=== PATIENT | female | born 1945 | race Caucasian/White ===

== ENCOUNTER 2016-12-10 14:23 | Inpatient (IN) | payer MEDICARE ==
[2016-12-10] MEDS ORDERED: NORMAL SALINE 1000 ML 1,000 ML IV PRN (14:49)
--- NOTE | 2016-12-10 14:49 | ER Document Report ---
ED General - General Chief Complaint: Headache Stated Complaint: WEAK,CONGESTION,HEAD PAIN Time seen by provider: 14:47 Mode of Arrival: Ambulatory Information source: Patient Notes: This is a 71-year-old female with a history of hypertension, COPD who presents to the emergency room with a four-day history of cough, congestion, headache, nausea after eating and generalized weakness. Patient denies any chest pain, fever, photophobia or neck stiffness. TRAVEL OUTSIDE OF THE [place] IN LAST 30 DAYS: No - HPI Onset: Last week Onset/Duration: Gradual Quality of pain: No pain Severity: None Pain Level: Denies Associated symptoms: denies: Chills, Fever Exacerbated by: Denies Relieved by: Denies Similar symptoms previously: No Recently seen / treated by doctor: No - Related Data Allergies/Adverse Reactions: No Known Allergies Allergy (Verified 12/10/16 14:31) Home Medications: Current Home Medications Buspirone HCl [Buspar 30 mg Tablet] 1 tab PO BID 12/10/16 [History] Metoprolol Tartrate [Metoprolol Tartrate] 1 tab PO BID 12/10/16 [History] Omeprazole 40 mg PO TID 12/10/16 [History] Past Medical History - General Information source: Patient - Social History Smoking Status: Former Smoker Cigarette use (# per day): No Chew tobacco use (# tins/day): No Smoking Education Provided: No Frequency of alcohol use: None Drug Abuse: None Lives with: Alone, Family Family History: Reviewed & Not Pertinent Patient has suicidal ideation: No Patient has homicidal ideation: No - Past Medical History Cardiac Medical History: Reports: Hx Hypertension - METOPROLOL, LISINOPRIL Denies: Hx Heart Attack Pulmonary Medical History: Reports: Hx COPD Denies: Hx Asthma Neurological Medical History: Denies: Hx Cerebrovascular Accident, Hx Seizures Renal/ Medical History: Denies: Hx Peritoneal Dialysis GI Medical History: Denies: Hx Hepatitis, Hx Hiatal Hernia, Hx Ulcer Infectious Medical History: Denies: Hx Hepatitis Past Surgical History: Reports: Hx Appendectomy, Hx Orthopedic Surgery - right shoulder. Denies: Hx Mastectomy, Hx Open Heart Surgery, Hx Pacemaker Review of Systems - Review of Systems Notes: Review of systems: Constitutional: See H&P. EENT: Denies ear pain, sinus tenderness, throat pain, throat swelling. Cardiovascular: Denies chest pain, palpitations, dyspnea or edema. Respiratory: Denies wheezing, cough, hemoptysis. Abdomen: Positive for nausea. Denies abdominal pain, vomiting, diarrhea. Denies BRBPR or melena. Genitourinary: Denies dysuria, pyuria, hematuria, flank pain. Musculoskeletal: denies joint pain or swelling, denies back pain. Neurologic: Positive for headache and generalized weakness. Denies photophobia , neck stiffness, focal arm or leg weakness. Denies loss of bowel or bladder function. Denies saddle anesthesia. Skin: Denies rash, lesions. Physical Exam - Vital signs Vitals: Temp Pulse Resp BP Pulse Ox 97.7 F 99 20 146/91 H 96 12/10/16 14:30 12/10/16 14:30 12/10/16 14:30 12/10/16 14:30 12/10/16 14:30 Notes: Physical exam: GENERAL: 71-year-old female, alert and oriented 3, no acute distress. HEAD: Atraumatic, normocephalic. EYES: Pupils equal round and reactive to light, extraocular movements intact, sclera anicteric, conjunctiva are normal. ENT: TMs normal, nares patent, oropharynx clear without exudates. Moist mucous membranes. NECK: Normal range of motion, supple without lymphadenopathy or JVD. LUNGS: Breath sounds clear to auscultation bilaterally and equal. No wheezes rales or rhonchi. HEART: Regular rate and rhythm without murmurs, rubs or gallops. ABDOMEN: Soft, normoactive bowel sounds. No tenderness to palpation. No guarding, no rebound. No masses appreciated. EXTREMITIES: Normal range of motion, no pitting or edema. No clubbing or cyanosis. NEUROLOGICAL: Cranial nerves II through XII grossly intact. Normal speech, normal gait. PSYCH: Normal mood, normal affect. SKIN: Warm, Dry, normal turgor, no rashes or lesions noted. Course - Re-evaluation Re-evalutation: 12/10/16 15:54 Note: Patient was initially written for IV normal saline before the sodium result returned. She is significantly hyponatremic. Clinically, she appears euvolemic. Serum osmole's, urine sodium and thyroid studies of been sent. They are pending at this time. Currently, we will treat with fluid restriction. We're awaiting [place] for pharmacy list. 12/10/16 16:40 Note: Patient has been difficulty time making urine. She is probably on the dry side. I will give her a 500 mL bolus of Ringer's lactate over a few hours. - Vital Signs Vital signs: Temp Pulse Resp BP Pulse Ox 98.0 F 99 18 190/105 H 97 12/10/16 17:03 12/10/16 14:30 12/10/16 17:03 12/10/16 17:03 12/10/16 17:03 - Laboratory Result Diagrams: 12/10/16 15:05 12/10/16 15:05 Laboratory results interpreted by me: 12/10/16 12/10/16 12/10/16 15:05 15:05 15:05 Seg Neutrophils % 78.7 H Lymphocytes % 11.7 L Sodium 121.0 L Chloride 85 L Glucose 128 H Serum Osmolality 249 L Urine Protein Urine Blood Urine Urobilinogen Ur Leukocyte Esterase 12/10/16 16:13 Seg Neutrophils % Lymphocytes % Sodium Chloride Glucose Serum Osmolality Urine Protein 30 H Urine Blood SMALL H Urine Urobilinogen 2.0 H Ur Leukocyte Esterase LARGE H - Diagnostic Test Radiology reviewed: Image reviewed, Reports reviewed - c/w COPD - EKG Interpretation by Me Rate: Normal Rhythm: NSR - EKG shows normal sinus rhythm with a ventricular rate of 76, no acute ST-T wave changes. Critical Care Note - Critical Care Note Total time excluding time spent on procedures (mins): 60 Discharge - Discharge Clinical Impression: severe hyponatremia Condition: Serious Disposition: ADMITTED INPATIENT Admitting Provider: Hospitalist - Dr. Andrade Unit Admitted: Telemetry
[2016-12-10 15:23] LABS: ABSOLUTE EOSINOPHILS # (AUTO) 0.1 10^3/uL (0.0-0.6); ABSOLUTE LYMPHOCYTES (AUTO) 0.6 10^3/uL (0.5-4.7); ABSOLUTE MONOCYTES (AUTO) 0.4 10^3/uL (0.1-1.4); ABSOLUTE NEUT (AUTO) 4.1 10^3/uL (1.7-8.2); BASOPHILS % (AUTO) 0.2 % (0-2); EOSINOPHILS % (AUTO) 1.2 % (0-6); HEMATOCRIT 41.9 % (36.0-47.0); HEMOGLOBIN 14.8 g/dL (12.0-15.5); HGB HCT DIFFERENCE 2.5; LYMPHOCYTES % (AUTO) 11.7 % (13-45); MEAN CORPUSCULAR HEMOGLOBIN 30.6 pg (27.0-33.4); MEAN CORPUSCULAR HGB CONC 35.2 g/dL (32.0-36.0); MEAN CORPUSCULAR VOLUME 87 fl (80-97); MONOCYTES % (AUTO) 8.2 % (3-13); RED BLOOD COUNT 4.82 10^6/uL (3.72-5.28); RED CELL DISTRIBUTION WIDTH 13.3 % (11.5-14.0); SEGMENTED NEUTROPHILS % (AUTO) 78.7 % (42-78); WHITE BLOOD COUNT 5.2 10^3/uL (4.0-10.5)
[2016-12-10 15:38] LABS: ALANINE AMINOTRANSFERASE 26 U/L (9-52); ALBUMIN 4.3 g/dL (3.5-5.0); ALKALINE PHOSPHATASE 82 U/L (38-126); ANION GAP 9 (5-19); ASPARTATE AMINO TRANSFERASE 21 U/L (14-36); BILIRUBIN,DIRECT 0.2 mg/dL (0.0-0.4); BILIRUBIN,TOTAL 0.7 mg/dL (0.2-1.3); BLOOD UREA NITROGEN 9 mg/dL (7-20); CALCIUM 9.4 mg/dL (8.4-10.2); CARBON DIOXIDE 27 mmol/L (22-30); CHLORIDE 85 mmol/L (98-107); CREATININE RESULT 0.68 mg/dL (0.52-1.25); GLUCOSE 128 mg/dL (75-110); POTASSIUM 3.7 mmol/L (3.6-5.0); TOTAL PROTEIN 7.1 g/dL (6.3-8.2)
[2016-12-10 16:32] LABS: FREE T3 4.77 pg/mL (2.77-5.27)
[2016-12-10 16:33] LABS: APPEARANCE,URINE CLOUDY; BILIRUBIN,URINE NEGATIVE (NEGATIVE); GLUCOSE, URINE NEGATIVE (NEGATIVE); KETONES,URINE NEGATIVE (NEGATIVE); LEUKOCYTE ESTERASE,URINE LARGE (NEGATIVE); NITRITE,URINE NEGATIVE (NEGATIVE); PROTEIN,URINE 30 mg/dL (NEGATIVE); URINE SPECIFIC GRAVITY 1.015
[2016-12-10] MEDS ORDERED: RINGERS SOLUTION,LACTATED 500 ML IV ONE (16:39)
[2016-12-10 16:45] LABS: THYROID STIMULATING HORMONE 2.11 uIU/mL (0.47-4.68)
[2016-12-10] MEDS ORDERED: ONDANSETRON HCL INJ/PF 4 MG/2 ML SDV IV PRN (17:46)
--- NOTE | 2016-12-10 18:01 | PDOC H&P ---
History of Present Illness Admission Date/PCP: 12/10/16 16:51 CARI RUIBO MD Patient complains of: Nausea and generalized weakness History of Present Illness: HAILEE VARELA is a 71 year old female, with history of COPD as well as hypertension presents to the hospital with four-day history of nausea with associated lightheadedness and dizziness intermittently and mild headache. Patient reports that at times on standing up she will feel dizzy. There is associated urinary urgency and frequency and lower abdominal cramping. Subsequently dismissed was followed by generalized weakness. No chills or fever. No vomiting. No reported confusion or alteration in mental status. No syncopal episode. The patient was able to be convinced by family member to come to the hospital. In the emergency room serum sodium is 121 and the patient was therefore referred for admission. She had prior hyponatremia in the past to as low as 123, she was on NORMA inhibitor for hypertension at that time but unsure whether she is still taking the medication. Past Medical History Cardiac Medical History: Reports: Hypertension - METOPROLOL, LISINOPRIL Denies: Myocardial Infarction Pulmonary Medical History: Reports: Chronic Obstructive Pulmonary Disease (COPD) Denies: Asthma Neurological Medical History: Denies: Seizures GI Medical History: Denies: Hepatitis, Hiatal Hernia Hematology: Denies: Anemia, Sickle Cell Disease Past Surgical History Past Surgical History: Reports: Appendectomy, Orthopedic Surgery - right shoulder, Other - Cataract surgery Denies: Amputation, Mastectomy, Pacemaker Social History Information Source: Patient Lives with: Alone, Family Smoking Status: Former Smoker Frequency of Alcohol Use: None Hx Recreational Drug Use: No Drugs: None Family History Family History: COPD Parental Family History Reviewed: Yes Children Family History Reviewed: Yes Sibling(s) Family History Reviewed.: Yes Medication/Allergy Home Medications: Gabapentin [Neurontin 300 mg Capsule] 300 mg PO BID 09/15/13 Buspirone HCl [Buspar 30 mg Tablet] 1 tab PO BID 12/10/16 Metoprolol Tartrate [Metoprolol Tartrate] 1 tab PO BID 12/10/16 Omeprazole 40 mg PO TID 12/10/16 Allergies/Adverse Reactions: No Known Allergies Allergy (Verified 12/10/16 14:31) Review of Systems Constitutional: PRESENT: headache(s). ABSENT: anorexia, chills, fatigue, fever( s), night sweats, weight gain, weight loss Eyes: ABSENT: visual disturbances Ears: ABSENT: hearing changes Nose, Mouth, and Throat: ABSENT: sore throat Cardiovascular: ABSENT: chest pain, dyspnea on exertion, edema, orthropnea, palpitations Respiratory: PRESENT: cough - Occasional. ABSENT: hemoptysis, sputum Gastrointestinal: PRESENT: nausea. ABSENT: abdominal pain, coffee ground emesis , constipation, diarrhea, heartburn, hematemesis, hematochezia, melena, vomiting Genitourinary: ABSENT: difficulty urinating, dysuria, hematuria Musculoskeletal: ABSENT: joint swelling Integumentary: ABSENT: pruritus, rash, wounds Neurological: PRESENT: dizziness. ABSENT: abnormal gait, abnormal speech, confusion, focal weakness, syncope Psychiatric: ABSENT: anxiety, depression, homidical ideation, suicidal ideation Endocrine: ABSENT: cold intolerance, heat intolerance, polydipsia, polyuria Hematologic/Lymphatic: ABSENT: easy bleeding, easy bruising Physical Exam Vital Signs: Temp Pulse Resp BP Pulse Ox 97.5 F 80 18 188/88 H 99 12/10/16 17:46 12/10/16 17:49 12/10/16 17:46 12/10/16 17:49 12/10/16 17:46 Intake & Output 12/09/16 12/10/16 12/11/16 06:59 06:59 06:59 Weight 58.8 kg General appearance: PRESENT: no acute distress, cooperative, thin Head exam: PRESENT: atraumatic, normocephalic Eye exam: PRESENT: conjunctiva pink, EOMI, PERRLA. ABSENT: scleral icterus Ear exam: PRESENT: normal external ear exam Mouth exam: PRESENT: dry mucosa, neck supple, tongue midline Neck exam: ABSENT: carotid bruit, JVD, lymphadenopathy, thyromegaly Respiratory exam: PRESENT: clear to auscultation tim. ABSENT: rales, rhonchi, wheezes Cardiovascular exam: PRESENT: RRR. ABSENT: diastolic murmur, gallop, rubs, systolic murmur Pulses: PRESENT: normal dorsalis pedis pul Vascular exam: PRESENT: normal capillary refill GI/Abdominal exam: PRESENT: normal bowel sounds, soft, tenderness - Minimal on the hypogastric area. ABSENT: distended, guarding, mass, organolmegaly, rebound Rectal exam: PRESENT: deferred Extremities exam: PRESENT: full ROM. ABSENT: calf tenderness, clubbing, pedal edema Neurological exam: PRESENT: alert, awake, oriented to person, oriented to place , oriented to time, oriented to situation Psychiatric exam: PRESENT: appropriate affect, normal mood. ABSENT: homicidal ideation, suicidal ideation Skin exam: PRESENT: dry, intact, warm. ABSENT: cyanosis, rash Results Impressions: Chest X-Ray 12/10/16 14:49 IMPRESSION: COPD. NO ACUTE RADIOGRAPHIC FINDING IN THE CHEST. Assessment & Plan - Diagnosis (1) Hyponatremia Is this a current diagnosis for this admission?: Yes (2) Urinary tract infection Qualifiers: Urinary tract infection type: acute cystitis Hematuria presence: without hematuria Qualified Code(s): N30.00 - Acute cystitis without hematuria Is this a current diagnosis for this admission?: Yes (3) Hyperglycemia Is this a current diagnosis for this admission?: Yes (4) Essential hypertension Is this a current diagnosis for this admission?: Yes (5) COPD (chronic obstructive pulmonary disease) Qualifiers: COPD type: unspecified COPD Qualified Code(s): J44.9 - Chronic obstructive pulmonary disease, unspecified Is this a current diagnosis for this admission?: Yes - Time Time Spent: 30 to 50 Minutes - Inpatient Certification Based on my medical assessment, after consideration of the patient's comorbidities, presenting symptoms, or acuity I expect that the services needed warrant INPATIENT care.: Yes I certify that my determination is in accordance with my understanding of Medicare's requirements for reasonable and necessary INPATIENT services [42 CFR 412.3e].: Yes Medical Necessity: Need Close Monitoring Due to Risk of Patient Decompensation, Need For IV Fluids, Need For Continuous Telemetry Monitoring Post Hospital Care: D/C Sales Representative [employer] Documentation - Plan Summary Plan Summary: The patient will be admitted to telemetry. We will hydrate the patient with normal saline. I will continue the patient's metoprolol, culture her urine, begin intravenous antibiotic with ceftriaxone. We will obtain a thyroid function test, hemoglobin A1c, and monitor serum sodium. We will obtain medications from her pharmacist. DVT prophylaxis with Lovenox will be placed. Further testing depends on initial evaluation as outlined above.
[2016-12-10] MEDS: DOCUSATE SODIUM 100 MG CAPSULE PO SCH (19:43)
[2016-12-10] MEDS: GABAPENTIN 300 MG CAPSULE PO SCH (19:43)
[2016-12-10] MEDS: NORMAL SALINE 1000 ML 1,000 ML IV PRN (19:44)
[2016-12-10] MEDS: ACETAMINOPHEN 325 MG TABLET PO PRN (19:44)
[2016-12-10] MEDS ORDERED: CEFTRIAXONE 1 GM/D5W RTU 1 GM/50 ML RTUPB IV SCH ×2 (20:00→22:00)
--- NOTE | 2016-12-10 20:45 | EKG REPORT ---
SEVERITY:- NORMAL ECG - SINUS RHYTHM : Confirmed by: Carmelo Fernandez 10-Dec-2016 20:44:52
[2016-12-11] MEDS: NORMAL SALINE 1000 ML 1,000 ML IV PRN (04:23)
[2016-12-11] MEDS: ACETAMINOPHEN 325 MG TABLET PO PRN (04:29)
[2016-12-11] MEDS ORDERED: LANSOPRAZOLE 30 MG TAB.RAP.DR PO SCH (06:00)
[2016-12-11 07:51] LABS: ANION GAP 7 (5-19); BLOOD UREA NITROGEN 5 mg/dL (7-20); CALCIUM 8.9 mg/dL (8.4-10.2); CARBON DIOXIDE 27 mmol/L (22-30); CHLORIDE 97 mmol/L (98-107); CREATININE RESULT 0.62 mg/dL (0.52-1.25); GLUCOSE 91 mg/dL (75-110); POTASSIUM 3.6 mmol/L (3.6-5.0); SODIUM 130.9 mmol/L (137-145)
[2016-12-11] MEDS ORDERED: ENOXAPARIN SODIUM INJ 40 MG/0.4 ML DISP.SYRIN SUBCUT SCH (08:00)
[2016-12-11] MEDS: GABAPENTIN 300 MG CAPSULE PO SCH (09:22)
[2016-12-11] MEDS: DOCUSATE SODIUM 100 MG CAPSULE PO SCH (09:22)
[2016-12-11] MEDS ORDERED: METOPROLOL TARTRATE 100 MG TABLET PO SCH (10:00)
[2016-12-11] MEDS ORDERED: ALPRAZOLAM 0.25 MG TABLET PO PRN (11:12)
--- NOTE | 2016-12-11 11:43 | PDOC DISCHARGE SUMMARY ---
General - Admit/Disc Date/PCP Admission Date/Primary Care Provider: 12/10/16 16:51 CARI RUBIO MD Discharge Date: 12/11/16 - Discharge Diagnosis (1) Hyponatremia Is this a current diagnosis for this admission?: Yes (2) Urinary tract infection Is this a current diagnosis for this admission?: Yes (3) Hyperglycemia Is this a current diagnosis for this admission?: Yes (4) Essential hypertension Is this a current diagnosis for this admission?: Yes (5) COPD (chronic obstructive pulmonary disease) Is this a current diagnosis for this admission?: Yes - Additional Information Discharge Diet: Cardiac Discharge Activity: Activity As Tolerated, Balance Activity w/Rest Home Medications: Gabapentin [Neurontin 300 mg Capsule] 300 mg PO BID 09/15/13 Buspirone HCl [Buspar 30 mg Tablet] 1 tab PO BID 12/10/16 Metoprolol Tartrate 100 mg PO BID 12/10/16 Omeprazole 40 mg PO DAILY 12/10/16 Alprazolam [Xanax 0.25 mg Tablet] 0.25 mg PO TIDP PRN 12/11/16 Amlodipine Besylate [Norvasc 5 mg Tablet] 5 mg PO NOON #30 tablet 12/11/16 Budesonide/Formoterol Fumarate [Symbicort HFA 160-4.5 mcg Inhaler 6 gm] 2 puff IH BID 12/11/16 Fluticasone Propionate [Flonase Nasal [place] 50 Mcg/[place] 16 gm] 2 spray NASL DAILY 12/11/16 Sulfamethoxazole/Trimethoprim [Bactrim Ds Tablet] 1 each PO BID #6 tablet Additional Information: 1. Repeat basic metabolic panel as outpatient with primary care physician in 5 days. 2. Workup of hyponatremia as outpatient with Dr. Bernard/nephrology service History of Present Illness Patient complains of: Generalized weakness History of Present Illness: HAILEE VARELA is a 71 year old female, with history of COPD as well as hypertension presents to the hospital with four-day history of nausea with associated lightheadedness and dizziness intermittently and mild headache. Patient reports that at times on standing up she will feel dizzy. There is associated urinary urgency and frequency and lower abdominal cramping. Subsequently dismissed was followed by generalized weakness. No chills or fever. No vomiting. No reported confusion or alteration in mental status. No syncopal episode. The patient was able to be convinced by family member to come to the hospital. In the emergency room serum sodium is 121 and the patient was therefore referred for admission. She had prior hyponatremia in the past to as low as 123, she was on NORMA inhibitor for hypertension at that time but unsure whether she is still taking the medication. Hospital Course Hospital Course: The patient was admitted to telemetry floor. The patient was hydrated with normal saline. Medications were all reviewed. In the past the patient was on NORMA inhibitor but she stated that she is not taking it anymore. She is on beta dottie for hypertension. She was noted abnormal urinalysis with symptoms likely urinary tract infection. She was begun on ceftriaxone. The following morning she significantly improved and wants to go home and continue workup on an outpatient basis. Serum sodium increased to 130. Generalized weakness was all. Lightheadedness likewise resolved. She was scheduled with Dr. Bernard for outpatient workup of hyponatremia. The rest of the hospital stay was unremarkable. Physical Exam Vital Signs: Temp Pulse Resp BP Pulse Ox 97.5 F 80 18 190/85 H 94 12/11/16 09:00 12/11/16 09:00 12/11/16 09:00 12/11/16 09:00 12/11/16 09:00 Intake & Output 12/10/16 12/11/16 12/12/16 06:59 06:59 06:59 Intake Total 2198 Output Total 2 Balance 2196 Weight 60.1 kg General appearance: PRESENT: no acute distress, cooperative Head exam: PRESENT: normocephalic Eye exam: PRESENT: EOMI Mouth exam: PRESENT: moist, neck supple Neck exam: ABSENT: JVD Respiratory exam: PRESENT: clear to auscultation tim. ABSENT: rhonchi, wheezes Cardiovascular exam: PRESENT: RRR. ABSENT: gallop GI/Abdominal exam: PRESENT: normal bowel sounds, soft. ABSENT: distended, tenderness Extremities exam: ABSENT: pedal edema Neurological exam: PRESENT: alert, awake, oriented to person, oriented to place , oriented to time, oriented to situation Skin exam: PRESENT: dry, warm. ABSENT: cyanosis Results Laboratory Results: 12/11/16 07:15 12/11/16 07:15 Sodium 130.9 L Potassium 3.6 Chloride 97 L Carbon Dioxide 27 Anion Gap 7 BUN 5 L Creatinine 0.62 Est GFR ( Amer) > 60 Est GFR (Non-Af Amer) > 60 Glucose 91 Calcium 8.9 Impressions: Chest X-Ray 12/10/16 14:49 IMPRESSION: COPD. NO ACUTE RADIOGRAPHIC FINDING IN THE CHEST. Qualifiers PATEINT BEING DISCHARGED WITH ANY OF THE FOLLOWING DIAGNOSIS?: No Plan Discharge Plan: Follow-up with primary care physician in 5 days. Follow-up with nephrology, Dr. Bernard in 1 week. Time Spent: Less than 30 Minutes
[2016-12-11] MEDS ORDERED: AMLODIPINE BESYLATE 5 MG TABLET PO SCH (12:00)
[2016-12-11 13:27] VITALS: BP 169/78
[2016-12-11] MEDS ORDERED: BUDESONIDE/FORMOTEROL 160-4.5 MCG 60 PUFF/6 GM MDI IH SCH (18:00)
== END 2016-12-11 13:42 | disposition home or self-care (01) | DRG 641 ==
LOC: ER 14:23 → EH 16:51 → 4N 17:36
DX: E87.1 Hypo-osmolality and hyponatremia (principal); N30.00 Acute cystitis without hematuria; I10 Essential (primary) hypertension; R73.9 Hyperglycemia, unspecified; J44.9 Chronic obstructive pulmonary disease, unspecified; R51 Headache; R11.0 Nausea; B95.7 Other staphylococcus as the cause of diseases classified elsewhere; Z87.891 Personal history of nicotine dependence
CPT/HCPCS: 36415; 71020; 80048; 80053; 81001; 83036; 83930; 84439; 84443; 84481; 85025; 87086; 93005; 93010; 99291; J0696; J1650; J3490; J7030

== ENCOUNTER → 2017-01-13 | Outpatient (CLI) | payer MEDICARE ==
[2017-01-13 10:10] LABS: ABSOLUTE EOSINOPHILS # (AUTO) 0.2 10^3/uL (0.0-0.6); ABSOLUTE MONOCYTES (AUTO) 0.5 10^3/uL (0.1-1.4); ABSOLUTE NEUT (AUTO) 4.3 10^3/uL (1.7-8.2); BASOPHILS % (AUTO) 0.6 % (0-2); HEMATOCRIT 41.2 % (36.0-47.0); HEMOGLOBIN 14.1 g/dL (12.0-15.5); HGB HCT DIFFERENCE 1.1; LYMPHOCYTES % (AUTO) 15.8 % (13-45); MEAN CORPUSCULAR HEMOGLOBIN 31.3 pg (27.0-33.4); MEAN CORPUSCULAR HGB CONC 34.2 g/dL (32.0-36.0); MEAN CORPUSCULAR VOLUME 92 fl (80-97); MONOCYTES % (AUTO) 8.6 % (3-13); RED CELL DISTRIBUTION WIDTH 13.6 % (11.5-14.0)
[2017-01-13 10:23] LABS: ALANINE AMINOTRANSFERASE 31 U/L (9-52); ALBUMIN 4.2 g/dL (3.5-5.0); ALKALINE PHOSPHATASE 95 U/L (38-126); ANION GAP 10 (5-19); ASPARTATE AMINO TRANSFERASE 22 U/L (14-36); BILIRUBIN,DIRECT 0.3 mg/dL (0.0-0.4); BILIRUBIN,TOTAL 0.6 mg/dL (0.2-1.3); BLOOD UREA NITROGEN 8 mg/dL (7-20); CALCIUM 9.5 mg/dL (8.4-10.2); CARBON DIOXIDE 28 mmol/L (22-30); CHLORIDE 95 mmol/L (98-107); CREATININE RESULT 0.69 mg/dL (0.52-1.25); GLUCOSE 104 mg/dL (75-110); POTASSIUM 3.6 mmol/L (3.6-5.0); SODIUM 133.4 mmol/L (137-145); TOTAL PROTEIN 7.1 g/dL (6.3-8.2)
== END ==
LOC: LAB 09:53
PROVIDERS: ATTEND Internal Medicine Nephrology
DX: I10 Essential (primary) hypertension (principal); E87.0 Hyperosmolality and hypernatremia
CPT/HCPCS: 36415; 80053; 83930; 84443; 85025

== ENCOUNTER → 2017-01-19 | Outpatient (CLI) | payer MEDICARE ==
[2017-01-19 09:58] LABS: APPEARANCE,URINE SLIGHTLY-CLOUDY; BILIRUBIN,URINE NEGATIVE (NEGATIVE); GLUCOSE, URINE NEGATIVE (NEGATIVE); KETONES,URINE NEGATIVE (NEGATIVE); LEUKOCYTE ESTERASE,URINE LARGE (NEGATIVE); NITRITE,URINE NEGATIVE (NEGATIVE); PROTEIN,URINE NEGATIVE (NEGATIVE)
[2017-01-19 10:38] LABS: ANION GAP 9 (5-19); BLOOD UREA NITROGEN 12 mg/dL (7-20); CALCIUM 9.5 mg/dL (8.4-10.2); CARBON DIOXIDE 29 mmol/L (22-30); CHLORIDE 100 mmol/L (98-107); GLUCOSE 88 mg/dL (75-110); POTASSIUM 4.1 mmol/L (3.6-5.0); SODIUM 138.1 mmol/L (137-145)
== END ==
LOC: LAB 09:34
PROVIDERS: ATTEND Internal Medicine Nephrology
DX: E87.0 Hyperosmolality and hypernatremia (principal); I10 Essential (primary) hypertension
CPT/HCPCS: 36415; 80048; 81001; 83935; 84300

== ENCOUNTER 2017-03-11 14:24 | Emergency (ER) | payer MEDICARE ==
[2017-03-11] MEDS ORDERED: NORMAL SALINE 500 ML IV PRN (14:47)
[2017-03-11 15:16] LABS: ABSOLUTE EOSINOPHILS # (AUTO) 0.3 10^3/uL (0.0-0.6); ABSOLUTE LYMPHOCYTES (AUTO) 0.7 10^3/uL (0.5-4.7); ABSOLUTE MONOCYTES (AUTO) 0.6 10^3/uL (0.1-1.4); ABSOLUTE NEUT (AUTO) 7.6 10^3/uL (1.7-8.2); BASOPHILS % (AUTO) 0.5 % (0-2); EOSINOPHILS % (AUTO) 2.8 % (0-6); HEMATOCRIT 46.5 % (36.0-47.0); HEMOGLOBIN 15.4 g/dL (12.0-15.5); HGB HCT DIFFERENCE -0.3; LYMPHOCYTES % (AUTO) 7.4 % (13-45); MEAN CORPUSCULAR HEMOGLOBIN 30.3 pg (27.0-33.4); MEAN CORPUSCULAR HGB CONC 33.2 g/dL (32.0-36.0); MEAN CORPUSCULAR VOLUME 91 fl (80-97); MONOCYTES % (AUTO) 6.1 % (3-13); RED BLOOD COUNT 5.09 10^6/uL (3.72-5.28); RED CELL DISTRIBUTION WIDTH 13.3 % (11.5-14.0); SEGMENTED NEUTROPHILS % (AUTO) 83.2 % (42-78); WHITE BLOOD COUNT 9.2 10^3/uL (4.0-10.5)
--- NOTE | 2017-03-11 15:26 | ER Document Report ---
ED General - General Mode of Arrival: Ambulatory Information source: Patient TRAVEL OUTSIDE OF THE [place] IN LAST 30 DAYS: No - HPI Onset: Other - Refer to HPI notes Associated symptoms: Nausea <MILAGROS SENA - Last Filed: 03/11/17 18:27> <BRAD BANEGAS - Last Filed: 03/11/17 22:31> - General Chief Complaint: Decreased Appetite Stated Complaint: WEAKNESS,DIZZINESS Time Seen by Provider: 03/11/17 14:47 Notes: Patient is a 71-year old female presenting to the emergency department for some nausea, lightheaded, and weakness. Patient states her symptoms were onset for a few days. Patient also complains of some lack of appetite and states she has only been drinking Dr. Hansen. Patient also complains of some correa in her left leg specifically underneath her knee. 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 Prescott is following this case; patient states Dr. Prescott recommends surgery eventually for this. Patient also has some chronic shortness of breath and cough due to her smoking history. Patient uses a nebulizer x2 per day. Patient denies any fevers, dysuria, or chest pain. Patient is not on any bloodthinners but takes a daily Aspirin. (MILAGROS SENA) - Related Data Allergies/Adverse Reactions: No Known Allergies Allergy (Verified 03/11/17 14:26) Past Medical History - General Information source: Patient - Social History Smoking Status: Former Smoker Cigarette use (# per day): No Chew tobacco use (# tins/day): No Frequency of alcohol use: None Drug Abuse: None Family History: COPD Patient has suicidal ideation: No Patient has homicidal ideation: No - Past Medical History Cardiac Medical History: Reports: Hx Hypertension - METOPROLOL, LISINOPRIL Pulmonary Medical History: Reports: Hx COPD Past Surgical History: Reports: Hx Appendectomy, Hx Orthopedic Surgery - right shoulder, Other - Cataract surgery - Immunizations Hx Pneumococcal Vaccination: 11/02/16 <MILAGROS SENA - Last Filed: 03/11/17 18:27> Review of Systems - Review of Systems Constitutional: See HPI, Weakness EENT: No symptoms reported Cardiovascular: See HPI, Lightheaded Respiratory: No symptoms reported Gastrointestinal: See HPI, Nausea Genitourinary: No symptoms reported Female Genitourinary: No symptoms reported Musculoskeletal: See HPI Skin: No symptoms reported Hematologic/Lymphatic: No symptoms reported Neurological/Psychological: See HPI, Weakness, Tingling -: Yes All other systems reviewed and negative <MILAGROS SENA - Last Filed: 03/11/17 18:27> Physical Exam - Vital signs Interpretation: Normal <MILAGROS SENA - Last Filed: 03/11/17 18:27> <BRAD BANEGAS - Last Filed: 03/11/17 22:31> - Vital signs Vitals: Temp Pulse Resp BP Pulse Ox 98.3 F 144 H 26 H 141/91 H 95 03/11/17 14:26 03/11/17 14:26 03/11/17 14:26 03/11/17 14:26 03/11/17 14:26 - Notes Notes: GENERAL: Alert, interacts well. No acute distress. HEAD: Normocephalic, atraumatic. EYES: Appear normal. Pupils equal, round, and reactive to light. ENT: Moist mucus membranes, tongue midline. NECK: Full range of motion. Supple. Trachea midline. LUNGS: Clear to auscultation bilaterally, no wheezes, rales, or rhonchi. No respiratory distress. HEART: Regular rate and rhythm. No murmurs, gallops, or rubs. ABDOMEN: Soft, non-tender. Non-distended. Normal bowel sounds. EXTREMITIES: Moves all 4 extremities spontaneously. Tenderness to palpation over the left lower extremity. Normal strength. No edema. NEUROLOGICAL: Alert and oriented x3. Normal speech. No focal neurological deficits. GSC 15. PSYCH: Normal affect, normal mood. SKIN: Warm, dry, normal turgor. No rashes or lesions noted. (MILAGROS SENA) Course - Laboratory Result Diagrams: 03/11/17 14:56 03/11/17 14:56 <MILAGROS SENA - Last Filed: 03/11/17 18:27> - Laboratory Result Diagrams: 03/11/17 14:56 03/11/17 14:56 - Diagnostic Test Radiology reviewed: Reports reviewed - EKG Interpretation by Ar EKG shows normal: Sinus rhythm Rate: Normal Rhythm: NSR - similar to old <BRAD BANEGAS - Last Filed: 03/11/17 22:31> - Re-evaluation Re-evalutation: 03/11/17 19:53 Presents with tachycardia and weakness. Patient has had decreased p.o. intake because she is not felt like eating or drinking. Patient has been fluid resuscitated and is able to take p.o. here. Patient has leg pain which is chronic for her. She is supposed to see a vascular surgeon. Patient has good pulses distally bilaterally. No evidence for acute arterial injury today. No acute changes on EKG. Blood work within normal limits otherwise. Patient states that she feels better and is requesting to go home. States that she would like some aspirin for a slight headache she has developed. Stable for discharge. She is to follow-up with her doctor this week. Understands and agrees with plan. (BRAD BANEGAS) - Vital Signs Vital signs: Temp Pulse Resp BP Pulse Ox 98 F 144 H 23 H 179/95 H 97 03/11/17 19:45 03/11/17 14:26 03/11/17 19:45 03/11/17 19:45 03/11/17 19:45 - Laboratory Laboratory results interpreted by me: 03/11/17 03/11/17 03/11/17 14:56 14:56 15:40 Seg Neutrophils % 83.2 H Lymphocytes % 7.4 L Glucose 135 H Urine Blood SMALL H Discharge <MILAGROS SENA - Last Filed: 03/11/17 18:27> <BRAD BANEGAS - Last Filed: 03/11/17 22:31> - Discharge Clinical Impression: Dizziness, Dehydration Leg pain Qualifiers: Laterality: left Qualified Code(s): M79.605 - Pain in left leg Condition: Stable Disposition: HOME, SELF-CARE Instructions: Dizziness ([facility]), Dehydration ([facility]) Additional Instructions: Please follow-up with the vascular doctor as you are instructed by her primary care doctor. Please return if you have any worsening or concerning symptoms. Please make sure you are drinking enough fluids at home. Referrals: CARI PRESCOTT MD [Primary Care Provider] - Follow up tomorrow Scribe Attestation: 03/11/17 22:31 I personally performed the services described in the documentation, reviewed and edited the documentation which was dictated to the scribe in my presence, and it accurately records my words and actions. (BRAD BANEGAS) Scribe Documentation - Scribe Written by Scribe:: Leticia Stewart,03/11/2017 17:55 acting as scribe for :: Henrry <MILAGROS SENA - Last Filed: 03/11/17 18:27>
[2017-03-11 15:37] LABS: ALANINE AMINOTRANSFERASE 24 U/L (9-52); ALBUMIN 4.4 g/dL (3.5-5.0); ALKALINE PHOSPHATASE 117 U/L (38-126); ANION GAP 12 (5-19); ASPARTATE AMINO TRANSFERASE 20 U/L (14-36); BILIRUBIN,DIRECT 0.4 mg/dL (0.0-0.4); BILIRUBIN,TOTAL 0.8 mg/dL (0.2-1.3); BLOOD UREA NITROGEN 10 mg/dL (7-20); CALCIUM 9.6 mg/dL (8.4-10.2); CARBON DIOXIDE 25 mmol/L (22-30); CHLORIDE 106 mmol/L (98-107); CREATINE KINASE 35 U/L (30-135); CREATININE RESULT 0.76 mg/dL (0.52-1.25); GLUCOSE 135 mg/dL (75-110); POTASSIUM 3.7 mmol/L (3.6-5.0); TOTAL PROTEIN 8.1 g/dL (6.3-8.2)
[2017-03-11 15:48] LABS: CREATINE KINASE MB < 0.22 ng/mL (<4.55); TROPONIN I < 0.012 ng/mL
--- NOTE | 2017-03-11 15:53 | RADIOLOGY REPORT (SQ) ---
EXAM DESCRIPTION: CHEST SINGLE VIEW COMPLETED DATE/TIME: 03/11/2017 3:35 pm REASON FOR STUDY: weakness COMPARISON: December 2016 EXAM PARAMETERS: NUMBER OF VIEWS: One view. TECHNIQUE: Single frontal radiographic view of the chest acquired. RADIATION DOSE: NA LIMITATIONS: None. FINDINGS: LUNGS AND PLEURA: No opacities, masses or pneumothorax. No pleural effusion. Chronic appe aring changes appears stable. I cannot exclude a component of obstructive lung disease. MEDIASTINUM AND HILAR STRUCTURES: No masses. Contour normal. HEART AND VASCULAR STRUCTURES: Heart normal in size. Normal vasculature. BONES: No acute findings. HARDWARE: None in the chest. OTHER: No other significant finding. IMPRESSION: No significant interval change. No acute findings. Other findings as noted above. TECHNICAL DOCUMENTATION: JOB ID: [id number]
--- NOTE | 2017-03-11 16:35 | EKG REPORT ---
SEVERITY:- ABNORMAL ECG - SINUS TACHYCARDIA NONDIAGNOSTIC ST DEPRESSION CLINICAL CORRELATION NEEDED. : Confirmed by: Adam Jung MD 11-Mar-2017 16:35:18
[2017-03-11 17:13] LABS: APPEARANCE,URINE CLEAR; BILIRUBIN,URINE NEGATIVE (NEGATIVE); GLUCOSE, URINE NEGATIVE (NEGATIVE); KETONES,URINE NEGATIVE (NEGATIVE); LEUKOCYTE ESTERASE,URINE NEGATIVE (NEGATIVE); NITRITE,URINE NEGATIVE (NEGATIVE); PROTEIN,URINE NEGATIVE (NEGATIVE); URINE SPECIFIC GRAVITY 1.004; UROBILINOGEN,URINE NEGATIVE mg/dL (<2.0)
--- NOTE | 2017-03-11 17:15 | RADIOLOGY REPORT (SQ) ---
EXAM DESCRIPTION: CT HEAD WITHOUT COMPLETED DATE/TIME: 03/11/2017 4:58 pm REASON FOR STUDY: dizziness COMPARISON: 09/15/2013 TECHNIQUE: Axial images acquired through the brain without intravenous contrast. Images reviewed wi th bone, brain and subdural windows. Images stored on PACS. All CT scanners at this facility use dose modulation, iterative reconstruction, and/or weight based d osing when appropriate to reduce radiation dose to as low as reasonably achievable (ALARA). [facility]: Dose Right [facility]: CareDose [facility]: Dose Right [facility]: Teradose 4D [facility]: [employer] RADIATION DOSE: Up-to-date CT equipment and radiation dose reduction techniques were employed. CTDIv ol: 64.6 mGy. DLP: 1034 mGy-cm. mGy. LIMITATIONS: None. FINDINGS: VENTRICLES: Prominent. CEREBRUM: No masses. No hemorrhage. No midline shift. Areas of low density in the white matter mos t likely due to chronic micro-vascular ischemic change. No evidence for acute infarction. CEREBELLUM: No masses. No hemorrhage. No alteration of density. No evidence for acute infarction. EXTRAAXIAL SPACES: Mild age-related involutional change. No fluid collections. No masses. ORBITS AND GLOBE: No intra- or extraconal masses. Normal contour of globe without masses. CALVARIUM: No fracture. PARANASAL SINUSES: No fluid or mucosal thickening. SOFT TISSUES: No mass or hematoma. OTHER: ATHEROSCLEROTIC VASCULAR CALCIFICATIONS ARE SEEN WITHIN THE CAVERNOUS SEGMENTS OF THE INTERNAL CAROTID ARTERIES IMPRESSION: MILD PROGRESSION CHRONIC CHANGES OF ATROPHY AND MICROVASCULAR ISCHEMIA. NO ACUTE PROCES S. TECHNICAL DOCUMENTATION: JOB ID: [id number] Quality ID # [id number]: Final reports with documentation of one or more dose reduction techniques (e.g., Au tomated exposure control, adjustment of the mA and/or kV according to patient size, use of iterative reconstruction technique) 2010 [employer]- All Rights Reserved
[2017-03-11] MEDS ORDERED: ASPIRIN 81 MG TABLET, CHEWABLE PO ONE (19:00)
[2017-03-11 20:01] VITALS: BP 179/95
== END 2017-03-11 19:45 | disposition home or self-care (01) ==
LOC: ER 14:24
DX: E86.0 Dehydration (principal); R42 Dizziness and giddiness; M79.662 Pain in left lower leg; G89.29 Other chronic pain; R11.0 Nausea; R53.1 Weakness; R63.0 Anorexia; R20.2 Paresthesia of skin; R06.02 Shortness of breath; R00.0 Tachycardia, unspecified; R05 Cough; I10 Essential (primary) hypertension; R51 Headache; J44.9 Chronic obstructive pulmonary disease, unspecified; Z79.82 Long term (current) use of aspirin; Z79.899 Other long term (current) drug therapy; Z87.891 Personal history of nicotine dependence
CPT/HCPCS: 93005; 99284; 96360; 36415; 82553; 82550; 84443; 85025; 80053; 81001; 84484; 71010; 70450; 93010; A9270; J7040

== ENCOUNTER 2017-06-15 10:27 | Inpatient (IN) | payer MEDICARE ==
--- NOTE | 2017-06-15 11:07 | ER Document Report ---
ED General - General Chief Complaint: Back Pain Stated Complaint: BACK PAIN Time Seen by Provider: 06/15/17 10:56 Mode of Arrival: Medic Information source: Patient Notes: This is a 71-year-old female with a history of COPD, hypertension, hyponatremia who presents to the emergency room with significant back pain after a fall at home yesterday. The patient states she tripped and fell onto her back. She states she was unable to get up because of low back pain and she crawled to the couch. She states she has been unable to ambulate and has urinated on herself because she cannot get to the bathroom. She was able to call EMS and was brought into the emergency room. TRAVEL OUTSIDE OF THE [place] IN LAST 30 DAYS: No - HPI Onset: Just prior to arrival Onset/Duration: Sudden Quality of pain: Dull Severity: Moderate Pain Level: 4 Associated symptoms: Shortness of breath. denies: Chest pain, Fever Exacerbated by: Denies Relieved by: Denies Similar symptoms previously: No Recently seen / treated by doctor: No - Related Data Allergies/Adverse Reactions: No Known Allergies Allergy (Verified 03/11/17 14:26) Home Medications: Current Home Medications Alprazolam [Xanax 0.25 mg Tablet] 0.25 mg PO Q8 06/15/17 [History] Budesonide/Formoterol Fumarate [Symbicort 160-4.5 Mcg Inhaler] 2 puff IH Q12 08/20 [History] Carbamazepine [Carbamazepine ER] 300 mg PO Q12 06/15/17 [History] Meclizine HCl [Antivert 25 mg Tablet] 25 mg PO TIDP PRN 06/15/17 [History] Past Medical History - General Information source: Patient - Social History Smoking Status: Never Smoker Cigarette use (# per day): No Chew tobacco use (# tins/day): No Frequency of alcohol use: None Drug Abuse: None Lives with: Family Family History: COPD Patient has suicidal ideation: No Patient has homicidal ideation: No - Past Medical History Cardiac Medical History: Reports: Hx Hypertension - METOPROLOL, LISINOPRIL Denies: Hx Heart Attack Pulmonary Medical History: Reports: Hx COPD Denies: Hx Asthma Neurological Medical History: Denies: Hx Cerebrovascular Accident, Hx Seizures Renal/ Medical History: Denies: Hx Peritoneal Dialysis GI Medical History: Denies: Hx Hepatitis, Hx Hiatal Hernia, Hx Ulcer Infectious Medical History: Denies: Hx Hepatitis Past Surgical History: Reports: Hx Appendectomy, Hx Orthopedic Surgery - right shoulder, Other - Cataract surgery. Denies: Hx Mastectomy, Hx Open Heart Surgery, Hx Pacemaker - Immunizations Hx Pneumococcal Vaccination: 11/02/16 Review of Systems - Review of Systems Constitutional: denies: Chills, Fever EENT: No symptoms reported Cardiovascular: See HPI Respiratory: See HPI Gastrointestinal: No symptoms reported Genitourinary: No symptoms reported Female Genitourinary: No symptoms reported Musculoskeletal: See HPI Skin: No symptoms reported Hematologic/Lymphatic: No symptoms reported Neurological/Psychological: No symptoms reported Physical Exam - Vital signs Vitals: Temp Pulse Resp BP Pulse Ox 98.2 F 105 H 16 150/90 H 97 06/15/17 10:35 06/15/17 10:35 06/15/17 10:35 06/15/17 10:35 06/15/17 10:35 Notes: Physical exam: GENERAL: 71-year-old female, alert and oriented 3, wheezing on exam HEAD: Atraumatic, normocephalic. EYES: Pupils equal round and reactive to light, extraocular movements intact, sclera anicteric, conjunctiva are normal. ENT: TMs normal, nares patent, oropharynx clear without exudates. Moist mucous membranes. NECK: Normal range of motion, supple without obvious mass or JVD. LUNGS: Breath sounds clear to auscultation bilaterally and equal. No wheezes rales or rhonchi. HEART: Regular rate and rhythm without murmurs, rubs or gallops. ABDOMEN: Soft, normoactive bowel sounds. No tenderness to palpation. No guarding, no rebound. No masses appreciated. EXTREMITIES: Normal range of motion, no pitting or edema. No clubbing or cyanosis. Patient does have range of motion of both hips without pain. Back: Patient does have spinal tenderness to the thoracic and lumbar region without obvious step-offs. NEUROLOGICAL: Cranial nerves II through XII grossly intact. Normal speech, moving all extremities. PSYCH: Normal mood, normal affect. SKIN: Warm, Dry, normal turgor, no rashes or lesions noted. Course - Re-evaluation Re-evalutation: 06/15/17 14:15 This is a 71-year-old female who lives alone that fell yesterday and was unable to ambulate. She crawled to the couch and was unable to get off the couch and was able to reach EMS and called the phone today. She was obviously incontinent of urine because she could not ambulate to the bathroom. She does have a lot of lumbar tenderness. CT of that region does not show obvious fractures. She does have some osteoporosis. Her hips appear to be intact. She does have motor function and sensory to the lower leg so I do not expect any spinal compromise. However, she has significant ambulatory dysfunction at this time and cannot walk. - Vital Signs Vital signs: Temp Pulse Resp BP Pulse Ox 98.1 F 102 H 18 135/59 H 96 06/15/17 16:57 06/15/17 16:57 06/15/17 16:57 06/15/17 16:57 06/15/17 16:57 - Laboratory Result Diagrams: 06/15/17 12:52 06/15/17 12:52 Laboratory results interpreted by me: 06/15/17 06/15/17 12:35 12:52 Plt Count 108 L Seg Neutrophils % 86.3 H Lymphocytes % 7.5 L Urine Ketones TRACE H - Diagnostic Test Radiology reviewed: Image reviewed, Reports reviewed - CT of the thoracic and lumbar spine shows no obvious fracture. - EKG Interpretation by Me Rate: Normal Rhythm: NSR - EKG shows sinus rhythm with a ventricular rate of 95, no acute ST- T wave change Discharge - Discharge Clinical Impression: Acute ambulatory dysfunction, Status post fall, Acute low back pain, COPD exacerbation Condition: Stable Disposition: ADMITTED INPATIENT Admitting Provider: Hospitalist - Dr. evans Unit Admitted: Medical Floor
[2017-06-15] MEDS ORDERED: IPRATROPIUM/ALBUTEROL 0.5-2.5 MG/3 ML AMPUL NEB ONE (11:09)
--- NOTE | 2017-06-15 11:39 | RADIOLOGY REPORT (SQ) ---
EXAM DESCRIPTION: CHEST SINGLE VIEW COMPLETED DATE/TIME: 06/15/2017 11:19 am REASON FOR STUDY: wheezing COMPARISON: 03/11/2017 EXAM PARAMETERS: NUMBER OF VIEWS: One view. TECHNIQUE: Single frontal radiographic view of the chest acquired. RADIATION DOSE: NA LIMITATIONS: None. FINDINGS: LUNGS AND PLEURA: Chronic interstitial changes are present. There is no acute infiltrate. There may be a minimal left pleural effusion. MEDIASTINUM AND HILAR STRUCTURES: No masses. Contour normal. HEART AND VASCULAR STRUCTURES: Heart normal in size. Normal vasculature. BONES: No acute findings. HARDWARE: None in the chest. OTHER: No other significant finding. IMPRESSION: 1. Chronic lung changes with no acute pulmonary disease. 2. There appears to be a minimal left pleural effusion. TECHNICAL DOCUMENTATION: JOB ID: [id number]
[2017-06-15] MEDS: NORMAL SALINE 1000 ML 1,000 ML IV PRN ×2 (11:57→12:57)
[2017-06-15 13:00] LABS: APPEARANCE,URINE CLEAR; BILIRUBIN,URINE NEGATIVE (NEGATIVE); GLUCOSE, URINE NEGATIVE (NEGATIVE); KETONES,URINE TRACE mg/dL (NEGATIVE); LEUKOCYTE ESTERASE,URINE NEGATIVE (NEGATIVE); NITRITE,URINE NEGATIVE (NEGATIVE); PROTEIN,URINE NEGATIVE (NEGATIVE); URINE SPECIFIC GRAVITY 1.004; UROBILINOGEN,URINE NEGATIVE mg/dL (<2.0)
--- NOTE | 2017-06-15 13:11 | RADIOLOGY REPORT (SQ) ---
EXAM DESCRIPTION: CT THORACIC SPINE WITHOUT COMPLETED DATE/TIME: 06/15/2017 12:27 pm REASON FOR STUDY: fall-mid and lower back tenderness COMPARISON: None. TECHNIQUE: Axial images acquired through the thoracic spine without intravenous contrast. Images re viewed with lung, soft tissue and bone windows. Reconstructed coronal and sagittal MPR images review ed. Images stored on PACS. All CT scanners at this facility use dose modulation, iterative reconstruction, and/or weight based d osing when appropriate to reduce radiation dose to as low as reasonably achievable (ALARA). [facility]: Dose Right [facility]: CareDose [facility]: Dose Right [facility]: Teradose 4D [facility]: [employer] RADIATION DOSE: Up-to-date CT equipment and radiation dose reduction techniques were employed. CTDIv ol: 17.1 mGy. DLP: 629 mGy-cm. mGy. LIMITATIONS: None. FINDINGS: VISUALIZED LUNGS: There is respiratory motion artifact that limits evaluation. Chronic ch anges are suggested in the lung bases, possible bronchiectasis. SOFT TISSUES: No soft tissue swelling. No masses. VERTEBRAL BODIES: Mild superior endplate compression changes seen at T12 and L1 that do not appear to be acute. No acute fractures seen. Osteopenia is present. DISCS: No significant disc space narrowing. ALIGNMENT: Normal. TRANSVERSE PROCESSES, POSTERIOR ELEMENTS: There is a densely sclerotic area in the lamina of the T12 vertebra, likely bone island. HARDWARE: None in the spine. VISUALIZED RIBS: No fractures. OTHER: No other significant finding. IMPRESSION: 1. Possible chronic lung changes with bronchiectasis. 2. No acute compression changes seen thoracic spine. Findings as described. TECHNICAL DOCUMENTATION: JOB ID: [id number] Quality ID # [id number]: Final reports with documentation of one or more dose reduction techniques (e.g., Au tomated exposure control, adjustment of the mA and/or kV according to patient size, use of iterative reconstruction technique) 2010 [employer]- All Rights Reserved
[2017-06-15 13:13] LABS: ABSOLUTE EOSINOPHILS # (AUTO) 0.1 10^3/uL (0.0-0.6); ABSOLUTE LYMPHOCYTES (AUTO) 0.7 10^3/uL (0.5-4.7); ABSOLUTE MONOCYTES (AUTO) 0.4 10^3/uL (0.1-1.4); ABSOLUTE NEUT (AUTO) 7.5 10^3/uL (1.7-8.2); BASOPHILS % (AUTO) 0.3 % (0-2); EOSINOPHILS % (AUTO) 1.6 % (0-6); HEMATOCRIT 41.9 % (36.0-47.0); HEMOGLOBIN 14.2 g/dL (12.0-15.5); HGB HCT DIFFERENCE 0.7; LYMPHOCYTES % (AUTO) 7.5 % (13-45); MEAN CORPUSCULAR HEMOGLOBIN 30.3 pg (27.0-33.4); MEAN CORPUSCULAR HGB CONC 33.8 g/dL (32.0-36.0); MEAN CORPUSCULAR VOLUME 90 fl (80-97); MONOCYTES % (AUTO) 4.3 % (3-13); PROTHROMBIN TIME 13.1 SEC (11.4-15.4); RED BLOOD COUNT 4.68 10^6/uL (3.72-5.28); SEGMENTED NEUTROPHILS % (AUTO) 86.3 % (42-78); WHITE BLOOD COUNT 8.7 10^3/uL (4.0-10.5)
--- NOTE | 2017-06-15 13:16 | RADIOLOGY REPORT (SQ) ---
EXAM DESCRIPTION: CT LUMBAR SPINE WITHOUT COMPLETED DATE/TIME: 06/15/2017 12:27 pm REASON FOR STUDY: fall-mid and lower back tenderness COMPARISON: None. TECHNIQUE: Axial images acquired through the lumbar spine without intravenous contrast. Images revi ewed with lung, soft tissue and bone windows. Reconstructed coronal and sagittal MPR images reviewed . All images stored on PACS. All CT scanners at this facility use dose modulation, iterative reconstruction, and/or weight based d osing when appropriate to reduce radiation dose to as low as reasonably achievable (ALARA). [facility]: Dose Right [facility]: CareDose [facility]: Dose Right [facility]: Teradose 4D [facility]: [employer] RADIATION DOSE: 15.6mGy. LIMITATIONS: None. FINDINGS: SEGMENTATION: Normal. No transitional anatomy. ALIGNMENT: Normal. VERTEBRAL BODIES: No fractures. No dislocation. No acute findings. There are mild compression hanley ges at L1 and L3 that do not appear to be acute. DISCS: There is mild central canal stenosis at L4-5 secondary to shallow concentric disc bulge with f acet and ligament hypertrophy. There is no foraminal stenosis. PEDICLES, TRANSVERSE PROCESSES: No fractures. No dislocation. No acute findings. FACETS, POSTERIOR ELEMENTS: Facet hypertrophy at L4-5. HARDWARE: None in the spine. VISUALIZED RIBS: No fractures. SOFT TISSUES: No significant or acute finding in adjacent soft tissues. OTHER: No other significant finding. IMPRESSION: No acute abnormality is present in the lumbar spine. Findings as described above. TECHNICAL DOCUMENTATION: JOB ID: [id number] Quality ID # [id number]: Final reports with documentation of one or more dose reduction techniques (e.g., Au tomated exposure control, adjustment of the mA and/or kV according to patient size, use of iterative reconstruction technique) 2010 [employer]- All Rights Reserved
[2017-06-15 13:24] LABS: ALANINE AMINOTRANSFERASE 25 U/L (9-52); ALKALINE PHOSPHATASE 109 U/L (38-126); ANION GAP 14 (5-19); ASPARTATE AMINO TRANSFERASE 21 U/L (14-36); BILIRUBIN,DIRECT 0.4 mg/dL (0.0-0.4); BILIRUBIN,TOTAL 0.6 mg/dL (0.2-1.3); BLOOD UREA NITROGEN 7 mg/dL (7-20); CALCIUM 9.2 mg/dL (8.4-10.2); CARBON DIOXIDE 24 mmol/L (22-30); CHLORIDE 102 mmol/L (98-107); CREATININE RESULT 0.74 mg/dL (0.52-1.25); GLUCOSE 83 mg/dL (75-110); SODIUM 139.7 mmol/L (137-145)
[2017-06-15] MEDS ORDERED: ONDANSETRON HCL INJ/PF 4 MG/2 ML SDV IV PRN (14:54)
[2017-06-15] MEDS ORDERED: BACLOFEN 10 MG TABLET PO PRN (15:16)
--- NOTE | 2017-06-15 15:44 | PDOC H&P ---
History of Present Illness Admission Date/PCP: 06/15/17 14:22 CARI RUBIO MD Patient complains of: Back pain History of Present Illness: HAILEE VARELA is a 71 year old female presenting one day history of back pain following a fall. Patient states she was in the kitchen yesterday morning stooped down in the cupboard when she fell backwards and hit her back. Patient states she crawled over to the chair and pulled herself up. Patient states that next day she was unable to get up. She continues to how lower back pain. It radiates across the back. Its constant but worse with movement. The pain is a 10/10. She denies ever injuring her back in the past. She denies the use of a cane or walker at home. In the ED imaging was done which did not demonstrate any acute fracture. Hospitalist was called to admit the patient for pain management and for possible rehab placement. Past Medical History Cardiac Medical History: Reports: Hypertension - METOPROLOL, LISINOPRIL Denies: Myocardial Infarction Pulmonary Medical History: Reports: Chronic Obstructive Pulmonary Disease (COPD) Denies: Asthma Neurological Medical History: Denies: Seizures GI Medical History: Denies: Hepatitis, Hiatal Hernia Psychiatric Medical History: Denies: Alcohol Dependency, Tobacco Dependency Hematology: Denies: Anemia, Sickle Cell Disease Past Surgical History Past Surgical History: Reports: Appendectomy, Hysterectomy, Orthopedic Surgery - right shoulder, Other - Cataract surgery Denies: Amputation, Mastectomy, Pacemaker Social History Information Source: Patient Lives with: Alone Smoking Status: Former Smoker Frequency of Alcohol Use: Rare Hx Recreational Drug Use: No Drugs: None Hx Prescription Drug Abuse: No - Advance Directive Resuscitation Status: Full Code Family History Family History: COPD - emphysema, Malignancy - cervical cancer in mother Parental Family History Reviewed: Yes Children Family History Reviewed: Yes Sibling(s) Family History Reviewed.: Yes Medication/Allergy Home Medications: Alprazolam [Xanax 0.25 mg Tablet] 0.25 mg PO Q8 06/15/17 Budesonide/Formoterol Fumarate [Symbicort 160-4.5 Mcg Inhaler] 2 puff IH Q12 08/20 Carbamazepine [Carbamazepine ER] 300 mg PO Q12 06/15/17 Meclizine HCl [Antivert 25 mg Tablet] 25 mg PO TIDP PRN 06/15/17 Allergies/Adverse Reactions: No Known Allergies Allergy (Verified 03/11/17 14:26) Review of Systems Constitutional: ABSENT: chills, fever(s), headache(s), weight gain, weight loss Eyes: ABSENT: visual disturbances Ears: ABSENT: hearing changes Cardiovascular: ABSENT: chest pain, dyspnea on exertion, edema, orthropnea, palpitations Respiratory: PRESENT: cough, dyspnea Gastrointestinal: ABSENT: abdominal pain, constipation, diarrhea, hematemesis, hematochezia, nausea, vomiting Genitourinary: ABSENT: dysuria, hematuria Musculoskeletal: PRESENT: back pain Integumentary: ABSENT: rash, wounds Neurological: ABSENT: abnormal gait, abnormal speech, confusion, dizziness, focal weakness, syncope Psychiatric: PRESENT: anxiety Endocrine: ABSENT: cold intolerance, heat intolerance, polydipsia, polyuria Hematologic/Lymphatic: ABSENT: easy bleeding, easy bruising Physical Exam Vital Signs: Temp Pulse Resp BP Pulse Ox 98.2 F 105 H 16 150/90 H 97 06/15/17 10:35 06/15/17 10:35 06/15/17 10:35 06/15/17 10:35 06/15/17 10:35 General appearance: PRESENT: no acute distress, well-developed, well-nourished, other - elderly Head exam: PRESENT: atraumatic, normocephalic Eye exam: PRESENT: EOMI. ABSENT: scleral icterus Ear exam: PRESENT: normal external ear exam Mouth exam: PRESENT: moist, tongue midline Neck exam: ABSENT: carotid bruit, JVD, lymphadenopathy, thyromegaly Respiratory exam: PRESENT: decreased breath sounds. ABSENT: rales, rhonchi, wheezes Cardiovascular exam: PRESENT: RRR. ABSENT: diastolic murmur, rubs, systolic murmur Pulses: PRESENT: normal dorsalis pedis pul Vascular exam: PRESENT: normal capillary refill GI/Abdominal exam: PRESENT: normal bowel sounds, soft. ABSENT: distended, guarding, mass, organolmegaly, rebound, tenderness Rectal exam: PRESENT: deferred Extremities exam: PRESENT: full ROM. ABSENT: calf tenderness, clubbing, pedal edema Musculoskeletal exam: PRESENT: other - lower back tenderness Neurological exam: PRESENT: alert, awake, oriented to person, oriented to place , oriented to time, oriented to situation, CN II-XII grossly intact. ABSENT: motor sensory deficit Psychiatric exam: PRESENT: appropriate affect, normal mood. ABSENT: homicidal ideation, suicidal ideation Skin exam: PRESENT: dry, intact, warm. ABSENT: cyanosis, rash Results Impressions: Chest X-Ray 06/15/17 11:07 IMPRESSION: 1. Chronic lung changes with no acute pulmonary disease. 2. There appears to be a minimal left pleural effusion. Lumbar Spine CT 06/15/17 11:08 IMPRESSION: No acute abnormality is present in the lumbar spine. Findings as described above. Thoracic Spine CT 06/15/17 11:08 IMPRESSION: 1. Possible chronic lung changes with bronchiectasis. 2. No acute compression changes seen thoracic spine. Findings as described. Assessment & Plan - Diagnosis (1) Fall Qualifiers: Encounter type: initial encounter Qualified Code(s): W19.XXXA - Unspecified fall, initial encounter Is this a current diagnosis for this admission?: Yes Plan: Patient had a fall on 06/14/2017 while in the kitchen. Patient states her lower back is sore. Imaging of the spine shows no acute fracture. Plan is to call and consult PT OT. Patient may also be referred to rehabilitation. (2) Intractable low back pain Is this a current diagnosis for this admission?: Yes Plan: This is secondary to the fall on 06/14/2017. Will manage patient with as needed muscle relaxant low-dose tramadol scheduled as needed oxycodone and gabapentin schedule. As mentioned above there is no acute fracture and imaging. (3) COPD (chronic obstructive pulmonary disease) Qualifiers: COPD type: unspecified COPD Qualified Code(s): J44.9 - Chronic obstructive pulmonary disease, unspecified Is this a current diagnosis for this admission?: Yes Plan: Appears stable at this time however there is chronic findings on her CT scan. Will start patient on nebulizers and continue her controlled inhalers from home. She may benefit from supplemental oxygen. (4) Essential hypertension Is this a current diagnosis for this admission?: Yes Plan: Patient is not on any medication. Will start her on a low-dose Norvasc. - Time Time Spent: 30 to 50 Minutes Medications reviewed and adjusted accordingly: Yes Anticipated discharge: Acute Rehab Within: within 72 hours
[2017-06-15] MEDS: IPRATROPIUM/ALBUTEROL 0.5-2.5 MG/3 ML AMPUL NEB SCH ×2 (16:01→23:49)
[2017-06-15] MEDS: OXYCODONE HCL IR 5 MG TABLET PO PRN ×2 (16:38→20:35)
[2017-06-15] MEDS: DOCUSATE SODIUM 100 MG CAPSULE PO SCH (16:39)
--- NOTE | 2017-06-15 19:51 | EKG REPORT ---
SEVERITY:- BORDERLINE ECG - SINUS RHYTHM BORDERLINE T WAVE ABNORMALITIES : Confirmed by: Adam Jung MD 15-Jun-2017 19:49:58
[2017-06-15] MEDS: FAMOTIDINE 20 MG TABLET PO SCH (21:51)
[2017-06-15] MEDS: TRAMADOL HCL 50 MG TABLET PO SCH (21:51)
[2017-06-15] MEDS: BUDESONIDE/FORMOTEROL 160-4.5 MCG 60 PUFF/6 GM MDI IH SCH (21:51)
[2017-06-15] MEDS: GABAPENTIN 100 MG CAPSULE PO SCH (21:51)
[2017-06-15] MEDS: ALPRAZOLAM 0.25 MG TABLET PO SCH (21:51)
[2017-06-15] MEDS ORDERED: CARBAMAZEPINE 300 MG PO SCH (22:00)
[2017-06-16] MEDS: OXYCODONE HCL IR 5 MG TABLET PO PRN ×2 (01:22→05:48)
[2017-06-16] MEDS: ALPRAZOLAM 0.25 MG TABLET PO SCH ×3 (05:48→21:26)
[2017-06-16] MEDS: TRAMADOL HCL 50 MG TABLET PO SCH ×3 (05:48→21:26)
[2017-06-16] MEDS: GABAPENTIN 100 MG CAPSULE PO SCH ×3 (05:48→21:25)
[2017-06-16] MEDS: IPRATROPIUM/ALBUTEROL 0.5-2.5 MG/3 ML AMPUL NEB SCH ×2 (08:04→16:12)
[2017-06-16] MEDS: DOCUSATE SODIUM 100 MG CAPSULE PO SCH ×2 (08:45→17:48)
[2017-06-16] MEDS: FAMOTIDINE 20 MG TABLET PO SCH ×2 (09:59→21:26)
[2017-06-16] MEDS: BUDESONIDE/FORMOTEROL 160-4.5 MCG 60 PUFF/6 GM MDI IH SCH ×2 (09:59→21:26)
[2017-06-16] MEDS ORDERED: NORMAL SALINE 1000 ML 1,000 ML IV PRN (15:27)
[2017-06-16] MEDS: ACETAMINOPHEN 325 MG TABLET PO PRN (17:52)
[2017-06-17] MEDS: IPRATROPIUM/ALBUTEROL 0.5-2.5 MG/3 ML AMPUL NEB SCH ×4 (00:21→23:55)
[2017-06-17] MEDS: TRAMADOL HCL 50 MG TABLET PO SCH ×3 (05:29→21:17)
[2017-06-17] MEDS: ALPRAZOLAM 0.25 MG TABLET PO SCH ×3 (05:30→21:17)
[2017-06-17] MEDS: GABAPENTIN 100 MG CAPSULE PO SCH ×3 (05:30→21:17)
[2017-06-17] MEDS: NORMAL SALINE 1000 ML 1,000 ML IV PRN ×2 (05:56→18:40)
[2017-06-17] MEDS: OXYCODONE HCL IR 5 MG TABLET PO PRN ×2 (08:29→20:40)
[2017-06-17] MEDS: FAMOTIDINE 20 MG TABLET PO SCH ×2 (10:25→21:17)
[2017-06-17] MEDS: DOCUSATE SODIUM 100 MG CAPSULE PO SCH ×2 (10:25→17:21)
[2017-06-17] MEDS: BUDESONIDE/FORMOTEROL 160-4.5 MCG 60 PUFF/6 GM MDI IH SCH ×2 (10:26→21:17)
--- NOTE | 2017-06-18 05:05 | PDOC PROGRESS REPORT ---
Subjective Progress Note for:: 06/16/17 Subjective:: Patient is a 71 year old female admitted for back pain after a fall. Patient states the pain is better controlled. Its not so sharp. Patient worked with PT but had to stop due to dizziness with standing. Physical Exam Vital Signs: Temp Pulse Resp BP Pulse Ox 98.8 F 101 H 14 108/54 L 92 06/16/17 21:10 06/16/17 21:10 06/16/17 21:10 06/16/17 21:10 06/16/17 21:10 Intake & Output 06/15/17 06/16/17 06/17/17 06:59 06:59 06:59 Intake Total 590 1090 Output Total 1600 225 Balance -1010 865 Weight 56.9 kg General appearance: PRESENT: no acute distress, thin Head exam: PRESENT: normocephalic Eye exam: PRESENT: EOMI. ABSENT: scleral icterus Ear exam: PRESENT: normal external ear exam Mouth exam: PRESENT: moist Neck exam: ABSENT: carotid bruit, JVD, lymphadenopathy, thyromegaly Respiratory exam: PRESENT: clear to auscultation tim, decreased breath sounds, unlabored, other - wet cough. ABSENT: rales, rhonchi, wheezes Cardiovascular exam: PRESENT: RRR. ABSENT: diastolic murmur, rubs, systolic murmur Pulses: PRESENT: normal dorsalis pedis pul Vascular exam: PRESENT: normal capillary refill GI/Abdominal exam: PRESENT: normal bowel sounds, soft. ABSENT: distended, guarding, mass, organolmegaly, rebound, tenderness Rectal exam: PRESENT: deferred Extremities exam: PRESENT: full ROM. ABSENT: calf tenderness, clubbing, pedal edema Neurological exam: PRESENT: alert, awake, oriented to person, oriented to place , oriented to time, oriented to situation, CN II-XII grossly intact. ABSENT: motor sensory deficit Psychiatric exam: PRESENT: appropriate affect, normal mood. ABSENT: homicidal ideation, suicidal ideation Skin exam: PRESENT: dry, intact, warm. ABSENT: cyanosis, rash Results Impressions: Chest X-Ray 06/15/17 11:07 IMPRESSION: 1. Chronic lung changes with no acute pulmonary disease. 2. There appears to be a minimal left pleural effusion. Lumbar Spine CT 06/15/17 11:08 IMPRESSION: No acute abnormality is present in the lumbar spine. Findings as described above. Thoracic Spine CT 06/15/17 11:08 IMPRESSION: 1. Possible chronic lung changes with bronchiectasis. 2. No acute compression changes seen thoracic spine. Findings as described. Assessment & Plan - Diagnosis (1) Fall Qualifiers: Encounter type: initial encounter Qualified Code(s): W19.XXXA - Unspecified fall, initial encounter Is this a current diagnosis for this admission?: Yes Plan: Patient had a fall on 06/14/2017 while in the kitchen. Patient states her lower back is sore. Imaging of the spine shows no acute fracture. Patient unable to work with PT due to dizziness. (2) Intractable low back pain Is this a current diagnosis for this admission?: Yes Plan: This is secondary to the fall on 06/14/2017. Improved with current regiem. (3) COPD (chronic obstructive pulmonary disease) Qualifiers: COPD type: unspecified COPD Qualified Code(s): J44.9 - Chronic obstructive pulmonary disease, unspecified Is this a current diagnosis for this admission?: Yes Plan: Appears stable at this time however there is chronic findings on her CT scan. Will start patient on nebulizers and continue her controlled inhalers from home. Will start mucinex. Patient has a wet cough but non productive. She may benefit from supplemental oxygen. (4) Essential hypertension Is this a current diagnosis for this admission?: Yes Plan: Patient is not on any medication. Will continue to monitor. Will hold off on treating especially with complaint of dizziness. (5) Dizziness Is this a current diagnosis for this admission?: Yes Plan: Could be due to dehydration and or medication. Will check orthostatics and start IV hydration. Will encourage po hydration. - Time Time Spent with patient: Less than 15 minutes Anticipated discharge: Home with Homehealth, SNF Within: within 72 hours
--- NOTE | 2017-06-18 05:11 | PDOC PROGRESS REPORT ---
Subjective Progress Note for:: 06/17/17 Subjective:: Patient is a 71 year old female admitted for back pain after a fall. Patient states the pain is better controlled. Patient does not know if she is dizzy as she has not been up. Physical Exam Vital Signs: Temp Pulse Resp BP Pulse Ox 99.9 F 106 H 17 168/79 H 94 06/17/17 21:07 06/17/17 21:07 06/17/17 21:07 06/17/17 21:07 06/17/17 21:07 Intake & Output 06/16/17 06/17/17 06/18/17 06:59 06:59 06:59 Intake Total 590 2236 1630 Output Total 1914 058 2204 Balance -1010 1586 605 Weight 56.9 kg 58.3 kg General appearance: PRESENT: no acute distress, thin Head exam: PRESENT: normocephalic Eye exam: PRESENT: EOMI. ABSENT: scleral icterus Neck exam: ABSENT: carotid bruit, JVD, lymphadenopathy, thyromegaly Respiratory exam: PRESENT: clear to auscultation tim, decreased breath sounds, unlabored. ABSENT: rales, rhonchi, wheezes Cardiovascular exam: PRESENT: RRR. ABSENT: diastolic murmur, rubs, systolic murmur Pulses: PRESENT: normal dorsalis pedis pul Vascular exam: PRESENT: normal capillary refill GI/Abdominal exam: PRESENT: normal bowel sounds, soft. ABSENT: distended, guarding, mass, organolmegaly, rebound, tenderness Rectal exam: PRESENT: deferred Gentrourinary exam: PRESENT: indwelling catheter Extremities exam: PRESENT: full ROM. ABSENT: calf tenderness, clubbing, pedal edema Neurological exam: PRESENT: alert, awake, oriented to person, oriented to place , oriented to time, oriented to situation, CN II-XII grossly intact. ABSENT: motor sensory deficit Psychiatric exam: PRESENT: appropriate affect, normal mood. ABSENT: homicidal ideation, suicidal ideation Skin exam: PRESENT: dry, intact, warm. ABSENT: cyanosis, rash Results Impressions: Chest X-Ray 06/15/17 11:07 IMPRESSION: 1. Chronic lung changes with no acute pulmonary disease. 2. There appears to be a minimal left pleural effusion. Lumbar Spine CT 06/15/17 11:08 IMPRESSION: No acute abnormality is present in the lumbar spine. Findings as described above. Thoracic Spine CT 06/15/17 11:08 IMPRESSION: 1. Possible chronic lung changes with bronchiectasis. 2. No acute compression changes seen thoracic spine. Findings as described. Assessment & Plan - Diagnosis (1) Fall Qualifiers: Encounter type: initial encounter Qualified Code(s): W19.XXXA - Unspecified fall, initial encounter Is this a current diagnosis for this admission?: Yes Plan: Patient had a fall on 06/14/2017 while in the kitchen. Patient states her lower back is sore. Imaging of the spine shows no acute fracture. Will have PT work with patient again after being hydrated in hopes that she will not be dizzy. (2) Intractable low back pain Is this a current diagnosis for this admission?: Yes Plan: This is secondary to the fall on 06/14/2017. Improved with current regiem. (3) COPD (chronic obstructive pulmonary disease) Qualifiers: COPD type: unspecified COPD Qualified Code(s): J44.9 - Chronic obstructive pulmonary disease, unspecified Is this a current diagnosis for this admission?: Yes Plan: Appears stable at this time however there is chronic findings on her CT scan. Continue nebulizers and continue her controlled inhalers from home. Contnue mucinex. Patient has a wet cough but non productive. Continue supplemental oxygen. (4) Essential hypertension Is this a current diagnosis for this admission?: Yes Plan: Patient is not on any medication. Will continue to monitor. Will hold off on treating especially with complaint of dizziness. (5) Dizziness Is this a current diagnosis for this admission?: Yes Plan: Could be due to dehydration and or medication. She is not orthostatic however taken after she was hydrated. Will check daily. Will discontinue gabapentin. - Time Time Spent with patient: Less than 15 minutes Anticipated discharge: Home with Homehealth, SNF
[2017-06-18] MEDS: ALPRAZOLAM 0.25 MG TABLET PO SCH ×3 (06:17→21:34)
[2017-06-18] MEDS: TRAMADOL HCL 50 MG TABLET PO SCH (06:17)
[2017-06-18] MEDS: IPRATROPIUM/ALBUTEROL 0.5-2.5 MG/3 ML AMPUL NEB SCH ×3 (08:30→19:56)
[2017-06-18 09:08] LABS: ABSOLUTE EOSINOPHILS # (AUTO) 0.1 10^3/uL (0.0-0.6); ABSOLUTE LYMPHOCYTES (AUTO) 0.7 10^3/uL (0.5-4.7); ABSOLUTE MONOCYTES (AUTO) 0.8 10^3/uL (0.1-1.4); ABSOLUTE NEUT (AUTO) 4.8 10^3/uL (1.7-8.2); BASOPHILS % (AUTO) 0.2 % (0-2); EOSINOPHILS % (AUTO) 1.5 % (0-6); HEMATOCRIT 34.5 % (36.0-47.0); HGB HCT DIFFERENCE 1.8; LYMPHOCYTES % (AUTO) 10.5 % (13-45); MEAN CORPUSCULAR HEMOGLOBIN 30.5 pg (27.0-33.4); MEAN CORPUSCULAR HGB CONC 35.2 g/dL (32.0-36.0); MEAN CORPUSCULAR VOLUME 87 fl (80-97); MONOCYTES % (AUTO) 12.9 % (3-13); RED BLOOD COUNT 3.97 10^6/uL (3.72-5.28); RED CELL DISTRIBUTION WIDTH 12.9 % (11.5-14.0); SEGMENTED NEUTROPHILS % (AUTO) 74.9 % (42-78); WHITE BLOOD COUNT 6.4 10^3/uL (4.0-10.5)
[2017-06-18 09:24] LABS: HEMOGLOBIN 12.1 g/dL (12.0-15.5)
[2017-06-18 09:27] LABS: ANION GAP 8 (5-19); BLOOD UREA NITROGEN 5 mg/dL (7-20); CALCIUM 8.7 mg/dL (8.4-10.2); CARBON DIOXIDE 26 mmol/L (22-30); CHLORIDE 99 mmol/L (98-107); CREATININE RESULT 0.51 mg/dL (0.52-1.25); GLUCOSE 97 mg/dL (75-110); MAGNESIUM 1.5 mg/dL (1.6-2.3); POTASSIUM 3.5 mmol/L (3.6-5.0); SODIUM 132.8 mmol/L (137-145)
--- NOTE | 2017-06-18 10:10 | RADIOLOGY REPORT (SQ) ---
EXAM DESCRIPTION: CHEST PA/LAT COMPLETED DATE/TIME: 06/18/2017 9:59 am REASON FOR STUDY: fever COMPARISON: Two-view chest 12/10/2016, 04/04/2009 AP chest 11/26/2010 EXAM PARAMETERS: NUMBER OF VIEWS: two views TECHNIQUE: Digital Frontal and Lateral radiographic views of the chest acquired. RADIATION DOSE: NA LIMITATIONS: none FINDINGS: LUNGS AND PLEURA: Bilateral airspace disease in the posterior costophrenic sulci with trac e pleural fluid, atelectasis versus pneumonia. Remainder of the lungs are hyperinflated and hyperlucent and clear. No pneumothorax. MEDIASTINUM AND HILAR STRUCTURES: No masses or contour abnormalities. HEART AND VASCULAR STRUCTURES: No cardiomegaly BONES: Osteoporotic, with old healed right proximal humerus fracture HARDWARE: None in the chest. OTHER: No other significant finding. IMPRESSION: Bibasilar airspace disease in the posterior costophrenic sulci with trace pleural effusi ons. This is new compared to previous studies Underlying obstructive lung disease TECHNICAL DOCUMENTATION: JOB ID: [id number] [employer]- All Rights Reserved
[2017-06-18] MEDS: BUDESONIDE/FORMOTEROL 160-4.5 MCG 60 PUFF/6 GM MDI IH SCH ×2 (10:15→21:34)
[2017-06-18] MEDS: DOCUSATE SODIUM 100 MG CAPSULE PO SCH ×2 (10:15→18:10)
[2017-06-18] MEDS: FAMOTIDINE 20 MG TABLET PO SCH ×2 (10:16→21:34)
[2017-06-18] MEDS: GUAIFENESIN 600 MG TABLET.SA PO SCH ×2 (10:16→21:34)
[2017-06-18] MEDS ORDERED: BISACODYL 10 MG SUPP.RECT PR PRN (14:05)
[2017-06-18] MEDS ORDERED: ALBUTEROL SULFATE HFA (90 MCG/PUFF) 200 PUFF/8.5 GM MDI IH PRN (14:07)
[2017-06-18] MEDS ORDERED: POTASSIUM CHLORIDE 10 MEQ TABLET.SA PO ONE (14:30)
[2017-06-18] MEDS ORDERED: METOPROLOL SUCCINATE 25 MG TAB.SR.24H PO ONE (14:30)
[2017-06-18] MEDS ORDERED: SENNOSIDES/DOCUSATE 8.6-50 MG 1 EACH TABLET PO ONE (14:30)
[2017-06-18] MEDS ORDERED: LEVOFLOXACIN 750 MG TABLET PO SCH (15:00)
[2017-06-18] MEDS: LEVOFLOXACIN 750 MG/D5W RTU 750 MG/150 ML RTUPB IV SCH (15:25)
[2017-06-18] MEDS: METHYLPREDNISOLONE INJ 40 MG/1 ML SDV IV SCH ×2 (15:25→21:34)
[2017-06-18] MEDS: NORMAL SALINE 1000 ML 1,000 ML IV PRN (15:27)
[2017-06-18] MEDS: MAGNESIUM SULFATE/D5W 1 GM/100 ML RTUPB IV SCH ×2 (15:41→18:10)
[2017-06-18 16:48] LABS: APPEARANCE,URINE CLEAR; BILIRUBIN,URINE NEGATIVE (NEGATIVE); GLUCOSE, URINE NEGATIVE (NEGATIVE); KETONES,URINE NEGATIVE (NEGATIVE); LEUKOCYTE ESTERASE,URINE TRACE (NEGATIVE); NITRITE,URINE NEGATIVE (NEGATIVE); PROTEIN,URINE NEGATIVE (NEGATIVE); URINE SPECIFIC GRAVITY 1.004; UROBILINOGEN,URINE NEGATIVE mg/dL (<2.0)
[2017-06-18] MEDS: CARBAMAZEPINE 200 MG TABLET PO SCH ×2 (18:10→23:58)
--- NOTE | 2017-06-18 18:26 | PDOC PROGRESS REPORT ---
Subjective Progress Note for:: 06/18/17 Subjective:: Patient developed a fever today with a T-max of 100.3. She does report that she is coughing slightly more than normal, but has been unable to produce a sputum specimen. Patient has also been mildly tachycardic up to the 120s. Physical Exam Vital Signs: Temp Pulse Resp BP Pulse Ox 97.5 F 120 H 18 103/52 L 94 06/18/17 11:40 06/18/17 11:45 06/18/17 11:40 06/18/17 11:45 06/18/17 11:40 Intake & Output 06/17/17 06/18/17 06/19/17 06:59 06:59 06:59 Intake Total 2236 2710 Output Total 650 1525 Balance 1586 1185 Weight 58.3 kg 58.3 kg Exam: General: Awake alert and oriented x3 no acute respiratory distress HEENT: AT/NC, PERRL, EOMI, oropharynx is moist, pink, no scleral icterus, no conjunctival injection Neck: No JVD, trachea midline Chest: Bilateral inspiratory and expiratory wheezing, poor air excursion CV: Regular rate and rhythm, normal S1 and S2, no rub or gallop Abdomen: Soft, nontender to palpation, nondistended, active bowel sounds; no rebound, rigidity, or guarding Extremities: No cyanosis, clubbing or edema Neuro: Cranial nerves II through XII are grossly intact without focal deficits; awake alert and oriented x3 Psych: Normal mood and affect Results Laboratory Results: 06/18/17 09:01 06/18/17 09:01 06/18/17 06/18/17 09:01 09:01 WBC 6.4 RBC 3.97 Hgb 12.1 D Hct 34.5 L MCV 87 MCH 30.5 MCHC 35.2 RDW 12.9 Plt Count 199 Seg Neutrophils % 74.9 Lymphocytes % 10.5 L Monocytes % 12.9 Eosinophils % 1.5 Basophils % 0.2 Absolute Neutrophils 4.8 Absolute Lymphocytes 0.7 Absolute Monocytes 0.8 Absolute Eosinophils 0.1 Absolute Basophils 0.0 Sodium 132.8 L Potassium 3.5 L Chloride 99 Carbon Dioxide 26 Anion Gap 8 BUN 5 L Creatinine 0.51 L Est GFR ( Amer) > 60 Est GFR (Non-Af Amer) > 60 Glucose 97 Calcium 8.7 Magnesium 1.5 L Impressions: Lumbar Spine CT 06/15/17 11:08 IMPRESSION: No acute abnormality is present in the lumbar spine. Findings as described above. Thoracic Spine CT 06/15/17 11:08 IMPRESSION: 1. Possible chronic lung changes with bronchiectasis. 2. No acute compression changes seen thoracic spine. Findings as described. Chest X-Ray 06/18/17 00:00 IMPRESSION: Bibasilar airspace disease in the posterior costophrenic sulci with trace pleural effusions. This is new compared to previous studies Underlying obstructive lung disease Assessment & Plan - Diagnosis (1) COPD exacerbation Is this a current diagnosis for this admission?: Yes Plan: Place patient on IV Solu-Medrol and IV Levaquin. Patient's CT did in the emergency department reveals bronchiectasis. Patient does meet for SIRS criteria. At this time, have concern for atypical or gram-negative organisms given her history of bronchiectasis. Scheduled nebulized treatments and monitor for follow-up. Patient continues to require inpatient hospitalization due to the need for IV antibiotics, nebulized treatments and repeat evaluation. (2) Intractable low back pain Is this a current diagnosis for this admission?: Yes Plan: Continue narcotics as minimally as possible due to her underlying lung disease. (3) Essential hypertension Is this a current diagnosis for this admission?: Yes Plan: Continue patient on Toprol - Time Time Spent with patient: 25-34 minutes Medications reviewed and adjusted accordingly: Yes Anticipated discharge: Acute Rehab Within: Other - Upon improvement in patient's symptomatology
[2017-06-18] MEDS: SENNOSIDES/DOCUSATE 8.6-50 MG 1 EACH TABLET PO SCH (21:34)
[2017-06-18] MEDS: METOPROLOL SUCCINATE 25 MG TAB.SR.24H PO SCH (21:34)
[2017-06-19] MEDS: IPRATROPIUM/ALBUTEROL 0.5-2.5 MG/3 ML AMPUL NEB SCH ×4 (02:21→20:09)
[2017-06-19] MEDS: ALPRAZOLAM 0.25 MG TABLET PO SCH ×3 (05:17→21:25)
[2017-06-19] MEDS: METHYLPREDNISOLONE INJ 40 MG/1 ML SDV IV SCH ×2 (05:17→14:10)
[2017-06-19] MEDS: CARBAMAZEPINE 200 MG TABLET PO SCH ×4 (05:17→23:36)
[2017-06-19] MEDS: NORMAL SALINE 1000 ML 1,000 ML IV PRN (07:40)
[2017-06-19] MEDS: BUDESONIDE/FORMOTEROL 160-4.5 MCG 60 PUFF/6 GM MDI IH SCH ×2 (09:22→21:25)
[2017-06-19] MEDS: FAMOTIDINE 20 MG TABLET PO SCH ×2 (09:23→21:24)
[2017-06-19] MEDS: GUAIFENESIN 600 MG TABLET.SA PO SCH ×2 (09:23→21:24)
[2017-06-19] MEDS: METOPROLOL SUCCINATE 25 MG TAB.SR.24H PO SCH ×2 (09:23→21:24)
[2017-06-19] MEDS: DOCUSATE SODIUM 100 MG CAPSULE PO SCH ×2 (09:23→17:41)
[2017-06-19] MEDS ORDERED: ONDANSETRON HCL INJ/PF 4 MG/2 ML SDV IV PRN (13:30)
--- NOTE | 2017-06-19 13:39 | Physician Advisory Note ---
Physician Advisor ProgressNote .: Pursuant to the plan for [facility], I have reviewed the medical record for this patient. Physician Advisor Statement: Please consider documenting, if you agree: 1. "suspected protein-calorie malnutrition [state mild, mod, or severe] with BMI 22, very low BUN & Cr, ____[?wt loss, ?appetite loss, ]" [if possible, give specifics on intake, wt loss, loss of SQ fat & muscle mass, diminished hand precision agriculture specialist strength, & clinical importance such as (A) nutritional assessment ordered, (B) modified diet or supplements ordered, (C) additional labs ordered, (D) prolonged wound healing time, (E) delayed infxn clearance] 2. "Acute [or chronic?] hyponatremia, suspect due to ____" 3. "Acute bronchitis" - or what is being tx'd w/abx here, since COPD exac doesn 't always need abx. 4. "Hypoxemia" - &, what doing about it? (This finding alone doesn't help DRG but supports need for continued hospitalization / medical necessity. - If pt shows evidence of increased work of breathing along with hypoxemia , then can call "Ac Hypoxemic Resp Failure". 4. Principal Dx: please continue to list as dx #1 the principal dx requiring hospital stay initially. 5. *When feeling compelled to state "(+)SIRS criteria" [could state "unstable VS" instead, & avoid HIM hassles ...], please state whether or not you think pt had sepsis clinically (with criteria used for the dx if making that dx), or there will be query later about this. Status: 71yo Medicare pt w/underlying COPD, bronchiectasis by CT, HTN, prior hyponatremia at times, presented with back pain/inability to walk after fall. Initial MAP was 120, w/HR 105, BP 150/90, sat 97% on RA. Pt documented to have wheezing for ED eval, & 10/10 pain, cough SOB, back pain, decreased breath sounds. Attending ordered appropriate options for pain control, PT. Appropirate to come in as Obs initially. After 1MN (06/16): Pt developed new sx of dizziness w/standing by the next day, sufficient to hamper her ability to work w/PT. Pt w/persistent tachycardia. Also "wet cough", with O2 sat down to 92% on RA, as low as 93% on 2L O2 (P/F ratio 243). [O2 given by nursing. - This reviewer doesn't see an attending order for O2 yet.] Attending was concerned about this dizziness, which was associated with tachycardia & hypotension of 108/54, and ordered orthostatics, IVF. Attending decided not to try to tx HTN due to the acute dizziness. After 2MNs (06/17): Pt w/orthostatics negative the day before, though that was done after IVF instead of before. O2 sats down to 92% on 2L, 93% on 3L [P/F ratio 213]. Pt w/persistent tachycardia. Attending still concerned about BPs/dizziness, wanted to continue to follow orthostatics daily & d/c gabapentin in case it was contributing to the dizziness. Wanted to have PT work w/pt again after hydration, hoping pt could participate further with less dizziness after changes above. After 3MNs (06/18): Pt had developed new fever, was coughing >usual, tachycardic into the 120s, w/ BP 103/52 (MAP as low as 69], sat as low as 89% on 2L O2 [P/F ratio 200, continuing to worsen], wheezing, poor air excursion, orthostatics positive w/ findings supine BP 170/83 w/HR 110, 103/52 standing w/HR 120. Pt w/persistent tachycardia. Had developed hyponatremia now. Attending concerned, started IV SOlumedrol & LEvaquin, giving IV Mag, guaifenesin, nebs, & starting metoprolol due to worsening tachycardia. Continuing Toprol to control HR, though it could contribute to more dizziness & hypotension. Given hemodynamic instability, pt could possibly be developing early sepsis. After 4MNs (06/19): Nursing documenting wheezing, difficulty clearing secretions. Tachycardia & hypotension improved/resolved w/current ongoing tx. Prog note pending. Appropriate for Inpt status as of 06/16. CK
[2017-06-19] MEDS: LEVOFLOXACIN 750 MG/D5W RTU 750 MG/150 ML RTUPB IV SCH (14:12)
--- NOTE | 2017-06-19 17:39 | PDOC PROGRESS REPORT ---
Subjective Progress Note for:: 06/19/17 Subjective:: Patient reports she has been feeling better today. Patient denies chest pain, shortness of breath, abdominal pain, nausea, vomiting , fevers, chills, diarrhea, constipation, headache, new onset weakness. Patient is unsure if she had a bowel movement today. She reports she is slightly confused. Physical Exam Vital Signs: Temp Pulse Resp BP Pulse Ox 97.7 F 71 18 159/97 H 95 06/19/17 16:00 06/19/17 16:00 06/19/17 16:00 06/19/17 16:00 06/19/17 16:00 Intake & Output 06/18/17 06/19/17 06/20/17 06:59 06:59 06:59 Intake Total 2710 2976 Output Total 1525 1125 Balance 1185 1851 Weight 58.3 kg 58.3 kg Exam: General: Awake alert and oriented x2 no acute respiratory distress HEENT: AT/NC, PERRL, EOMI, oropharynx is moist, pink, no scleral icterus, no conjunctival injection Neck: No JVD, trachea midline Chest: Prolonged expiratory phase, otherwise clear to auscultation CV: Regular rate and rhythm, normal S1 and S2, no rub or gallop Abdomen: Soft, nontender to palpation, nondistended, active bowel sounds; no rebound, rigidity, or guarding Extremities: No cyanosis, clubbing or edema Neuro: Cranial nerves II through XII are grossly intact without focal deficits; awake alert and oriented x2 Psych: Normal mood and affect Results Laboratory Results: 06/18/17 09:01 06/18/17 09:01 Impressions: Lumbar Spine CT 06/15/17 11:08 IMPRESSION: No acute abnormality is present in the lumbar spine. Findings as described above. Thoracic Spine CT 06/15/17 11:08 IMPRESSION: 1. Possible chronic lung changes with bronchiectasis. 2. No acute compression changes seen thoracic spine. Findings as described. Chest X-Ray 06/18/17 00:00 IMPRESSION: Bibasilar airspace disease in the posterior costophrenic sulci with trace pleural effusions. This is new compared to previous studies Underlying obstructive lung disease Assessment & Plan - Diagnosis (1) COPD exacerbation Is this a current diagnosis for this admission?: Yes Plan: Transition to oral prednisone and oral Levaquin. Patient's CT did in the emergency department reveals bronchiectasis. Patient does meet for SIRS criteria. At this time, have concern for atypical or gram-negative organisms given her history of bronchiectasis. Scheduled nebulized treatments and monitor for follow-up. Patient continues to require inpatient hospitalization due to the need for ongoing nebulized treatments and repeat evaluation. (2) Intractable low back pain Is this a current diagnosis for this admission?: Yes Plan: Improved with current regimen (3) Essential hypertension Is this a current diagnosis for this admission?: Yes Plan: Continue patient on Toprol Patient does not take medications at home for this, and will consider NORMA inhibitor (4) Acute encephalopathy Is this a current diagnosis for this admission?: Yes Plan: Likely secondary to underlying COPD exacerbation and narcotic usage. Continue to monitor. (5) Hyponatremia Is this a current diagnosis for this admission?: Yes Plan: Acute likely secondary to intravascular volume depletion (6) Acute hypoxemic respiratory failure Is this a current diagnosis for this admission?: Yes Plan: Continue oxygen as needed to maintain saturation greater than 93 (7) SIRS (systemic inflammatory response syndrome) Is this a current diagnosis for this admission?: Yes Plan: Criteria met likely secondary to COPD exacerbation - Time Time Spent with patient: 25-34 minutes Medications reviewed and adjusted accordingly: Yes Anticipated discharge: Acute Rehab Within: when bed available
[2017-06-19] MEDS: PREDNISONE 20 MG TABLET PO SCH (17:41)
[2017-06-19] MEDS: SENNOSIDES/DOCUSATE 8.6-50 MG 1 EACH TABLET PO SCH (21:25)
[2017-06-20] MEDS: IPRATROPIUM/ALBUTEROL 0.5-2.5 MG/3 ML AMPUL NEB SCH ×4 (02:00→20:06)
[2017-06-20] MEDS: ALPRAZOLAM 0.25 MG TABLET PO SCH ×3 (05:42→22:33)
[2017-06-20 07:54] LABS: ABSOLUTE LYMPHOCYTES (AUTO) 1.2 10^3/uL (0.5-4.7); ABSOLUTE MONOCYTES (AUTO) 1.4 10^3/uL (0.1-1.4); ABSOLUTE NEUT (AUTO) 11.8 10^3/uL (1.7-8.2); BASOPHILS % (AUTO) 0.2 % (0-2); HEMATOCRIT 34.4 % (36.0-47.0); HEMOGLOBIN 12.2 g/dL (12.0-15.5); HGB HCT DIFFERENCE 2.2; LYMPHOCYTES % (AUTO) 8.4 % (13-45); MEAN CORPUSCULAR HEMOGLOBIN 30.2 pg (27.0-33.4); MEAN CORPUSCULAR HGB CONC 35.4 g/dL (32.0-36.0); MEAN CORPUSCULAR VOLUME 85 fl (80-97); MONOCYTES % (AUTO) 9.9 % (3-13); RED BLOOD COUNT 4.03 10^6/uL (3.72-5.28); RED CELL DISTRIBUTION WIDTH 12.9 % (11.5-14.0); SEGMENTED NEUTROPHILS % (AUTO) 81.5 % (42-78)
[2017-06-20 07:56] LABS: WHITE BLOOD COUNT 14.5 10^3/uL (4.0-10.5)
[2017-06-20 08:11] LABS: ANION GAP 13 (5-19); BLOOD UREA NITROGEN 11 mg/dL (7-20); CALCIUM 9.5 mg/dL (8.4-10.2); CARBON DIOXIDE 26 mmol/L (22-30); CHLORIDE 97 mmol/L (98-107); CREATININE RESULT 0.54 mg/dL (0.52-1.25); GLUCOSE 95 mg/dL (75-110); MAGNESIUM 1.8 mg/dL (1.6-2.3); POTASSIUM 3.3 mmol/L (3.6-5.0); SODIUM 135.8 mmol/L (137-145)
[2017-06-20] MEDS: OXYCODONE HCL IR 5 MG TABLET PO PRN ×3 (08:34→20:17)
[2017-06-20] MEDS: CARBAMAZEPINE 200 MG TABLET PO SCH ×3 (08:34→17:13)
[2017-06-20] MEDS: PREDNISONE 20 MG TABLET PO SCH (09:30)
[2017-06-20] MEDS: GUAIFENESIN 600 MG TABLET.SA PO SCH ×2 (09:30→22:34)
[2017-06-20] MEDS: FAMOTIDINE 20 MG TABLET PO SCH ×2 (09:30→22:34)
[2017-06-20] MEDS: BUDESONIDE/FORMOTEROL 160-4.5 MCG 60 PUFF/6 GM MDI IH SCH ×2 (09:30→22:33)
[2017-06-20] MEDS: DOCUSATE SODIUM 100 MG CAPSULE PO SCH ×2 (09:31→17:13)
[2017-06-20] MEDS: METOPROLOL SUCCINATE 25 MG TAB.SR.24H PO SCH ×2 (09:31→22:34)
--- NOTE | 2017-06-20 12:52 | RADIOLOGY REPORT (SQ) ---
EXAM DESCRIPTION: CT HEAD WITHOUT COMPLETED DATE/TIME: 06/20/2017 12:37 pm REASON FOR STUDY: FALL COMPARISON: CT brain 03/11/2017, 09/15/2013 TECHNIQUE: Axial images acquired through the brain without intravenous contrast. Images reviewed wi th bone, brain and subdural windows. Images stored on PACS. All CT scanners at this facility use dose modulation, iterative reconstruction, and/or weight based d osing when appropriate to reduce radiation dose to as low as reasonably achievable (ALARA). [facility]: Dose Right [facility]: CareDose [facility]: Dose Right [facility]: Teradose 4D [facility]: Smart Biotix RADIATION DOSE: Up-to-date CT equipment and radiation dose reduction techniques were employed. CTDIv ol: 49.0 mGy. DLP: 783 mGy-cm. mGy. LIMITATIONS: Mild motion artifact FINDINGS: VENTRICLES: Normal size and contour. CEREBRUM: No masses. No hemorrhage. No midline shift. No evidence for acute infarction. Chronic ap pearing white matter low attenuation from small vessel disease in the right frontal subcortical white matter, and bifrontal deep periventricular white matter. This is similar compared to post prior CT exams. CEREBELLUM: No masses. No hemorrhage. No alteration of density. No evidence for acute infarction. EXTRAAXIAL SPACES: No fluid collections. No masses. ORBITS AND GLOBE: No intra- or extraconal masses. Normal contour of globe without masses. CALVARIUM: No fracture. PARANASAL SINUSES: Left maxillary sinus air-fluid level with a small amount of high-density material from hemorrhage. If there is clinical concern for left orbital floor fracture then CT facial bones s hould be performed. SOFT TISSUES: No mass or hematoma. OTHER: No other significant finding. IMPRESSION: No acute intracranial changes Small amount of hemorrhage in the left maxillary sinus seen as hyperdense material. If there is clin ical concern for a left-sided orbital floor fracture, please consider CT facial bones for followup EVIDENCE OF ACUTE STROKE: No COMMENT: Quality ID # [id number]: Final reports with documentation of one or more dose reduction techniques (e.g., Automated exposure control, adjustment of the mA and/or kV according to patient size, use of iterative reconstruction technique) TECHNICAL DOCUMENTATION: JOB ID: [id number] [employer]- All Rights Reserved
[2017-06-20] MEDS ORDERED: LEVOFLOXACIN 750 MG TABLET PO SCH (15:00)
--- NOTE | 2017-06-20 16:17 | PDOC PROGRESS REPORT ---
Subjective Progress Note for:: 06/20/17 Subjective:: Patient states that she is doing well this morning. Later on during the day nursing called stated that patient fell and landed on her knees. Nurse states that the fall was not a witnessed fall. Nurses given order to get CT of head. Physical Exam Vital Signs: Temp Pulse Resp BP Pulse Ox 98.2 F 89 18 171/85 H 95 06/20/17 14:54 06/20/17 14:56 06/20/17 14:56 06/20/17 14:56 06/20/17 14:56 Intake & Output 06/19/17 06/20/17 06/21/17 06:59 06:59 06:59 Intake Total 2976 3140 Output Total 1125 750 Balance 1851 2390 Weight 58.3 kg 58.2 kg General appearance: PRESENT: no acute distress, well-developed, well-nourished Head exam: PRESENT: atraumatic, normocephalic Eye exam: PRESENT: conjunctiva pink, EOMI. ABSENT: scleral icterus Ear exam: PRESENT: normal external ear exam Mouth exam: PRESENT: moist, tongue midline Neck exam: ABSENT: carotid bruit, JVD, lymphadenopathy, thyromegaly Respiratory exam: PRESENT: clear to auscultation tim. ABSENT: rales, rhonchi, wheezes Cardiovascular exam: PRESENT: RRR. ABSENT: diastolic murmur, rubs, systolic murmur Pulses: PRESENT: normal dorsalis pedis pul Vascular exam: PRESENT: normal capillary refill GI/Abdominal exam: PRESENT: normal bowel sounds, soft. ABSENT: distended, guarding, mass, organolmegaly, rebound, tenderness Rectal exam: PRESENT: deferred Extremities exam: PRESENT: full ROM. ABSENT: calf tenderness, clubbing, pedal edema Neurological exam: PRESENT: alert, awake, oriented to person, oriented to place , oriented to time, oriented to situation, CN II-XII grossly intact. ABSENT: motor sensory deficit Results Laboratory Results: 06/20/17 07:30 06/20/17 07:30 06/20/17 06/20/17 07:30 07:30 WBC 14.5 H D RBC 4.03 Hgb 12.2 Hct 34.4 L MCV 85 MCH 30.2 MCHC 35.4 RDW 12.9 Plt Count 342 Seg Neutrophils % 81.5 H Lymphocytes % 8.4 L Monocytes % 9.9 Eosinophils % 0.0 Basophils % 0.2 Absolute Neutrophils 11.8 H Absolute Lymphocytes 1.2 Absolute Monocytes 1.4 Absolute Eosinophils 0.0 Absolute Basophils 0.0 Sodium 135.8 L Potassium 3.3 L Chloride 97 L Carbon Dioxide 26 Anion Gap 13 BUN 11 Creatinine 0.54 Est GFR ( Amer) > 60 Est GFR (Non-Af Amer) > 60 Glucose 95 Calcium 9.5 Magnesium 1.8 06/18/17 16:20 Catheterized Urine Urine Culture - Final NO GROWTH 2 DAYS Impressions: Lumbar Spine CT 06/15/17 11:08 IMPRESSION: No acute abnormality is present in the lumbar spine. Findings as described above. Thoracic Spine CT 06/15/17 11:08 IMPRESSION: 1. Possible chronic lung changes with bronchiectasis. 2. No acute compression changes seen thoracic spine. Findings as described. Chest X-Ray 06/18/17 00:00 IMPRESSION: Bibasilar airspace disease in the posterior costophrenic sulci with trace pleural effusions. This is new compared to previous studies Underlying obstructive lung disease Head CT 06/20/17 00:00 IMPRESSION: No acute intracranial changes Small amount of hemorrhage in the left maxillary sinus seen as hyperdense material. If there is clinical concern for a left-sided orbital floor fracture , please consider CT facial bones for followup EVIDENCE OF ACUTE STROKE: No Assessment & Plan - Diagnosis (1) Acute hypoxemic respiratory failure Is this a current diagnosis for this admission?: Yes Plan: Secondary COPD exacerbation: Resolved (2) COPD exacerbation Is this a current diagnosis for this admission?: Yes Plan: We will continue patient on oral Levaquin, breathing treatments every 6 hours, Symbicort, and prednisone. (3) Facial fracture due to fall Qualifiers: Fracture type: closed Is this a current diagnosis for this admission?: Yes Plan: Will have ENT evaluate pt. (4) Acute encephalopathy Is this a current diagnosis for this admission?: Yes Plan: Pt improved. Will continue to monitor. Will check ABG. (5) Fall Qualifiers: Encounter type: initial encounter Qualified Code(s): W19.XXXA - Unspecified fall, initial encounter Is this a current diagnosis for this admission?: Yes Plan: Will have PT/OT continue to work with pt. (6) SIRS (systemic inflammatory response syndrome) Is this a current diagnosis for this admission?: Yes Plan: Secondary COPD. (7) Hyponatremia Is this a current diagnosis for this admission?: Yes Plan: Will continue to monitor. (8) Hypokalemia Is this a current diagnosis for this admission?: Yes Plan: Will give potassium replacement. - Time Time Spent with patient: 25-34 minutes
[2017-06-20] MEDS ORDERED: POTASSIUM CHLORIDE 10 MEQ TABLET.SA PO ONE (17:00)
[2017-06-20 17:17] LABS: ARTERIAL BLOOD BASE EXCESS 3.3 mmol/L; ARTERIAL BLOOD O2 SATURATION 91.1 % (94-98)
--- NOTE | 2017-06-20 18:28 | RADIOLOGY REPORT (SQ) ---
EXAM DESCRIPTION: CT FACIAL AREA WITHOUT COMPLETED DATE/TIME: 06/20/2017 6:00 pm REASON FOR STUDY: Left orbital fracture. COMPARISON: CT head 06/20/2017 TECHNIQUE: Noncontrasted images through the facial bones and orbits windowed for bone and soft tissu e. Additional coronal and sagittal reconstructed images reviewed. All images stored on PACS. All CT scanners at this facility use dose modulation, iterative reconstruction, and/or weight based d osing when appropriate to reduce radiation dose to as low as reasonably achievable (ALARA). [facility]: Dose Right [facility]: CareDose [facility]: Dose Right [facility]: Teradose 4D [facility]: [employer] RADIATION DOSE: Up-to-date CT equipment and radiation dose reduction techniques were employed. CTDIv ol: 30.4 mGy. DLP: 509 mGy-cm. mGy. LIMITATIONS: None. FINDINGS: FACIAL BONES: No fracture or bone lesion. ORBITS: Intact. No fracture. Symmetric intact globes and retroorbital soft tissues. PARANASAL SINUSES: Mucoperiosteal thickening is seen in both maxillary sinuses. Bilateral antral win dows are present. There is some frothy fluid in the left maxillary sinus No nasal polyps. Maxillary sinus outlets are patent. SOFT TISSUES: No mass or edema. INFERIOR BRAIN: See report for CT of the head. OTHER: No other significant finding. IMPRESSION: Bilateral maxillary sinus disease as described. No orbital fracture is seen. TECHNICAL DOCUMENTATION: JOB ID: [id number] Quality ID # [id number]: Final reports with documentation of one or more dose reduction techniques (e.g., Au tomated exposure control, adjustment of the mA and/or kV according to patient size, use of iterative reconstruction technique) 2010 [employer]- All Rights Reserved
[2017-06-20] MEDS: SENNOSIDES/DOCUSATE 8.6-50 MG 1 EACH TABLET PO SCH (22:34)
[2017-06-21] MEDS: CARBAMAZEPINE 200 MG TABLET PO SCH ×5 (00:34→23:23)
[2017-06-21] MEDS: IPRATROPIUM/ALBUTEROL 0.5-2.5 MG/3 ML AMPUL NEB SCH ×4 (02:00→19:41)
[2017-06-21] MEDS: ALPRAZOLAM 0.25 MG TABLET PO SCH ×3 (05:50→23:19)
[2017-06-21] MEDS: FAMOTIDINE 20 MG TABLET PO SCH ×2 (10:32→23:19)
[2017-06-21] MEDS: METOPROLOL SUCCINATE 25 MG TAB.SR.24H PO SCH ×2 (10:32→23:19)
[2017-06-21] MEDS: GUAIFENESIN 600 MG TABLET.SA PO SCH ×2 (10:33→23:19)
[2017-06-21] MEDS: BUDESONIDE/FORMOTEROL 160-4.5 MCG 60 PUFF/6 GM MDI IH SCH ×2 (10:34→23:20)
[2017-06-21] MEDS: DOCUSATE SODIUM 100 MG CAPSULE PO SCH ×2 (10:34→18:20)
[2017-06-21] MEDS: OXYCODONE HCL IR 5 MG TABLET PO PRN ×3 (10:39→23:19)
[2017-06-21] MEDS: ACETAMINOPHEN 325 MG TABLET PO PRN (11:58)
[2017-06-21] MEDS ORDERED: POTASSIUM CHLORIDE 10 MEQ TABLET.SA PO ONE (13:14)
--- NOTE | 2017-06-21 14:12 | PDOC PROGRESS REPORT ---
Subjective Progress Note for:: 06/21/17 Subjective:: Pt states that her knees are hurting. Nursing states that she gave pain medication to help with symptoms. Physical Exam Vital Signs: Temp Pulse Resp BP Pulse Ox 98.3 F 85 16 182/88 H 98 06/21/17 07:12 06/21/17 08:14 06/21/17 08:14 06/21/17 07:12 06/21/17 08:14 Intake & Output 06/20/17 06/21/17 06/22/17 06:59 06:59 06:59 Intake Total 3140 723 Output Total 750 1400 Balance 2390 -677 Weight 58.2 kg 60.1 kg General appearance: PRESENT: no acute distress, well-developed, well-nourished Head exam: PRESENT: atraumatic, normocephalic Eye exam: PRESENT: conjunctiva pink, EOMI. ABSENT: scleral icterus Ear exam: PRESENT: normal external ear exam Mouth exam: PRESENT: moist, tongue midline Neck exam: ABSENT: carotid bruit, JVD, lymphadenopathy, thyromegaly Respiratory exam: PRESENT: clear to auscultation tim. ABSENT: rales, rhonchi, wheezes Cardiovascular exam: PRESENT: RRR. ABSENT: diastolic murmur, rubs, systolic murmur Pulses: PRESENT: normal dorsalis pedis pul Vascular exam: PRESENT: normal capillary refill GI/Abdominal exam: PRESENT: normal bowel sounds, soft. ABSENT: distended, guarding, mass, organolmegaly, rebound, tenderness Rectal exam: PRESENT: deferred Extremities exam: PRESENT: other - + tenderness to palpation of bilateral knees. Neurological exam: PRESENT: alert, awake, oriented to person, oriented to place , oriented to time, oriented to situation, CN II-XII grossly intact. ABSENT: motor sensory deficit Psychiatric exam: PRESENT: appropriate affect, normal mood. ABSENT: homicidal ideation, suicidal ideation Skin exam: PRESENT: dry, intact, warm. ABSENT: cyanosis, rash Results Laboratory Results: 06/20/17 07:30 06/20/17 07:30 06/20/17 06/21/17 16:50 04:10 Carbonic Acid 1.04 L HCO3/H2CO3 Ratio 25:1 ABG pH 7.50 H ABG pCO2 34.6 L ABG pO2 54.4 L ABG HCO3 26.3 H ABG O2 Saturation 91.1 L ABG Base Excess 3.3 FiO2 21% Magnesium 1.8 06/18/17 16:20 Catheterized Urine Urine Culture - Final NO GROWTH 2 DAYS Impressions: Lumbar Spine CT 06/15/17 11:08 IMPRESSION: No acute abnormality is present in the lumbar spine. Findings as described above. Thoracic Spine CT 06/15/17 11:08 IMPRESSION: 1. Possible chronic lung changes with bronchiectasis. 2. No acute compression changes seen thoracic spine. Findings as described. Chest X-Ray 06/18/17 00:00 IMPRESSION: Bibasilar airspace disease in the posterior costophrenic sulci with trace pleural effusions. This is new compared to previous studies Underlying obstructive lung disease Head CT 06/20/17 00:00 IMPRESSION: No acute intracranial changes Small amount of hemorrhage in the left maxillary sinus seen as hyperdense material. If there is clinical concern for a left-sided orbital floor fracture , please consider CT facial bones for followup EVIDENCE OF ACUTE STROKE: No Facial Bones CT 06/20/17 17:12 IMPRESSION: Bilateral maxillary sinus disease as described. No orbital fracture is seen. Assessment & Plan - Diagnosis (1) Fall Qualifiers: Encounter type: initial encounter Qualified Code(s): W19.XXXA - Unspecified fall, initial encounter Is this a current diagnosis for this admission?: Yes Plan: Will have PT/OT continue to work with pt. (2) Acute hypoxemic respiratory failure Is this a current diagnosis for this admission?: Yes Plan: Secondary COPD exacerbation: Resolved (3) COPD exacerbation Is this a current diagnosis for this admission?: Yes Plan: Levaquin and prednisone have been discontinued. Will continue Symbicort and albuterol as ordered. (4) Facial fracture due to fall Qualifiers: Fracture type: closed Is this a current diagnosis for this admission?: Yes Plan: Ruled out: Patient facial CT demonstrated no evidence of fracture. (5) Acute encephalopathy Is this a current diagnosis for this admission?: Yes Plan: Pt improved. (6) SIRS (systemic inflammatory response syndrome) Is this a current diagnosis for this admission?: Yes Plan: Secondary COPD. (7) Hyponatremia Is this a current diagnosis for this admission?: Yes Plan: Will continue to monitor. (8) Hypokalemia Is this a current diagnosis for this admission?: Yes Plan: Will give potassium replacement. MP check in a.m. (9) Knee pain, bilateral Qualifiers: Chronicity: acute Qualified Code(s): M25.561 - Pain in right knee; M25.562 - Pain in left knee; M25.562 - Pain in left knee Is this a current diagnosis for this admission?: Yes Plan: Will obtain x-ray of knees. - Time Time Spent with patient: 15-24 minutes
--- NOTE | 2017-06-21 15:25 | RADIOLOGY REPORT (SQ) ---
EXAM DESCRIPTION: KNEE BILATERAL 1-2 VIEWS COMPLETED DATE/TIME: 06/21/2017 3:07 pm REASON FOR STUDY: Pain COMPARISON: None. NUMBER OF VIEWS: Four views TECHNIQUE: AP and lateral bilateral knees. LIMITATIONS: None. FINDINGS: MINERALIZATION: Bony structures are osteopenic RIGHT KNEE BONES: No acute fracture. No worrisome bone lesions. MEDIAL COMPARTMENT: No significant osteophytes. There is some mild decrease in the medial compartme nt. No chondrocalcinosis. LATERAL COMPARTMENT: No significant osteophytes. No joint space narrowing. No chondrocalcinosis. LEFT KNEE BONES: No acute fracture. No worrisome bone lesions. MEDIAL COMPARTMENT: No significant osteophytes. There is some mild decrease in medial compartment. No chondrocalcinosis. LATERAL COMPARTMENT: No significant osteophytes. There is some mild decrease in the lateral compart ment. No chondrocalcinosis. IMPRESSION: No acute fracture or dislocation. Other findings as noted above TECHNICAL DOCUMENTATION: JOB ID: [id number] [employer]- All Rights Reserved
[2017-06-21] MEDS: SENNOSIDES/DOCUSATE 8.6-50 MG 1 EACH TABLET PO SCH (23:18)
[2017-06-22] MEDS: IPRATROPIUM/ALBUTEROL 0.5-2.5 MG/3 ML AMPUL NEB SCH ×4 (02:05→19:57)
[2017-06-22 04:42] LABS: ANION GAP 13 (5-19); BLOOD UREA NITROGEN 14 mg/dL (7-20); CALCIUM 8.8 mg/dL (8.4-10.2); CARBON DIOXIDE 22 mmol/L (22-30); CHLORIDE 96 mmol/L (98-107); CREATININE RESULT 0.66 mg/dL (0.52-1.25); GLUCOSE 82 mg/dL (75-110); POTASSIUM 4.4 mmol/L (3.6-5.0); SODIUM 130.5 mmol/L (137-145)
[2017-06-22] MEDS: CARBAMAZEPINE 200 MG TABLET PO SCH ×4 (06:18→23:41)
[2017-06-22] MEDS: ALPRAZOLAM 0.25 MG TABLET PO SCH ×2 (06:18→16:09)
[2017-06-22] MEDS: BUDESONIDE/FORMOTEROL 160-4.5 MCG 60 PUFF/6 GM MDI IH SCH ×2 (09:52→23:39)
[2017-06-22] MEDS: GUAIFENESIN 600 MG TABLET.SA PO SCH ×2 (09:53→23:39)
[2017-06-22] MEDS: METOPROLOL SUCCINATE 25 MG TAB.SR.24H PO SCH ×2 (09:54→23:40)
[2017-06-22] MEDS: FAMOTIDINE 20 MG TABLET PO SCH ×2 (09:55→23:39)
[2017-06-22] MEDS: DOCUSATE SODIUM 100 MG CAPSULE PO SCH ×2 (09:55→17:07)
[2017-06-22] MEDS: ACETAMINOPHEN 325 MG TABLET PO PRN ×2 (16:14→23:40)
[2017-06-22] MEDS ORDERED: SODIUM CHLORIDE 1 GM TABLET PO ONE (17:23)
--- NOTE | 2017-06-22 17:27 | PDOC PROGRESS REPORT ---
Subjective Progress Note for:: 06/22/17 Subjective:: Pt states that she does not want to eat. Nursing states that pt is not eating very well. Physical Exam Vital Signs: Temp Pulse Resp BP Pulse Ox 97.3 F 87 16 179/82 H 98 06/22/17 11:44 06/22/17 14:00 06/22/17 14:00 06/22/17 11:44 06/22/17 14:00 Intake & Output 06/21/17 06/22/17 06/23/17 06:59 06:59 06:59 Intake Total 723 540 Output Total 1400 Balance -677 540 Weight 60.1 kg 65.6 kg General appearance: PRESENT: no acute distress, well-developed, well-nourished Head exam: PRESENT: atraumatic, normocephalic Eye exam: PRESENT: conjunctiva pink, EOMI. ABSENT: scleral icterus Ear exam: PRESENT: normal external ear exam Mouth exam: PRESENT: moist, tongue midline Neck exam: ABSENT: carotid bruit, JVD, lymphadenopathy, thyromegaly Respiratory exam: PRESENT: clear to auscultation tim. ABSENT: rales, rhonchi, wheezes Cardiovascular exam: PRESENT: RRR. ABSENT: diastolic murmur, rubs, systolic murmur Pulses: PRESENT: normal dorsalis pedis pul Vascular exam: PRESENT: normal capillary refill GI/Abdominal exam: PRESENT: normal bowel sounds, soft. ABSENT: distended, guarding, mass, organolmegaly, rebound, tenderness Rectal exam: PRESENT: deferred Extremities exam: PRESENT: full ROM. ABSENT: calf tenderness, clubbing, pedal edema Neurological exam: PRESENT: alert, awake, oriented to person Psychiatric exam: PRESENT: appropriate affect, normal mood. ABSENT: homicidal ideation, suicidal ideation Skin exam: PRESENT: dry, intact, warm. ABSENT: cyanosis, rash Results Laboratory Results: 06/20/17 07:30 06/22/17 03:51 06/22/17 03:51 Sodium 130.5 L Potassium 4.4 Chloride 96 L Carbon Dioxide 22 Anion Gap 13 BUN 14 Creatinine 0.66 Est GFR ( Amer) > 60 Est GFR (Non-Af Amer) > 60 Glucose 82 Calcium 8.8 Impressions: Lumbar Spine CT 06/15/17 11:08 IMPRESSION: No acute abnormality is present in the lumbar spine. Findings as described above. Thoracic Spine CT 06/15/17 11:08 IMPRESSION: 1. Possible chronic lung changes with bronchiectasis. 2. No acute compression changes seen thoracic spine. Findings as described. Chest X-Ray 06/18/17 00:00 IMPRESSION: Bibasilar airspace disease in the posterior costophrenic sulci with trace pleural effusions. This is new compared to previous studies Underlying obstructive lung disease Head CT 06/20/17 00:00 IMPRESSION: No acute intracranial changes Small amount of hemorrhage in the left maxillary sinus seen as hyperdense material. If there is clinical concern for a left-sided orbital floor fracture , please consider CT facial bones for followup EVIDENCE OF ACUTE STROKE: No Facial Bones CT 06/20/17 17:12 IMPRESSION: Bilateral maxillary sinus disease as described. No orbital fracture is seen. Knee X-Ray 06/21/17 00:00 IMPRESSION: No acute fracture or dislocation. Other findings as noted above Assessment & Plan - Diagnosis (1) Hyponatremia Is this a current diagnosis for this admission?: Yes Plan: Will place on sodium replacement. (2) Fall Qualifiers: Encounter type: initial encounter Qualified Code(s): W19.XXXA - Unspecified fall, initial encounter Is this a current diagnosis for this admission?: Yes Plan: Will have PT/OT continue to work with pt. (3) Protein-calorie malnutrition, mild Is this a current diagnosis for this admission?: Yes Plan: Will add Megace. (4) Acute hypoxemic respiratory failure Is this a current diagnosis for this admission?: Yes Plan: Secondary COPD exacerbation: Resolved (5) COPD exacerbation Is this a current diagnosis for this admission?: Yes Plan: Levaquin and prednisone have been discontinued. Will continue Symbicort and albuterol as ordered. (6) Facial fracture due to fall Qualifiers: Fracture type: closed Is this a current diagnosis for this admission?: Yes Plan: Ruled out: Patient facial CT demonstrated no evidence of fracture. (7) Acute encephalopathy Is this a current diagnosis for this admission?: Yes Plan: Pt improved. (8) SIRS (systemic inflammatory response syndrome) Is this a current diagnosis for this admission?: Yes Plan: Secondary COPD. (9) Hypokalemia Is this a current diagnosis for this admission?: Yes Plan: Resolved (10) Knee pain, bilateral Qualifiers: Chronicity: acute Qualified Code(s): M25.561 - Pain in right knee; M25.562 - Pain in left knee; M25.562 - Pain in left knee Is this a current diagnosis for this admission?: Yes Plan: X-ray of knees demonstrates no fractures. Supportive care. - Time Time Spent with patient: 15-24 minutes
[2017-06-22] MEDS: SODIUM CHLORIDE 1 GM TABLET PO SCH (17:59)
[2017-06-22] MEDS: MEGESTROL ACETATE 20 MG TABLET PO SCH (23:39)
[2017-06-22] MEDS: SENNOSIDES/DOCUSATE 8.6-50 MG 1 EACH TABLET PO SCH (23:40)
[2017-06-23] MEDS: IPRATROPIUM/ALBUTEROL 0.5-2.5 MG/3 ML AMPUL NEB SCH ×4 (01:19→20:07)
[2017-06-23] MEDS: CARBAMAZEPINE 200 MG TABLET PO SCH ×3 (05:10→18:03)
[2017-06-23] MEDS: MEGESTROL ACETATE 20 MG TABLET PO SCH ×2 (05:10→13:51)
[2017-06-23 06:48] LABS: ABSOLUTE EOSINOPHILS # (AUTO) 0.2 10^3/uL (0.0-0.6); ABSOLUTE LYMPHOCYTES (AUTO) 0.8 10^3/uL (0.5-4.7); ABSOLUTE MONOCYTES (AUTO) 0.7 10^3/uL (0.1-1.4); ABSOLUTE NEUT (AUTO) 6.3 10^3/uL (1.7-8.2); BASOPHILS % (AUTO) 0.2 % (0-2); EOSINOPHILS % (AUTO) 2.4 % (0-6); HEMOGLOBIN 13.1 g/dL (12.0-15.5); HGB HCT DIFFERENCE 2.3; LYMPHOCYTES % (AUTO) 10.5 % (13-45); MEAN CORPUSCULAR HEMOGLOBIN 30.1 pg (27.0-33.4); MEAN CORPUSCULAR HGB CONC 35.4 g/dL (32.0-36.0); MEAN CORPUSCULAR VOLUME 85 fl (80-97); MONOCYTES % (AUTO) 9.2 % (3-13); RED BLOOD COUNT 4.35 10^6/uL (3.72-5.28); RED CELL DISTRIBUTION WIDTH 12.8 % (11.5-14.0); SEGMENTED NEUTROPHILS % (AUTO) 77.7 % (42-78); WHITE BLOOD COUNT 8.1 10^3/uL (4.0-10.5)
[2017-06-23 07:18] LABS: ANION GAP 12 (5-19); BLOOD UREA NITROGEN 17 mg/dL (7-20); CALCIUM 8.9 mg/dL (8.4-10.2); CARBON DIOXIDE 24 mmol/L (22-30); CHLORIDE 97 mmol/L (98-107); GLUCOSE 109 mg/dL (75-110); SODIUM 133.1 mmol/L (137-145)
[2017-06-23] MEDS: DOCUSATE SODIUM 100 MG CAPSULE PO SCH ×2 (09:40→18:04)
[2017-06-23] MEDS: FAMOTIDINE 20 MG TABLET PO SCH (09:41)
[2017-06-23] MEDS: METOPROLOL SUCCINATE 25 MG TAB.SR.24H PO SCH (09:41)
[2017-06-23] MEDS: GUAIFENESIN 600 MG TABLET.SA PO SCH (09:42)
[2017-06-23] MEDS: SODIUM CHLORIDE 1 GM TABLET PO SCH ×2 (09:44→18:03)
--- NOTE | 2017-06-23 13:12 | PDOC DISCHARGE SUMMARY ---
General - Admit/Disc Date/PCP Admission Date/Primary Care Provider: 06/15/17 14:55 CARI RUBIO MD Discharge Date: 06/23/17 - Discharge Diagnosis (1) Hyponatremia Is this a current diagnosis for this admission?: Yes Summary: Will continue sodium replacement for 5 days. (2) Fall Is this a current diagnosis for this admission?: Yes Summary: PT/OT (3) Protein-calorie malnutrition, mild Is this a current diagnosis for this admission?: Yes Summary: Continue supplemental drinks (4) Acute hypoxemic respiratory failure Is this a current diagnosis for this admission?: Yes Summary: Secondary to COPD Exacerbation: Resolved. (5) COPD exacerbation Is this a current diagnosis for this admission?: Yes Summary: Pt was placed on steroids and breathing treatments. Pt was weaned from steroids. Will continue current breathing treatments. (6) Facial fracture due to fall Is this a current diagnosis for this admission?: Yes Summary: Ruled out. (7) Acute encephalopathy Is this a current diagnosis for this admission?: Yes Summary: Secondary to COPD excerbation: Resolving. (8) SIRS (systemic inflammatory response syndrome) Is this a current diagnosis for this admission?: Yes Summary: Secondary to COPD. (9) Hypokalemia Is this a current diagnosis for this admission?: Yes Summary: Resolved. (10) Knee pain, bilateral Is this a current diagnosis for this admission?: Yes Summary: No evidence of fracture. - Additional Information Resuscitation Status: Full Code Discharge Diet: Regular Discharge Activity: Activity As Tolerated Home Medications: Budesonide/Formoterol Fumarate [Symbicort 160-4.5 Mcg Inhaler] 2 puff IH Q12 08/20 Carbamazepine [Carbamazepine ER] 300 mg PO Q12 06/15/17 Meclizine HCl [Antivert 25 mg Tablet] 25 mg PO TIDP PRN 06/15/17 Albuterol Sulfate [Proair HFA Inhalation Aerosol 8.5 gm MDI] 2 puff IH Q6HP PRN hfa.aer.[id number] 06/23/17 Alprazolam [Xanax 0.25 mg Tablet] 0.25 mg PO Q8 #5 tablet 06/23/17 Bisacodyl [Dulcolax 10 mg Supp.rect] 10 mg MA DAILYP PRN supp.rect 06/23/17 Carbamazepine [Tegretol 200 mg Tablet] 200 mg PO Q6 tablet 06/23/17 Famotidine [Pepcid 20 mg Tablet] 20 mg PO Q12 tablet 06/23/17 Guaifenesin [Mucinex Sr 600 mg Tablet.sa] 600 mg PO Q12 tablet.sa 06/23/17 Ipratropium/Albuterol Sulfate [Duoneb 3 ml Ampul] 3 ml NEB RTQ6 vial.neb Megestrol Acetate [Megace 20 mg Tablet] 20 mg PO Q8 tablet 06/23/17 Metoprolol Succinate [Toprol Xl 25 mg Tab.sr] 12.5 mg PO Q12 tab.sr.24h Sennosides/Docusate 8.6-50 mg [Senna Plus Tablet] 2 each PO QHS tablet Sodium Chloride [Sodium Chloride 1 gm Tablet] 1 gm PO BID tablet 06/23/17 History of Present Illness Patient complains of: COPD exacerbation History of Present Illness: HAILEE VARELA is a 71 year old female presented for back pain and found to have COPD Exacerbation. Hospital Course Hospital Course: Patient is a 71-year-old female that was admitted to our facility after falling backwards and hitting her back. She came to the emergency room due to complaint of back pain. Patient had imaging that demonstrated no fracture. Patient was found to have COPD exacerbation and therefore was placed on treatments. Patient's Restoril function continued to improve. Patient was noted to have acute metabolic encephalopathy which now appears most likely to be patient's baseline. Family has reported that since patient has been in the hospital she has been a little bit more confused which would be consistent with somebody with cognitive impairment/early dementia. While patient was in the hospital patient did fall. Patient had CT of head which after further evaluation demonstrated no acute process. Patient also had imaging of knees that demonstrated no evidence of fracture. Patient is going to rehab for strengthening. Patient was noted to have hyperal natremia and therefore has been placed on sodium replacement for 5 days. Physical Exam Vital Signs: Temp Pulse Resp BP Pulse Ox 97.4 F 82 16 178/91 H 97 06/23/17 08:00 06/23/17 08:26 06/23/17 08:26 06/23/17 08:00 06/23/17 08:26 Intake & Output 06/22/17 06/23/17 06/24/17 06:59 06:59 06:59 Intake Total 540 240 Balance 540 240 Weight 65.6 kg 71 kg General appearance: PRESENT: no acute distress, well-developed, well-nourished Head exam: PRESENT: atraumatic, normocephalic Eye exam: PRESENT: conjunctiva pink, EOMI. ABSENT: scleral icterus Ear exam: PRESENT: normal external ear exam Mouth exam: PRESENT: moist, tongue midline Neck exam: ABSENT: carotid bruit, JVD, lymphadenopathy, thyromegaly Respiratory exam: PRESENT: clear to auscultation tim. ABSENT: rales, rhonchi, wheezes Cardiovascular exam: PRESENT: RRR. ABSENT: diastolic murmur, rubs, systolic murmur Pulses: PRESENT: normal dorsalis pedis pul Vascular exam: PRESENT: normal capillary refill GI/Abdominal exam: PRESENT: normal bowel sounds, soft. ABSENT: distended, guarding, mass, organolmegaly, rebound, tenderness Rectal exam: PRESENT: deferred Extremities exam: PRESENT: full ROM. ABSENT: calf tenderness, clubbing, pedal edema Neurological exam: PRESENT: alert, awake, oriented to person, oriented to place , oriented to time, oriented to situation, CN II-XII grossly intact. ABSENT: motor sensory deficit Psychiatric exam: PRESENT: appropriate affect, normal mood. ABSENT: homicidal ideation, suicidal ideation Skin exam: PRESENT: dry, intact, warm. ABSENT: cyanosis, rash Results Laboratory Results: 06/23/17 06:16 06/23/17 06:16 06/23/17 06/23/17 06:16 06:16 WBC 8.1 RBC 4.35 Hgb 13.1 Hct 37.0 MCV 85 MCH 30.1 MCHC 35.4 RDW 12.8 Plt Count 348 Seg Neutrophils % 77.7 Lymphocytes % 10.5 L Monocytes % 9.2 Eosinophils % 2.4 Basophils % 0.2 Absolute Neutrophils 6.3 Absolute Lymphocytes 0.8 Absolute Monocytes 0.7 Absolute Eosinophils 0.2 Absolute Basophils 0.0 Sodium 133.1 L Potassium 4.0 Chloride 97 L Carbon Dioxide 24 Anion Gap 12 BUN 17 Creatinine 0.60 Est GFR ( Amer) > 60 Est GFR (Non-Af Amer) > 60 Glucose 109 Calcium 8.9 Impressions: Lumbar Spine CT 06/15/17 11:08 IMPRESSION: No acute abnormality is present in the lumbar spine. Findings as described above. Thoracic Spine CT 06/15/17 11:08 IMPRESSION: 1. Possible chronic lung changes with bronchiectasis. 2. No acute compression changes seen thoracic spine. Findings as described. Chest X-Ray 06/18/17 00:00 IMPRESSION: Bibasilar airspace disease in the posterior costophrenic sulci with trace pleural effusions. This is new compared to previous studies Underlying obstructive lung disease Head CT 06/20/17 00:00 IMPRESSION: No acute intracranial changes Small amount of hemorrhage in the left maxillary sinus seen as hyperdense material. If there is clinical concern for a left-sided orbital floor fracture , please consider CT facial bones for followup EVIDENCE OF ACUTE STROKE: No Facial Bones CT 06/20/17 17:12 IMPRESSION: Bilateral maxillary sinus disease as described. No orbital fracture is seen. Knee X-Ray 06/21/17 00:00 IMPRESSION: No acute fracture or dislocation. Other findings as noted above Plan Time Spent: Greater than 30 Minutes
[2017-06-23] MEDS: BUDESONIDE/FORMOTEROL 160-4.5 MCG 60 PUFF/6 GM MDI IH SCH (13:50)
[2017-06-23 17:11] VITALS: BP 147/83
[2017-06-23] MEDS: ACETAMINOPHEN 325 MG TABLET PO PRN (18:07)
== END 2017-06-23 20:35 | DRG 190 ==
LOC: ER 10:27 → EH 14:22 → UNDOADMIN 14:22 → EH 14:55 → 5 15:53
PROVIDERS: ADMIT Internal Medicine; ATTEND Internal Medicine
PROC: 3E0F73Z Introduction of Anti-inflammatory into Respiratory Tract, Via Natural or Artificial Opening (ICD-10-PCS; principal; 2017-06-15)
DX: J44.1 Chronic obstructive pulmonary disease with (acute) exacerbation (principal); J96.01 Acute respiratory failure with hypoxia; E44.1 Mild protein-calorie malnutrition; E87.1 Hypo-osmolality and hyponatremia; M54.5 Low back pain; E87.6 Hypokalemia; W18.30XA Fall on same level, unspecified, initial encounter; Y92.000 Kitchen of unspecified non-institutional (private) residence as the place of occurrence of the external cause; F03.90 Unspecified dementia, unspecified severity, without behavioral disturbance, psychotic disturbance, mood disturbance, and anxiety; I10 Essential (primary) hypertension; R42 Dizziness and giddiness; M25.562 Pain in left knee; M25.561 Pain in right knee; Y92.239 Unspecified place in hospital as the place of occurrence of the external cause; Z68.22 Body mass index [BMI] 22.0-22.9, adult; Z79.899 Other long term (current) drug therapy; Z90.49 Acquired absence of other specified parts of digestive tract
CPT/HCPCS: 36415; 36600; 51702; 70450; 70486; 71010; 71020; 72128; 72131; 80048; 80053; 81001; 82803; 83735; 85025; 85610; 87086; 93005; 93010; 94640; 94799; 96360; 96361; 99285; G8978-GP; G8979-GP; G8987-GO; G8988-GO; J1956; J2920; J3475; J3490; J7030; J7512; J7620

== ENCOUNTER 2017-07-31 15:19 | Emergency (ER) | payer MEDICARE ==
--- NOTE | 2017-07-31 16:11 | ER Document Report ---
ED Extremity Problem, Lower - General Mode of Arrival: Ambulatory Information source: Patient TRAVEL OUTSIDE OF THE [place] IN LAST 30 DAYS: No <POLO VALENTINO - Last Filed: 07/31/17 18:46> <LYNNETTE ANGELA - Last Filed: 07/31/17 22:55> - General Chief Complaint: Swelling of Lower Extremity Stated Complaint: LEG PAIN Time Seen by Provider: 07/31/17 15:42 Notes: Patient is a 72 year old female that presents to the emergency department today with complaints of left leg swelling. Patient states she noticed this swelling about 6 days ago and it has progressed since onset. Patient states she does not usually have leg swelling. (POLO VALENTINO) This patient was admitted to the hospital here on 06/15/2017 through 2016. She had fallen in the kitchen and injured her back and was initially admitted for pain control. During that time she had exacerbation of her COPD with hypoxia. She ended up having CT scans of her lumbar and thoracic spine which did not show fractures. CT scan of the head showed fluid and a sinus suggesting blood so CT scan of facial bones was done without showing any fracture. (LYNNETTE ANGELA) - Related Data Allergies/Adverse Reactions: No Known Allergies Allergy (Verified 03/11/17 14:26) Past Medical History - General Information source: Patient, [facility], [facility] Records - Social History Smoking Status: Never Smoker Cigarette use (# per day): No Chew tobacco use (# tins/day): No Frequency of alcohol use: None Drug Abuse: None Lives with: Family Family History: COPD Patient has suicidal ideation: No Patient has homicidal ideation: No - Past Medical History Cardiac Medical History: Reports: Hx Hypertension - METOPROLOL, LISINOPRIL Pulmonary Medical History: Reports: Hx COPD Past Surgical History: Reports: Hx Appendectomy, Hx Hysterectomy, Hx Orthopedic Surgery - right shoulder, Other - Cataract surgery - Immunizations Hx Pneumococcal Vaccination: 11/02/16 <POLO VALENTINO - Last Filed: 07/31/17 18:46> Review of Systems - Review of Systems Constitutional: No symptoms reported EENT: No symptoms reported Cardiovascular: No symptoms reported Respiratory: No symptoms reported Gastrointestinal: No symptoms reported Genitourinary: No symptoms reported Female Genitourinary: No symptoms reported Musculoskeletal: See HPI, Leg swelling - w/ pain Skin: No symptoms reported Hematologic/Lymphatic: No symptoms reported Neurological/Psychological: No symptoms reported -: Yes All other systems reviewed and negative <POLO VALENTINO - Last Filed: 07/31/17 18:46> - Vital signs Vitals: Temp Pulse Resp BP Pulse Ox 97.7 F 72 22 H 136/74 H 97 07/31/17 15:24 07/31/17 15:24 07/31/17 15:24 07/31/17 15:24 07/31/17 15:24 - Notes Notes: Physical Exam: General: Alert, appears well. HEENT: Normocephalic. Atraumatic. PERRL. Extraocular movements intact. Oropharynx clear. Neck: Supple. Non-tender. Respiratory: No respiratory distress. Clear and equal breath sounds bilaterally. Cardiovascular: Regular rate and rhythm. Abdominal: Normal Inspection. Non-tender. No distension. Normal Bowel Sounds. Back: Non-tender. No deformity or step off. Extremities: Moves all four extremities. Upper extremities: Normal inspection. Normal ROM. Lower extremities: RLE is thin appearing and cool, left lower extremity has extensive swelling to the level of hip. Left calf is swollen, soft, and tender with palpation. Left thigh is tender with palpation laterally>medially. Neurological: Normal cognition. AAOx4. Normal speech. Psychological: Normal affect. Normal Mood. Skin: Warm. Dry. Normal color. (POLO VALENTINO) Course - Laboratory Result Diagrams: 07/31/17 16:10 07/31/17 16:10 <POLO VALENTINO - Last Filed: 07/31/17 18:46> - Laboratory Result Diagrams: 07/31/17 16:10 07/31/17 16:10 - Diagnostic Test Radiology reviewed: Reports reviewed - Extensive DVT and SVT involving left lower extremity. See the report for details. - EKG Interpretation by In EKG shows normal: Sinus rhythm, [place], Intervals, QRS Complexes, ST-T Waves Rate: Normal - 69 Rhythm: NSR <LYNNETTE ANGELA - Last Filed: 07/31/17 22:55> - Re-evaluation Re-evalutation: 07/31/17 19:45 The patient was started on heparin bolus and heparin drip. She was accepted at [facility] by the hospitalist service, to be evaluated by the interventional radiologist for thrombolytic treatment. 07/31/17 22:54 Transport is in the room with the patient putting her on the gurney at this time. She has been removed from the active patient last as if she had already been discharged from the department, but she has not left her room yet. Her vital signs are stable, she feels quite comfortable, she is stable for transfer. (LYNNETTE ANGELA) - Vital Signs Vital signs: Temp Pulse Resp BP Pulse Ox 97.6 F 75 28 H 153/84 H 95 07/31/17 22:43 07/31/17 21:28 07/31/17 22:43 07/31/17 22:43 07/31/17 22:43 - Laboratory Laboratory results interpreted by me: 07/31/17 07/31/17 07/31/17 16:10 16:10 16:10 Hct 35.6 L RDW 14.3 H Eosinophils % 8.2 H APTT 36.7 H D-Dimer 1.38 H Potassium 3.1 L Carbon Dioxide 34 H Alkaline Phosphatase 142 H Creatine Kinase < 20 L Albumin 3.0 L Urine Urobilinogen 07/31/17 19:30 Hct RDW Eosinophils % APTT D-Dimer Potassium Carbon Dioxide Alkaline Phosphatase Creatine Kinase Albumin Urine Urobilinogen 2.0 H Discharge <POLO VALENTINO - Last Filed: 07/31/17 18:46> <LYNNETTE ANGELA - Last Filed: 07/31/17 22:55> - Discharge Clinical Impression: Hypokalemia Deep venous thrombosis Qualifiers: DVT location: lower extremity Affected thrombotic vein of extremity: unspecified lower extremity proximal vein Chronicity: acute Laterality: left Qualified Code(s): I82.4Y2 - Acute embolism and thrombosis of unspecified deep veins of left proximal lower extremity Condition: Stable Disposition: [facility] Scribe Attestation: 07/31/17 16:18 I personally performed the services described in the documentation, reviewed and edited the documentation which was dictated to the scribe in my presence, and it accurately records my words and actions. (LYNNETTE ANGELA) Scribe Documentation - Scribe Written by Leticia:: Leticia Adams, 07/31/2017 1900 acting as scribe for :: Medina <POLO VALENTINO - Last Filed: 07/31/17 18:46>
[2017-07-31 16:21] LABS: ABSOLUTE BASOPHILS # (AUTO) 0.1 10^3/uL (0.0-0.2); ABSOLUTE EOSINOPHILS # (AUTO) 0.6 10^3/uL (0.0-0.6); ABSOLUTE LYMPHOCYTES (AUTO) 1.4 10^3/uL (0.5-4.7); ABSOLUTE MONOCYTES (AUTO) 0.8 10^3/uL (0.1-1.4); ABSOLUTE NEUT (AUTO) 4.7 10^3/uL (1.7-8.2); BASOPHILS % (AUTO) 0.8 % (0-2); EOSINOPHILS % (AUTO) 8.2 % (0-6); HEMATOCRIT 35.6 % (36.0-47.0); HGB HCT DIFFERENCE 0.4; LYMPHOCYTES % (AUTO) 18.5 % (13-45); MEAN CORPUSCULAR HEMOGLOBIN 29.9 pg (27.0-33.4); MEAN CORPUSCULAR HGB CONC 33.7 g/dL (32.0-36.0); MEAN CORPUSCULAR VOLUME 89 fl (80-97); MONOCYTES % (AUTO) 10.8 % (3-13); RED BLOOD COUNT 4.02 10^6/uL (3.72-5.28); RED CELL DISTRIBUTION WIDTH 14.3 % (11.5-14.0); SEGMENTED NEUTROPHILS % (AUTO) 61.7 % (42-78); WHITE BLOOD COUNT 7.6 10^3/uL (4.0-10.5)
[2017-07-31 16:26] LABS: PROTHROMBIN TIME 13.8 SEC (11.4-15.4)
[2017-07-31 16:27] LABS: PARTIAL THROMBOPLASTIN TIME 36.7 SEC (23.5-35.8)
[2017-07-31 16:30] LABS: D-DIMER 1.38 ug/mL (0.00-0.50)
[2017-07-31 16:39] LABS: ALANINE AMINOTRANSFERASE 25 U/L (9-52); ALKALINE PHOSPHATASE 142 U/L (38-126); ANION GAP 6 (5-19); ASPARTATE AMINO TRANSFERASE 20 U/L (14-36); BILIRUBIN,DIRECT 0.4 mg/dL (0.0-0.4); BILIRUBIN,TOTAL 0.6 mg/dL (0.2-1.3); BLOOD UREA NITROGEN 14 mg/dL (7-20); CALCIUM 8.7 mg/dL (8.4-10.2); CARBON DIOXIDE 34 mmol/L (22-30); CHLORIDE 100 mmol/L (98-107); CREATINE KINASE < 20 U/L (30-135); CREATININE RESULT 0.63 mg/dL (0.52-1.25); GLUCOSE 95 mg/dL (75-110); POTASSIUM 3.1 mmol/L (3.6-5.0); SODIUM 139.8 mmol/L (137-145); TOTAL PROTEIN 6.3 g/dL (6.3-8.2)
--- NOTE | 2017-07-31 18:26 | RADIOLOGY REPORT (SQ) ---
EXAM DESCRIPTION: VENOUS UNILATERAL LOWER COMPLETED DATE/TIME: 07/31/2017 5:38 pm REASON FOR STUDY: left leg swelling COMPARISON: None. TECHNIQUE: Dynamic and static edmond scale and color images acquired of the left leg venous system. Se lected spectral images acquired with additional compression and augmentation maneuvers. The contralat eral common femoral vein and saphenofemoral junction were also imaged. Images stored on PACS. LIMITATIONS: None. FINDINGS: COMMON FEMORAL: Occlusive intraluminal thrombus is identified. FEMORAL: Occlusive intraluminal thrombus is identified POPLITEAL: Occlusive intraluminal thrombus is identified. CALF VESSELS: Normal compression, augmentation. No visualized echogenic material on edmond scale. No de fects on color images. GSV and SSV: Occlusive intraluminal thrombus is identified involving the proximal greater saphenous v ein. ANY DEEP VENOUS INSUFFICIENCY: Not evaluated. ANY EVIDENCE OF POPLITEAL CYST: No. OTHER: No other significant finding. CONTRALATERAL COMMON FEMORAL VEIN AND SAPHENOFEMORAL JUNCTION: Normal phasicity, compression and augmentation. No visualized echogenic material on edmond scale. No de fects on color images. IMPRESSION: Findings consistent with extensive DVT and SVT involving the left lower extremity as not ed above TECHNICAL DOCUMENTATION: JOB ID: [id number] [employer]- All Rights Reserved
[2017-07-31] MEDS ORDERED: HEPARIN SOD (PORCINE) 1,000 UNIT/ML 10 ML VIAL IV ONE (19:38)
[2017-07-31] MEDS ORDERED: HEPARIN SODIUM,PORCINE/D5W 25,000 UNIT/250 ML RTUINJ IV PRN (19:38)
[2017-07-31 21:22] LABS: APPEARANCE,URINE CLEAR; BILIRUBIN,URINE NEGATIVE (NEGATIVE); GLUCOSE, URINE NEGATIVE (NEGATIVE); KETONES,URINE NEGATIVE (NEGATIVE); LEUKOCYTE ESTERASE,URINE NEGATIVE (NEGATIVE); NITRITE,URINE NEGATIVE (NEGATIVE); PROTEIN,URINE NEGATIVE (NEGATIVE)
[2017-07-31] MEDS ORDERED: POTASSIUM CHLORIDE 20 MEQ/15 ML UDCUP PO ONE (21:39)
[2017-07-31 22:33] VITALS: BP 153/84
[2017-07-31] MEDS ORDERED: HEPARIN SOD (PORCINE) 1,000 UNIT/ML 10 ML VIAL IV PRN (22:39)
--- NOTE | 2017-08-01 07:53 | EKG REPORT ---
SEVERITY:- ABNORMAL ECG - SINUS RHYTHM DIFFUSE NONSPECIFIC ST-T CHANGES, NEW : Confirmed by: Adam Jung MD 01-Aug-2017 07:52:41
== END 2017-07-31 21:45 | disposition short-term general hospital (02) ==
LOC: ER 15:19
DX: I82.4Y2 Acute embolism and thrombosis of unspecified deep veins of left proximal lower extremity (principal); M79.89 Other specified soft tissue disorders; E87.6 Hypokalemia; M79.605 Pain in left leg
CPT/HCPCS: 93005; 99285; 36415; 87040; 82550; 85025; 85610; 85730; 80053; 81001; 84484; 85379; 93971; 93010; J1644; A9270

== ENCOUNTER 2018-08-20 11:32 | Emergency (ER) | payer MEDICARE ==
--- NOTE | 2018-08-20 12:01 | ER Document Report ---
ED General - General Chief Complaint: Dizziness Stated Complaint: DIZZY Time Seen by Provider: 08/20/18 11:56 Mode of Arrival: Medic Information source: Patient Notes: 73-year-old female brought to the emergency department by EMS for lightheadedness. [place] feeling lightheaded, flushed, nauseated. Patient states that she sat on the ground but her symptoms did not improve. EMS was contacted. Patient has had similar episodes in the past. She denies any chest pain, shortness of breath, abdominal pain. Patient states that she is currently asymptomatic. She states that she has a history of COPD and hypertension. She has been taking her medication as directed. TRAVEL OUTSIDE OF THE [place] IN LAST 30 DAYS: No - HPI Onset: Just prior to arrival Quality of pain: No pain Severity: None Pain Level: Denies Associated symptoms: None Exacerbated by: Denies Relieved by: Denies Similar symptoms previously: Yes Recently seen / treated by doctor: No - Related Data Allergies/Adverse Reactions: No Known Allergies Allergy (Verified 03/11/17 14:26) Past Medical History - General Information source: Patient - Social History Smoking Status: Former Smoker Frequency of alcohol use: None Drug Abuse: None Family History: Reviewed & Not Pertinent, COPD Patient has suicidal ideation: No Patient has homicidal ideation: No - Past Medical History Cardiac Medical History: Reports: Hx Hypertension - METOPROLOL, LISINOPRIL Denies: Hx Heart Attack Pulmonary Medical History: Reports: Hx COPD Denies: Hx Asthma Neurological Medical History: Denies: Hx Cerebrovascular Accident, Hx Seizures Renal/ Medical History: Denies: Hx Peritoneal Dialysis GI Medical History: Denies: Hx Hepatitis, Hx Hiatal Hernia, Hx Ulcer Infectious Medical History: Denies: Hx Hepatitis Past Surgical History: Reports: Hx Appendectomy, Hx Hysterectomy, Hx Orthopedic Surgery - right shoulder, Other - Cataract surgery. Denies: Hx Mastectomy, Hx Open Heart Surgery, Hx Pacemaker - Immunizations Hx Pneumococcal Vaccination: 11/02/16 Review of Systems - Review of Systems Constitutional: No symptoms reported EENT: No symptoms reported Cardiovascular: Lightheaded Respiratory: No symptoms reported Gastrointestinal: Nausea Genitourinary: No symptoms reported Female Genitourinary: No symptoms reported Musculoskeletal: No symptoms reported Skin: No symptoms reported Hematologic/Lymphatic: No symptoms reported Neurological/Psychological: No symptoms reported -: Yes All other systems reviewed and negative Physical Exam - Vital signs Vitals: Temp 97.8 F 08/20/18 11:43 - Notes Notes: PHYSICAL EXAMINATION: GENERAL: Well-appearing, well-nourished and in no acute distress. HEAD: Atraumatic, normocephalic. EYES: Pupils equal round and reactive to light, extraocular movements intact, conjunctiva are normal. ENT: Nares patent, oropharynx clear without exudates. Moist mucous membranes. NECK: Normal range of motion, supple without lymphadenopathy LUNGS: Breath sounds clear to auscultation bilaterally and equal. No wheezes rales or rhonchi. HEART: Regular rate and rhythm without murmurs ABDOMEN: Soft, nontender, nondistended abdomen. No guarding, no rebound. No masses appreciated. Female : deferred Musculoskeletal: Normal range of motion, no pitting or edema. No cyanosis. NEUROLOGICAL: Cranial nerves grossly intact. Normal speech, normal gait. Normal sensory, motor exams PSYCH: Normal mood, normal affect. SKIN: Warm, Dry, normal turgor, no rashes or lesions noted. Course - Re-evaluation Re-evalutation: 08/20/18 13:15 EKG: Ventricular rate 67, CA interval 160, cures duration 74, QTc 393, sinus rhythm, no ST segment elevation. 08/20/18 15:39 Patient continues to be asymptomatic in the emergency department. Labs and imaging obtained. No acute process was identified. Troponin negative x2. Patient instructed to follow-up with her primary care physician this week, to continue taking medication prescribed as directed, and to return to the emergency department for any worsening symptoms. Patient is agreeable to plan of care. - Vital Signs Vital signs: Temp Pulse Resp BP Pulse Ox 97.8 F 67 24 H 188/88 H 96 08/20/18 11:43 08/20/18 13:06 08/20/18 14:01 08/20/18 14:00 08/20/18 14:01 - Laboratory Result Diagrams: 08/20/18 11:18 08/20/18 11:18 Laboratory results interpreted by me: 08/20/18 08/20/18 11:18 11:18 WBC 11.1 H RDW 14.2 H Seg Neutrophils % 82.5 H Lymphocytes % 9.8 L Absolute Neutrophils 9.2 H Glucose 121 H Alkaline Phosphatase 132 H Discharge - Discharge Clinical Impression: Lightheaded Condition: Good Disposition: HOME, SELF-CARE Instructions: Dizziness ([facility]) Referrals: CARI RUBIO MD [Primary Care Provider] - Follow up as needed
[2018-08-20 12:17] LABS: ABSOLUTE BASOPHILS # (AUTO) 0.1 10^3/uL (0.0-0.2); ABSOLUTE EOSINOPHILS # (AUTO) 0.2 10^3/uL (0.0-0.6); ABSOLUTE LYMPHOCYTES (AUTO) 1.1 10^3/uL (0.5-4.7); ABSOLUTE MONOCYTES (AUTO) 0.6 10^3/uL (0.1-1.4); ABSOLUTE NEUT (AUTO) 9.2 10^3/uL (1.7-8.2); BASOPHILS % (AUTO) 0.5 % (0-2); EOSINOPHILS % (AUTO) 1.6 % (0-6); HEMATOCRIT 41.3 % (36.0-47.0); HEMOGLOBIN 14.1 g/dL (12.0-15.5); LYMPHOCYTES % (AUTO) 9.8 % (13-45); MEAN CORPUSCULAR HEMOGLOBIN 29.9 pg (27.0-33.4); MEAN CORPUSCULAR HGB CONC 34.1 g/dL (32.0-36.0); MEAN CORPUSCULAR VOLUME 88 fl (80-97); MONOCYTES % (AUTO) 5.6 % (3-13); PLATELET COUNT 389 10^3/uL (150-450); RED CELL DISTRIBUTION WIDTH 14.2 % (11.5-14.0); SEGMENTED NEUTROPHILS % (AUTO) 82.5 % (42-78); TOTAL CELLS COUNTED % (AUTO) 100 %; WHITE BLOOD COUNT 11.1 10^3/uL (4.0-10.5)
[2018-08-20 12:30] LABS: ALANINE AMINOTRANSFERASE 12 U/L (9-52); ALKALINE PHOSPHATASE 132 U/L (38-126); ANION GAP 11 (5-19); ASPARTATE AMINO TRANSFERASE 19 U/L (14-36); BILIRUBIN,DIRECT 0.3 mg/dL (0.0-0.4); BILIRUBIN,TOTAL 0.5 mg/dL (0.2-1.3); BLOOD UREA NITROGEN 11 mg/dL (7-20); CALCIUM 9.9 mg/dL (8.4-10.2); CARBON DIOXIDE 25 mmol/L (22-30); CHLORIDE 101 mmol/L (98-107); GLUCOSE 121 mg/dL (75-110); POTASSIUM 4.2 mmol/L (3.6-5.0); SODIUM 137.2 mmol/L (137-145); TOTAL PROTEIN 7.5 g/dL (6.3-8.2)
--- NOTE | 2018-08-20 12:46 | RADIOLOGY REPORT (SQ) ---
EXAM DESCRIPTION: CHEST SINGLE VIEW COMPLETED DATE/TIME: 08/20/2018 12:35 pm REASON FOR STUDY: lightheaded COMPARISON: 06/18/2017 EXAM PARAMETERS: NUMBER OF VIEWS: One view. TECHNIQUE: Single frontal radiographic view of the chest acquired. RADIATION DOSE: NA LIMITATIONS: None. FINDINGS: LUNGS AND PLEURA: Chronic basilar changes right greater than left. No pneumothorax. MEDIASTINUM AND HILAR STRUCTURES: No masses. Contour normal. HEART AND VASCULAR STRUCTURES: Heart normal in size. Normal vasculature. BONES: No acute findings. HARDWARE: None in the chest. OTHER: No other significant finding. IMPRESSION: NO ACUTE RADIOGRAPHIC FINDING IN THE CHEST. TECHNICAL DOCUMENTATION: JOB ID: [id number] [employer]- All Rights Reserved Reading location - IP/workstation name: [email or web address]
--- NOTE | 2018-08-20 13:22 | EKG REPORT ---
SEVERITY:- NORMAL ECG - SINUS RHYTHM : Confirmed by: Adam Jung MD 20-Aug-2018 13:21:17
[2018-08-20 15:52] VITALS: BP 182/90
--- NOTE | 2018-08-20 18:52 | EKG REPORT ---
SEVERITY:- BORDERLINE ECG - SINUS RHYTHM NONSPECIFIC ST-T CHANGES- INFERIOR-LATERAL LEADS : Confirmed by: Adam Jung MD 20-Aug-2018 18:51:07
== END 2018-08-20 16:12 | disposition home or self-care (01) ==
LOC: ER 11:32
DX: R42 Dizziness and giddiness (principal); R11.0 Nausea; J44.9 Chronic obstructive pulmonary disease, unspecified; I10 Essential (primary) hypertension; Z79.899 Other long term (current) drug therapy; Z87.891 Personal history of nicotine dependence
CPT/HCPCS: 36415; 71045; 80053; 84484; 85025; 93005; 93010; 99285

== ENCOUNTER 2019-04-07 09:33 | Emergency (ER) | payer MEDICARE ==
--- NOTE | 2019-04-07 10:07 | ER Document Report ---
ED Medical Screen (RME) - General Chief Complaint: Leg Pain Stated Complaint: LEG PAIN Time Seen by Provider: 04/07/19 10:03 Primary Care Provider: CARI RUBIO MD [Primary Care Provider] - Follow up as needed Notes: Patient is a 73-year-old female who presents the emergency department with a chief complaint of bilateral leg pain. Her legs have been hurting her for the past 4 to 5 days. States that the pain is in the front portion of her legs and not in the back. She states that it hurts to walk. She has fallen 3 times in the last week according to her neighbor who is at bedside. Patient states that she sometimes feels a little short of breath and feels a little short of breath right now. Denies any fever. Exam: Tender anterior legs. I have greeted and performed a rapid initial assessment of this patient. A comprehensive ED assessment and evaluation of the patient, analysis of test results and completion of medical decision making process will be conducted by an additional ED providers. TRAVEL OUTSIDE OF THE [place] IN LAST 30 DAYS: No - Related Data Allergies/Adverse Reactions: No Known Allergies Allergy (Verified 04/07/19 09:33) Past Medical History - Past Medical History Cardiac Medical History: Reports: Hx Hypertension - METOPROLOL, LISINOPRIL Denies: Hx Heart Attack Pulmonary Medical History: Reports: Hx COPD Denies: Hx Asthma Neurological Medical History: Denies: Hx Cerebrovascular Accident, Hx Seizures Renal/ Medical History: Denies: Hx Peritoneal Dialysis GI Medical History: Denies: Hx Hepatitis, Hx Hiatal Hernia, Hx Ulcer Infectious Medical History: Denies: Hx Hepatitis Past Surgical History: Reports: Hx Appendectomy, Hx Hysterectomy, Hx Orthopedic Surgery - right shoulder, Other - Cataract surgery. Denies: Hx Mastectomy, Hx Open Heart Surgery, Hx Pacemaker - Immunizations History of Influenza Vaccine for 06/2017 - 11/2017 Season: Yes Influenza Administration Date for 06/2017 - 11/2017 Season: 06/08/17 Physical Exam - Vital signs Vitals: Temp Pulse Resp BP Pulse Ox 97.3 F 73 20 191/93 H 94 04/07/19 09:38 04/07/19 09:38 04/07/19 09:38 04/07/19 09:38 04/07/19 09:38 Course - Vital Signs Vital signs: Temp Pulse Resp BP Pulse Ox 97.3 F 73 20 191/93 H 94 04/07/19 09:38 04/07/19 09:38 04/07/19 09:38 04/07/19 09:38 04/07/19 09:38 Doctor's Discharge - Discharge Referrals: CARI RUBIO MD [Primary Care Provider] - Follow up as needed
--- NOTE | 2019-04-07 10:30 | RADIOLOGY REPORT (SQ) ---
EXAM DESCRIPTION: CHEST SINGLE VIEW COMPLETED DATE/TIME: 04/07/2019 10:19 am REASON FOR STUDY: shortness of breath COMPARISON: 08/20/2018. EXAM PARAMETERS: NUMBER OF VIEWS: One view. TECHNIQUE: Single frontal radiographic view of the chest acquired. RADIATION DOSE: NA LIMITATIONS: None. FINDINGS: LUNGS AND PLEURA: Mild scarring in the lung bases. No focal infiltrates, masses or pneumo thorax. No pleural effusion. MEDIASTINUM AND HILAR STRUCTURES: No masses. Contour normal. HEART AND VASCULAR STRUCTURES: Heart normal in size. Normal vasculature. BONES: No acute findings. Old posttraumatic changes in the right shoulder. HARDWARE: None in the chest. OTHER: No other significant finding. IMPRESSION: NO ACUTE RADIOGRAPHIC FINDING IN THE CHEST. TECHNICAL DOCUMENTATION: JOB ID: [id number] [employer]- All Rights Reserved Reading location - IP/workstation name: [email or web address]
[2019-04-07] MEDS ORDERED: CLONIDINE HCL 0.2 MG TABLET PO ONE (11:06)
--- NOTE | 2019-04-07 11:12 | ER Document Report ---
ED Extremity Problem, Lower - General Chief Complaint: Leg Pain Stated Complaint: LEG PAIN Time Seen by Provider: 04/07/19 10:03 Primary Care Provider: CARI RUBIO MD [Primary Care Provider] - Follow up as needed Mode of Arrival: Wheelchair Information source: Patient, Friend TRAVEL OUTSIDE OF THE [place] IN LAST 30 DAYS: No - HPI Patient complains to provider of: Pain - pt states she has had bilateral leg pain for the past several days. She states she has fallen a few times in the past several days but states she had some leg pain prior to falling. She has had some intermittent SOB but feels well now. - Related Data Allergies/Adverse Reactions: No Known Allergies Allergy (Verified 04/07/19 09:33) Past Medical History - General Information source: Patient, Friend - Social History Smoking Status: Unknown if Ever Smoked Family History: Reviewed & Not Pertinent, COPD - Past Medical History Cardiac Medical History: Reports: Hx Hypertension - METOPROLOL, LISINOPRIL Denies: Hx Heart Attack Pulmonary Medical History: Reports: Hx COPD Denies: Hx Asthma Neurological Medical History: Denies: Hx Cerebrovascular Accident, Hx Seizures Renal/ Medical History: Denies: Hx Peritoneal Dialysis GI Medical History: Denies: Hx Hepatitis, Hx Hiatal Hernia, Hx Ulcer Infectious Medical History: Denies: Hx Hepatitis Past Surgical History: Reports: Hx Appendectomy, Hx Hysterectomy, Hx Orthopedic Surgery - right shoulder, Other - Cataract surgery. Denies: Hx Mastectomy, Hx Open Heart Surgery, Hx Pacemaker - Immunizations Hx Pneumococcal Vaccination: 11/02/16 Review of Systems - Review of Systems Constitutional: No symptoms reported EENT: No symptoms reported Cardiovascular: No symptoms reported Respiratory: See HPI, Short of breath - occasionally Gastrointestinal: No symptoms reported Musculoskeletal: See HPI, Joint pain. denies: Leg swelling Neurological/Psychological: No symptoms reported -: Yes All other systems reviewed and negative Physical Exam - Vital signs Vitals: Temp Pulse Resp BP Pulse Ox 97.3 F 73 20 191/93 H 94 04/07/19 09:38 04/07/19 09:38 04/07/19 09:38 04/07/19 09:38 04/07/19 09:38 - General General appearance: Appears well In distress: None - Respiratory Respiratory status: No respiratory distress Chest status: Nontender Breath sounds: Normal - Cardiovascular Rhythm: Regular Heart sounds: Normal auscultation Murmur: No - Abdominal Inspection: Normal Tenderness: Nontender - Extremities General upper extremity: Normal inspection General lower extremity: Normal inspection Calf: Other - there is TTP of bilateral calves diffusely without erythema or s welling. N/V intact with FROM Course - Re-evaluation Re-evalutation: 04/07/19 15:02 Pt's exam unchanged from priors -- expressed desire to go home with friend - Vital Signs Vital signs: Temp Pulse Resp BP Pulse Ox 97.3 F 73 20 191/93 H 94 04/07/19 09:38 04/07/19 09:38 04/07/19 09:38 04/07/19 09:38 04/07/19 09:38 - Laboratory Result Diagrams: 04/07/19 11:11 04/07/19 11:11 Laboratory results interpreted by me: 04/07/19 04/07/19 11:11 11:11 Seg Neutrophils % 82.3 H Lymphocytes % 8.6 L Sodium 127.6 L Chloride 90 L Alkaline Phosphatase 137 H - Diagnostic Test Radiology reviewed: Reports reviewed - neg DVT (per tech) - EKG Interpretation by Me EKG shows normal: Sinus rhythm Rhythm: NSR - nsr without acute change Discharge - Discharge Clinical Impression: Bilateral leg pain Condition: Stable Disposition: HOME, SELF-CARE Additional Instructions: rest, take meds as prescribed, return if worse Prescriptions: Etodolac [Lodine] 400 mg PO BID #14 tablet Referrals: CARI RUBIO MD [Primary Care Provider] - Follow up as needed
[2019-04-07 11:26] LABS: ABSOLUTE EOSINOPHILS # (AUTO) 0.1 10^3/uL (0.0-0.6); ABSOLUTE LYMPHOCYTES (AUTO) 0.6 10^3/uL (0.5-4.7); ABSOLUTE MONOCYTES (AUTO) 0.5 10^3/uL (0.1-1.4); ABSOLUTE NEUT (AUTO) 6.1 10^3/uL (1.7-8.2); BASOPHILS % (AUTO) 0.5 % (0-2); EOSINOPHILS % (AUTO) 1.2 % (0-6); HEMATOCRIT 40.7 % (36.0-47.0); HEMOGLOBIN 13.7 g/dL (12.0-15.5); LYMPHOCYTES % (AUTO) 8.6 % (13-45); MEAN CORPUSCULAR HEMOGLOBIN 29.3 pg (27.0-33.4); MEAN CORPUSCULAR HGB CONC 33.7 g/dL (32.0-36.0); MEAN CORPUSCULAR VOLUME 87 fl (80-97); MONOCYTES % (AUTO) 7.4 % (3-13); PLATELET COUNT 334 10^3/uL (150-450); RED BLOOD COUNT 4.68 10^6/uL (3.72-5.28); RED CELL DISTRIBUTION WIDTH 13.5 % (11.5-14.0); SEGMENTED NEUTROPHILS % (AUTO) 82.3 % (42-78); TOTAL CELLS COUNTED % (AUTO) 100 %; WHITE BLOOD COUNT 7.4 10^3/uL (4.0-10.5)
[2019-04-07 11:48] LABS: ALBUMIN 4.3 g/dL (3.5-5.0); ALKALINE PHOSPHATASE 137 U/L (38-126); ANION GAP 12 (5-19); ASPARTATE AMINO TRANSFERASE 19 U/L (14-36); BILIRUBIN,DIRECT 0.4 mg/dL (0.0-0.4); BILIRUBIN,TOTAL 0.6 mg/dL (0.2-1.3); BLOOD UREA NITROGEN 14 mg/dL (7-20); CALCIUM 9.6 mg/dL (8.4-10.2); CARBON DIOXIDE 26 mmol/L (22-30); CHLORIDE 90 mmol/L (98-107); GLUCOSE 104 mg/dL (75-110); POTASSIUM 4.6 mmol/L (3.6-5.0); TOTAL PROTEIN 7.6 g/dL (6.3-8.2)
[2019-04-07 15:35] VITALS: BP 159/90
--- NOTE | 2019-04-07 15:48 | XCELERA REPORT ---
[address] [facility] [address] Lower Extremity Venous Evaluation Procedure: Color flow and duplex imaging bilaterally of the veins of the lower extremities as well as the Common Femoral veins. Right Sided Venous Evaluation Normal vessel filling wall to wall, compression and augmentation as well as Colour flow down to the infrageniculate veins. Left Sided Venous Evaluation Normal vessel filling wall to wall, compression and augmentation as well as Colour flow down to the infrageniculate veins. Interpretation Summary No duplex evidence of DVT or obstruction in the bilateral lower extremities. Name: HAILEE VARELA Age: 73 yrs Gender: Female : 1945 Patient Status: Emergency Patient Location: ER Study Date: 04/07/2019 02:22 PM Reason For Study: bilateral leg pain Ordering Physician: ROGELIO VENEGAS Performed By: Travis Bragg : ROGELIO VENEGAS > Peter Duffy
--- NOTE | 2019-04-07 23:09 | EKG REPORT ---
SEVERITY:- NORMAL ECG - SINUS RHYTHM : Confirmed by: Luba Irizarry MD 07-Apr-2019 23:08:56
== END 2019-04-07 15:25 | disposition home or self-care (01) ==
LOC: ER 09:33
DX: M79.604 Pain in right leg (principal); M79.605 Pain in left leg; M25.50 Pain in unspecified joint; J44.9 Chronic obstructive pulmonary disease, unspecified; I10 Essential (primary) hypertension; R06.02 Shortness of breath
CPT/HCPCS: 93005; 99284; 36415; 85025; 80053; 93970 ×2; 71045; 93010; A9270

== ENCOUNTER 2019-04-25 07:07 | Observation (INO) | payer MEDICARE ==
--- NOTE | 2019-04-25 07:52 | ER Document Report ---
Entered by POLO VALENTINO SCRIBE 04/25/19 0727 Acting as scribe for:USMAN BREAUX MD ED General - General Chief Complaint: Chest Pain Stated Complaint: CHEST PAIN Time Seen by Provider: 04/25/19 07:21 Primary Care Provider: CARI RUBIO MD [Primary Care Provider] - Follow up as needed Mode of Arrival: Ambulatory Information source: Patient Notes: Patient is a 73 year old female that presents to the emergency department today with complaints of chest pain for the last x2-3 days with an associated cough. Patient reports the cough and chest pain both beginning around the same time. Patient describes her chest pain as a pressure, stating it feels like some is "pushing on me". Of note, the patient states she ran out of her anxiety medication (alprazolam) about a week ago. Patient reports deep breathing reproduces her pain. Patient denies any nausea or new activities. TRAVEL OUTSIDE OF THE [place] IN LAST 30 DAYS: No - Related Data Allergies/Adverse Reactions: No Known Allergies Allergy (Verified 04/07/19 09:33) Past Medical History - General Information source: Patient - Social History Smoking Status: Former Smoker Cigarette use (# per day): No Frequency of alcohol use: None Drug Abuse: None Lives with: Family Family History: Reviewed & Not Pertinent, COPD - Past Medical History Cardiac Medical History: Reports: Hx Hypertension - METOPROLOL, LISINOPRIL Pulmonary Medical History: Reports: Hx COPD Past Surgical History: Reports: Hx Appendectomy, Hx Hysterectomy, Hx Orthopedic Surgery - right shoulder, Other - Cataract surgery - Immunizations Hx Pneumococcal Vaccination: 11/02/16 Review of Systems - Review of Systems Constitutional: No symptoms reported EENT: No symptoms reported Cardiovascular: See HPI, Chest pain Respiratory: See HPI, Cough, Hurts to breathe, Short of breath Gastrointestinal: denies: Nausea Genitourinary: No symptoms reported Female Genitourinary: No symptoms reported Musculoskeletal: No symptoms reported Skin: No symptoms reported Hematologic/Lymphatic: No symptoms reported Neurological/Psychological: See HPI, Anxiety -: Yes All other systems reviewed and negative Physical Exam - Vital signs Vitals: Temp Pulse Resp BP Pulse Ox 98.9 F 99 19 152/102 H 99 04/25/19 07:08 04/25/19 07:08 04/25/19 07:08 04/25/19 07:08 04/25/19 07:08 - Notes Notes: Physical Exam: General: Alert, appears somewhat anxious. HEENT: Normocephalic. Atraumatic. PERRL. Extraocular movements intact. Monster pharynx clear. Neck: Supple. Non-tender. Respiratory: No respiratory distress. Clear and equal breath sounds bilaterally. Complains of pain reproduction with deep breathing. Cardiovascular: Regular rate and rhythm. Abdominal: Normal Inspection. Non-tender. No distension. Normal Bowel Sounds. Back: Non-tender. No deformity or step off. Extremities: Moves all four extremities. Upper extremities: Normal inspection. Normal ROM. Lower extremities: Normal inspection. No edema. Normal ROM. Neurological: Normal cognition. AAOx4. Normal speech. Psychological: Anxious. Skin: Warm. Dry. Normal color. Course - Re-evaluation Re-evalutation: 04/25/19 08:54 Patient with heart score of 4 will be admitted for further chest pain rule out. - Vital Signs Vital signs: Temp Pulse Resp BP Pulse Ox 98.9 F 99 19 152/102 H 99 04/25/19 07:08 04/25/19 07:08 04/25/19 07:08 04/25/19 07:08 04/25/19 07:22 - Laboratory Result Diagrams: 04/25/19 07:40 04/25/19 07:40 Laboratory results interpreted by me: 04/25/19 04/25/19 07:40 07:40 RDW 14.3 H Lymph % (Auto) 12.7 L Sodium 132.3 L Alkaline Phosphatase 129 H - EKG Interpretation by [facility] EKG shows normal: Sinus rhythm Rate: Normal Rhythm: NSR When compared to previous EKG there are: No significant change Discharge - Discharge Clinical Impression: Chest pain Qualifiers: Chest pain type: unspecified Qualified Code(s): R07.9 - Chest pain, unspecified Condition: Good Disposition: ADMITTED OBSERVATION Admitting Provider: Guido (Hospitalist) Unit Admitted: Telemetry Referrals: CARI RUBIO MD [Primary Care Provider] - Follow up as needed I personally performed the services described in the documentation, reviewed and edited the documentation which was dictated to the scribe in my presence, and it accurately records my words and actions.
[2019-04-25 07:58] LABS: ABSOLUTE EOSINOPHILS # (AUTO) 0.1 10^3/uL (0.0-0.6); ABSOLUTE LYMPHOCYTES (AUTO) 0.7 10^3/uL (0.5-4.7); ABSOLUTE MONOCYTES (AUTO) 0.5 10^3/uL (0.1-1.4); ABSOLUTE NEUT (AUTO) 4.4 10^3/uL (1.7-8.2); BASOPHILS % (AUTO) 0.5 % (0-2); EOSINOPHILS % (AUTO) 1.5 % (0-6); HEMATOCRIT 40.4 % (36.0-47.0); HEMOGLOBIN 13.9 g/dL (12.0-15.5); LYMPHOCYTES % (AUTO) 12.7 % (13-45); MEAN CORPUSCULAR HEMOGLOBIN 29.9 pg (27.0-33.4); MEAN CORPUSCULAR HGB CONC 34.4 g/dL (32.0-36.0); MEAN CORPUSCULAR VOLUME 87 fl (80-97); PLATELET COUNT 311 10^3/uL (150-450); RED BLOOD COUNT 4.65 10^6/uL (3.72-5.28); RED CELL DISTRIBUTION WIDTH 14.3 % (11.5-14.0); SEGMENTED NEUTROPHILS % (AUTO) 77.3 % (42-78); TOTAL CELLS COUNTED % (AUTO) 100 %; WHITE BLOOD COUNT 5.7 10^3/uL (4.0-10.5)
[2019-04-25 08:09] LABS: INTERNATIONAL RATION (INR) 1.04; PROTHROMBIN TIME 13.7 SEC (11.4-15.4)
--- NOTE | 2019-04-25 08:16 | RADIOLOGY REPORT (SQ) ---
EXAM DESCRIPTION: CHEST SINGLE VIEW COMPLETED DATE/TIME: 04/25/2019 7:38 am REASON FOR STUDY: chest pain COMPARISON: 04/07/2019 EXAM PARAMETERS: NUMBER OF VIEWS: One view. TECHNIQUE: Single frontal radiographic view of the chest acquired. RADIATION DOSE: NA LIMITATIONS: None. FINDINGS: LUNGS AND PLEURA: No opacities, masses or pneumothorax. No pleural effusion. MEDIASTINUM AND HILAR STRUCTURES: No masses. Contour normal. HEART AND VASCULAR STRUCTURES: Heart normal in size. Normal vasculature. BONES: No acute findings. HARDWARE: None in the chest. OTHER: No other significant finding. IMPRESSION: NO ACUTE RADIOGRAPHIC FINDING IN THE CHEST. TECHNICAL DOCUMENTATION: JOB ID: [id number] [employer]- All Rights Reserved Reading location - IP/workstation name: [email or web address]
[2019-04-25 08:28] LABS: ALBUMIN 4.2 g/dL (3.5-5.0); ALKALINE PHOSPHATASE 129 U/L (38-126); ANION GAP 10 (5-19); ASPARTATE AMINO TRANSFERASE 20 U/L (14-36); BILIRUBIN,DIRECT 0.3 mg/dL (0.0-0.4); BILIRUBIN,TOTAL 0.4 mg/dL (0.2-1.3); BLOOD UREA NITROGEN 12 mg/dL (7-20); CALCIUM 9.5 mg/dL (8.4-10.2); CARBON DIOXIDE 24 mmol/L (22-30); CHLORIDE 98 mmol/L (98-107); GLUCOSE 108 mg/dL (75-110); POTASSIUM 3.6 mmol/L (3.6-5.0); TOTAL PROTEIN 7.1 g/dL (6.3-8.2)
[2019-04-25] MEDS ORDERED: ASPIRIN 325 MG TABLET PO ONE (08:54)
--- NOTE | 2019-04-25 09:01 | EKG REPORT ---
SEVERITY:- NORMAL ECG - SINUS RHYTHM : Confirmed by: Luba Irizarry MD 25-Apr-2019 09:00:41
[2019-04-25] MEDS ORDERED: MAGNESIUM HYDROXIDE SUSP 30 ML UDCUP PO PRN (09:53)
[2019-04-25] MEDS ORDERED: ACETAMINOPHEN 325 MG TABLET PO PRN (09:53)
[2019-04-25] MEDS ORDERED: IPRATROPIUM/ALBUTEROL 0.5-2.5 MG/3 ML AMPUL NEB PRN (09:53)
[2019-04-25] MEDS ORDERED: ONDANSETRON HCL INJ/PF 4 MG/2 ML SDV IV PRN (09:53)
[2019-04-25] MEDS ORDERED: ONDANSETRON 4 MG TAB.RAPDIS PO PRN (09:53)
[2019-04-25] MEDS ORDERED: OXYCODONE-ACETAMINOPHEN 5-325 MG TABLET PO PRN (09:53)
[2019-04-25] MEDS ORDERED: HYDRALAZINE HCL INJ/PF 20 MG/1 ML SDV IV PRN (10:06)
--- NOTE | 2019-04-25 10:13 | Progress Note Acknowledgement ---
Progress Note Acknowledgement Progess Note Acknowledgement: I, the undersigned member of the medical staff with appropriate privileges and with supervisory authority over [ PAC ], a dependent practice allied health professional, acknowledge that I have reviewed the progress notes entered on this patient, and in my professional judgment believe that the assessment made and/or any care evidenced was appropriate
--- NOTE | 2019-04-25 10:22 | PDOC H&P ---
History of Present Illness Admission Date/PCP: 04/25/19 09:27 CARI RUBIO MD Patient admitted 04/25/2019 for chest pain, shortness of breath History of Present Illness: HAILEE VARELA is a 73 year old female who comes in through the emergency room with a 2 to 3-day history of chest pain, and a worsening of her COPD for 6 months. Patient states that her primary care provider sent her to a renewable energy trader about 3 months ago and she actually has a follow-up appointment with him 1 month from now patient says that it was just for routine cardiac work-up she was not having pain or problems. Patient denies ever having a stress test or an echo. Patient states that for the last 2 to 3 days she has had a "aching or heaviness to her chest. She says it is constant although sometimes is worse than others. She denies it going into her arm or up into her neck or through her back. She denies nausea or vomiting. Previous history of RI or stroke.. Patient says she stopped smoking about a couple years ago. Patient lives alone at home She does have a history of uncontrolled hypertension. Patient comes in now for 2 to 3-day history of chest pain Past Medical History Cardiac Medical History: Reports: Hypertension - METOPROLOL, LISINOPRIL Denies: Myocardial Infarction Pulmonary Medical History: Reports: Chronic Obstructive Pulmonary Disease (COPD) Denies: Asthma Neurological Medical History: Reports: None Denies: Seizures Endocrine Medical History: Reports: None Renal/ Medical History: Reports: None GI Medical History: Denies: Hepatitis, Hiatal Hernia Psychiatric Medical History: Reports: None Hematology: Denies: Anemia, Sickle Cell Disease Past Surgical History Past Surgical History: Reports: Appendectomy, Hysterectomy, Orthopedic Surgery - right shoulder, Other - Cataract surgery Denies: Amputation, Mastectomy, Pacemaker Social History Lives with: Family Smoking Status: Former Smoker Frequency of Alcohol Use: None Hx Recreational Drug Use: No Drugs: None Hx Prescription Drug Abuse: No - Advance Directive Resuscitation Status: Do Not Resuscitate Family History Family History: Reviewed & Not Pertinent, COPD Parental Family History Reviewed: No Children Family History Reviewed: No Sibling(s) Family History Reviewed.: No Medication/Allergy Home Medications: Budesonide/Formoterol Fumarate [Symbicort 160-4.5 Mcg Inhaler] 2 puff IH Q12 06/15/17 Metoprolol Succinate [Toprol Xl 25 mg Tab.sr] 12.5 mg PO Q12 tab.sr.24h 06/23/17 Amlodipine Besylate/Benazepril [Amlodipine-Benazepril 5-20 mg] 1 cap PO DAILY 04/07/19 Carbamazepine [Tegretol 200 mg Tablet] 200 mg PO Q12 04/07/19 Etodolac [Lodine] 400 mg PO BID #14 tablet 04/07/19 Gabapentin [Neurontin 300 mg Capsule] 600 mg PO Q8 04/07/19 Sertraline HCl [Zoloft 50 mg Tablet] 50 mg PO DAILY 04/07/19 Tiotropium [place] [Spiriva Handihaler 5 Cap/Kit (18 Mcg/Cap)] 1 cap IH DAILY 04/07/19 Alprazolam [Xanax 0.25 mg Tablet] 0.25 mg PO Q12HP PRN 04/25/19 Cilostazol [Pletal 100 mg Tablet] 100 mg PO BIDP PRN 04/25/19 Allergies/Adverse Reactions: No Known Allergies Allergy (Verified 04/07/19 09:33) Review of Systems Constitutional: ABSENT: chills, fever(s), headache(s), weight gain, weight loss Eyes: ABSENT: visual disturbances Cardiovascular: PRESENT: chest pain, dyspnea on exertion Respiratory: PRESENT: dyspnea Gastrointestinal: ABSENT: abdominal pain, constipation, diarrhea, hematemesis, hematochezia, nausea, vomiting Musculoskeletal: ABSENT: joint swelling Neurological: ABSENT: abnormal gait, abnormal speech, confusion, dizziness, focal weakness, syncope Psychiatric: ABSENT: anxiety, depression, homidical ideation, suicidal ideation Physical Exam Vital Signs: Temp Pulse Resp BP Pulse Ox 98.9 F 99 24 H 206/99 H 98 04/25/19 07:08 04/25/19 07:08 04/25/19 09:23 04/25/19 09:23 04/25/19 09:23 Intake & Output 04/24/19 04/25/19 04/26/19 06:59 06:59 06:59 Weight 59.421 kg General appearance: PRESENT: no acute distress, thin - Patient appears very thin and frail blood pressure 215/107, other - Blood pressure is elevated 215/107 agraffe patient appears very thin and frail Respiratory exam: PRESENT: clear to auscultation tim. ABSENT: rales, rhonchi, wheezes Cardiovascular exam: PRESENT: RRR. ABSENT: diastolic murmur, rubs, systolic murmur Neurological exam: PRESENT: alert, awake, oriented to person, oriented to place, oriented to time, oriented to situation, CN II-XII grossly intact. ABSENT: motor sensory deficit Psychiatric exam: PRESENT: appropriate affect, normal mood. ABSENT: homicidal ideation, suicidal ideation Skin exam: PRESENT: dry, intact, warm. ABSENT: cyanosis, rash Results Laboratory Results: 04/25/19 07:40 04/25/19 07:40 04/25/19 04/25/19 07:40 07:40 WBC 5.7 RBC 4.65 Hgb 13.9 Hct 40.4 MCV 87 MCH 29.9 MCHC 34.4 RDW 14.3 H Plt Count 311 Seg Neutrophils % 77.3 Sodium 132.3 L Potassium 3.6 Chloride 98 Carbon Dioxide 24 Anion Gap 10 BUN 12 Creatinine 0.69 Est GFR ( Amer) > 60 Glucose 108 Calcium 9.5 Total Bilirubin 0.4 AST 20 Alkaline Phosphatase 129 H Total Protein 7.1 Albumin 4.2 04/25/19 07:40 Troponin I < 0.012 Impressions: Chest X-Ray 04/25/19 07:22 IMPRESSION: NO ACUTE RADIOGRAPHIC FINDING IN THE CHEST. Assessment and Plan - Diagnosis (1) Chest pain Qualifiers: Chest pain type: unspecified Qualified Code(s): R07.9 - Chest pain, unspecified Is this a current diagnosis for this admission?: Yes Plan: Patient is being admitted for 2 to 3-day history of chest pain will be ruled out. Patient is seen a renewable energy trader about 3 months ago I will try to call her primary care provider and find out who that renewable energy trader is. Patient's first troponin in the ED is normal. We will aggressively treat her hypertension as well as her chest pain (2) COPD (chronic obstructive pulmonary disease) Qualifiers: COPD type: unspecified COPD Qualified Code(s): J44.9 - Chronic obstructive pulmonary disease, unspecified Is this a current diagnosis for this admission?: Yes Plan: Patient COPD appears to be stable on this admission no wheezing no respiratory distress. We will continue home meds (3) Essential hypertension Is this a current diagnosis for this admission?: Yes Plan: Patient is blood pressure is elevated in the ER when I was in the room it was 215/107. Patient states her normal systolic is around 150 or 160 patient will be treated with her regular medicines plus Apresoline as needed. Will adjust her home meds to higher dosing - Time Time Spent with patient: 25-34 minutes
[2019-04-25] MEDS ORDERED: HYDRALAZINE HCL INJ/PF 20 MG/1 ML SDV IV ONE (10:30)
[2019-04-25] MEDS: FAMOTIDINE 20 MG TABLET PO SCH ×2 (10:56→21:21)
[2019-04-25] MEDS: DOCUSATE SODIUM 100 MG CAPSULE PO SCH (10:56)
[2019-04-25] MEDS: AMLODIPINE BESYLATE 10 MG TABLET PO SCH (10:56)
[2019-04-25] MEDS: ENOXAPARIN SODIUM INJ 40 MG/0.4 ML DISP.SYRIN SUBCUT SCH (10:59)
[2019-04-25 11:07] LABS: CREATINE KINASE MB < 0.22 ng/mL (<4.55); TROPONIN I < 0.012 ng/mL
[2019-04-25] MEDS: OXYCODONE-ACETAMINOPHEN 5-325 MG TABLET PO PRN ×2 (11:55→21:21)
[2019-04-25] MEDS: ALPRAZOLAM 0.25 MG TABLET PO PRN (13:36)
[2019-04-25 20:47] LABS: APPEARANCE,URINE CLEAR; BILIRUBIN,URINE NEGATIVE (NEGATIVE); COLOR,URINE YELLOW; GLUCOSE, URINE NEGATIVE (NEGATIVE); KETONES,URINE 20 mg/dL (NEGATIVE); LEUKOCYTE ESTERASE,URINE TRACE (NEGATIVE); NITRITE,URINE NEGATIVE (NEGATIVE); PROTEIN,URINE NEGATIVE (NEGATIVE)
[2019-04-25 20:55] LABS: CREATINE KINASE MB 0.75 ng/mL (<4.55); TROPONIN I 0.023 ng/mL
[2019-04-26 02:44] LABS: CREATINE KINASE MB 0.79 ng/mL (<4.55); TROPONIN I 0.026 ng/mL
[2019-04-26 07:27] LABS: ANION GAP 10 (5-19); BLOOD UREA NITROGEN 11 mg/dL (7-20); CARBON DIOXIDE 25 mmol/L (22-30); CHLORIDE 98 mmol/L (98-107); GLUCOSE 78 mg/dL (75-110); POTASSIUM 3.3 mmol/L (3.6-5.0)
[2019-04-26 07:41] LABS: CHOLESTEROL 250.73 mg/dL (0-200); TRIGLYCERIDES 103 mg/dL (<150)
[2019-04-26 07:52] LABS: DIRECT LDL 108 mg/dL (<100)
[2019-04-26] MEDS: OXYCODONE-ACETAMINOPHEN 5-325 MG TABLET PO PRN ×4 (08:13→21:17)
[2019-04-26] MEDS: BUDESONIDE NEB 0.25 MG/2 ML AMPUL NEB SCH ×2 (08:16→19:26)
[2019-04-26] MEDS: ENOXAPARIN SODIUM INJ 40 MG/0.4 ML DISP.SYRIN SUBCUT SCH (09:35)
[2019-04-26] MEDS: FAMOTIDINE 20 MG TABLET PO SCH ×2 (09:35→21:17)
[2019-04-26] MEDS: AMLODIPINE BESYLATE 10 MG TABLET PO SCH (09:35)
[2019-04-26] MEDS: ALPRAZOLAM 0.25 MG TABLET PO PRN ×2 (09:36→17:44)
[2019-04-26] MEDS: DOCUSATE SODIUM 100 MG CAPSULE PO SCH (09:36)
--- NOTE | 2019-04-26 10:12 | PDOC PROGRESS REPORT ---
Subjective Progress Note for:: 04/26/19 Subjective:: Patient was admitted yesterday for chest pain and COPD. Patient's troponins x4 have all been normal CK-MB index were normal as well. Patient is feeling better today and having less pain. After talking the patient she thinks that this just may be more of her COPD that is worsening or having an exacerbation. Her complaint today is more shortness of breath. Patient does not have home oxygen. I am going to get her up and ambulate her and then check her O2 sats to see if she qualifies. Here in the hospital she is using nasal cannula 2 L and her sats are 98%. I am going to give her 1 dose of Solu-Medrol 125 IV today as well, continue her nebulizer treatments. I do not think she needs a cardiac stress test, and if everything goes well plan to discharge her home tomorrow. Reason For Visit: CHEST PAIN,COPD,HYPERTENSION Physical Exam Vital Signs: Temp Pulse Resp BP Pulse Ox 98.0 F 106 H 16 149/78 H 98 04/26/19 08:00 04/26/19 08:00 04/26/19 08:00 04/26/19 08:00 04/26/19 08:00 Intake & Output 04/25/19 04/26/19 04/27/19 06:59 06:59 06:59 Intake Total 500 Output Total 675 Balance -175 Weight 59.9 kg General appearance: PRESENT: no acute distress, well-developed, well-nourished, other - Patient talking in full sentences today says she has less chest pain but still has the shortness of breath with ambulation Head exam: PRESENT: atraumatic, normocephalic Respiratory exam: PRESENT: decreased breath sounds Cardiovascular exam: PRESENT: RRR. ABSENT: diastolic murmur, rubs, systolic murmur Neurological exam: PRESENT: alert, awake, oriented to person, oriented to place, oriented to time, oriented to situation, CN II-XII grossly intact. ABSENT: motor sensory deficit Psychiatric exam: PRESENT: appropriate affect, normal mood. ABSENT: homicidal ideation, suicidal ideation Results Laboratory Results: 04/25/19 07:40 04/26/19 06:52 04/25/19 04/26/19 04/26/19 20:00 06:52 06:52 Sodium 133.0 L Potassium 3.3 L Chloride 98 Carbon Dioxide 25 Anion Gap 10 BUN 11 Creatinine 0.56 Est GFR ( Amer) > 60 Glucose 78 Calcium 9.0 Magnesium 1.9 Triglycerides 103 Cholesterol 250.73 H LDL Cholesterol Direct 108 H VLDL Cholesterol 21.0 HDL Cholesterol 110 Urine Color YELLOW Urine Appearance CLEAR Urine pH 5.0 Ur Specific [place] 1.020 Urine Protein NEGATIVE Urine Glucose (UA) NEGATIVE Urine Ketones 20 H Urine Blood NEGATIVE Urine Nitrite NEGATIVE Ur Leukocyte Esterase TRACE H Urine WBC (Auto) 2 Urine RBC (Auto) 1 04/25/19 04/25/19 04/25/19 07:40 10:17 20:19 CK-MB (CK-2) < 0.22 0.75 Troponin I < 0.012 < 0.012 0.023 04/26/19 02:05 CK-MB (CK-2) 0.79 Troponin I 0.026 Impressions: Chest X-Ray 04/25/19 07:22 IMPRESSION: NO ACUTE RADIOGRAPHIC FINDING IN THE CHEST. Assessment and Plan - Diagnosis (1) Chest pain Qualifiers: Chest pain type: unspecified Qualified Code(s): R07.9 - Chest pain, unspecified Is this a current diagnosis for this admission?: Yes Plan: Patient is being admitted for 2 to 3-day history of chest pain will be ruled out. Patient is seen a senior interactive producer about 3 months ago I will try to call her primary care provider and find out who that senior interactive producer is. Patient's first troponin in the ED is normal. We will aggressively treat her hypertension as well as her chest pain. 8 23 19 patient is complaining of less pain today but still short of breath with being up into the bathroom patient's blood pressure is very well controlled today last reading was 149/78 prior to that it was 134/68 patient is taking Norvasc 10 mg for her blood pressure although yesterday had to use a dose of Apr esoline 10 mg IV yesterday in the emergency room her blood pressure was 200/120. She has not had to use any Apresoline since then (2) COPD (chronic obstructive pulmonary disease) Qualifiers: COPD type: unspecified COPD Qualified Code(s): J44.9 - Chronic obstructive pulmonary disease, unspecified Is this a current diagnosis for this admission?: Yes Plan: Patient COPD appears to be stable on this admission no wheezing no respiratory distress. We will continue home meds 04/26/2019 patient will get a dose of IV Solu-Medrol today, continue her nebulizer treatments, and try to determine if she needs home O2 with ambulation. Patient states she is feeling better. (3) Essential hypertension Is this a current diagnosis for this admission?: Yes Plan: Patient is blood pressure is elevated in the ER when I was in the room it was 215/107. Patient states her normal systolic is around 150 or 160 patient will be treated with her regular medicines plus Apresoline as needed. Will adjust her home meds to higher dosing 04/26/2019 she is blood pressure is come under good control now on the Norvas, she did require 1 dose of Apresoline in the ER. She is feeling better today with less chest pain and less shortness of breath. all 4 troponins were negative. Complaint of headache no complaint of lighth eaded no complaint of visual changes I do not think patient needs a stress test at this time this is more than likely related to essential hypertension as well as COPD exacerbation. - Time Time Spent with patient: 25-34 minutes
[2019-04-26] MEDS ORDERED: METHYLPREDNISOLONE INJ 125 MG/2 ML SDV IV ONE (10:30)
[2019-04-27] MEDS: ALPRAZOLAM 0.25 MG TABLET PO PRN ×2 (06:30→14:58)
[2019-04-27 07:41] LABS: ANION GAP 10 (5-19); BLOOD UREA NITROGEN 14 mg/dL (7-20); CALCIUM 9.8 mg/dL (8.4-10.2); CARBON DIOXIDE 28 mmol/L (22-30); CHLORIDE 99 mmol/L (98-107); GLUCOSE 101 mg/dL (75-110); POTASSIUM 3.6 mmol/L (3.6-5.0)
[2019-04-27] MEDS: BUDESONIDE NEB 0.25 MG/2 ML AMPUL NEB SCH ×2 (07:54→20:39)
[2019-04-27] MEDS: DOCUSATE SODIUM 100 MG CAPSULE PO SCH (09:06)
[2019-04-27] MEDS: ENOXAPARIN SODIUM INJ 40 MG/0.4 ML DISP.SYRIN SUBCUT SCH (09:06)
[2019-04-27] MEDS: FAMOTIDINE 20 MG TABLET PO SCH ×2 (09:06→21:33)
[2019-04-27] MEDS: AMLODIPINE BESYLATE 10 MG TABLET PO SCH (09:06)
[2019-04-27] MEDS: OXYCODONE-ACETAMINOPHEN 5-325 MG TABLET PO PRN ×2 (09:07→17:55)
[2019-04-27] MEDS: CARBAMAZEPINE 200 MG TABLET PO SCH ×2 (13:36→21:33)
--- NOTE | 2019-04-27 13:39 | PDOC PROGRESS REPORT ---
Subjective Progress Note for:: 04/27/19 Subjective:: Patient was admitted yesterday for chest pain and COPD. Patient's troponins x4 have all been normal CK-MB index were normal as well. Patient is feeling better today and having less pain. After talking the patient she thinks that this just may be more of her COPD that is worsening or having an exacerbation. Her complaint today is more shortness of breath. Patient does not have home oxygen. I am going to get her up and ambulate her and then check her O2 sats to see if she qualifies. Here in the hospital she is using nasal cannula 2 L and her sats are 98%. I am going to give her 1 dose of Solu-Medrol 125 IV today as well, continue her nebulizer treatments. I do not think she needs a cardiac stress test, and if everything goes well plan to discharge her home tomorrow. 04/27/2019 pressure 152/94 temperature 97.6 pulse 106, O2 sat 98% on 2 L nasal cannula. According to the nurse the son called and stated that the patient has home oxygen. According to the patient she does not have any home oxygen and does not use home oxygen. I tend to believe the patient that she is not using any home oxygen at this time even though I think she would benefit from it. Think some of her problems comes from hypoxia, hypertension tachycardia. Blood pressure is much better controlled now since her admission CBC is normal we will recheck electrolytes today echo should be done today to determine her ejection fracture. I predict this will be low also contribute to her chest pain and shortness of breath Reason For Visit: CHEST PAIN,COPD,HYPERTENSION Physical Exam Vital Signs: Temp Pulse Resp BP Pulse Ox 97.6 F 106 H 16 152/94 H 98 04/27/19 07:37 04/27/19 07:54 04/27/19 07:54 04/27/19 07:37 04/27/19 07:54 Intake & Output 04/26/19 04/27/19 04/28/19 06:59 06:59 06:59 Intake Total 500 640 Output Total 675 800 Balance -175 -160 Weight 59.9 kg 60 kg General appearance: PRESENT: no acute distress Respiratory exam: PRESENT: clear to auscultation tim. ABSENT: rales, rhonchi, wheezes Cardiovascular exam: PRESENT: RRR, other - Patient goes from being tachycardic to a heart rate in the 70s or 80s. I think this is based on activity.. ABSENT: diastolic murmur, rubs, systolic murmur Results Laboratory Results: 04/25/19 07:40 04/27/19 06:16 04/27/19 06:16 Sodium 137.4 Potassium 3.6 Chloride 99 Carbon Dioxide 28 Anion Gap 10 BUN 14 Creatinine 0.64 Est GFR ( Amer) > 60 Glucose 101 Calcium 9.8 04/25/19 04/25/19 04/25/19 07:40 10:17 20:19 CK-MB (CK-2) < 0.22 0.75 Troponin I < 0.012 < 0.012 0.023 04/26/19 02:05 CK-MB (CK-2) 0.79 Troponin I 0.026 Impressions: Chest X-Ray 04/25/19 07:22 IMPRESSION: NO ACUTE RADIOGRAPHIC FINDING IN THE CHEST. Assessment and Plan - Diagnosis (1) Chest pain Qualifiers: Chest pain type: unspecified Qualified Code(s): R07.9 - Chest pain, unspecified Is this a current diagnosis for this admission?: Yes (2) COPD (chronic obstructive pulmonary disease) Qualifiers: COPD type: unspecified COPD Qualified Code(s): J44.9 - Chronic obstructive pulmonary disease, unspecified Is this a current diagnosis for this admission?: Yes (3) Essential hypertension Is this a current diagnosis for this admission?: Yes
--- NOTE | 2019-04-27 18:50 | XCELERA REPORT ---
[address] [address] Transthoracic Echocardiogram Report Name: HAILEE VARELA Age: 73 yrs Gender: Female : 1945 Patient Status: Inpatient Patient Location: [address] [place] [address] Study Date: 04/27/2019 03:39 PM Height: 64 in Weight: 132 lb BSA: 1.6 m2 Procedure: A two-dimensional transthoracic echocardiogram with color flow and Doppler was performed. The study was technically limited with all images being suboptimal in quality. Reason For Study: SOB / TACHYCARDIA History: SOB / TACHYCARDIA. Ordering Physician: RIN OLIVA Performed By: Abigail Michaud Interpretation Summary The left ventricle is normal in size. There is normal left ventricular wall thickness. The left ventricular ejection fraction is within normal limits. LV EF is 65% Doppler measurements suggest impaired left ventricular relaxation, which is associated with grade I/IV or mild diastolic dysfunction The left ventricular wall motion is normal. There is no thrombus. Cannot assess ASD ,VSD, or PFO. The right ventricle is normal in size and function. The right atrium is normal. The left atrial size is normal. There is no evidence of mitral valve prolapse. There is no vegetation seen on the mitral valve. There is no mitral valve stenosis. There is no aortic valvular vegetation. There is aortic sclerosis without aortic stenosis. There is no LVOT obstruction. There is a mild amount of aortic regurgitation There is no tricuspid stenosis. There is a trace to mild amount of tricuspid regurgitation There is mild pulmonary hypertension by echo RVSP is 36 mm of Hg , with RA mean of 10. There is no pulmonic valvular stenosis. The aortic root is normal size. The inferior vena cava was not well visualized There is no pericardial effusion. MMode/2D Measurements & Calculations RVDd: 3.0 cm LVIDd: 4.2 cm FS: 34.5 % Ao root diam: 2.9 cm IVSd: 1.2 cm LVIDs: 2.7 cm EDV(Teich): Ao root area: LVPWd: 1.1 cm 76.7 ml 6.5 cm2 ESV(Teich): LA dimension: 2.9 cm 27.5 ml EF(Teich): 64.1 % LVLd ap4: 6.1 cm SV(MOD-sp4): EDV(MOD-sp4): 34.0 ml 41.0 ml LVLs ap4: 4.2 cm ESV(MOD-sp4): 7.0 ml EF(MOD-sp4): 82.9 % Doppler Measurements & Calculations MV E max roberto: MV P1/2t max roberto: Ao V2 max: AI max roberto: 36.8 cm/sec 81.4 cm/sec 141.2 cm/sec 316.3 cm/sec MV A max roberto: MV P1/2t: 45.6 msec Ao max PG: AI max P.1 mmHg 110.1 cm/sec MVA(P1/2t): 4.8 cm2 8.0 mmHg AI dec slope: MV E/A: 0.33 MV dec slope: 126.3 cm/sec2 523.2 cm/sec2 AI P1/2t: 733.6 msec MV dec time: 0.22 sec LV V1 max PG: PA V2 max: TR max roberto: AV P1/2t-pr_phl: 4.1 mmHg 112.6 cm/sec 252.5 cm/sec 749.4 msec LV V1 max: PA max P.2 mmHg TR max P.7 cm/sec 25.5 mmHg MV P1/2t-pr_phl: 45.6 msec Left Ventricle The left ventricle is normal in size. There is normal left ventricular wall thickness. The left ventricular ejection fraction is within normal limits. LV EF is 65%. Doppler measurements suggest impaired left ventricular relaxation, which is associated with grade I/IV or mild diastolic dysfunction. The left ventricular wall motion is normal. There is no thrombus. Cannot assess ASD ,VSD, or PFO. Right Ventricle The right ventricle is normal in size and function. Atria The right atrium is normal. The left atrial size is normal. Mitral Valve There is no evidence of mitral valve prolapse. There is no vegetation seen on the mitral valve. There is no mitral valve stenosis. There is a trace amount of mitral regurgitation. Aortic Valve There is no aortic valvular vegetation. There is aortic sclerosis without aortic stenosis. There is no LVOT obstruction. There is a mild amount of aortic regurgitation. Tricuspid Valve There is no tricuspid stenosis. There is a trace to mild amount of tricuspid regurgitation. There is mild pulmonary hypertension by echo. RVSP is 36 mm of Hg , with RA mean of 10. Pulmonic Valve There is no pulmonic valvular stenosis. There is a trace amount of pulmonic regurgitation. Great Vessels The aortic root is normal size. The inferior vena cava was not well visualized. Effusions There is no pericardial effusion. : RIN OLIVA > Luba Irizarry
[2019-04-28] MEDS: ALPRAZOLAM 0.25 MG TABLET PO PRN (06:24)
[2019-04-28 06:37] LABS: ANION GAP 9 (5-19); BLOOD UREA NITROGEN 17 mg/dL (7-20); CALCIUM 9.3 mg/dL (8.4-10.2); CARBON DIOXIDE 30 mmol/L (22-30); CHLORIDE 99 mmol/L (98-107); GLUCOSE 88 mg/dL (75-110); POTASSIUM 3.5 mmol/L (3.6-5.0)
[2019-04-28] MEDS: BUDESONIDE NEB 0.25 MG/2 ML AMPUL NEB SCH (08:18)
[2019-04-28] MEDS: CARBAMAZEPINE 200 MG TABLET PO SCH (09:41)
[2019-04-28] MEDS: AMLODIPINE BESYLATE 10 MG TABLET PO SCH (09:41)
[2019-04-28] MEDS: DOCUSATE SODIUM 100 MG CAPSULE PO SCH (09:41)
[2019-04-28] MEDS: FAMOTIDINE 20 MG TABLET PO SCH (09:42)
[2019-04-28] MEDS: ENOXAPARIN SODIUM INJ 40 MG/0.4 ML DISP.SYRIN SUBCUT SCH (09:43)
[2019-04-28 12:11] VITALS: BP 161/78
--- NOTE | 2019-05-07 13:23 | PDOC DISCHARGE SUMMARY ---
General - Admit/Disc Date/PCP Admission Date/Primary Care Provider: 04/25/19 09:27 CARI RUBIO MD Patient admitted 04/25/2019 chest pain Discharge Date: 04/28/19 - Discharge Diagnosis (1) Chest pain Is this a current diagnosis for this admission?: Yes Summary: Patient was admitted for 2 to 3-day history of chest pain. According to the patient she was seen by cardiology about 3 months ago but she does not know who the concrete bucket hooker is patient will be admitted to rule out (2) COPD (chronic obstructive pulmonary disease) Is this a current diagnosis for this admission?: Yes Summary: Patient has a history of COPD just a slight exacerbation this admission. Patient was given IV steroids as DuoNeb treatments. Patient does have home O2. Here in the hospital on 2 L of nasal cannula her sats are 98%. Throughout her hospitalization her sats have never dropped below 95% on several occasions have been 100% (3) Essential hypertension Is this a current diagnosis for this admission?: Yes Summary: I feel like some of patient's chest pains have been brought on by her uncontrolled hypertension and on admission her blood pressures were 206/99, 212/112 at the time of discharge however her blood pressures were in the 130s systolic in the 70s diastolic. It could be something as simple as patient noncompliance since her blood pressures have come under such good control here in the hospital. Patient's shortness of breath has also improved as her blood pressures have been improved - Additional Information Resuscitation Status: Do Not Resuscitate Discharge Diet: As Tolerated Discharge Activity: Balance Activity w/Rest Home Medications: Budesonide/Formoterol Fumarate [Symbicort 160-4.5 Mcg Inhaler] 2 puff IH Q12 1 Metoprolol Succinate [Toprol Xl 25 mg Tab.sr] 12.5 mg PO Q12 tab.sr.24h 06/23/17 Amlodipine Besylate/Benazepril [Amlodipine-Benazepril 5-20 mg] 1 cap PO DAILY 04/07/19 Carbamazepine [Tegretol 200 mg Tablet] 200 mg PO Q12 04/07/19 Etodolac [Lodine] 400 mg PO BID #14 tablet 04/07/19 Gabapentin [Neurontin 300 mg Capsule] 600 mg PO Q8 04/07/19 Tiotropium [place] [Spiriva Handihaler 5 Cap/Kit (18 Mcg/Cap)] 1 cap IH DAILY 04/07/19 Alprazolam [Xanax 0.25 mg Tablet] 0.25 mg PO Q2PM 04/25/19 Cilostazol [Pletal 100 mg Tablet] 100 mg PO BIDP PRN 04/25/19 Alprazolam [Xanax 0.25 mg Tablet] 0.25 mg PO Q8HP PRN tablet 04/28/19 Amlodipine Besylate [Norvasc 10 mg Tablet] 10 mg PO DAILY tablet 04/28/19 Budesonide [Pulmicort Neb 0.25 mg/2 ml Ampul] 0.25 mg NEB RTQ12 ampul.neb 04/28/19 Carbamazepine [Tegretol 200 mg Tablet] 200 mg PO Q12 tablet 04/28/19 History of Present Illness History of Present Illness: HAILEE VARELA is a 73 year old female who comes in through the emergency room with a 2 to 3-day history of chest pain, and a worsening of her COPD for 6 months. Patient states that her primary care provider sent her to a cardio logist about 3 months ago and she actually has a follow-up appointment with him 1 month from now patient says that it was just for routine cardiac work-up she was not having pain or problems. Patient denies ever having a stress test or an echo. Patient states that for the last 2 to 3 days she has had a "aching or heaviness to her chest. She says it is constant although sometimes is worse than others. She denies it going into her arm or up into her neck or through her back. She denies nausea or vomiting. Previous history of DE or stroke.. Patient says she stopped smoking about a couple years ago. Patient lives alone at home She does have a history of uncontrolled hypertension. Patient comes in now for 2 to 3-day history of chest pain Hospital Course Hospital Course: Patient comes in for chest pain and worsening shortness of breath. Patient has a long history of both being chronic. Patient was admitted to the hospital to rule out cardiac disease, patient's chest pain had been going on a worsening for the last 2 to 3 days however it did not radiate into her arm or into her neck she had no nausea no vomiting patient does have a history of uncontrolled hypertension. No history of DE Patient's troponins in the hospital were normal as well as CK-MB indexes. Patient's echo the left ventricle to be normal in size EF was 65%, however Doppler did show a suggestion of impaired left ventricular relaxation which was associated with a mild diastolic dysfunction no thrombus, all other areas on the echo were grossly normal graph patient's breathing improved once her COPD exacerbation proved with IV Solu-Medrol and nebulizer treatments. It was felt that her chest pain was on the basis of her COPD and her uncontrolled hypertensi on. Did not qualify for home O2 although certainly in the future this may need to be re-addressed. Patient seems satisfied with her hospitalization Physical Exam Vital Signs: Temp Pulse Resp BP Pulse Ox 98.3 F 82 16 161/78 H 100 04/28/19 12:10 04/28/19 12:10 04/28/19 12:10 04/28/19 12:10 04/28/19 12:10 General appearance: PRESENT: cooperative, thin Head exam: PRESENT: atraumatic, normocephalic Respiratory exam: PRESENT: clear to auscultation tim. ABSENT: rales, rhonchi, wheezes Cardiovascular exam: PRESENT: RRR. ABSENT: diastolic murmur, rubs, systolic murmur Neurological exam: PRESENT: alert, awake, oriented to person, oriented to place, oriented to time, oriented to situation, CN II-XII grossly intact. ABSENT: motor sensory deficit Psychiatric exam: PRESENT: appropriate affect, normal mood, other - She is very pleasant. ABSENT: homicidal ideation, suicidal ideation Results Laboratory Results: 04/25/19 07:40 04/28/19 05:33 04/25/19 04/25/19 04/25/19 07:40 10:17 20:19 CK-MB (CK-2) < 0.22 0.75 Troponin I < 0.012 < 0.012 0.023 04/26/19 02:05 CK-MB (CK-2) 0.79 Troponin I 0.026 Impressions: Chest X-Ray 04/25/19 07:22 IMPRESSION: NO ACUTE RADIOGRAPHIC FINDING IN THE CHEST. Qualifiers - * PATIENT BEING DISCHARGED WITH ANY OF THE FOLLOWING DIAGNOSIS: No Acute Heart Failure - Is this a Heart Failure Patient?: No Plan Time Spent: Greater than 30 Minutes - She to follow-up with her primary care physician as well as her concrete bucket hooker. Patient will resume her pre-admission medications and is medically stable
== END 2019-04-28 12:47 | disposition home or self-care (01) ==
LOC: ER 07:07 → EH 09:27 → 4S 15:33
PROVIDERS: ADMIT Hospitalist; ATTEND Hospitalist
DX: R07.9 Chest pain, unspecified (principal); J44.1 Chronic obstructive pulmonary disease with (acute) exacerbation; I10 Essential (primary) hypertension; R06.02 Shortness of breath; Z66 Do not resuscitate; R00.0 Tachycardia, unspecified; R09.02 Hypoxemia; R05 Cough; F41.9 Anxiety disorder, unspecified; Z79.899 Other long term (current) drug therapy; Z87.891 Personal history of nicotine dependence; Z83.6 Family history of other diseases of the respiratory system; Z60.2 Problems related to living alone
CPT/HCPCS: 93005; 99285; 96374; 36415 ×4; 82553 ×2; 83735; 85025; 85610; 80048 ×3; 80053; 81001; 84484 ×2; 85379; 80061; 93306; 71045; 93010; 94640 ×4; G0378 ×5; A9270 ×25; J0360; J2930; J1650 ×3; J7620; J7626

== ENCOUNTER 2019-12-06 10:57 | Inpatient (IN) | payer MEDICARE ==
[2019-12-06 11:33] LABS: ABSOLUTE EOSINOPHILS # (AUTO) 0.4 10^3/uL (0.0-0.6); ABSOLUTE LYMPHOCYTES (AUTO) 1.3 10^3/uL (0.5-4.7); ABSOLUTE MONOCYTES (AUTO) 0.5 10^3/uL (0.1-1.4); ABSOLUTE NEUT (AUTO) 4.5 10^3/uL (1.7-8.2); BASOPHILS % (AUTO) 0.6 % (0-2); EOSINOPHILS % (AUTO) 5.5 % (0-6); HEMATOCRIT 41.6 % (36.0-47.0); HEMOGLOBIN 13.9 g/dL (12.0-15.5); MEAN CORPUSCULAR HEMOGLOBIN 30.6 pg (27.0-33.4); MEAN CORPUSCULAR HGB CONC 33.3 g/dL (32.0-36.0); MEAN CORPUSCULAR VOLUME 92 fl (80-97); MONOCYTES % (AUTO) 7.8 % (3-13); PLATELET COUNT 323 10^3/uL (150-450); RED BLOOD COUNT 4.53 10^6/uL (3.72-5.28); RED CELL DISTRIBUTION WIDTH 14.4 % (11.5-14.0); SEGMENTED NEUTROPHILS % (AUTO) 67.1 % (42-78); TOTAL CELLS COUNTED % (AUTO) 100 %; WHITE BLOOD COUNT 6.7 10^3/uL (4.0-10.5)
[2019-12-06 11:39] LABS: INTERNATIONAL RATION (INR) 0.97; PROTHROMBIN TIME 12.9 SEC (11.4-15.4)
[2019-12-06 11:40] LABS: PARTIAL THROMBOPLASTIN TIME 30.3 SEC (23.5-35.8)
[2019-12-06] MEDS ORDERED: MORPHINE SULFATE 10 MG/ML INJ IV ONE (11:45)
[2019-12-06] MEDS ORDERED: NITROGLYCERIN/D5W 50 MG/250 ML RTUINJ IV PRN ×2 (11:45→15:36)
[2019-12-06 11:47] LABS: ALBUMIN 4.4 g/dL (3.5-5.0); ALKALINE PHOSPHATASE 156 U/L (38-126); ANION GAP 9 (5-19); ASPARTATE AMINO TRANSFERASE 26 U/L (14-36); BILIRUBIN,DIRECT 0.1 mg/dL (0.0-0.4); BILIRUBIN,TOTAL 0.5 mg/dL (0.2-1.3); BLOOD UREA NITROGEN 15 mg/dL (7-20); CALCIUM 10.5 mg/dL (8.4-10.2); CARBON DIOXIDE 27 mmol/L (22-30); CHLORIDE 107 mmol/L (98-107); CREATINE KINASE 55 U/L (30-135); GLUCOSE 107 mg/dL (75-110); POTASSIUM 4.1 mmol/L (3.6-5.0)
--- NOTE | 2019-12-06 11:50 | ER Document Report ---
ED General - General Chief Complaint: Cough Stated Complaint: COUGH Primary Care Provider: CARI RUBIO MD [Primary Care Provider] - Follow up as needed Notes: Patient is a 74-year-old white female with past medical history of hypertension and COPD who presents to the emergency department with a chief complaint of chest pain that began 3 days ago. She reports the pain is located center chest. Has been a constant pain like a pressure on the chest. Denies any radiation of pain. States that she has been taking her blood pressure medications as prescribed, metoprolol. She reports she has been out of her inhaled COPD medications for several days. She admits to an associated shortness of breath. Does admit to a mild cough but states that feels baseline for COPD without any significant change. She denies any known fever. Denies any recent travel or known sick contacts. TRAVEL OUTSIDE OF THE [place] IN LAST 30 DAYS: No - Related Data Allergies/Adverse Reactions: No Known Allergies Allergy (Verified 04/07/19 09:33) Home Medications: Metoprolol, Geodon, Ativan Past Medical History - Social History Smoking Status: Unknown if Ever Smoked Family History: Reviewed & Not Pertinent, COPD Patient has suicidal ideation: No Patient has homicidal ideation: No - Past Medical History Cardiac Medical History: Denies: Hx Congestive Heart Failure, Hx Heart Attack, Hx Hypertension Pulmonary Medical History: Reports: Hx COPD Denies: Hx Asthma, Hx Bronchitis, Hx Pneumonia, Hx Tuberculosis Neurological Medical History: Denies: Hx Cerebrovascular Accident, Hx Seizures, Hx Parkinson's Disease Renal/ Medical History: Denies: Hx End Stage Renal Disease, Hx Kidney Stones, Hx Peritoneal Dialysis GI Medical History: Denies: Hx Cirrhosis, Hx Gastroesophageal Reflux Disease, Hx Hepatitis, Hx Hiatal Hernia, Hx Ulcer Musculoskeletal Medical History: Denies Hx Arthritis, Denies Hx Multiple Sclerosis Psychiatric Medical History: Denies: Hx Bipolar Disorder, Hx Depression, Hx Schizophrenia Infectious Medical History: Denies: Hx Hepatitis Past Surgical History: Reports: Hx Appendectomy, Hx Hysterectomy, Hx Orthopedic Surgery - right shoulder, Other - Cataract surgery. Denies: Hx Mastectomy, Hx Open Heart Surgery, Hx Pacemaker - Immunizations Hx Diphtheria, Pertussis, Tetanus Vaccination: Yes Hx Pneumococcal Vaccination: 11/02/16 Review of Systems - Review of Systems Cardiovascular: Chest pain Respiratory: Cough, Short of breath -: Yes All other systems reviewed and negative Physical Exam - Vital signs Vitals: Temp Resp Pulse Ox 97.5 F 24 H 96 12/06/19 10:58 12/06/19 10:58 12/06/19 10:58 - General General appearance: Appears well, Alert In distress: None - Respiratory Respiratory status: No respiratory distress Chest status: Nontender Breath sounds: Decreased air movement Chest palpation: Normal - Cardiovascular Rhythm: Other - Regularly irregular Heart sounds: Normal auscultation - Extremities General upper extremity: Normal inspection, Nontender, Normal color, Normal ROM, Normal temperature General lower extremity: Normal inspection, Nontender, Normal color, Normal ROM, Normal temperature, Normal weight bearing. No: Fabiola's sign - Neurological Neuro grossly intact: Yes Cognition: Normal Orientation: AAOx4 [place] Coma Scale Eye Opening: Spontaneous [place] Coma Scale Verbal: Oriented [place] Coma Scale Motor: Obeys Commands Mario Alberto Coma Scale Total: 15 Speech: Normal Cranial nerves: Normal Cerebellar coordination: Normal Motor strength normal: LUE, RUE, LLE, RLE Additional motor exam normals: Equal metal trimmer. No: Pronator drift Sensory: Normal - Psychological Associated symptoms: Normal affect, Normal mood - Skin Skin Temperature: Warm Skin Moisture: Dry Skin Color: Normal Course - Re-evaluation Re-evalutation: 12/06/19 11:50 Patient with a severely elevated blood pressure. She denies any headache at this time. Has no focal deficits. Complaint is only of chest pain with some mild underlying shortness of breath. Will be started on a nitro drip as we are out of Cardene due to national back order. Patient will have a cardiac work-up. 12/06/19 12:19 EK:57 AM, sinus rhythm at 93 bpm. Normal intervals. No PVCs noted in the anterior and lateral leads as compared with prior. No STEMI or significant ST depression. Unable to obtain reading from V6 lead at this time. Patient will be continuously monitored. 12/06/19 15:00 Patient's x-ray showing a basilar pneumonia. Should be given Rocephin. Her blood pressure did initially improved with a systolic of 170s on the 5 of nitro drip, the pressure began to creep back up so she was increased to 10. Pressure being monitored closely. Her initial troponin was negative. She does have the new PVCs compared with her prior EKG. I called and spoke with Dr. Winchester, network development coordinator who will evaluate the patient in the emergency department for admission purposes. - Vital Signs Vital signs: Temp Pulse Resp BP Pulse Ox 97.5 F 19 197/102 H 94 12/06/19 10:58 12/06/19 14:51 12/06/19 14:51 12/06/19 14:50 - Laboratory Result Diagrams: 12/06/19 11:00 12/06/19 11:00 Laboratory results interpreted by me: 12/06/19 12/06/19 11:00 11:00 RDW 14.4 H Calcium 10.5 H Alkaline Phosphatase 156 H Discharge - Discharge Clinical Impression: Hypertensive emergency Chest pain Qualifiers: Chest pain type: unspecified Qualified Code(s): R07.9 - Chest pain, unspecified Pneumonia Qualifiers: Pneumonia type: due to unspecified organism Laterality: unspecified laterality Lung location: unspecified part of lung Qualified Code(s): J18.9 - Pneumonia, unspecified organism Condition: Serious Disposition: ADMITTED INPATIENT Admitting Provider: Ranulfo (Control Operator Flow [employer]at) Unit Admitted: ICU Referrals: CARI RUBIO MD [Primary Care Provider] - Follow up as needed
--- NOTE | 2019-12-06 11:55 | RADIOLOGY REPORT (SQ) ---
EXAM DESCRIPTION: CHEST SINGLE VIEW IMAGES COMPLETED DATE/TIME: 12/06/2019 11:46 am REASON FOR STUDY: cough COMPARISON: 04/25/2019 EXAM PARAMETERS: NUMBER OF VIEWS: One view. TECHNIQUE: Single frontal radiographic view of the chest acquired. RADIATION DOSE: NA LIMITATIONS: None. FINDINGS: LUNGS AND PLEURA: Patchy left basilar airspace disease. No significant effusion. No pneu mothorax. Chronic interstitial and emphysematous change with stable scattered scarring. MEDIASTINUM AND HILAR STRUCTURES: No masses. Contour normal. HEART AND VASCULAR STRUCTURES: Normal heart size. Vascular calcifications. BONES: Degenerative/posttraumatic changes at the right shoulder. No acute findings. HARDWARE: None in the chest. OTHER: No other significant finding. IMPRESSION: Left basilar airspace disease compatible with pneumonia. TECHNICAL DOCUMENTATION: JOB ID: [id number] 2010 [employer]- All Rights Reserved Reading location - IP/workstation name: [email or web address]
[2019-12-06 14:47] LABS: A TYPE INFLUENZA AG NEGATIVE (NEGATIVE)
[2019-12-06 14:48] LABS: B INFLUENZA AG NEGATIVE (NEGATIVE)
[2019-12-06] MEDS ORDERED: CEFTRIAXONE 1 GM/D5W RTU 1 GM/50 ML RTUPB IV ONE (14:57)
[2019-12-06] MEDS ORDERED: ACETAMINOPHEN 325 MG TABLET PO PRN (15:30)
[2019-12-06] MEDS ORDERED: METOPROLOL TARTRATE PF/INJ 5 MG/5 ML SDV IV PRN (15:38)
[2019-12-06] MEDS ORDERED: ENOXAPARIN SODIUM INJ 40 MG/0.4 ML DISP.SYRIN SUBCUT SCH (15:45)
--- NOTE | 2019-12-06 16:08 | CRITICAL CARE ADMISSION REPORT ---
HPI Date:: 12/06/19 Time:: 15:00 Reason for ICU Reason:: HTN urgency HPI: This patient is a 74 yo woman who has known COPD. Ran out of inhalers. Feels wheezing and a non-productive cough. Has chest pain, precordial that is reproducible. She has BP > 200/110. The thought was her CP is related to cardiac disease but is more likely from COPD. Started on a NTG drip. History obtained from:: Patient and SETH Fierro. - Diagnosis/Plan (1) Hypertensive urgency Is this a current diagnosis for this admission?: Yes Plan: Wean off NTG drip. Chest pain for 3 days is reproducible and if cardiac after 3 days would expect a bump in enzymes. (2) Chest pain Qualifiers: Chest pain type: unspecified Qualified Code(s): R07.9 - Chest pain, unspecified Is this a current diagnosis for this admission?: Yes Plan: Reprodicible and probably related to COPD. (3) Pneumonia Qualifiers: Pneumonia type: due to unspecified organism Laterality: left Lung location: lower lobe of lung Qualified Code(s): J18.9 - Pneumonia, unspecified organism Is this a current diagnosis for this admission?: Yes Plan: Faint and mild. No WBC, no fever and no sputum. Treat with PO levoquin. (4) COPD exacerbation Is this a current diagnosis for this admission?: Yes Plan: Start IV solumedrol and convert to prednisone, albuterol and discharge on inhaler she can afford. (5) COVID-19 Is this a current diagnosis for this admission?: No Plan: She hx no recent travel, no fever, cough related to COPD and is very low risk for COVID causing these symptoms. - . Plan Summary: Wean NTG off control BP and treat COPD. Plan on discharge tomorrow. Past Medical History Cardiac Medical History: Denies: Congestive Heart Failure, Myocardial Infarction, Hypertension Pulmonary Medical History: Reports: Chronic Obstructive Pulmonary Disease (COPD) Denies: Asthma, Bronchitis, Pneumonia, Tuberculosis Neurological Medical History: Denies: Seizures Renal/ Medical History: Denies: End Stage Renal Disease GI Medical History: Denies: Cirrhosis, Gastroesophageal Reflux Disease, Hepatitis, Hiatal Hernia Musculoskeltal Medical History: Denies: Arthritis Psychiatric Medical History: Denies: Bipolar Disorder, Depression Hematology: Denies: Anemia, Sickle Cell Disease, Bleeding Tendencies Past Surgical History Past Surgical History: Reports: Appendectomy, Hysterectomy, Orthopedic Surgery - right shoulder, Other - Cataract surgery Denies: Amputation, Mastectomy, Pacemaker Social/Family History - Social History Smoking Status: Unknown if Ever Smoked Frequency of Alcohol Use: None Hx Recreational Drug Use: No Drugs: None Hx Prescription Drug Abuse: No - Medication/Allergies Home Medications: Budesonide/Formoterol Fumarate [Symbicort 160-4.5 Mcg Inhaler] 2 puff IH Q12 06/15/17 Metoprolol Succinate [Toprol Xl 25 mg Tab.sr] 12.5 mg PO Q12 tab.sr.24h 06/23/17 Amlodipine Besylate/Benazepril [Amlodipine-Benazepril 5-20 mg] 1 cap PO DAILY 04/07/19 Carbamazepine [Tegretol 200 mg Tablet] 200 mg PO Q12 04/07/19 Etodolac [Lodine] 400 mg PO BID #14 tablet 04/07/19 Gabapentin [Neurontin 300 mg Capsule] 600 mg PO Q8 04/07/19 Tiotropium [place] [Spiriva Handihaler 5 Cap/Kit (18 Mcg/Cap)] 1 cap IH DAILY 04/07/19 Alprazolam [Xanax 0.25 mg Tablet] 0.25 mg PO Q2PM 04/25/19 Cilostazol [Pletal 100 mg Tablet] 100 mg PO BIDP PRN 04/25/19 Alprazolam [Xanax 0.25 mg Tablet] 0.25 mg PO Q8HP PRN tablet 04/28/19 Amlodipine Besylate [Norvasc 10 mg Tablet] 10 mg PO DAILY tablet 04/28/19 Budesonide [Pulmicort Neb 0.25 mg/2 ml Ampul] 0.25 mg NEB RTQ12 ampul.neb 04/28/19 Carbamazepine [Tegretol 200 mg Tablet] 200 mg PO Q12 tablet 04/28/19 Allergies/Adverse Reactions: No Known Allergies Allergy (Verified 04/07/19 09:33) Review of Systems Constitutional: ABSENT: chills, fever(s), headache(s), weight gain, weight loss Eyes: ABSENT: visual disturbances Ears: ABSENT: hearing changes Cardiovascular: PRESENT: chest pain, other - Reproducible. Respiratory: PRESENT: cough Gastrointestinal: ABSENT: abdominal pain, constipation, diarrhea, hematemesis, hematochezia, nausea, vomiting Genitourinary: ABSENT: dysuria, hematuria Musculoskeletal: ABSENT: joint swelling Integumentary: ABSENT: rash, wounds Neurological: ABSENT: abnormal gait, abnormal speech, confusion, dizziness, focal weakness, syncope Psychiatric: ABSENT: anxiety, depression, homidical ideation, suicidal ideation Endocrine: ABSENT: cold intolerance, heat intolerance, polydipsia, polyuria Hematologic/Lymphatic: ABSENT: easy bleeding, easy bruising Physical Exam Vital Signs: Temp Pulse Resp BP Pulse Ox 97.5 F 19 197/102 H 94 12/06/19 10:58 12/06/19 14:51 12/06/19 14:51 12/06/19 14:50 Intake & Output 12/05/19 12/06/19 12/07/19 06:59 06:59 06:59 Intake Total 3 Balance 3 Weight 60 kg Weight/Height Weight 60 kg Height 5 ft 4 in General appearance: PRESENT: no acute distress, well-developed, well-nourished Head exam: PRESENT: atraumatic, normocephalic Eye exam: PRESENT: conjunctiva pink, EOMI, PERRLA. ABSENT: scleral icterus Ear exam: PRESENT: normal external ear exam Mouth exam: PRESENT: moist, tongue midline Cardiovascular exam: PRESENT: RRR. ABSENT: diastolic murmur, rubs, systolic murmur GI/Abdominal exam: PRESENT: normal bowel sounds, soft. ABSENT: distended, guarding, mass, organolmegaly, rebound, tenderness Rectal exam: PRESENT: deferred Extremities exam: PRESENT: full ROM. ABSENT: calf tenderness, clubbing, pedal edema Neurological exam: PRESENT: alert, awake, oriented to person, oriented to place, oriented to time, oriented to situation, CN II-XII grossly intact. ABSENT: motor sensory deficit Psychiatric exam: PRESENT: appropriate affect, normal mood. ABSENT: homicidal ideation, suicidal ideation Skin exam: PRESENT: dry, intact, warm. ABSENT: cyanosis, rash Laboratory/Radiographs Laboratory Results: 12/06/19 11:00 12/06/19 11:00 12/06/19 12/06/19 11:00 11:00 WBC 6.7 RBC 4.53 Hgb 13.9 Hct 41.6 MCV 92 MCH 30.6 MCHC 33.3 RDW 14.4 H Plt Count 323 Seg Neutrophils % 67.1 Sodium 142.8 Potassium 4.1 Chloride 107 Carbon Dioxide 27 Anion Gap 9 BUN 15 Creatinine 0.71 Est GFR ( Amer) > 60 Glucose 107 Calcium 10.5 H Total Bilirubin 0.5 AST 26 Alkaline Phosphatase 156 H Total Protein 8.0 Albumin 4.4 12/06/19 12/06/19 12/06/19 11:00 11:00 11:00 Creatine Kinase 55 Troponin I Cancelled NT-Pro-B Natriuret Pep 210 12/06/19 12:40 Creatine Kinase Troponin I < 0.012 NT-Pro-B Natriuret Pep Impressions: Chest X-Ray 12/06/19 11:09 IMPRESSION: Left basilar airspace disease compatible with pneumonia. All labs, radiographs, diagnostic studies and EKGs were personally reviewed: Yes In addition, reports of radiographic and diagnostic studies were read: Yes Critical Time Critical Time (minutes): 40 -: The care of a critically ill patient is dynamic. This note represents a static moment in the admission process. Orders and treatments may be given simultaneously and urgently, and time is not senior account representative of the treatment process. This patient requires Critical Care secondary to life threatening organ or limb dysfunction. Without Critical Care services, the patient is at risk for increased mortality and morbidity.
[2019-12-06] MEDS ORDERED: PROMETHAZINE HCL INJ 25 MG/1 ML VIAL IV PRN (16:24)
[2019-12-06] MEDS ORDERED: GLUCAGON,HUMAN RECOMB 1 MG INJ SUBCUT PRN (16:24)
[2019-12-06] MEDS ORDERED: DEXTROSE 50%-WATER 25 GM/50 ML DISP.SYRIN IV PRN ×2 (16:24)
[2019-12-06] MEDS ORDERED: DEXTROSE 40% GEL 15 GM TUBE PO PRN ×2 (16:24)
[2019-12-06] MEDS ORDERED: OXYCODONE-ACETAMINOPHEN 5-325 MG TABLET PO PRN (16:24)
[2019-12-06] MEDS ORDERED: LEVALBUTEROL HCL NEB 1.25 MG/3 ML AMPUL NEB PRN (16:24)
[2019-12-06] MEDS ORDERED: NORMAL SALINE 1000 ML 1,000 ML IV PRN (16:24)
[2019-12-06] MEDS ORDERED: ACETAMINOPHEN 650 MG SUPP.RECT PR PRN (16:24)
[2019-12-06] MEDS ORDERED: MAG HYDROX/AL HYDROX/SIMETH SUSP 30 ML UDCUP PO PRN (16:24)
--- NOTE | 2019-12-06 16:35 | EKG REPORT ---
SEVERITY:- ABNORMAL ECG - INCOMPLETE ANALYSIS DUE TO MISSING DATA IN PRECORDIAL LEAD(S) SINUS RHYTHM MULTIPLE VENTRICULAR PREMATURE COMPLEXES BORDERLINE T ABNORMALITIES, ANT-LAT LEADS : Confirmed by: Carmelo Fernandez 06-Dec-2019 16:34:52
[2019-12-06] MEDS ORDERED: LORAZEPAM 1 MG TABLET PO PRN (16:40)
[2019-12-06] MEDS ORDERED: MORPHINE SULFATE 10 MG/ML INJ IV PRN (16:51)
--- NOTE | 2019-12-06 17:23 | PDOC CONSULTATION ---
Consultation Consult Date: 12/06/19 Attending physician:: ALEXANDRA QUINONES Provider Consulted: RIN OLIVA JR Consult reason:: Chest pain History of Present Illness Admission Date/PCP: 12/06/19 15:13 CARI RUBIO MD History of Present Illness: HAILEE VARELA is a 74 year old female comes into the emergency room for 3-day history of worsening COPD with chronic cough, chest pain. Patient evidently ran out of her medicine for COPD about 3 days ago and since then has been having worsening cough which is nonproductive as well as chest pain. Patient presented to the emergency room her blood pressures were elevated. If you look back into the chart she had this very same almost identical presentation back in May 2019 at which time she had a negative cardiac work-up. Time her chest pain was felt to be due to her COPD exacerbation as well as uncontrolled hypertension. Patient's chest pain is also reproducible to manual pressure over the sternum. There was some thought that the patient may have a pneumonia however her chest x-ray is not very impressive and she is afebrile as well as no leukocytosis. Also her cough is predominantly nonproductive. Past Medical History Cardiac Medical History: Denies: Congestive Heart Failure, Myocardial Infarction, Hypertension Pulmonary Medical History: Reports: Chronic Obstructive Pulmonary Disease (COPD) - She was diagnosed 6 years ago with COPD Denies: Asthma, Bronchitis, Pneumonia, Tuberculosis Neurological Medical History: Denies: Seizures Renal/ Medical History: Denies: End Stage Renal Disease GI Medical History: Denies: Cirrhosis, Gastroesophageal Reflux Disease, Hepatitis, Hiatal Hernia Musculoskeltal Medical History: Denies: Arthritis Psychiatric Medical History: Reports: Tobacco Dependency, Other - Patient stopped smoking 4 years ago, but had been a smoker all of her life Denies: Bipolar Disorder, Depression Hematology: Denies: Anemia, Sickle Cell Disease, Bleeding Tendencies Past Surgical History Past Surgical History: Reports: Appendectomy, Hysterectomy, Orthopedic Surgery - right shoulder, Other - Cataract surgery Denies: Amputation, Mastectomy, Pacemaker Social History Smoking Status: Unknown if Ever Smoked Frequency of Alcohol Use: None Hx Recreational Drug Use: No Drugs: None Hx Prescription Drug Abuse: No - Advance Directive Resuscitation Status: Do Not Resuscitate - Patient tells me she wants to be a DNR and not put on a ventilator Family History Family History: Reviewed & Not Pertinent, COPD Parental Family History Reviewed: No Children Family History Reviewed: No Sibling(s) Family History Reviewed.: No Medication/Allergy Home Medications: Budesonide/Formoterol Fumarate [Symbicort 160-4.5 Mcg Inhaler] 2 puff IH Q12 06/15/17 Metoprolol Succinate [Toprol Xl 25 mg Tab.sr] 12.5 mg PO Q12 tab.sr.24h 06/23/17 Amlodipine Besylate/Benazepril [Amlodipine-Benazepril 5-20 mg] 1 cap PO DAILY 04/07/19 Carbamazepine [Tegretol 200 mg Tablet] 200 mg PO Q12 04/07/19 Etodolac [Lodine] 400 mg PO BID #14 tablet 04/07/19 Gabapentin [Neurontin 300 mg Capsule] 600 mg PO Q8 04/07/19 Tiotropium [place] [Spiriva Handihaler 5 Cap/Kit (18 Mcg/Cap)] 1 cap IH DAILY 04/07/19 Alprazolam [Xanax 0.25 mg Tablet] 0.25 mg PO Q2PM 04/25/19 Cilostazol [Pletal 100 mg Tablet] 100 mg PO BIDP PRN 04/25/19 Alprazolam [Xanax 0.25 mg Tablet] 0.25 mg PO Q8HP PRN tablet 04/28/19 Amlodipine Besylate [Norvasc 10 mg Tablet] 10 mg PO DAILY tablet 04/28/19 Budesonide [Pulmicort Neb 0.25 mg/2 ml Ampul] 0.25 mg NEB RTQ12 ampul.neb 04/28/19 Carbamazepine [Tegretol 200 mg Tablet] 200 mg PO Q12 tablet 04/28/19 Allergies/Adverse Reactions: No Known Allergies Allergy (Verified 04/07/19 09:33) Review of Systems Constitutional: ABSENT: chills, fever(s), headache(s), weight gain, weight loss Cardiovascular: PRESENT: chest pain - Due to shortness of breath Respiratory: PRESENT: cough - [place] Neurological: ABSENT: abnormal gait, abnormal speech, confusion, dizziness, focal weakness, syncope Psychiatric: ABSENT: anxiety, depression, homidical ideation, suicidal ideation Physical Exam Vital Signs: Temp Pulse Resp BP Pulse Ox 97.5 F 19 197/102 H 94 12/06/19 10:58 12/06/19 14:51 12/06/19 14:51 12/06/19 14:50 Intake & Output 12/05/19 12/06/19 12/07/19 06:59 06:59 06:59 Intake Total 3 Balance 3 Weight 60 kg General appearance: PRESENT: no acute distress, well-developed, well-nourished, other - Blood pressure is still elevated however it is responding to nitro drip Respiratory exam: PRESENT: decreased breath sounds Cardiovascular exam: PRESENT: RRR. ABSENT: diastolic murmur, rubs, systolic murmur Neurological exam: PRESENT: alert, awake, oriented to person, oriented to place, oriented to time, oriented to situation, CN II-XII grossly intact. ABSENT: motor sensory deficit Psychiatric exam: PRESENT: appropriate affect, normal mood. ABSENT: homicidal ideation, suicidal ideation Results Laboratory Results: 12/06/19 11:00 12/06/19 11:00 12/06/19 12/06/19 11:00 11:00 WBC 6.7 RBC 4.53 Hgb 13.9 Hct 41.6 MCV 92 MCH 30.6 MCHC 33.3 RDW 14.4 H Plt Count 323 Seg Neutrophils % 67.1 Sodium 142.8 Potassium 4.1 Chloride 107 Carbon Dioxide 27 Anion Gap 9 BUN 15 Creatinine 0.71 Est GFR ( Amer) > 60 Glucose 107 Calcium 10.5 H Total Bilirubin 0.5 AST 26 Alkaline Phosphatase 156 H Total Protein 8.0 Albumin 4.4 12/06/19 12/06/19 12/06/19 11:00 11:00 11:00 Creatine Kinase 55 Troponin I Cancelled NT-Pro-B Natriuret Pep 210 12/06/19 12:40 Creatine Kinase Troponin I < 0.012 NT-Pro-B Natriuret Pep Impressions: Chest X-Ray 12/06/19 11:09 IMPRESSION: Left basilar airspace disease compatible with pneumonia. Assessment and Plan - Diagnosis (1) Chest pain Qualifiers: Chest pain type: unspecified Qualified Code(s): R07.9 - Chest pain, unspecified Is this a current diagnosis for this admission?: Yes (2) Hypertensive urgency Is this a current diagnosis for this admission?: Yes (3) Pneumonia Qualifiers: Pneumonia type: due to unspecified organism Laterality: left Lung location: lower lobe of lung Qualified Code(s): J18.9 - Pneumonia, unspecified organism Is this a current diagnosis for this admission?: Yes (4) COPD (chronic obstructive pulmonary disease) Qualifiers: COPD type: unspecified COPD Qualified Code(s): J44.9 - Chronic obstructive pulmonary disease, unspecified Is this a current diagnosis for this admission?: Yes (5) Patient noncompliance Is this a current diagnosis for this admission?: Yes - Plan Summary Summary: Dr. Winchester, the cota, and I have discussed her case. I agree that her chest pain is probably on the basis of her COPD as well as her hypertension. It has been going on now for 3 days. I would think that her troponin would be elevated if this was ischemia based on coronary disease. Plus she had a very similar hospitalization back in 2019, which was ruled out to be cardiac. And patient's chest pain is reproducible. I think patient will respond well to treating her hypertension, good pulmonary toiletry with some p.o. antibiotics. We will be more than happy to assume the care of this patient at a later time if patient is unable to be discharged home. - Time Time Spent with patient: 35 or more minutes
[2019-12-06] MEDS ORDERED: METOPROLOL SUCCINATE 25 MG TAB.SR.24H PO ONE (17:30)
[2019-12-06] MEDS: AMLODIPINE BESYLATE 10 MG TABLET PO SCH (18:40)
[2019-12-06] MEDS: METHYLPREDNISOLONE INJ 40 MG/1 ML SDV IV SCH (18:41)
[2019-12-06] MEDS: LEVOFLOXACIN 500 MG TABLET PO SCH (18:41)
[2019-12-06] MEDS: IPRATROPIUM/ALBUTEROL 0.5-2.5 MG/3 ML AMPUL NEB SCH ×2 (18:48→20:26)
[2019-12-06] MEDS ORDERED: FAMOTIDINE 20 MG TABLET PO SCH (22:00)
[2019-12-06] MEDS: METOPROLOL SUCCINATE 25 MG TAB.SR.24H PO SCH (22:01)
[2019-12-06] MEDS: CARBAMAZEPINE 200 MG TABLET PO SCH (22:02)
[2019-12-07] MEDS: IPRATROPIUM/ALBUTEROL 0.5-2.5 MG/3 ML AMPUL NEB SCH ×4 (02:24→20:28)
[2019-12-07] MEDS: METHYLPREDNISOLONE INJ 40 MG/1 ML SDV IV SCH (06:02)
[2019-12-07] MEDS: CILOSTAZOL 100 MG TABLET PO SCH ×2 (07:37→18:26)
[2019-12-07] MEDS ORDERED: DOCUSATE SODIUM 100 MG CAPSULE PO SCH (10:00)
[2019-12-07] MEDS: METOPROLOL SUCCINATE 25 MG TAB.SR.24H PO SCH ×2 (10:01→21:35)
[2019-12-07] MEDS: CARBAMAZEPINE 200 MG TABLET PO SCH ×2 (10:01→21:35)
[2019-12-07] MEDS: AMLODIPINE BESYLATE 10 MG TABLET PO SCH (10:01)
[2019-12-07] MEDS: ENOXAPARIN SODIUM INJ 40 MG/0.4 ML DISP.SYRIN SUBCUT SCH (10:02)
[2019-12-07] MEDS ORDERED: PREDNISONE 20 MG TABLET PO SCH (10:30)
--- NOTE | 2019-12-07 11:37 | PDOC CRITICAL CARE PROG REPORT ---
General Date:: 12/07/19 Hospital Day:: 2 Resuscitation Status: Do Not Intubate Events in the past 12 to 24 Hours:: COPD treated, no more chest pain off O2 but quite weak. Review of systems relevant to events:: Respiratory Reason for ICU Addmission:: Downgraded. - Medications: Medications reviewed and adjusted accordingly: Yes Vasopressors:: None Sedation:: None Physical Exam Vital Signs: Temp Pulse Resp BP Pulse Ox 97.7 F 106 H 22 H 116/67 94 12/07/19 10:00 12/07/19 10:00 12/07/19 11:00 12/07/19 11:00 12/07/19 11:00 Intake & Output 12/06/19 12/07/19 12/08/19 06:59 06:59 06:59 Intake Total 65 240 Output Total 500 350 Balance -435 -110 Weight 58.2 kg Weight/Height Weight 58.2 kg Height 5 ft 4 in General appearance: PRESENT: no acute distress, thin, well-developed, well- nourished Head exam: PRESENT: atraumatic, normocephalic Eye exam: PRESENT: conjunctiva pink, EOMI, PERRLA. ABSENT: scleral icterus Ear exam: PRESENT: normal external ear exam Mouth exam: PRESENT: moist, tongue midline Respiratory exam: PRESENT: clear to auscultation tim, decreased breath sounds. ABSENT: rales, rhonchi, wheezes Cardiovascular exam: PRESENT: RRR. ABSENT: diastolic murmur, rubs, systolic murmur Vascular exam: PRESENT: normal capillary refill GI/Abdominal exam: PRESENT: normal bowel sounds, soft. ABSENT: distended, guarding, mass, organolmegaly, rebound, tenderness Rectal exam: PRESENT: deferred Extremities exam: PRESENT: full ROM. ABSENT: calf tenderness, clubbing, pedal edema Neurological exam: PRESENT: alert, awake, oriented to person, oriented to place, oriented to time, oriented to situation, CN II-XII grossly intact. ABSENT: motor sensory deficit Psychiatric exam: PRESENT: appropriate affect, normal mood. ABSENT: homicidal ideation, suicidal ideation Skin exam: PRESENT: dry, intact, warm. ABSENT: cyanosis, rash Laboratory/Radiographs Laboratory Results: 12/06/19 11:00 12/06/19 11:00 12/06/19 12/06/19 11:00 11:00 WBC 6.7 RBC 4.53 Hgb 13.9 Hct 41.6 MCV 92 MCH 30.6 MCHC 33.3 RDW 14.4 H Plt Count 323 Seg Neutrophils % 67.1 Sodium 142.8 Potassium 4.1 Chloride 107 Carbon Dioxide 27 Anion Gap 9 BUN 15 Creatinine 0.71 Est GFR ( Amer) > 60 Glucose 107 Calcium 10.5 H Total Bilirubin 0.5 AST 26 Alkaline Phosphatase 156 H Total Protein 8.0 Albumin 4.4 12/06/19 12/06/19 12/06/19 11:00 11:00 11:00 Creatine Kinase 55 Troponin I Cancelled NT-Pro-B Natriuret Pep 210 12/06/19 12:40 Creatine Kinase Troponin I < 0.012 NT-Pro-B Natriuret Pep Impressions: Chest X-Ray 12/06/19 11:09 IMPRESSION: Left basilar airspace disease compatible with pneumonia. All labs, radiographs, diagnostic studies and EKGs were personally reviewed: Yes In addition, reports of radiographic and diagnostic studies were read: Yes Assessment and Plan - Diagnosis (1) Hypertensive urgency Is this a current diagnosis for this admission?: Yes Plan: Resolved (2) Chest pain Qualifiers: Chest pain type: chest pain on breathing Qualified Code(s): R07.1 - Chest pain on breathing; R07.81 - Pleurodynia Is this a current diagnosis for this admission?: Yes Plan: Due to COPD and not cardiac. Improved (3) Pneumonia Qualifiers: Pneumonia type: due to unspecified organism Laterality: left Lung location: lower lobe of lung Qualified Code(s): J18.9 - Pneumonia, unspecified organism Is this a current diagnosis for this admission?: Yes Plan: Treat with PO levoquin. (4) COPD exacerbation Is this a current diagnosis for this admission?: Yes Plan: Her main problem. Still gets hypoxic with activity. (5) COVID-19 Is this a current diagnosis for this admission?: No Plan: No risk. Off precautions. Plan Summary: She is stable medicaly for discharge home but is unsteady on feet needs PT and HH. Critical Time Critical Time (minutes): 25 Level of Care: MEDICAL Anticipated discharge: Home with Homehealth Within: within 48 hours -: 1. The care of a critical patient is a dynamic process. This note is a admissions representative synopsis but static in nature. The timeframe for treatments given in order is not necessarily the actual time these treatments may have been done. 2. This patient requires critical care secondary to ongoing requirements for therapy not offered or safe outside the critical care environment. Transfer to a lower level of care will result in altered life or limb morbidity and mortality. 3. Multidisciplinary rounds completed. 4. ABCDE bundle addressed.
[2019-12-07] MEDS: OXYCODONE HCL IR 5 MG TABLET PO PRN ×2 (12:58→18:25)
[2019-12-07] MEDS: LEVOFLOXACIN 500 MG TABLET PO SCH (18:25)
[2019-12-07] MEDS ORDERED: CARBAMAZEPINE 200 MG TABLET ONE (21:30)
[2019-12-08] MEDS: IPRATROPIUM/ALBUTEROL 0.5-2.5 MG/3 ML AMPUL NEB SCH ×3 (02:17→14:17)
[2019-12-08] MEDS ORDERED: ALPRAZOLAM 0.25 MG TABLET PO PRN (09:33)
--- NOTE | 2019-12-08 09:42 | PDOC CRITICAL CARE PROG REPORT ---
General Date:: 12/08/19 Hospital Day:: 2 Resuscitation Status: Do Not Intubate Events in the past 12 to 24 Hours:: Still weak, fall risk, seen by PT. Review of systems relevant to events:: Respiratory Reason for ICU Addmission:: Downgraded. - Medications: Medications reviewed and adjusted accordingly: Yes Vasopressors:: None Sedation:: None Physical Exam Vital Signs: Temp Pulse Resp BP Pulse Ox 98 F 90 16 110/72 93 12/08/19 00:16 12/08/19 00:16 12/08/19 00:16 12/08/19 00:16 12/08/19 00:16 Intake & Output 12/07/19 12/08/19 12/09/19 06:59 06:59 06:59 Intake Total 65 240 Output Total 500 650 Balance -435 -410 Weight 58.2 kg 57.9 kg Weight/Height Weight 57.9 kg Height 5 ft 4 in General appearance: PRESENT: no acute distress, thin, well-developed, well- nourished Head exam: PRESENT: atraumatic, normocephalic Eye exam: PRESENT: conjunctiva pink, EOMI, PERRLA. ABSENT: scleral icterus Ear exam: PRESENT: normal external ear exam Mouth exam: PRESENT: moist, tongue midline Respiratory exam: PRESENT: clear to auscultation tim, decreased breath sounds Cardiovascular exam: PRESENT: RRR. ABSENT: diastolic murmur, rubs, systolic murmur Vascular exam: PRESENT: normal capillary refill GI/Abdominal exam: PRESENT: normal bowel sounds, soft. ABSENT: distended, guarding, mass, organolmegaly, rebound, tenderness Rectal exam: PRESENT: deferred Extremities exam: PRESENT: full ROM. ABSENT: calf tenderness, clubbing, pedal edema Neurological exam: PRESENT: alert, awake, oriented to person, oriented to place, oriented to time, oriented to situation, CN II-XII grossly intact. ABSENT: motor sensory deficit Psychiatric exam: PRESENT: appropriate affect, normal mood. ABSENT: homicidal ideation, suicidal ideation Skin exam: PRESENT: dry, intact, warm. ABSENT: cyanosis, rash Laboratory/Radiographs Laboratory Results: 12/06/19 11:00 12/06/19 11:00 12/06/19 12/06/19 12/06/19 11:00 11:00 11:00 Creatine Kinase 55 Troponin I Cancelled NT-Pro-B Natriuret Pep 210 12/06/19 12:40 Creatine Kinase Troponin I < 0.012 NT-Pro-B Natriuret Pep Impressions: Chest X-Ray 12/06/19 11:09 IMPRESSION: Left basilar airspace disease compatible with pneumonia. All labs, radiographs, diagnostic studies and EKGs were personally reviewed: Yes In addition, reports of radiographic and diagnostic studies were read: Yes Assessment and Plan - Diagnosis (1) Hypertensive urgency Is this a current diagnosis for this admission?: Yes Plan: Resolved (2) Chest pain Qualifiers: Chest pain type: chest pain on breathing Qualified Code(s): R07.1 - Chest pain on breathing; R07.81 - Pleurodynia Is this a current diagnosis for this admission?: Yes Plan: Resolved, due to chest wall pain. (3) Pneumonia Qualifiers: Pneumonia type: due to unspecified organism Laterality: left Lung locatio n: lower lobe of lung Qualified Code(s): J18.9 - Pneumonia, unspecified organism Is this a current diagnosis for this admission?: Yes Plan: Mild (4) COPD exacerbation Is this a current diagnosis for this admission?: Yes Plan: She still needs O2 for activity (5) COVID-19 Is this a current diagnosis for this admission?: No Plan: Low risk. (6) Physical deconditioning Is this a current diagnosis for this admission?: Yes Plan: Apparently not a new finding. Has fallen at home. Needs O2 and rehab according to PT. I tend to agree. She needs a walker and assistance for ambulation. Lives alone. Plan Summary: Arrange for in patient rehab and oxygen. Critical Time Critical Time (minutes): 25 Level of Care: MEDICAL Anticipated discharge: SNF Within: within 24 hours -: 1. The care of a critical patient is a dynamic process. This note is a ict sales representative synopsis but static in nature. The timeframe for treatments given in order is not necessarily the actual time these treatments may have been done. 2. This patient requires critical care secondary to ongoing requirements for therapy not offered or safe outside the critical care environment. Transfer to a lower level of care will result in altered life or limb morbidity and mortality. 3. Multidisciplinary rounds completed. 4. ABCDE bundle addressed.
[2019-12-08] MEDS ORDERED: METOPROLOL TARTRATE 50 MG TABLET PO SCH (10:00)
[2019-12-08] MEDS ORDERED: BUSPIRONE HCL 10 MG TABLET PO SCH (10:00)
--- NOTE | 2019-12-08 10:49 | EKG REPORT ---
SEVERITY:- ABNORMAL ECG - SINUS RHYTHM VENTRICULAR PREMATURE COMPLEX NONSPECIFIC T ABNORMALITIES, LATERAL LEADS : Confirmed by: Carmelo Fernandez 08-Dec-2019 10:48:48
[2019-12-08] MEDS: CARBAMAZEPINE 200 MG TABLET PO SCH (12:19)
[2019-12-08] MEDS: AMLODIPINE BESYLATE 10 MG TABLET PO SCH (12:19)
[2019-12-08] MEDS: ENOXAPARIN SODIUM INJ 40 MG/0.4 ML DISP.SYRIN SUBCUT SCH (12:20)
[2019-12-08] MEDS: CILOSTAZOL 100 MG TABLET PO SCH (12:23)
[2019-12-08 13:07] VITALS: BP 110/72
[2019-12-08] MEDS ORDERED: GABAPENTIN 300 MG CAPSULE PO SCH (14:00)
--- NOTE | 2019-12-08 15:24 | PDOC DISCHARGE SUMMARY ---
Impression - Admit/DC Date/PCP Admission Date/Primary Care Provider: 12/06/19 15:13 CARI RUBIO MD Discharge Date: 12/08/19 - Discharge Diagnosis (1) Hypertensive urgency Is this a current diagnosis for this admission?: Yes (2) Chest pain Is this a current diagnosis for this admission?: Yes (3) Pneumonia Is this a current diagnosis for this admission?: Yes (4) COPD exacerbation Is this a current diagnosis for this admission?: Yes (5) COVID-19 Is this a current diagnosis for this admission?: No (6) Physical deconditioning Is this a current diagnosis for this admission?: Yes - Assessment Summary: Dr. Winchester, the featheredge machine operator, and I have discussed her case. I agree that her chest pain is probably on the basis of her COPD as well as her hypertension. It has been going on now for 3 days. I would think that her troponin would be elevated if this was ischemia based on coronary disease. Plus she had a very similar hospitalization back in 2019, which was ruled out to be cardiac. And patient's chest pain is reproducible. I think patient will respond well to treating her hypertension, good pulmonary toiletry with some p.o. antibiotics. We will be more than happy to assume the care of this patient at a later time if patient is unable to be discharged home. - Additional Information Resuscitation Status: Do Not Intubate Discharge Diet: As Tolerated, Regular Discharge Activity: Activity As Tolerated, Balance Activity w/Rest Referrals: CARI RUBIO MD [Primary Care Provider] - Follow up as needed Home Medications: Gabapentin [Neurontin 300 mg Capsule] 600 mg PO Q8 04/07/19 Alprazolam [Xanax 0.25 mg Tablet] 0.25 mg PO Q12HP PRN 12/06/19 Buspirone HCl [Buspar 10 mg Tablet] 30 mg PO BID 12/06/19 Metoprolol Tartrate [Lopressor 50 mg Tablet] 50 mg PO Q12 12/06/19 History of Present Illiness History of Present Illness: This patient is a 74 yo woman who has known COPD. Ran out of inhalers. Feels wheezing and a non-productive cough. Has chest pain, precordial that is reproducible. She has BP > 200/110. The thought was her CP is related to cardiac disease but is more likely from COPD. Started on a NTG drip. Hospital Course Hospital Course: The patient's chest pain resolved with treating COPD. She recovered quickly but is deconditioned and weak-not new. She will receive home PT She refused rehab placement. 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 Physical Exam Vital Signs: Temp Pulse Resp BP Pulse Ox 98.0 F 78 20 110/72 94 12/08/19 13:05 12/08/19 13:05 12/08/19 13:05 12/08/19 13:05 12/08/19 13:05 Intake & Output 12/07/19 12/08/19 12/09/19 06:59 06:59 06:59 Intake Total 65 240 Output Total 500 650 200 Balance -435 -410 -200 Weight 58.2 kg 57.9 kg General appearance: PRESENT: no acute distress, well-developed, well-nourished Head exam: PRESENT: atraumatic, normocephalic Eye exam: PRESENT: conjunctiva pink, EOMI, PERRLA. ABSENT: scleral icterus Ear exam: PRESENT: normal external ear exam Mouth exam: PRESENT: moist, tongue midline Respiratory exam: PRESENT: clear to auscultation tim, decreased breath sounds, unlabored Cardiovascular exam: PRESENT: RRR. ABSENT: diastolic murmur, rubs, systolic murmur GI/Abdominal exam: PRESENT: normal bowel sounds, soft. ABSENT: distended, guarding, mass, organolmegaly, rebound, tenderness Rectal exam: PRESENT: deferred Extremities exam: PRESENT: full ROM. ABSENT: calf tenderness, clubbing, pedal edema Neurological exam: PRESENT: alert, awake, oriented to person, oriented to place, oriented to time, oriented to situation, CN II-XII grossly intact. ABSENT: motor sensory deficit Psychiatric exam: PRESENT: appropriate affect, normal mood. ABSENT: homicidal ideation, suicidal ideation Skin exam: PRESENT: dry, intact, warm. ABSENT: cyanosis, rash Results Laboratory Results: WBC 6.7 10^3/uL (4.0-10.5) 12/06/19 11:00 RBC 4.53 10^6/uL (3.72-5.28) 12/06/19 11:00 Hgb 13.9 g/dL (12.0-15.5) 12/06/19 11:00 Hct 41.6 % (36.0-47.0) 12/06/19 11:00 MCV 92 fl (80-97) 12/06/19 11:00 MCH 30.6 pg (27.0-33.4) 12/06/19 11:00 MCHC 33.3 g/dL (32.0-36.0) 12/06/19 11:00 RDW 14.4 % (11.5-14.0) H 12/06/19 11:00 Plt Count 323 10^3/uL (150-450) 12/06/19 11:00 Lymph % (Auto) 19.0 % (13-45) 12/06/19 11:00 [place] % (Auto) 7.8 % (3-13) 12/06/19 11:00 Eos % (Auto) 5.5 % (0-6) 12/06/19 11:00 Baso % (Auto) 0.6 % (0-2) 12/06/19 11:00 Absolute Neuts (auto) 4.5 10^3/uL (1.7-8.2) 12/06/19 11:00 Absolute Lymphs (auto) 1.3 10^3/uL (0.5-4.7) 12/06/19 11:00 Absolute Monos (auto) 0.5 10^3/uL (0.1-1.4) 12/06/19 11:00 Absolute Eos (auto) 0.4 10^3/uL (0.0-0.6) 12/06/19 11:00 Absolute Basos (auto) 0.0 10^3/uL (0.0-0.2) 12/06/19 11:00 Seg Neutrophils % 67.1 % (42-78) 12/06/19 11:00 PT 12.9 SEC (11.4-15.4) 12/06/19 11:00 INR 0.97 12/06/19 11:00 APTT 30.3 SEC (23.5-35.8) 12/06/19 11:00 Sodium 142.8 mmol/L (137-145) 12/06/19 11:00 Potassium 4.1 mmol/L (3.6-5.0) 12/06/19 11:00 Chloride 107 mmol/L (98-107) 12/06/19 11:00 Carbon Dioxide 27 mmol/L (22-30) 12/06/19 11:00 Anion Gap 9 (5-19) 12/06/19 11:00 BUN 15 mg/dL (7-20) 12/06/19 11:00 Creatinine 0.71 mg/dL (0.52-1.25) 12/06/19 11:00 Est GFR ( Amer) > 60 (>60) 12/06/19 11:00 Est GFR (MDRD) Non-Af > 60 (>60) 12/06/19 11:00 Glucose 107 mg/dL (75-110) 12/06/19 11:00 Calcium 10.5 mg/dL (8.4-10.2) H 12/06/19 11:00 Total Bilirubin 0.5 mg/dL (0.2-1.3) 12/06/19 11:00 Direct Bilirubin 0.1 mg/dL (0.0-0.4) 12/06/19 11:00 Neonat Total Bilirubin Not Reportable 12/06/19 11:00 Neonat Direct Bilirubin Not Reportable 12/06/19 11:00 Neonat Indirect Bili Not Reportable 12/06/19 11:00 AST 26 U/L (14-36) 12/06/19 11:00 ALT 10 U/L (<35) 12/06/19 11:00 Alkaline Phosphatase 156 U/L (38-126) H 12/06/19 11:00 Creatine Kinase 55 U/L (30-135) 12/06/19 11:00 Troponin I < 0.012 ng/mL 12/06/19 12:40 NT-Pro-B Natriuret Pep 210 pg/mL (<450) 12/06/19 11:00 Total Protein 8.0 g/dL (6.3-8.2) 12/06/19 11:00 Albumin 4.4 g/dL (3.5-5.0) 12/06/19 11:00 Influenza A (Rapid) NEGATIVE (NEGATIVE) 12/06/19 14:00 Influenza B (Rapid) NEGATIVE (NEGATIVE) 12/06/19 14:00 Group A Strep Rapid NEGATIVE (NEGATIVE) 12/06/19 12:40 12/06/19 12/06/1912/05/20 11:00 11:00 12:40 Troponin I Cancelled < 0.012 NT-Pro-B Natriuret Pep 210 Impressions: Chest X-Ray 12/06/19 11:09 IMPRESSION: Left basilar airspace disease compatible with pneumonia. Plan Health Concerns: Being unable to care for herself at home. Plan of Treatment: Prednisone change inhaler to albuterol. Leoqui for 5 days. Goals: Safety at home with strength training. Critical Time: 20 Level of Care: MEDICAL Stroke Is this a Stroke Patient?: No Acute Heart Failure - Is this a Heart Failure Patient?: No
== END 2019-12-08 17:15 | disposition home or self-care (01) | DRG 190 ==
LOC: ER 10:57 → EH 15:13 → ICU 18:38
PROVIDERS: ADMIT Anesthesiology; ATTEND Anesthesiology
DX: J44.1 Chronic obstructive pulmonary disease with (acute) exacerbation (principal); J18.9 Pneumonia, unspecified organism; J44.0 Chronic obstructive pulmonary disease with (acute) lower respiratory infection; I16.0 Hypertensive urgency; I10 Essential (primary) hypertension; Z90.49 Acquired absence of other specified parts of digestive tract; Z66 Do not resuscitate; Z79.899 Other long term (current) drug therapy; T48.6X6A Underdosing of antiasthmatics, initial encounter; Z91.14 Patient's other noncompliance with medication regimen
CPT/HCPCS: 36415; 71045; 80053; 82550; 83880; 84484; 85025; 85610; 85730; 87070; 87804; 87880; 93005; 93010; 94640; 96365; 96366; 96375; 99232; 99238; 99285; 99291; J0696; J2270; J2920; J3490; J7620

== ENCOUNTER 2019-12-14 09:02 | Inpatient (IN) | payer MEDICARE ==
--- NOTE | 2019-12-14 09:47 | RADIOLOGY REPORT (SQ) ---
EXAM DESCRIPTION: CHEST SINGLE VIEW IMAGES COMPLETED DATE/TIME: 12/14/2019 9:32 am REASON FOR STUDY: sob COMPARISON: 12/06/2019 EXAM PARAMETERS: NUMBER OF VIEWS: One view. TECHNIQUE: Single frontal radiographic view of the chest acquired. RADIATION DOSE: NA LIMITATIONS: None. FINDINGS: LUNGS AND PLEURA: Basilar atelectasis left greater than right. MEDIASTINUM AND HILAR STRUCTURES: No masses. Contour normal. HEART AND VASCULAR STRUCTURES: Heart enlarged without failure. BONES: No acute findings. HARDWARE: None in the chest. OTHER: Free intraperitoneal air. IMPRESSION: Free intraperitoneal air. Basilar atelectasis. COMMENT: Pertinent findings on the imaging study reported as a CRITICAL RESULT to ER PROVIDER at09 :38 on 12/14/2019. Category of Critical Result: Free intraperitoneal air TECHNICAL DOCUMENTATION: JOB ID: [id number] 2010 [employer] All Rights Reserved Reading location - IP/workstation name: [email or web address]
[2019-12-14 10:02] LABS: ALBUMIN 3.8 g/dL (3.5-5.0); ALKALINE PHOSPHATASE 110 U/L (38-126); ANION GAP 6 (5-19); ASPARTATE AMINO TRANSFERASE 16 U/L (14-36); BILIRUBIN,DIRECT 0.4 mg/dL (0.0-0.4); BILIRUBIN,TOTAL 0.6 mg/dL (0.2-1.3); BLOOD UREA NITROGEN 27 mg/dL (7-20); CALCIUM 9.2 mg/dL (8.4-10.2); CARBON DIOXIDE 27 mmol/L (22-30); CHLORIDE 105 mmol/L (98-107); GLUCOSE 110 mg/dL (75-110); POTASSIUM 3.9 mmol/L (3.6-5.0)
--- NOTE | 2019-12-14 10:07 | EKG REPORT ---
SEVERITY:- NORMAL ECG - SINUS RHYTHM : Confirmed by: Luba Irizarry MD 14-Dec-2019 10:06:58
[2019-12-14 10:10] LABS: VENOUS BLOOD BASE EXCESS -0.9 mmol/L; VENOUS BLOOD HCO3 26.7 mmol/L (20-32); VENOUS BLOOD PH 7.29 (7.30-7.42)
--- NOTE | 2019-12-14 10:17 | ER Document Report ---
ED General - General Chief Complaint: Shortness Of Breath Stated Complaint: COUGH Time Seen by Provider: 12/14/19 09:43 Information source: Patient Notes: Patient states that she developed upper abdominal pain that this morning that radiates through to her back and to the right shoulder area. Patient states that she was recently discharged from the hospital after being treated for high blood pressure and pneumonia. Patient states that she still has a cough but does have a history of COPD. Patient without any fever. Patient denies any nausea or vomiting. Pain is worse with any type of movement. Patient does report a history of colon cancer 15 years ago with previous appendectomy hysterectomy and bowel surgery to remove her colon cancer. Patient states she did have a colonoscopy 5 years ago that did not have any acute findings. Patient complains of pain with cough and deep inspiration. TRAVEL OUTSIDE OF THE [place] IN LAST 30 DAYS: No - HPI Onset: This morning Onset/Duration: Persistent Quality of pain: Sharp Pain Level: 5 Associated symptoms: Nonproductive cough, Shortness of breath. denies: Chest pain, Chills, Fever, Headache, Nausea, Vomiting, Sweating Exacerbated by: Movement, Coughing, Deep breathing Relieved by: Denies Similar symptoms previously: No Recently seen / treated by doctor: Yes - Related Data Allergies/Adverse Reactions: No Known Allergies Allergy (Verified 04/07/19 09:33) Past Medical History - General Information source: Patient - Social History Smoking Status: Never Smoker Frequency of alcohol use: None Drug Abuse: None Family History: Reviewed & Not Pertinent, COPD Patient has suicidal ideation: No Patient has homicidal ideation: No - Past Medical History Cardiac Medical History: Reports: Hx Hypertension Denies: Hx Congestive Heart Failure, Hx Heart Attack Pulmonary Medical History: Reports: Hx COPD Denies: Hx Asthma, Hx Bronchitis, Hx Pneumonia, Hx Tuberculosis Neurological Medical History: Denies: Hx Cerebrovascular Accident, Hx Seizures, Hx Parkinson's Disease Renal/ Medical History: Denies: Hx End Stage Renal Disease, Hx Kidney Stones, Hx Peritoneal Dialysis Malignancy Medical History: Reports: Hx Colorectal Cancer GI Medical History: Denies: Hx Cirrhosis, Hx Gastroesophageal Reflux Disease, Hx Hepatitis, Hx Hiatal Hernia, Hx Ulcer Musculoskeletal Medical History: Denies Hx Arthritis, Denies Hx Multiple Sclerosis Psychiatric Medical History: Denies: Hx Bipolar Disorder, Hx Depression, Hx Schizophrenia Infectious Medical History: Denies: Hx Hepatitis Past Surgical History: Reports: Hx Appendectomy, Hx Bowel Surgery, Hx Hysterectomy, Hx Orthopedic Surgery - right shoulder, Other - Cataract surgery. Denies: Hx Mastectomy, Hx Open Heart Surgery, Hx Pacemaker - Immunizations Hx Diphtheria, Pertussis, Tetanus Vaccination: Yes Hx Pneumococcal Vaccination: 11/02/16 Review of Systems - Review of Systems Constitutional: Recent illness - Left lower lobe pneumonia. denies: Fever EENT: No symptoms reported Cardiovascular: No symptoms reported. denies: Chest pain Respiratory: Cough, Hurts to breathe, Short of breath Gastrointestinal: Abdominal pain. denies: Diarrhea, Vomiting Genitourinary: No symptoms reported. denies: Dysuria Female Genitourinary: No symptoms reported Musculoskeletal: Back pain Skin: No symptoms reported Hematologic/Lymphatic: No symptoms reported Neurological/Psychological: No symptoms reported Physical Exam - Vital signs Vitals: Pulse Ox 95 12/14/19 09:04 - General General appearance: Alert, Anxious In distress: Moderate - HEENT Head: Normocephalic Eyes: Normal Conjunctiva: Normal Nasal: Normal Mouth/Lips: Normal Mucous membranes: Dry Neck: Normal, Supple - Respiratory Respiratory status: No respiratory distress Chest status: Nontender Breath sounds: Nonproductive cough, Rhonchi. No: Wheezing Chest palpation: Normal - Cardiovascular Rhythm: Regular. No: Tachycardia Heart sounds: S1 appreciated, S2 appreciated - Abdominal Inspection: Normal Distension: No distension Bowel sounds: Normal Tenderness: Tender - Upper abdominal tenderness, Guarding - Back Back: Tender - Tenderness to the mid thoracic area - Extremities General upper extremity: Normal inspection, Normal ROM General lower extremity: Normal inspection, Normal ROM - Neurological Neuro grossly intact: Yes Cognition: Normal [place] Coma Scale Eye Opening: Spontaneous [place] Coma Scale Verbal: Oriented Mario Alberto Coma Scale Motor: Obeys Commands [place] Coma Scale Total: 15 - Psychological Associated symptoms: Normal affect, Normal mood - Skin Skin Temperature: Warm Skin Moisture: Dry Skin Color: Normal Course - Re-evaluation Re-evalutation: 12/14/19 09:45 Call received from radiologist stating that patient had free air under the diaphragm. Patient initially presented hypotensive although blood pressure has responded to IV fluid bolus. Patient presently with stable vital signs. 12/14/19 10:[address] Valadez who agrees to come and evaluate patient. Patient's blood pressure has stabilized at this time although patient continues to compla in of upper abdominal pain that radiates through to her back in the right shoulder. 12/14/19 10:30 Dr. Valadez consulted with backend java developer Dr. Page regarding patient's continued care. 12/14/19 15:03 - Vital Signs Vital signs: Temp Pulse Resp BP Pulse Ox 96.3 F L 50 L 15 95/56 L 100 12/14/19 14:36 12/14/19 14:36 12/14/19 14:36 12/14/19 14:36 12/14/19 14:36 - Laboratory Result Diagrams: 12/14/19 09:25 12/14/19 09:25 Laboratory results interpreted by me: 12/14/19 12/14/19 12/14/19 09:25 09:25 09:25 WBC 17.5 H RDW 14.1 H Seg Neuts % (Manual) 80 H Lymphocytes % (Manual) 10 L Abs Neuts (Manual) 14.0 H Abs Monocytes (Manual) 1.6 H VBG pH 7.29 L BUN 27 H Lipase 12/14/19 09:25 WBC RDW Seg Neuts % (Manual) Lymphocytes % (Manual) Abs Neuts (Manual) Abs Monocytes (Manual) VBG pH BUN Lipase 374.7 H - Diagnostic Test Radiology reviewed: Image reviewed, Reports reviewed Discharge - Discharge Clinical Impression: Intra-abdominal free air of unknown etiology Abdominal pain Qualifiers: Abdominal location: epigastric Qualified Code(s): R10.13 - Epigastric pain Condition: Serious Disposition: ADMITTED INPATIENT Admitting Provider: Kaylee ([employer]) Unit Admitted: ICU
[2019-12-14 10:18] LABS: HEMOGLOBIN 13.1 g/dL (12.0-15.5); MEAN CORPUSCULAR HEMOGLOBIN 29.6 pg (27.0-33.4); MEAN CORPUSCULAR HGB CONC 32.7 g/dL (32.0-36.0); MEAN CORPUSCULAR VOLUME 91 fl (80-97); PLATELET COUNT 362 10^3/uL (150-450); RED BLOOD COUNT 4.42 10^6/uL (3.72-5.28); RED CELL DISTRIBUTION WIDTH 14.1 % (11.5-14.0); WHITE BLOOD COUNT 17.5 10^3/uL (4.0-10.5)
[2019-12-14 10:37] LABS: ABSOLUTE LYMPHOCYTES# (MANUAL) 1.8 10^3/uL (0.5-4.7); ABSOLUTE MONOCYTES # (MANUAL) 1.6 10^3/uL (0.1-1.4); BASOPHILS % (MANUAL) 0 % (0-2); EOSINOPHILS % (MANUAL) 1 % (0-6); LYMPHOCYTES % (MANUAL) 10 % (13-45); MONOCYTES % (MANUAL) 9 % (3-13); SEGMENTED NEUTROPHILS % (MAN) 80 % (42-78); TOTAL CELLS COUNTED 100
[2019-12-14 10:38] LABS: ANISOCYTOSIS SLIGHT; PLATELET COMMENT ADEQUATE
[2019-12-14] MEDS ORDERED: SUCCINYLCHOLINE CHLORIDE INJ 200 MG/10 ML VIAL ONE (10:41)
[2019-12-14] MEDS ORDERED: PHENYLEPHRINE HCL INJ/PF 10 MG/1 ML SDV ONE (10:41)
[2019-12-14] MEDS ORDERED: ONDANSETRON HCL INJ/PF 4 MG/2 ML SDV ONE (10:41)
[2019-12-14] MEDS ORDERED: DEXAMETHASONE SOD PHOSPHATE INJ 4 MG/1 ML VIAL ONE (10:41)
[2019-12-14] MEDS ORDERED: VECURONIUM BROMIDE INJ 10 MG VIAL IV ONE (10:41)
--- NOTE | 2019-12-14 10:55 | PDOC H&P ---
History of Present Illness Admission Date/PCP: CARI RUBIO MD Patient complains of: Severe abdominal pain History of Present Illness: HAILEE VARELA is a 74 year old female with a several hour history of sharp, stabbing, severe epigastric abdominal pain. It bores to her back. It is 10 out of 10. It occurred suddenly this morning, and awoke her from sleep. It is unrelenting. Nothing makes it better. Movement and palpation make it worse. She has severe COPD, and was recently admitted to the hospital for pneumonia. She reports that her respiratory symptoms are much improved. She was taking inhaled steroids at home. She denies fevers, chills, nausea, vomiting, shortness of breath, headache, dizziness, fatigue. She does report malaise, p ain radiating into her chest, and severe abdominal pain. Past Medical History Cardiac Medical History: Denies: Congestive Heart Failure, Myocardial Infarction, Hypertension Pulmonary Medical History: Reports: Chronic Obstructive Pulmonary Disease (COPD) - She was diagnosed 6 years ago with COPD, Pneumonia Denies: Asthma, Bronchitis, Tuberculosis Neurological Medical History: Denies: Seizures Renal/ Medical History: Denies: End Stage Renal Disease GI Medical History: Denies: Cirrhosis, Gastroesophageal Reflux Disease, Hepatitis, Hiatal Hernia Musculoskeltal Medical History: Denies: Arthritis Psychiatric Medical History: Denies: Bipolar Disorder, Depression Hematology: Denies: Anemia, Sickle Cell Disease, Bleeding Tendencies Past Surgical History Past Surgical History: Reports: Appendectomy, Hysterectomy, Orthopedic Surgery - right shoulder, Other - Cataract surgery Denies: Amputation, Mastectomy, Pacemaker Social History Smoking Status: Never Smoker Frequency of Alcohol Use: None Hx Recreational Drug Use: No Drugs: None Hx Prescription Drug Abuse: No Family History Family History: Reviewed & Not Pertinent, COPD Parental Family History Reviewed: Yes Children Family History Reviewed: Yes Sibling(s) Family History Reviewed.: Yes Medication/Allergy Home Medications: Gabapentin [Neurontin 300 mg Capsule] 600 mg PO Q8 04/07/19 Alprazolam [Xanax 0.25 mg Tablet] 0.25 mg PO Q12HP PRN 12/06/19 Buspirone HCl [Buspar 10 mg Tablet] 30 mg PO BID 12/06/19 Metoprolol Tartrate [Lopressor 50 mg Tablet] 50 mg PO Q12 12/06/19 Allergies/Adverse Reactions: No Known Allergies Allergy (Verified 04/07/19 09:33) Review of Systems Constitutional: PRESENT: anorexia. ABSENT: chills, fatigue, fever(s) Eyes: ABSENT: visual disturbances Ears: ABSENT: hearing changes Nose, Mouth, and Throat: ABSENT: sore throat Cardiovascular: PRESENT: chest pain - radiation of her abdominal pain into her chest Gastrointestinal: PRESENT: abdominal pain. ABSENT: hematemesis, hematochezia, melena, nausea, vomiting Genitourinary: ABSENT: dysuria Musculoskeletal: PRESENT: back pain Integumentary: ABSENT: pruritus, rash Neurological: ABSENT: confusion, convulsions, dizziness Psychiatric: ABSENT: anxiety, depression Endocrine: ABSENT: cold intolerance, heat intolerance Hematologic/Lymphatic: ABSENT: easy bleeding, easy bruising Physical Exam Vital Signs: Temp Pulse Resp BP Pulse Ox 97.6 F 24 H 143/72 H 100 12/14/19 09:12 12/14/19 10:31 12/14/19 10:31 12/14/19 10:31 Intake & Output 12/13/19 12/14/19 12/15/19 06:59 06:59 06:59 Weight 67.2 kg General appearance: PRESENT: mild distress - Severe abdominal pain Head exam: PRESENT: atraumatic, normocephalic Eye exam: PRESENT: EOMI, PERRLA. ABSENT: scleral icterus Mouth exam: PRESENT: neck supple Neck exam: ABSENT: meningismus, tenderness, thyromegaly, tracheal deviation Respiratory exam: PRESENT: unlabored. ABSENT: chest wall tenderness, tachypnea Cardiovascular exam: PRESENT: RRR Pulses: PRESENT: normal radial pulses Vascular exam: PRESENT: normal capillary refill GI/Abdominal exam: PRESENT: distended, guarding, rebound, tenderness - epigastric Rectal exam: PRESENT: deferred Extremities exam: ABSENT: clubbing Musculoskeletal exam: ABSENT: deformity Neurological exam: PRESENT: alert, awake, oriented to person, oriented to place, oriented to time, oriented to situation, CN II-XII grossly intact Psychiatric exam: ABSENT: agitated, anxious, depressed Focused psych exam: ABSENT: delusional Skin exam: ABSENT: cyanosis, erythema, jaundice Results Laboratory Results: 12/14/19 09:25 12/14/19 09:25 12/14/19 12/14/19 12/14/19 09:25 09:25 09:25 WBC 17.5 H RBC 4.42 Hgb 13.1 Hct 40.0 MCV 91 MCH 29.6 MCHC 32.7 RDW 14.1 H Plt Count 362 Seg Neutrophils % Not Reportable VBG pH VBG pCO2 VBG HCO3 VBG Base Excess Sodium 138.4 Potassium 3.9 Chloride 105 Carbon Dioxide 27 Anion Gap 6 BUN 27 H Creatinine 0.90 Est GFR ( Amer) > 60 Glucose 110 Lactic Acid 1.1 Calcium 9.2 Total Bilirubin 0.6 AST 16 Alkaline Phosphatase 110 Total Protein 7.0 Albumin 3.8 Lipase 12/14/19 12/14/19 09:25 09:25 WBC RBC Hgb Hct MCV MCH MCHC RDW Plt Count Seg Neutrophils % VBG pH 7.29 L VBG pCO2 57.0 VBG HCO3 26.7 VBG Base Excess -0.9 Sodium Potassium Chloride Carbon Dioxide Anion Gap BUN Creatinine Est GFR ( Amer) Glucose Lactic Acid Calcium Total Bilirubin AST Alkaline Phosphatase Total Protein Albumin Lipase 374.7 H Impressions: Chest X-Ray 12/14/19 09:04 IMPRESSION: Free intraperitoneal air. Basilar atelectasis. Assessment & Plan - Diagnosis (2) Abdominal pain Qualifiers: Abdominal location: epigastric Qualified Code(s): R10.13 - Epigastric pain Is this a current diagnosis for this admission?: Yes - Plan Summary Plan Summary: This is a 74-year-old female with a recent history of COPD exacerbat ion/pneumonia. Patient was recently discharged from the hospital. She has been taking inhaled steroids at home. This morning, she awoke with a sharp, stabbing, severe pain in her epigastric region. Her pain continued to intensify, and she presented to the hospital for evaluation. On examination, she does exhibit peritonitis. I believe she has an acute abdomen. I reviewed her x-rays. She has free air underneath the diaphragm. Her clinical scenario is highly suspicious for a perforated gastric ulcer. I have discussed treatments with her. I have recommended exploratory laparotomy. She has agreed to this. I have discussed CODE STATUS with her. She wishes to be a full code, and is okay with intubation (even for prolonged periods). Risk/benefits of surgery were discussed, informed consent was obtained, and all questions answered.
[2019-12-14] MEDS ORDERED: FENTANYL CITRATE INJ/PF 250 MCG/5 ML AMPULE ONE (11:28)
[2019-12-14] MEDS ORDERED: FENTANYL CITRATE INJ/PF 100 MCG/2 ML AMPUL ONE (11:28)
[2019-12-14] MEDS ORDERED: MORPHINE SULFATE 10 MG/ML INJ ONE (11:28)
[2019-12-14] MEDS ORDERED: MIDAZOLAM 2 MG/2 ML INJ ONE (11:28)
[2019-12-14] MEDS ORDERED: PROPOFOL INJ 200 MG/20 ML VIAL IV ONE (11:29)
[2019-12-14] MEDS ORDERED: CEFAZOLIN INJ 1 GM VIAL ONE (12:20)
[2019-12-14] MEDS ORDERED: METRONIDAZOLE 500 MG/NS RTU 500 MG/100 ML RTUPB IV ONE (12:20)
[2019-12-14] MEDS ORDERED: DEXTROSE 5%-LACTATED RINGERS 1,000 ML IV PRN ×2 (14:11→19:26)
--- NOTE | 2019-12-14 14:25 | Operative Report ---
Nonrecallable Operative Report DATE OF SURGERY: 12/14/19 PREOPERATIVE DIAGNOSIS: 1. Acute abdomen. 2. Pneumoperitoneum POSTOPERATIVE DIAGNOSIS: Perforated gastric ulcer in the prepyloric position, anterior stomach. OPERATION: 1. Exploratory laparotomy. 2. Biopsy of gastric ulcer. 3. Oversewing of gastric ulcer. 4. Omental flap/patch of antral ulcer (modified Chris patch) SURGEON: RICCO FERRIS ANESTHESIA: GA TISSUE REMOVED OR ALTERED: Biopsy of gastric ulcer COMPLICATIONS: None apparent ESTIMATED BLOOD LOSS: 50 cc PROCEDURE: Drains/implants: 15 [place] round Pedro Luis drain lying over the anterior antrum of the stomach, extending through the pars flaccida, and into the lesser sac. The Pedro Luis drain is tethered to the falciform ligament to prevent migration. Procedure in detail: After informed consent was obtained, the patient was brought to the operating room and laid in the supine position. The area of the abdomen was prepped and draped in a normal sterile fashion. An incision was created in the vertical midline, superior to the umbilicus with a 10 blade scalpel. The incision extended from the xiphoid process to the umbilicus. Dissection was carried through the subcutaneous tissues using sharp and blunt dissection. The abdomen was entered sharply. Upon entry into the abdomen, there was a solorio of air, as well as bilious fluid. Using retraction, the stomach was easily identified. There was a 1.5 cm perforated area of the antrum of the stomach, on the anterior wall. It was several centimeters proximal to the pylorus. The abdomen was irrigated and suctioned. The ulcer was then visualized. A rongeur was used to take a generous excisional biopsy of the antrum ulcer. Next, the ulcer was closed using 0 silk suture in simple interrupted fashion. Next, an omental pedicle flap was freed, and laid over the area of perforation. The omentum was sutured to the stomach in multiple places, using 3-0 Vicryl suture in interrupted fashion. Once this was completed, the abdomen was copiously irrigated and suctioned, until the effluent was clear. The abdomen was then surveyed. The portions of the colon which were easily palpated and visualized were normal. There were a large amount of adhesions in the pelvis, therefore the small bowel was not completely eviscerated and run. The liver and spleen appeared normal, without obvious masses or other significant surface lesions. The duodenum was examined visually and via palpation. A full Tru maneuver was not performed, however the duodenum appeared normal. Once the survey of the abdomen was complete, attention was turned to placement of the 15 [place] round Pedro Luis drain. The drain was placed through a separate stab incision in the left upper quadrant. The drain was brought over the antrum of the stomach, and tucked behind the stomach into the lesser sac. This was done through a small defect in the pars flaccida. The drain was then sutured to the falciform ligament using 4-0 chromic suture x1. This will help ensure there would not be significant migration of the drain. The drain was sutured to the skin using 2-0 nylon. Attention was then turned to closure. The midline fascia was closed using #1 double-stranded, loop PDS suture in simple running fashion. The overlying skin was closed using skin elmer. A dressing was placed, and the procedure was concluded. All sponge, instrument, and needle counts were correct x2. Condition: Critical to ICU.
[2019-12-14] MEDS ORDERED: PHARMACY COMMUNICATION ORDER MC NR ×2 (14:30→14:45)
[2019-12-14] MEDS: RINGERS SOLUTION,LACTATED 1,000 ML IV PRN (15:08)
--- NOTE | 2019-12-14 15:27 | RADIOLOGY REPORT (SQ) ---
EXAM DESCRIPTION: CHEST SINGLE VIEW IMAGES COMPLETED DATE/TIME: 12/14/2019 3:11 pm REASON FOR STUDY: tube placement COMPARISON: Oral 1820 hours EXAM PARAMETERS: NUMBER OF VIEWS: One view TECHNIQUE: Single frontal radiograph of the chest. RADIATION DOSE: N/A LIMITATIONS: None. FINDINGS: TEMPORARY SUPPORT DEVICES:ETT in expected location. NG tube courses below the siobhan-diaphr agm in to the stomach. LUNGS AND PLEURA: Opacity at the left base with left pleural effusion. No effusions. No masses. No p neumothorax. MEDIASTINUM AND HILAR STRUCTURES: No masses. Contour normal. HEART AND VASCULAR STRUCTURES: Heart normal in size. normal vascularity. Aorta normal for age. BONES: No acute findings. OTHER: On the current exam, no evidence for free air in the abdomen. IMPRESSION: Left basilar opacity with left pleural effusion. No finding on the current study to ind icate free air in the abdomen. SUPPORT DEVICE(S) IN EXPECTED LOCATIONS. TECHNICAL DOCUMENTATION: JOB ID: [id number] 2010 [employer]- All Rights Reserved Reading location - IP/workstation name: [email or web address]
[2019-12-14 15:28] LABS: PHOSPHORUS 3.7 mg/dL (2.5-4.5)
[2019-12-14 15:43] LABS: ARTERIAL BLOOD BASE EXCESS -3.2 mmol/L; ARTERIAL BLOOD FIO2 30%; ARTERIAL BLOOD H2CO3 1.68 mmol/L (1.05-1.35); ARTERIAL BLOOD HCO3 24.5 mmol/L (20-24); ARTERIAL BLOOD O2 SATURATION 87.5 % (94-98); ARTERIAL BLOOD PCO2 55.9 mmHg (35-45); ARTERIAL BLOOD PH 7.26 (7.35-7.45); ARTERIAL BLOOD PO2 61.3 mmHg (80-100); ARTERIAL BLOOD TOTAL CO2 26.2 mmol/L (21-25)
[2019-12-14 15:44] LABS: APPEARANCE,URINE CLEAR; BILIRUBIN,URINE NEGATIVE (NEGATIVE); COLOR,URINE YELLOW; GLUCOSE, URINE NEGATIVE (NEGATIVE); KETONES,URINE TRACE mg/dL (NEGATIVE); LEUKOCYTE ESTERASE,URINE NEGATIVE (NEGATIVE); NITRITE,URINE NEGATIVE (NEGATIVE); PROTEIN,URINE NEGATIVE (NEGATIVE); UROBILINOGEN,URINE NEGATIVE mg/dL (<2.0)
[2019-12-14] MEDS ORDERED: ALBUMIN HUMAN 500 ML IV ONE (15:45)
[2019-12-14] MEDS: PANTOPRAZOLE SODIUM 40 MG VIAL IV SCH ×2 (15:53→21:35)
--- NOTE | 2019-12-14 17:18 | CRITICAL CARE ADMISSION REPORT ---
HPI Date:: 12/14/19 Time:: 14:00 Reason for ICU Reason:: Perforated gastric ulcer, post-operative state HPI: HAILEE VARELA is a 74 year old female with a several hour history of sharp, stabbing, severe epigastric abdominal pain. It radiated to shoulder, posterior and to the back and across her abdomen. Pain was quite severe as noted by the ED and surgical team. Surgery stated that she labeled the pain as a 10 out of 10. It occurred suddenly this morning, and awoke her from sleep and was unrelenting. No known palliative factors. She was not given pain meds in the emergency room. The pain was provoked by movement and palpation made it worse. Patient has a history of severe COPD oxygen dependent and was recently in our hospital for pneumonia. She had an ICU stay that was uneventful except for the number of days. She has severe COPD, and was recently admitted to the hospital for pneumonia. She reports that her respiratory symptoms are much improved. She was taking inhaled steroids at home. She denies fevers, chills, nausea, vomiting, shortness of breath, headache, dizziness, fatigue. She does report malaise, pain radiating into her chest, and severe abdominal pain. History is obtained from the emergency room staff and from surgery. Patient was taken to the operating room where they found a small perforation in the gastric body that did not involve the pylorus or small bowel segments. Small enough to have a small oversew and she tolerated the procedure well without any hypotension or ventilatory issues. She was kept intubated our request so that we could screen her for any respiratory processes. Brought to the ICU where we ascertain that she was not in fact having any signs or symptoms indicative of SARS, 2-CoViD19 and an ultrasound of her lungs was unremarkable. Patient is currently convalescing in the ICU post surgery. No anesthetic issues and no difficulty with intubation History obtained from:: ED staff, surgical and anesthesia staff - Diagnosis/Plan (1) Pneumoperitoneum Is this a current diagnosis for this admission?: Yes (2) Perforated abdominal viscus Is this a current diagnosis for this admission?: Yes (3) Lactic acidosis Is this a current diagnosis for this admission?: Yes (4) Encounter for weaning from ventilator Is this a current diagnosis for this admission?: Yes (5) History of recent steroid use Is this a current diagnosis for this admission?: Yes (6) Physical deconditioning Is this a current diagnosis for this admission?: Yes - . Plan Summary: Patient is admitted to the ICU. Critical care ultrasound done. Ejection fraction appears intact. She was not spontaneously breathing for some time secondary to anesthesia. Over time she began to spontaneously breathe. Her ABG is reflective of her sedated state and ventilator changes are ongoing as she awakens. She has had low urine output since surgery and will provide IV fluids. She is not hypotensive but I am concerned that she may develop instability. Will attempt to wean ventilator as her condition warrants. Has been labeled with COPD and has been recently on steroids. Will need to watch for adrenal insufficiency and/or recrudescence of lung disease. Patient is frail and very deconditioned. Will need to institute nutrition as soon as possible. Will discuss with surgery for the timeframe. We will give IV fluids and repeat lactic acid. Have made ventilator changes to improved pH She appears to have an emphysematous component She refused rehab on her last admission She is on significant mood altering medications including Zoloft, gabapentin and buspirone. Will need to be aware of this and watch for withdrawal. Past Medical History Cardiac Medical History: Reports: Hypertension Denies: Congestive Heart Failure, Myocardial Infarction Pulmonary Medical History: Reports: Chronic Obstructive Pulmonary Disease (COPD) Denies: Asthma, Bronchitis, Pneumonia, Tuberculosis Neurological Medical History: Denies: Seizures Renal/ Medical History: Denies: End Stage Renal Disease Malignancy Medical History: Reports: Colorectal Cancer GI Medical History: Denies: Cirrhosis, Gastroesophageal Reflux Disease, Hepatitis, Hiatal Hernia Musculoskeltal Medical History: Denies: Arthritis Psychiatric Medical History: Denies: Bipolar Disorder, Depression Hematology: Denies: Anemia, Sickle Cell Disease, Bleeding Tendencies Past Surgical History Past Surgical History: Reports: Appendectomy, Hysterectomy, Orthopedic Surgery - right shoulder, Other - Cataract surgery Denies: Amputation, Mastectomy, Pacemaker Social/Family History - Social History Smoking Status: Never Smoker Frequency of Alcohol Use: None Hx Recreational Drug Use: No Drugs: None Hx Prescription Drug Abuse: No - Medication/Allergies Home Medications: Gabapentin [Neurontin 300 mg Capsule] 600 mg PO Q8 04/07/19 Alprazolam [Xanax 0.25 mg Tablet] 0.25 mg PO Q12HP PRN 12/06/19 Buspirone HCl [Buspar 10 mg Tablet] 30 mg PO BID 12/06/19 Metoprolol Tartrate [Lopressor 50 mg Tablet] 50 mg PO Q12 12/06/19 Albuterol Sulfate [Proair HFA Inhalation Aerosol 8.5 gm MDI] 2 puff IH QID 12/14/19 Prednisone 0 tab PO ASDIR PRN 12/14/19 Sertraline HCl [Zoloft 50 mg Tablet] 100 mg PO DAILY 12/14/19 Allergies/Adverse Reactions: No Known Allergies Allergy (Verified 04/07/19 09:33) Review of Systems ROS unobtainable: Due to endotracheal tube Physical Exam Vital Signs: Temp Pulse Resp BP Pulse Ox 96.3 F L 55 L 8 L 93/55 L 99 12/14/19 16:00 12/14/19 16:00 12/14/19 16:00 12/14/19 16:00 12/14/19 16:00 Intake & Output 12/13/19 12/14/19 12/15/19 06:59 06:59 06:59 Intake Total 100 Output Total 20 Balance 80 Weight 61.6 kg Weight/Height Weight 61.6 kg Height 5 ft 4 in General appearance: PRESENT: no acute distress, thin Exam: Elderly nontoxic but ill-appearing 74-year-old female no active distress she is thin with bitemporal muscle wasting she is currently sedated and paralyzed from recent anesthesia Head exam: PRESENT: atraumatic, normocephalic Eye exam: PRESENT: conjunctiva pink, PERRLA. ABSENT: nystagmus, scleral icterus Mouth exam: PRESENT: dry mucosa Teeth exam: PRESENT: edentulous Neck exam: ABSENT: carotid bruit, JVD, lymphadenopathy, thyromegaly, tracheal deviation Respiratory exam: PRESENT: clear to auscultation tim. ABSENT: accessory muscle use, rales, rhonchi, wheezes Cardiovascular exam: PRESENT: RRR, +S1, +S2, systolic murmur - Grade 4/6. ABSENT: diastolic murmur, rubs Pulses: PRESENT: +1 pedal pulses bilateral Vascular exam: PRESENT: normal capillary refill. ABSENT: pallor GI/Abdominal exam: PRESENT: soft, other - Surgical dressings clean dry and intact one drain is noted. Rectal exam: PRESENT: deferred Gentrourinary exam: PRESENT: indwelling catheter Extremities exam: ABSENT: pedal edema Musculoskeletal exam: PRESENT: normal inspection. ABSENT: deformity, dislocation Neurological exam: PRESENT: altered - She is comatose Mario Alberto Coma Scale of 3T Skin exam: PRESENT: dry, intact, normal color, warm. ABSENT: cyanosis, mottled, pallor, rash Tubes/Lines: PRESENT: Endotracheal Tube, Nasogastic Tube - Pritchett type urinary c atheter Laboratory/Radiographs Laboratory Results: 12/14/19 09:25 12/14/19 09:25 12/14/19 12/14/19 12/14/19 09:25 09:25 09:25 WBC 17.5 H RBC 4.42 Hgb 13.1 Hct 40.0 MCV 91 MCH 29.6 MCHC 32.7 RDW 14.1 H Plt Count 362 Seg Neutrophils % Not Reportable Carbonic Acid HCO3/H2CO3 Ratio ABG pH ABG pCO2 ABG pO2 ABG HCO3 ABG O2 Saturation ABG Base Excess VBG pH VBG pCO2 VBG HCO3 VBG Base Excess FiO2 Sodium 138.4 Potassium 3.9 Chloride 105 Carbon Dioxide 27 Anion Gap 6 BUN 27 H Creatinine 0.90 Est GFR ( Amer) > 60 Glucose 110 Lactic Acid 1.1 Calcium 9.2 Phosphorus Magnesium Total Bilirubin 0.6 AST 16 Alkaline Phosphatase 110 Ammonia Total Protein 7.0 Albumin 3.8 Lipase TSH Urine Color Urine Appearance Urine pH Ur Specific [place] Urine Protein Urine Glucose (UA) Urine Ketones Urine Blood Urine Nitrite Ur Leukocyte Esterase Urine WBC (Auto) Urine RBC (Auto) Blood Type Antibody Screen 12/14/19 12/14/19 12/14/19 09:25 09:25 09:25 WBC RBC Hgb Hct MCV MCH MCHC RDW Plt Count Seg Neutrophils % Carbonic Acid HCO3/H2CO3 Ratio ABG pH ABG pCO2 ABG pO2 ABG HCO3 ABG O2 Saturation ABG Base Excess VBG pH 7.29 L VBG pCO2 57.0 VBG HCO3 26.7 VBG Base Excess -0.9 FiO2 Sodium Potassium Chloride Carbon Dioxide Anion Gap BUN Creatinine Est GFR ( Amer) Glucose Lactic Acid Calcium Phosphorus Magnesium Total Bilirubin AST Alkaline Phosphatase Ammonia Total Protein Albumin Lipase 374.7 H TSH 4.48 Urine Color Urine Appearance Urine pH Ur Specific [place] Urine Protein Urine Glucose (UA) Urine Ketones Urine Blood Urine Nitrite Ur Leukocyte Esterase Urine WBC (Auto) Urine RBC (Auto) Blood Type Antibody Screen 12/14/19 12/14/19 12/14/19 09:25 10:15 15:28 WBC RBC Hgb Hct MCV MCH MCHC RDW Plt Count Seg Neutrophils % Carbonic Acid 1.68 H HCO3/H2CO3 Ratio 14:1 ABG pH 7.26 L ABG pCO2 55.9 H ABG pO2 61.3 L ABG HCO3 24.5 H ABG O2 Saturation 87.5 L ABG Base Excess -3.2 VBG pH VBG pCO2 VBG HCO3 VBG Base Excess FiO2 30% Sodium Potassium Chloride Carbon Dioxide Anion Gap BUN Creatinine Est GFR ( Amer) Glucose Lactic Acid Calcium Phosphorus 3.7 Magnesium 1.9 Total Bilirubin AST Alkaline Phosphatase Ammonia Total Protein Albumin Lipase TSH Urine Color Urine Appearance Urine pH Ur Specific [place] Urine Protein Urine Glucose (UA) Urine Ketones Urine Blood Urine Nitrite Ur Leukocyte Esterase Urine WBC (Auto) Urine RBC (Auto) Blood Type A POSITIVE Antibody Screen NEGATIVE 12/14/19 12/14/19 12/14/19 15:28 16:10 16:10 WBC RBC Hgb Hct MCV MCH MCHC RDW Plt Count Seg Neutrophils % Carbonic Acid HCO3/H2CO3 Ratio ABG pH ABG pCO2 ABG pO2 ABG HCO3 ABG O2 Saturation ABG Base Excess VBG pH VBG pCO2 VBG HCO3 VBG Base Excess FiO2 Sodium Potassium Chloride Carbon Dioxide Anion Gap BUN Creatinine Est GFR ( Amer) Glucose Lactic Acid 2.9 H Calcium Phosphorus Magnesium Total Bilirubin AST Alkaline Phosphatase Ammonia < 8.7 L Total Protein Albumin Lipase TSH Urine Color YELLOW Urine Appearance CLEAR Urine pH 5.0 Ur Specific [place] 1.030 Urine Protein NEGATIVE Urine Glucose (UA) NEGATIVE Urine Ketones TRACE H Urine Blood NEGATIVE Urine Nitrite NEGATIVE Ur Leukocyte Esterase NEGATIVE Urine WBC (Auto) 4 Urine RBC (Auto) 2 Blood Type Antibody Screen Impressions: Chest X-Ray 12/14/19 14:37 IMPRESSION: Left basilar opacity with left pleural effusion. No finding on the current study to indicate free air in the abdomen. SUPPORT DEVICE(S) IN EXPECTED LOCATIONS. EKG: Normal sinus rhythm no acute ST segment changes All labs, radiographs, diagnostic studies and EKGs were personally reviewed: Yes In addition, reports of radiographic and diagnostic studies were read: Yes Critical Time Critical Time (minutes): 60 -: The care of a critically ill patient is dynamic. This note represents a static moment in the admission process. Orders and treatments may be given simultaneously and urgently, and time is not players club representative of the treatment process. This patient requires Critical Care secondary to life threatening organ or limb dysfunction. Without Critical Care services, the patient is at risk for increased mortality and morbidity.
[2019-12-14] MEDS ORDERED: (PENDING PHARMACY ID) (Albuterol Sulfate 2 PUFF) IH SCH (18:00)
[2019-12-14] MEDS: FLUCONAZOLE 100 MG in CONTAINER,EMPTY 1 EACH IV SCH (18:23)
[2019-12-14] MEDS: HYDROMORPHONE HCL INJ/PF 2 MG/ML AMPULE IV PRN ×2 (18:23→23:19)
[2019-12-14] MEDS: ALBUTEROL SULFATE HFA (90 MCG/PUFF) 200 PUFF/8.5 GM MDI IH SCH ×2 (18:27→21:35)
[2019-12-14 19:59] LABS: ARTERIAL BLOOD BASE EXCESS -2.9 mmol/L; ARTERIAL BLOOD H2CO3 1.17 mmol/L (1.05-1.35); ARTERIAL BLOOD O2 SATURATION 79.5 % (94-98); ARTERIAL BLOOD PH 7.37 (7.35-7.45); ARTERIAL BLOOD PO2 44.6 mmHg (80-100); ARTERIAL BLOOD TOTAL CO2 23.2 mmol/L (21-25)
[2019-12-14 20:01] LABS: ARTERIAL BLOOD FIO2 30%
[2019-12-14] MEDS: METRONIDAZOLE 500 MG/NS RTU 500 MG/100 ML RTUPB IV SCH (21:34)
[2019-12-14] MEDS: CEFAZOLIN 1 GM/D5W RTU 1 GM/50 ML RTUPB IV SCH (21:34)
--- NOTE | 2019-12-14 22:38 | RADIOLOGY REPORT (SQ) ---
EXAM DESCRIPTION: [facility]Lex: XR ABDOMEN 1 VIEW (KUB) 12/14/2019 at 2144 CLINICAL HISTORY: 74 years Female; NG placement ; COMPARISON: Chest radiograph 12/14/2019 at 1507 IMPRESSION: 1. Nasogastric tube tip is in the body the stomach. 2. Drain overlies left abdomen, terminating in the mid upper abdomen as on prior exam. Midline skin elmer are noted. 3. No bowel distention.
[2019-12-15] MEDS: CEFAZOLIN 1 GM/D5W RTU 1 GM/50 ML RTUPB IV SCH ×3 (05:01→21:52)
[2019-12-15] MEDS: METRONIDAZOLE 500 MG/NS RTU 500 MG/100 ML RTUPB IV SCH ×3 (05:02→21:52)
[2019-12-15] MEDS: HYDROMORPHONE HCL INJ/PF 2 MG/ML AMPULE IV PRN ×3 (05:07→16:45)
[2019-12-15 05:10] LABS: INTERNATIONAL RATION (INR) 1.31; PROTHROMBIN TIME 16.4 SEC (11.4-15.4)
[2019-12-15 05:35] LABS: ANION GAP 7 (5-19); BLOOD UREA NITROGEN 20 mg/dL (7-20); CALCIUM 7.8 mg/dL (8.4-10.2); CARBON DIOXIDE 23 mmol/L (22-30); CHLORIDE 107 mmol/L (98-107); GLUCOSE 153 mg/dL (75-110); PHOSPHORUS 2.9 mg/dL (2.5-4.5); POTASSIUM 3.7 mmol/L (3.6-5.0)
[2019-12-15 06:27] LABS: MEAN CORPUSCULAR HEMOGLOBIN 31.1 pg (27.0-33.4); MEAN CORPUSCULAR HGB CONC 34.3 g/dL (32.0-36.0); MEAN CORPUSCULAR VOLUME 91 fl (80-97); PLATELET COUNT 197 10^3/uL (150-450); RED CELL DISTRIBUTION WIDTH 14.3 % (11.5-14.0); WHITE BLOOD COUNT 10.9 10^3/uL (4.0-10.5)
[2019-12-15 06:38] LABS: ALBUMIN 2.7 g/dL (3.5-5.0); ALKALINE PHOSPHATASE 52 U/L (38-126); ASPARTATE AMINO TRANSFERASE 34 U/L (14-36); BILIRUBIN,DIRECT 0.3 mg/dL (0.0-0.4); BILIRUBIN,TOTAL 0.3 mg/dL (0.2-1.3); TOTAL PROTEIN 4.8 g/dL (6.3-8.2)
[2019-12-15 06:51] LABS: ABSOLUTE LYMPHOCYTES# (MANUAL) 0.4 10^3/uL (0.5-4.7); BASOPHILS % (MANUAL) 0 % (0-2); EOSINOPHILS % (MANUAL) 0 % (0-6); LYMPHOCYTES % (MANUAL) 4 % (13-45); MONOCYTES % (MANUAL) 0 % (3-13); SEGMENTED NEUTROPHILS % (MAN) 96 % (42-78); TOTAL CELLS COUNTED 100
[2019-12-15 06:56] LABS: ANISOCYTOSIS SLIGHT; OVALOCYTES SLIGHT; PLATELET COMMENT ADEQUATE; POIKILOCYTOSIS SLIGHT
--- NOTE | 2019-12-15 08:23 | PDOC PROGRESS REPORT ---
Subjective Progress Note for:: 12/15/19 Subjective:: awake, altert,extubated Reason For Visit: PERFORATED GASTRIC ULCER Physical Exam Vital Signs: Temp Pulse Resp BP Pulse Ox 98.4 F 98 17 91/61 L 98 12/15/19 07:46 12/15/19 07:46 12/15/19 07:46 12/15/19 07:46 12/15/19 07:46 Intake & Output 12/14/19 12/15/19 12/16/19 06:59 06:59 06:59 Intake Total 250 Output Total 467 25 Balance -217 -25 Weight 64.1 kg General appearance: PRESENT: no acute distress Head exam: PRESENT: normocephalic Eye exam: PRESENT: EOMI Ear exam: PRESENT: normal external ear exam Mouth exam: PRESENT: moist Neck exam: PRESENT: full ROM Respiratory exam: PRESENT: clear to auscultation tim Cardiovascular exam: PRESENT: RRR Vascular exam: PRESENT: normal capillary refill Breast: PRESENT: Normal GI/Abdominal exam: PRESENT: soft, other - d ressing intact, víctor serous ng bilious Rectal exam: PRESENT: deferred Gentrourinary exam: PRESENT: indwelling catheter Extremities exam: PRESENT: full ROM Musculoskeletal exam: PRESENT: full ROM Neurological exam: PRESENT: alert, awake, oriented to person, oriented to place Psychiatric exam: PRESENT: appropriate affect Skin exam: PRESENT: dry - s/p perforated gastic ulcer s/p closure, abd washout,abrahan patch, pt now extubated plan ice chips today out of bed cont ng, nolasco. Results Laboratory Results: 12/15/19 04:52 12/15/19 04:52 12/14/19 12/14/19 12/14/19 09:25 09:25 09:25 WBC 17.5 H RBC 4.42 Hgb 13.1 Hct 40.0 MCV 91 MCH 29.6 MCHC 32.7 RDW 14.1 H Plt Count 362 Seg Neutrophils % Not Reportable Carbonic Acid HCO3/H2CO3 Ratio ABG pH ABG pCO2 ABG pO2 ABG HCO3 ABG O2 Saturation ABG Base Excess VBG pH VBG pCO2 VBG HCO3 VBG Base Excess FiO2 Sodium 138.4 Potassium 3.9 Chloride 105 Carbon Dioxide 27 Anion Gap 6 BUN 27 H Creatinine 0.90 Est GFR ( Amer) > 60 Est GFR (Non-Af Amer) Glucose 110 Lactic Acid 1.1 Calcium 9.2 Phosphorus Magnesium Total Bilirubin 0.6 AST 16 Alkaline Phosphatase 110 Ammonia Total Protein 7.0 Albumin 3.8 Lipase TSH Urine Color Urine Appearance Urine pH Ur Specific [place] Urine Protein Urine Glucose (UA) Urine Ketones Urine Blood Urine Nitrite Ur Leukocyte Esterase Urine WBC (Auto) Urine RBC (Auto) Blood Type Antibody Screen 12/14/19 12/14/19 12/14/19 09:25 09:25 09:25 WBC RBC Hgb Hct MCV MCH MCHC RDW Plt Count Seg Neutrophils % Carbonic Acid HCO3/H2CO3 Ratio ABG pH ABG pCO2 ABG pO2 ABG HCO3 ABG O2 Saturation ABG Base Excess VBG pH 7.29 L VBG pCO2 57.0 VBG HCO3 26.7 VBG Base Excess -0.9 FiO2 Sodium Potassium Chloride Carbon Dioxide Anion Gap BUN Creatinine Est GFR ( Amer) Est GFR (Non-Af Amer) Glucose Lactic Acid Calcium Phosphorus Magnesium Total Bilirubin AST Alkaline Phosphatase Ammonia Total Protein Albumin Lipase 374.7 H TSH 4.48 Urine Color Urine Appearance Urine pH Ur Specific [place] Urine Protein Urine Glucose (UA) Urine Ketones Urine Blood Urine Nitrite Ur Leukocyte Esterase Urine WBC (Auto) Urine RBC (Auto) Blood Type Antibody Screen 12/14/19 12/14/19 12/14/19 09:25 10:15 15:28 WBC RBC Hgb Hct MCV MCH MCHC RDW Plt Count Seg Neutrophils % Carbonic Acid 1.68 H HCO3/H2CO3 Ratio 14:1 ABG pH 7.26 L ABG pCO2 55.9 H ABG pO2 61.3 L ABG HCO3 24.5 H ABG O2 Saturation 87.5 L ABG Base Excess -3.2 VBG pH VBG pCO2 VBG HCO3 VBG Base Excess FiO2 30% Sodium Potassium Chloride Carbon Dioxide Anion Gap BUN Creatinine Est GFR ( Amer) Est GFR (Non-Af Amer) Glucose Lactic Acid Calcium Phosphorus 3.7 Magnesium 1.9 Total Bilirubin AST Alkaline Phosphatase Ammonia Total Protein Albumin Lipase TSH Urine Color Urine Appearance Urine pH Ur Specific [place] Urine Protein Urine Glucose (UA) Urine Ketones Urine Blood Urine Nitrite Ur Leukocyte Esterase Urine WBC (Auto) Urine RBC (Auto) Blood Type A POSITIVE Antibody Screen NEGATIVE 12/14/19 12/14/19 12/14/19 15:28 16:10 16:10 WBC RBC Hgb Hct MCV MCH MCHC RDW Plt Count Seg Neutrophils % Carbonic Acid HCO3/H2CO3 Ratio ABG pH ABG pCO2 ABG pO2 ABG HCO3 ABG O2 Saturation ABG Base Excess VBG pH VBG pCO2 VBG HCO3 VBG Base Excess FiO2 Sodium Potassium Chloride Carbon Dioxide Anion Gap BUN Creatinine Est GFR ( Amer) Est GFR (Non-Af Amer) Glucose Lactic Acid 2.9 H Calcium Phosphorus Magnesium Total Bilirubin AST Alkaline Phosphatase Ammonia < 8.7 L Total Protein Albumin Lipase TSH Urine Color YELLOW Urine Appearance CLEAR Urine pH 5.0 Ur Specific [place] 1.030 Urine Protein NEGATIVE Urine Glucose (UA) NEGATIVE Urine Ketones TRACE H Urine Blood NEGATIVE Urine Nitrite NEGATIVE Ur Leukocyte Esterase NEGATIVE Urine WBC (Auto) 4 Urine RBC (Auto) 2 Blood Type Antibody Screen 12/14/19 12/14/19 12/15/19 19:30 19:50 04:52 WBC RBC Hgb Hct MCV MCH MCHC RDW Plt Count Seg Neutrophils % Carbonic Acid 1.17 HCO3/H2CO3 Ratio 18:1 ABG pH 7.37 ABG pCO2 39.0 ABG pO2 44.6 L ABG HCO3 22.0 ABG O2 Saturation 79.5 L ABG Base Excess -2.9 VBG pH VBG pCO2 VBG HCO3 VBG Base Excess FiO2 30% Sodium 136.6 L Potassium 3.7 Chloride 107 Carbon Dioxide 23 Anion Gap 7 BUN 20 Creatinine 0.60 Est GFR ( Amer) > 60 Est GFR (Non-Af Amer) Glucose 153 H Lactic Acid 1.2 Calcium 7.8 L Phosphorus 2.9 Magnesium Total Bilirubin 0.3 AST 34 Alkaline Phosphatase 52 Ammonia Total Protein 4.8 L Albumin 2.7 L Lipase TSH Urine Color Urine Appearance Urine pH Ur Specific [place] Urine Protein Urine Glucose (UA) Urine Ketones Urine Blood Urine Nitrite Ur Leukocyte Esterase Urine WBC (Auto) Urine RBC (Auto) Blood Type Antibody Screen 12/15/19 12/15/19 04:52 04:52 WBC 10.9 H RBC 3.20 L Hgb 10.0 L D Hct 29.0 L MCV 91 MCH 31.1 MCHC 34.3 RDW 14.3 H Plt Count 197 Seg Neutrophils % Not Reportable Carbonic Acid HCO3/H2CO3 Ratio ABG pH ABG pCO2 ABG pO2 ABG HCO3 ABG O2 Saturation ABG Base Excess VBG pH VBG pCO2 VBG HCO3 VBG Base Excess FiO2 Sodium Cancelled Potassium Cancelled Chloride Cancelled Carbon Dioxide Cancelled Anion Gap Cancelled BUN Cancelled Creatinine Cancelled Est GFR ( Amer) Cancelled Est GFR (Non-Af Amer) Cancelled Glucose Cancelled Lactic Acid Calcium Cancelled Phosphorus Magnesium Total Bilirubin Cancelled AST Cancelled Alkaline Phosphatase Cancelled Ammonia Total Protein Cancelled Albumin Cancelled Lipase TSH Urine Color Urine Appearance Urine pH Ur Specific [place] Urine Protein Urine Glucose (UA) Urine Ketones Urine Blood Urine Nitrite Ur Leukocyte Esterase Urine WBC (Auto) Urine RBC (Auto) Blood Type Antibody Screen 12/15/19 04:52 Troponin I < 0.012 Impressions: Chest X-Ray 12/14/19 14:37 IMPRESSION: Left basilar opacity with left pleural effusion. No finding on the current study to indicate free air in the abdomen. SUPPORT DEVICE(S) IN EXPECTED LOCATIONS. KUB X-Ray 12/14/19 21:00 IMPRESSION: 1. Nasogastric tube tip is in the body the stomach. 2. Drain overlies left abdomen, terminating in the mid upper abdomen as on prior exam. Midline skin elmer are noted. 3. No bowel distention.
--- NOTE | 2019-12-15 09:03 | EKG REPORT ---
SEVERITY:- NORMAL ECG - SINUS RHYTHM : Confirmed by: Luba Irizarry MD 15-Dec-2019 09:02:46
--- NOTE | 2019-12-15 10:10 | Progress Note ---
Provider Note Provider Note: 12/15/2019 74-year-old female with history of COPD and a recent admission for pneumonia, hypertension admitted yesterday for a severe stabbing epigastric abdominal pain found to have a perforated gastric ulcer status post surgery was done. Patient still on NG tube and ice chips. Patient is successfully extubated after the surgery. Patient is comfortable in the bed communicating well. Not in distress. Physical exam Awake communicating well. nG-tube in place. Bilateral entry was decreased no wheezing no crepitations. Abdomen extremely tender to touch dressing is present with a drying. bowel sounds are almost absent. Peripheral pulses are present no pedal edema. Neurological examination alert awake oriented communicating well not in distress. Diagnosis 1.Perforated gastric ulcer postop day 1. 2.COPD-pulse ox is 98% on 2 L. 3. History of hypertension chronic essential hypertension now hypotensive l atest blood pressure is 91/61. Asymptomatic. Receiving Ringer lactate at 75 cc/h. Plan is to downgrade her to medical floor. To follow surgical recommendations. To continue IV Protonix and NG tube. To continue to provide oxygen supplementations. Continue IV antibiotic therapy at this time. Blood cultures are negative so far.
[2019-12-15] MEDS ORDERED: LORAZEPAM INJ 2 MG/1 ML VIAL IV PRN (10:11)
[2019-12-15] MEDS: ENOXAPARIN SODIUM INJ 40 MG/0.4 ML DISP.SYRIN SUBCUT SCH (11:27)
[2019-12-15] MEDS: ALBUTEROL SULFATE HFA (90 MCG/PUFF) 200 PUFF/8.5 GM MDI IH SCH ×4 (11:27→22:01)
[2019-12-15] MEDS: PANTOPRAZOLE SODIUM 40 MG VIAL IV SCH ×2 (11:27→21:52)
[2019-12-15] MEDS: RINGERS SOLUTION,LACTATED 1,000 ML IV PRN (13:59)
[2019-12-15] MEDS: FLUCONAZOLE 100 MG in CONTAINER,EMPTY 1 EACH IV SCH (18:31)
[2019-12-15] MEDS: ACETAMINOPHEN 325 MG TABLET PO PRN (20:01)
[2019-12-16] MEDS: HYDROMORPHONE HCL INJ/PF 2 MG/ML AMPULE IV PRN ×5 (00:22→19:50)
[2019-12-16] MEDS: CEFAZOLIN 1 GM/D5W RTU 1 GM/50 ML RTUPB IV SCH ×3 (05:09→21:05)
[2019-12-16] MEDS: METRONIDAZOLE 500 MG/NS RTU 500 MG/100 ML RTUPB IV SCH ×3 (05:09→22:03)
[2019-12-16] MEDS: RINGERS SOLUTION,LACTATED 1,000 ML IV PRN ×2 (06:20→17:41)
[2019-12-16 06:38] LABS: ABSOLUTE EOSINOPHILS # (AUTO) 0.1 10^3/uL (0.0-0.6); ABSOLUTE LYMPHOCYTES (AUTO) 0.7 10^3/uL (0.5-4.7); ABSOLUTE MONOCYTES (AUTO) 0.4 10^3/uL (0.1-1.4); ABSOLUTE NEUT (AUTO) 7.2 10^3/uL (1.7-8.2); BASOPHILS % (AUTO) 0.2 % (0-2); EOSINOPHILS % (AUTO) 1.1 % (0-6); HEMATOCRIT 28.5 % (36.0-47.0); HEMOGLOBIN 9.8 g/dL (12.0-15.5); LYMPHOCYTES % (AUTO) 8.2 % (13-45); MEAN CORPUSCULAR HEMOGLOBIN 31.1 pg (27.0-33.4); MEAN CORPUSCULAR HGB CONC 34.3 g/dL (32.0-36.0); MEAN CORPUSCULAR VOLUME 91 fl (80-97); MONOCYTES % (AUTO) 5.3 % (3-13); PLATELET COUNT 196 10^3/uL (150-450); RED BLOOD COUNT 3.14 10^6/uL (3.72-5.28); SEGMENTED NEUTROPHILS % (AUTO) 85.2 % (42-78); TOTAL CELLS COUNTED % (AUTO) 100 %; WHITE BLOOD COUNT 8.4 10^3/uL (4.0-10.5)
[2019-12-16 06:55] LABS: ALBUMIN 2.4 g/dL (3.5-5.0); ALKALINE PHOSPHATASE 61 U/L (38-126); ASPARTATE AMINO TRANSFERASE 30 U/L (14-36); BILIRUBIN,TOTAL 0.3 mg/dL (0.2-1.3); BLOOD UREA NITROGEN 15 mg/dL (7-20); CALCIUM 7.9 mg/dL (8.4-10.2); GLUCOSE 79 mg/dL (75-110); PHOSPHORUS 2.1 mg/dL (2.5-4.5); POTASSIUM 3.2 mmol/L (3.6-5.0); TOTAL PROTEIN 4.7 g/dL (6.3-8.2)
[2019-12-16 07:00] LABS: CARBON DIOXIDE 28 mmol/L (22-30); CHLORIDE 105 mmol/L (98-107)
[2019-12-16 07:09] LABS: ANION GAP 4 (5-19)
[2019-12-16] MEDS: PANTOPRAZOLE SODIUM 40 MG VIAL IV SCH ×2 (09:26→21:04)
[2019-12-16] MEDS: ENOXAPARIN SODIUM INJ 40 MG/0.4 ML DISP.SYRIN SUBCUT SCH (09:26)
[2019-12-16] MEDS: POTASSI CL 20 MEQ/50 ML RIDER 20 MEQ/50 ML RTUPB IV SCH ×2 (09:27→12:24)
--- NOTE | 2019-12-16 09:33 | PDOC PROGRESS REPORT ---
Subjective Progress Note for:: 12/16/19 Subjective:: 74-year-old female with history of COPD and a recent admission for pneumonia, hypertension admitted yesterday for a severe stabbing epigastric abdominal pain found to have a perforated gastric ulcer status post surgery was done. Patient still on NG tube and ice chips. Patient is successfully extubated after the surgery. Patient is comfortable in the bed communicating well. Not in distress. 12/16/2019-patient is comfortable in the bed communicating well. NG tube still in place. Still n.p.o. Not passing gas at this time. Serum potassium is 3.2 which is going to be supplemented. Reason For Visit: PERFORATED GASTRIC ULCER Physical Exam Vital Signs: Temp Pulse Resp BP Pulse Ox 97.7 F 79 16 123/50 L 99 12/16/19 08:00 12/16/19 08:00 12/16/19 08:00 12/16/19 08:00 12/16/19 08:00 Intake & Output 12/15/19 12/16/19 12/17/19 06:59 06:59 06:59 Intake Total 1300 2450 Output Total 467 680 Balance 833 1770 Weight 64.1 kg 62.9 kg General appearance: PRESENT: no acute distress, cooperative, thin Eye exam: PRESENT: conjunctiva pale, PERRLA Mouth exam: PRESENT: moist, tongue midline Teeth exam: PRESENT: poor dentation Neck exam: PRESENT: other - NG tube in place. Respiratory exam: PRESENT: decreased breath sounds Pulses: PRESENT: normal dorsalis pedis pul GI/Abdominal exam: PRESENT: tenderness, other - Joann is to present along with the dressing of thesurgical site.. ABSENT: normal bowel sounds Extremities exam: PRESENT: full ROM. ABSENT: calf tenderness, clubbing, pedal edema Neurological exam: PRESENT: alert, awake, oriented to person, oriented to place, oriented to time, oriented to situation, CN II-XII grossly intact. ABSENT: motor sensory deficit Results Laboratory Results: 12/16/19 06:17 12/16/19 06:17 12/16/19 12/16/19 06:17 06:17 WBC 8.4 RBC 3.14 L Hgb 9.8 L Hct 28.5 L MCV 91 MCH 31.1 MCHC 34.3 RDW 14.0 Plt Count 196 Seg Neutrophils % 85.2 H Sodium 137.0 Potassium 3.2 L Chloride 105 Carbon Dioxide 28 Anion Gap 4 L BUN 15 Creatinine 0.56 Est GFR ( Amer) > 60 Glucose 79 Calcium 7.9 L Phosphorus 2.1 L Magnesium 1.6 Total Bilirubin 0.3 AST 30 Alkaline Phosphatase 61 Total Protein 4.7 L Albumin 2.4 L 12/14/19 11:00 Blood Blood Culture (PCR) - Final Staphylococcus Species 12/15/19 04:52 Troponin I < 0.012 Impressions: Chest X-Ray 12/14/19 14:37 IMPRESSION: Left basilar opacity with left pleural effusion. No finding on the current study to indicate free air in the abdomen. SUPPORT DEVICE(S) IN EXPECTED LOCATIONS. KUB X-Ray 12/14/19 21:00 IMPRESSION: 1. Nasogastric tube tip is in the body the stomach. 2. Drain overlies left abdomen, terminating in the mid upper abdomen as on prior exam. Midline skin elmer are noted. 3. No bowel distention. Assessment and Plan - Diagnosis (1) Abdominal pain Qualifiers: Abdominal location: epigastric Qualified Code(s): R10.13 - Epigastric pain Is this a current diagnosis for this admission?: Yes Plan: 12/16/2019-patient admitted with abdominal pain found to have perforated gastric ulcer status post surgery. Patient still have NG tube and drainage tube present in the abdomen. Dressing present over the surgical site. No bowel movements. Of tenderness of the abdomen, generalized abdominal on gentle palpation. (2) Perforated gastric ulcer Is this a current diagnosis for this admission?: Yes Plan: 12/16/2019-patient admitted with perforated gastric ulcer status post surgery on 12/14/2019. Still have the NG tube patient is presently n.p.o. and bowel sounds are absent on examination. Dressing is present over the surgical wound and drainage ANTONIO still present. (3) Hypokalemia Is this a current diagnosis for this admission?: Yes Plan: 12/16/2019-serum potassium is 3.2 to give 40 mg of IV potassium. Hypokalemia most likely secondary to poor oral intake.
[2019-12-16] MEDS: ALBUTEROL SULFATE HFA (90 MCG/PUFF) 200 PUFF/8.5 GM MDI IH SCH ×4 (09:45→21:06)
--- NOTE | 2019-12-16 15:41 | PDOC PROGRESS REPORT ---
Subjective Progress Note for:: 12/16/19 Subjective:: Mild incisional pains. Denies any flatus yet. Reason For Visit: PERFORATED GASTRIC ULCER Physical Exam Vital Signs: Temp Pulse Resp BP Pulse Ox 97.7 F 95 16 146/70 H 95 12/16/19 12:00 12/16/19 12:00 12/16/19 12:00 12/16/19 12:00 12/16/19 12:00 Intake & Output 12/15/19 12/16/19 12/17/19 06:59 06:59 06:59 Intake Total 1300 2450 50 Output Total 467 680 Balance 833 1770 50 Weight 64.1 kg 62.9 kg 62.9 kg Exam: Abdomen is soft with minimal tenderness. Wound dressing is dry. Results Laboratory Results: 12/16/19 06:17 12/16/19 06:17 12/16/19 12/16/19 06:17 06:17 WBC 8.4 RBC 3.14 L Hgb 9.8 L Hct 28.5 L MCV 91 MCH 31.1 MCHC 34.3 RDW 14.0 Plt Count 196 Seg Neutrophils % 85.2 H Sodium 137.0 Potassium 3.2 L Chloride 105 Carbon Dioxide 28 Anion Gap 4 L BUN 15 Creatinine 0.56 Est GFR ( Amer) > 60 Glucose 79 Calcium 7.9 L Phosphorus 2.1 L Magnesium 1.6 Total Bilirubin 0.3 AST 30 Alkaline Phosphatase 61 Total Protein 4.7 L Albumin 2.4 L 12/14/19 11:00 Blood Blood Culture (PCR) - Final Staphylococcus Species 12/15/19 04:52 Troponin I < 0.012 Impressions: Chest X-Ray 12/14/19 14:37 IMPRESSION: Left basilar opacity with left pleural effusion. No finding on the current study to indicate free air in the abdomen. SUPPORT DEVICE(S) IN EXPECTED LOCATIONS. KUB X-Ray 12/14/19 21:00 IMPRESSION: 1. Nasogastric tube tip is in the body the stomach. 2. Drain overlies left abdomen, terminating in the mid upper abdomen as on prior exam. Midline skin elmer are noted. 3. No bowel distention. Assessment & Plan - Time Critical Time spent with patient: 15-24 minutes - Inpatient Certification Medical Necessity: Need For IV Fluids - Plan Summary Plan Summary: Postop day #2 post repair of perforated gastric ulcer. Plans: Continue NG tube and n.p.o.
[2019-12-16] MEDS: FLUCONAZOLE 100 MG in CONTAINER,EMPTY 1 EACH IV SCH (17:37)
--- NOTE | 2019-12-16 18:25 | CDI QUERY ---
CDI Query CDI Review: Dear Provider: To better reflect your patients severity of illness, morbidity, and resource utilization Please specify and document in the Progress Notes and Discharge Summary if you are monitoring / treating / evaluating any of the following conditions: Query Clinical indicators Acute blood loss anemia Post-op blood loss anemia Dilutional anemia Unable to determine Other POSTOPERATIVE DIAGNOSIS: Perforated gastric ulcer in the prepyloric position, anterior stomach. OPERATION: 1. Exploratory laparotomy. 2. Biopsy of gastric ulcer. 3. Oversewing of gastric ulcer. 4. Omental flap/patch of antral ulcer (modified Chris patch) Labs: H/H 13.1 / 40.0 --> 10.0 / 29 --> 9.8 / 28.5 The terms probable, suspected, likely, possible or still to be ruled out may be used if you are unable to determine the exact nature of a condition. Thank you for your consideration, Clinical Documentation Physician Advisors PREMA Urrutia RN, BSN RN [email or web address] Office [phone] Office [phone]
[2019-12-17] MEDS: HYDROMORPHONE HCL INJ/PF 2 MG/ML AMPULE IV PRN ×4 (03:11→22:31)
[2019-12-17] MEDS: CEFAZOLIN 1 GM/D5W RTU 1 GM/50 ML RTUPB IV SCH ×2 (05:02→14:00)
[2019-12-17] MEDS: METRONIDAZOLE 500 MG/NS RTU 500 MG/100 ML RTUPB IV SCH ×2 (05:51→14:00)
[2019-12-17 06:16] LABS: ANION GAP 9 (5-19); BLOOD UREA NITROGEN 8 mg/dL (7-20); CALCIUM 7.9 mg/dL (8.4-10.2); CARBON DIOXIDE 23 mmol/L (22-30); CHLORIDE 103 mmol/L (98-107); PHOSPHORUS 2.1 mg/dL (2.5-4.5); POTASSIUM 3.2 mmol/L (3.6-5.0)
[2019-12-17 06:18] LABS: GLUCOSE 54 mg/dL (75-110)
[2019-12-17] MEDS: ENOXAPARIN SODIUM INJ 40 MG/0.4 ML DISP.SYRIN SUBCUT SCH (10:00)
[2019-12-17] MEDS: PANTOPRAZOLE SODIUM 40 MG VIAL IV SCH ×2 (10:00→22:25)
[2019-12-17] MEDS: ALBUTEROL SULFATE HFA (90 MCG/PUFF) 200 PUFF/8.5 GM MDI IH SCH ×4 (10:00→22:25)
--- NOTE | 2019-12-17 10:23 | PDOC PROGRESS REPORT ---
Subjective Progress Note for:: 12/17/19 Subjective:: Mild pains along incision sites especially on coughing No flatus yet Reason For Visit: PERFORATED GASTRIC ULCER Physical Exam Vital Signs: Temp Pulse Resp BP Pulse Ox 97.9 F 95 16 156/80 H 98 12/17/19 08:00 12/17/19 08:00 12/17/19 08:00 12/17/19 08:00 12/17/19 08:00 Intake & Output 12/16/19 12/17/19 12/18/19 06:59 06:59 06:59 Intake Total 2450 1401 Output Total 680 1680 Balance 1770 -279 Weight 62.9 kg 63 kg Exam: NG tube with minimal greenish drainage. Abdomen is soft not distended with a dressing dry. Drainage from ANTONIO has only about 5 cc. Results Laboratory Results: 12/16/19 06:17 12/17/19 05:16 12/17/19 05:16 Sodium 134.6 L Potassium 3.2 L Chloride 103 Carbon Dioxide 23 Anion Gap 9 BUN 8 Creatinine 0.45 L Est GFR ( Amer) > 60 Glucose 54 L Calcium 7.9 L Phosphorus 2.1 L 12/14/19 11:00 Blood Blood Culture (PCR) - Final Staphylococcus Species 12/15/19 04:52 Troponin I < 0.012 Impressions: Chest X-Ray 12/14/19 14:37 IMPRESSION: Left basilar opacity with left pleural effusion. No finding on the current study to indicate free air in the abdomen. SUPPORT DEVICE(S) IN EXPECTED LOCATIONS. KUB X-Ray 12/14/19 21:00 IMPRESSION: 1. Nasogastric tube tip is in the body the stomach. 2. Drain overlies left abdomen, terminating in the mid upper abdomen as on prior exam. Midline skin elmer are noted. 3. No bowel distention. Assessment & Plan - Diagnosis (1) Perforated gastric ulcer Is this a current diagnosis for this admission?: Yes - Time Critical Time spent with patient: 15-24 minutes - Inpatient Certification Medical Necessity: Need For IV Fluids, Need for IV Antibiotics - Plan Summary Plan Summary: Patient is postop day 3 post repair of perforated gastric ulcer. She remained stable and afebrile. Her white count is normal as of yesterday. No flatus until today. Plans: Continue NG tube. Will DC as soon as passage of flatus. Continue IV antibiotics
[2019-12-17] MEDS: RINGERS SOLUTION,LACTATED 1,000 ML IV PRN (12:19)
--- NOTE | 2019-12-17 18:12 | PDOC PROGRESS REPORT ---
Subjective Progress Note for:: 12/17/19 Reason For Visit: PERFORATED GASTRIC ULCER 12/17/19 Patient admitted with abdominal pain Physical Exam Vital Signs: Temp Pulse Resp BP Pulse Ox 97.9 F 97 18 167/81 H 99 12/17/19 16:00 12/17/19 16:00 12/17/19 16:00 12/17/19 16:00 12/17/19 16:00 Intake & Output 12/16/19 12/17/19 12/18/19 06:59 06:59 06:59 Intake Total 2450 1401 1000 Output Total 680 1680 900 Balance 1770 -279 100 Weight 62.9 kg 63 kg General appearance: PRESENT: mild distress, other - Normal postop pain Respiratory exam: PRESENT: clear to auscultation tim. ABSENT: rales, rhonchi, wheezes Cardiovascular exam: PRESENT: RRR. ABSENT: diastolic murmur, rubs, systolic murmur GI/Abdominal exam: PRESENT: other - Deferred to general surgery Neurological exam: PRESENT: alert, awake, oriented to person, oriented to place, oriented to time, oriented to situation, CN II-XII grossly intact. ABSENT: motor sensory deficit Psychiatric exam: PRESENT: appropriate affect, normal mood. ABSENT: homicidal ideation, suicidal ideation Results Laboratory Results: 12/16/19 06:17 12/17/19 05:16 12/17/19 05:16 Sodium 134.6 L Potassium 3.2 L Chloride 103 Carbon Dioxide 23 Anion Gap 9 BUN 8 Creatinine 0.45 L Est GFR ( Amer) > 60 Glucose 54 L Calcium 7.9 L Phosphorus 2.1 L 12/14/19 11:00 Blood Blood Culture (PCR) - Final Staphylococcus Species 12/15/19 04:52 Troponin I < 0.012 Impressions: Chest X-Ray 12/14/19 14:37 IMPRESSION: Left basilar opacity with left pleural effusion. No finding on the current study to indicate free air in the abdomen. SUPPORT DEVICE(S) IN EXPECTED LOCATIONS. KUB X-Ray 12/14/19 21:00 IMPRESSION: 1. Nasogastric tube tip is in the body the stomach. 2. Drain overlies left abdomen, terminating in the mid upper abdomen as on prior exam. Midline skin elmer are noted. 3. No bowel distention. Assessment and Plan - Diagnosis (1) Abdominal pain Qualifiers: Abdominal location: epigastric Qualified Code(s): R10.13 - Epigastric pain Is this a current diagnosis for this admission?: Yes (2) Intra-abdominal free air of unknown etiology Is this a current diagnosis for this admission?: Yes (3) Perforated gastric ulcer Is this a current diagnosis for this admission?: Yes - Plan Summary Summary: 12/17/2019 On 12/14/2019 patient had exploratory laparotomy with biopsy of gastric ulcer, oversewing of gastric ulcer, omental flap and patch of antral ulcer Patient has done well from surgery, normal postoperative pain Patient still not passing any flatus with NG tube in place Vital signs temperature 97.9 pulse 95 blood pressure 156/80 Patient currently on IV Ancef and Flagyl IV Dilaudid for pain Lactated Ringer's running at 75/h Chemistry panel shows persistent low potassium 3.2 Will add 2K riders recheck labs in the morning - Time Time Spent with patient: 25-34 minutes
[2019-12-17] MEDS: FLUCONAZOLE 100 MG in CONTAINER,EMPTY 1 EACH IV SCH (18:39)
[2019-12-17] MEDS: POTASSI CL 20 MEQ/50 ML RIDER 20 MEQ/50 ML RTUPB IV SCH ×2 (20:20→22:23)
[2019-12-18] MEDS: CEFAZOLIN 1 GM/D5W RTU 1 GM/50 ML RTUPB IV SCH ×2 (00:30→06:51)
[2019-12-18] MEDS: RINGERS SOLUTION,LACTATED 1,000 ML IV PRN ×2 (00:34→21:17)
[2019-12-18] MEDS: METRONIDAZOLE 500 MG/NS RTU 500 MG/100 ML RTUPB IV SCH ×2 (01:40→05:01)
[2019-12-18] MEDS: HYDROMORPHONE HCL INJ/PF 2 MG/ML AMPULE IV PRN ×4 (05:10→21:17)
[2019-12-18 06:28] LABS: HEMATOCRIT 30.6 % (36.0-47.0); HEMOGLOBIN 10.6 g/dL (12.0-15.5); MEAN CORPUSCULAR HEMOGLOBIN 30.6 pg (27.0-33.4); MEAN CORPUSCULAR HGB CONC 34.7 g/dL (32.0-36.0); MEAN CORPUSCULAR VOLUME 88 fl (80-97); PLATELET COUNT 248 10^3/uL (150-450); RED BLOOD COUNT 3.47 10^6/uL (3.72-5.28); WHITE BLOOD COUNT 8.5 10^3/uL (4.0-10.5)
[2019-12-18 06:53] LABS: ANION GAP 10 (5-19); BLOOD UREA NITROGEN 6 mg/dL (7-20); CALCIUM 7.9 mg/dL (8.4-10.2); CARBON DIOXIDE 22 mmol/L (22-30); CHLORIDE 102 mmol/L (98-107); GLUCOSE 80 mg/dL (75-110); POTASSIUM 3.2 mmol/L (3.6-5.0)
[2019-12-18 07:02] LABS: ABSOLUTE LYMPHOCYTES# (MANUAL) 0.2 10^3/uL (0.5-4.7); ABSOLUTE MONOCYTES # (MANUAL) 0.3 10^3/uL (0.1-1.4); BASOPHILS % (MANUAL) 0 % (0-2); EOSINOPHILS % (MANUAL) 0 % (0-6); LYMPHOCYTES % (MANUAL) 2 % (13-45); MONOCYTES % (MANUAL) 4 % (3-13); SEGMENTED NEUTROPHILS % (MAN) 94 % (42-78); TOTAL CELLS COUNTED 100
[2019-12-18 07:04] LABS: TOXIC GRANULATION SLIGHT
[2019-12-18 07:05] LABS: ANISOCYTOSIS SLIGHT; OVALOCYTES SLIGHT; PLATELET COMMENT ADEQUATE; POIKILOCYTOSIS SLIGHT; SCHISTOCYTES SLIGHT; TEAR DROP CELLS SLIGHT
[2019-12-18] MEDS: ENOXAPARIN SODIUM INJ 40 MG/0.4 ML DISP.SYRIN SUBCUT SCH (09:57)
[2019-12-18] MEDS: PANTOPRAZOLE SODIUM 40 MG VIAL IV SCH ×2 (09:57→21:17)
[2019-12-18] MEDS ORDERED: POTASSIUM CHLORIDE 10 MEQ TABLET.ER PO SCH (10:00)
[2019-12-18] MEDS: ALBUTEROL SULFATE HFA (90 MCG/PUFF) 200 PUFF/8.5 GM MDI IH SCH ×4 (10:12→21:18)
--- NOTE | 2019-12-18 10:48 | PDOC PROGRESS REPORT ---
Subjective Progress Note for:: 12/18/19 Reason For Visit: PERFORATED GASTRIC ULCER Physical Exam Vital Signs: Temp Pulse Resp BP Pulse Ox 98.8 F 89 16 151/73 H 100 12/18/19 00:00 12/18/19 07:00 12/18/19 00:00 12/18/19 00:00 12/18/19 05:57 Intake & Output 12/17/19 12/18/19 12/19/19 06:59 06:59 06:59 Intake Total 1401 2319 50 Output Total 1680 2770 0 Balance -279 -451 50 Weight 63 kg 60.1 kg Results Laboratory Results: 12/18/19 06:15 12/18/19 06:15 12/18/19 12/18/19 06:15 06:15 WBC 8.5 RBC 3.47 L Hgb 10.6 L Hct 30.6 L MCV 88 MCH 30.6 MCHC 34.7 RDW 14.0 Plt Count 248 Seg Neutrophils % Not Reportable Sodium 133.6 L Potassium 3.2 L Chloride 102 Carbon Dioxide 22 Anion Gap 10 BUN 6 L Creatinine 0.41 L Est GFR ( Amer) > 60 Glucose 80 Calcium 7.9 L 12/14/19 11:00 Blood Blood Culture (PCR) - Final Staphylococcus Species 12/15/19 04:52 Troponin I < 0.012 Impressions: Chest X-Ray 12/14/19 14:37 IMPRESSION: Left basilar opacity with left pleural effusion. No finding on the current study to indicate free air in the abdomen. SUPPORT DEVICE(S) IN EXPECTED LOCATIONS. KUB X-Ray 12/14/19 21:00 IMPRESSION: 1. Nasogastric tube tip is in the body the stomach. 2. Drain overlies left abdomen, terminating in the mid upper abdomen as on prior exam. Midline skin elmer are noted. 3. No bowel distention. Assessment & Plan - Diagnosis (1) Pneumoperitoneum Is this a current diagnosis for this admission?: Yes (2) Abdominal pain Qualifiers: Abdominal location: epigastric Qualified Code(s): R10.13 - Epigastric pain Is this a current diagnosis for this admission?: Yes - Plan Summary Plan Summary: This is a 74-year-old female status post exploratory laparotomy for perforated gastric ulcer. The patient is doing reasonably well. She has rales and rhonchi bilaterally. I have encouraged her to get out of bed, ambulate in the hallways, and use her incentive spirometer. I will remove her Pritchett catheter today, and discontinue her antibiotics/antifungals. It is okay for the patient to shower. Leave drain in place x1 week. Upper GI series today to evaluate for leakage at the repair.
--- NOTE | 2019-12-18 10:56 | RADIOLOGY REPORT (SQ) ---
EXAM DESCRIPTION: UGI W/ SINGLE CONTRAST IMAGES COMPLETED DATE/TIME: 12/18/2019 9:17 am REASON FOR STUDY: perforated gastric ulcer. eval repair. COMPARISON: None. TECHNIQUE: Under fluoroscopic guidance, water soluble contrast was instilled through the patient's N G tube. Fluoroscopic spot images acquired and stored on PACS. LIMITATIONS: Position of the patient was difficult due to complaints of pain FLUOROSCOPY TIME: FLUORO TIME: 1.9 minutes of fluoroscopy was used. 11 images saved to PACS. FINDINGS: GASTRO-ESOPHAGEAL JUNCTION: Small sliding hiatal hernia with mild gastroesophageal reflux. STOMACH: NG tube in place with tip within the lumen of the stomach. Postoperative changes seeing lou ng the antrum of the stomach with mucosal thickening. No extravasation or leak of contrast is seen. No delay in gastric emptying. GASTRIC OUTLET: No delay in emptying. Normal pylorus. DUODENAL BULB: Normal distention. No spasm or ulceration. DUODENUM: Mucosa normal. No extrinsic masses or malrotation. PROXIMAL JEJUNUM: Normal mucosal pattern. No dilatation, segmentation, strictures or masses. NON-GI TRACT STRUCTURES: No significant finding. OTHER: Drainage catheter in place along the lesser curvature of the stomach. Surgical elmer seen a long the midline IMPRESSION: NO EVIDENCE OF EXTRAVASATION OR LEAK OF CONTRAST. POSTOPERATIVE EDEMA ALONG THE ANTERIO R ASPECT OF THE ANTRUM OF THE STOMACH. STUDY LIMITED DUE TO POOR MOBILITY ON THE PART OF THE PATIENT . COMMENT: Quality ID [id number]: Final reports for procedures using fluoroscopy that document radiation exp osure indices, or exposure time and number of fluorographic images (if radiation exposure indices are not available) TECHNICAL DOCUMENTATION: JOB ID: [id number] 2010 [employer]- All Rights Reserved Reading location - IP/workstation name: [email or web address] [id number]
[2019-12-18] MEDS: POTASSI CL 20 MEQ/50 ML RIDER 20 MEQ/50 ML RTUPB IV SCH ×2 (11:29→13:23)
--- NOTE | 2019-12-18 12:33 | PDOC PROGRESS REPORT ---
Subjective Progress Note for:: 12/18/19 Reason For Visit: PERFORATED GASTRIC ULCER December 18, 2019 Patient admitted for abdominal pain, perforated gastric ulcer, intra-abdominal free air Physical Exam Vital Signs: Temp Pulse Resp BP Pulse Ox 98.8 F 89 16 151/73 H 100 12/18/19 00:00 12/18/19 07:00 12/18/19 00:00 12/18/19 00:00 12/18/19 05:57 Intake & Output 12/17/19 12/18/19 12/19/19 06:59 06:59 06:59 Intake Total 1401 2319 50 Output Total 1680 2770 0 Balance -279 -451 50 Weight 63 kg 60.1 kg General appearance: PRESENT: no acute distress Respiratory exam: PRESENT: decreased breath sounds Cardiovascular exam: PRESENT: RRR. ABSENT: diastolic murmur, rubs, systolic murmur GI/Abdominal exam: PRESENT: other - Deferred to surgery Neurological exam: PRESENT: alert, awake, oriented to person, oriented to place, oriented to time, oriented to situation, CN II-XII grossly intact. ABSENT: motor sensory deficit Psychiatric exam: PRESENT: appropriate affect, normal mood. ABSENT: homicidal ideation, suicidal ideation Results Laboratory Results: 12/18/19 06:15 12/18/19 06:15 12/18/19 12/18/19 06:15 06:15 WBC 8.5 RBC 3.47 L Hgb 10.6 L Hct 30.6 L MCV 88 MCH 30.6 MCHC 34.7 RDW 14.0 Plt Count 248 Seg Neutrophils % Not Reportable Sodium 133.6 L Potassium 3.2 L Chloride 102 Carbon Dioxide 22 Anion Gap 10 BUN 6 L Creatinine 0.41 L Est GFR ( Amer) > 60 Glucose 80 Calcium 7.9 L 12/14/19 11:00 Blood Blood Culture (PCR) - Final Staphylococcus Species 12/14/19 11:00 Blood Blood Culture - Final Staphylococcus Capitis 12/15/19 04:52 Troponin I < 0.012 Impressions: Chest X-Ray 12/14/19 14:37 IMPRESSION: Left basilar opacity with left pleural effusion. No finding on the current study to indicate free air in the abdomen. SUPPORT DEVICE(S) IN EXPECTED LOCATIONS. KUB X-Ray 12/14/19 21:00 IMPRESSION: 1. Nasogastric tube tip is in the body the stomach. 2. Drain overlies left abdomen, terminating in the mid upper abdomen as on prior exam. Midline skin elmer are noted. 3. No bowel distention. Upper GI Series-Limited 12/18/19 00:00 IMPRESSION: NO EVIDENCE OF EXTRAVASATION OR LEAK OF CONTRAST. POSTOPERATIVE EDEMA ALONG THE ANTERIOR ASPECT OF THE ANTRUM OF THE STOMACH. STUDY LIMITED DUE TO POOR MOBILITY ON THE PART OF THE PATIENT. Assessment and Plan - Diagnosis (1) Abdominal pain Qualifiers: Abdominal location: epigastric Qualified Code(s): R10.13 - Epigastric pain Is this a current diagnosis for this admission?: Yes (2) Intra-abdominal free air of unknown etiology Is this a current diagnosis for this admission?: Yes (3) Perforated gastric ulcer Is this a current diagnosis for this admission?: Yes - Plan Summary Summary: 12/17/2019 On 12/14/2019 patient had exploratory laparotomy with biopsy of gastric ulcer, oversewing of gastric ulcer, omental flap and patch of antral ulcer Patient has done well from surgery, normal postoperative pain Patient still not passing any flatus with NG tube in place Vital signs temperature 97.9 pulse 95 blood pressure 156/80 Patient currently on IV Ancef and Flagyl IV Dilaudid for pain Lactated Ringer's running at 75/h Chemistry panel shows persistent low potassium 3.2 Will add 2K riders recheck labs in the morning 12/18/2019 Temperature 98.8 pulse 90 blood pressure 109/47 On admission her white count was 17,500 today it is 8500 Potassium is remaining low at 3.2. Called pharmacy today and she is going to get 20 mEq and a K rider x2. Patient is not taking p.o.'s, repeat labs in the morning Patient has 1 out of 4 blood culture bottles growing contaminant Upper GI study shows no leakage of contrast Surgery is advancing patient's activities - Time Time Spent with patient: 25-34 minutes
[2019-12-19] MEDS: HYDROMORPHONE HCL INJ/PF 2 MG/ML AMPULE IV PRN ×4 (03:49→21:19)
[2019-12-19 07:49] LABS: HEMATOCRIT 31.3 % (36.0-47.0); HEMOGLOBIN 10.8 g/dL (12.0-15.5); MEAN CORPUSCULAR HEMOGLOBIN 30.3 pg (27.0-33.4); MEAN CORPUSCULAR HGB CONC 34.4 g/dL (32.0-36.0); MEAN CORPUSCULAR VOLUME 88 fl (80-97); PLATELET COUNT 267 10^3/uL (150-450); RED BLOOD COUNT 3.56 10^6/uL (3.72-5.28); WHITE BLOOD COUNT 7.3 10^3/uL (4.0-10.5)
[2019-12-19 08:02] LABS: ANION GAP 8 (5-19); BLOOD UREA NITROGEN 9 mg/dL (7-20); CARBON DIOXIDE 23 mmol/L (22-30); CHLORIDE 102 mmol/L (98-107); GLUCOSE 91 mg/dL (75-110); POTASSIUM 3.4 mmol/L (3.6-5.0)
[2019-12-19 08:17] LABS: ABSOLUTE LYMPHOCYTES# (MANUAL) 0.7 10^3/uL (0.5-4.7); ABSOLUTE MONOCYTES # (MANUAL) 0.8 10^3/uL (0.1-1.4); ANISOCYTOSIS SLIGHT; BASOPHILS % (MANUAL) 0 % (0-2); EOSINOPHILS % (MANUAL) 1 % (0-6); LYMPHOCYTES % (MANUAL) 10 % (13-45); MONOCYTES % (MANUAL) 11 % (3-13); SEGMENTED NEUTROPHILS % (MAN) 78 % (42-78); TOTAL CELLS COUNTED 100
[2019-12-19 08:18] LABS: PLATELET COMMENT ADEQUATE
[2019-12-19] MEDS: ALBUTEROL SULFATE HFA (90 MCG/PUFF) 200 PUFF/8.5 GM MDI IH SCH ×4 (09:16→21:19)
[2019-12-19] MEDS: ENOXAPARIN SODIUM INJ 40 MG/0.4 ML DISP.SYRIN SUBCUT SCH (09:16)
[2019-12-19] MEDS: PANTOPRAZOLE SODIUM 40 MG VIAL IV SCH ×2 (09:16→21:19)
[2019-12-19] MEDS: METOPROLOL TARTRATE PF/INJ 5 MG/5 ML SDV IV SCH ×3 (12:58→23:29)
[2019-12-19] MEDS: RINGERS SOLUTION,LACTATED 1,000 ML IV PRN ×2 (12:58→23:29)
--- NOTE | 2019-12-19 13:09 | PDOC PROGRESS REPORT ---
Subjective Progress Note for:: 12/19/19 Reason For Visit: PERFORATED GASTRIC ULCER 12/19/2019 Patient admitted for abdominal pain, perforated gastric ulcer, intra-abdominal free air Physical Exam Vital Signs: Temp Pulse Resp BP Pulse Ox 98.2 F 106 H 18 122/80 98 12/19/19 11:00 12/19/19 11:00 12/19/19 11:00 12/19/19 07:00 12/19/19 11:00 Intake & Output 12/18/19 12/19/19 12/20/19 06:59 06:59 06:59 Intake Total 2319 1148 Output Total 2770 800 Balance -451 348 Weight 60.1 kg 61.2 kg General appearance: PRESENT: no acute distress Respiratory exam: PRESENT: clear to auscultation tim, decreased breath sounds. ABSENT: rales, rhonchi, wheezes Cardiovascular exam: PRESENT: RRR. ABSENT: diastolic murmur, rubs, systolic murmur GI/Abdominal exam: PRESENT: hypoactive bowel sounds Neurological exam: PRESENT: alert, awake, oriented to person, oriented to place, oriented to time, oriented to situation, CN II-XII grossly intact. ABSENT: motor sensory deficit Psychiatric exam: PRESENT: flat affect Results Laboratory Results: 12/19/19 07:24 12/19/19 07:24 12/19/19 12/19/19 07:24 07:24 WBC 7.3 RBC 3.56 L Hgb 10.8 L Hct 31.3 L MCV 88 MCH 30.3 MCHC 34.4 RDW 14.0 Plt Count 267 Seg Neutrophils % Not Reportable Sodium 133.2 L Potassium 3.4 L Chloride 102 Carbon Dioxide 23 Anion Gap 8 BUN 9 Creatinine 0.46 L Est GFR ( Amer) > 60 Glucose 91 Calcium 8.0 L 12/14/19 09:25 Blood Blood Culture - Final NO GROWTH IN 5 DAYS 12/14/19 11:00 Blood Blood Culture (PCR) - Final Staphylococcus Species 12/14/19 11:00 Blood Blood Culture - Final Staphylococcus Capitis 12/15/19 04:52 Troponin I < 0.012 Impressions: Chest X-Ray 12/14/19 14:37 IMPRESSION: Left basilar opacity with left pleural effusion. No finding on the current study to indicate free air in the abdomen. SUPPORT DEVICE(S) IN EXPECTED LOCATIONS. KUB X-Ray 12/14/19 21:00 IMPRESSION: 1. Nasogastric tube tip is in the body the stomach. 2. Drain overlies left abdomen, terminating in the mid upper abdomen as on prior exam. Midline skin elmer are noted. 3. No bowel distention. Upper GI Series-Limited 12/18/19 00:00 IMPRESSION: NO EVIDENCE OF EXTRAVASATION OR LEAK OF CONTRAST. POSTOPERATIVE EDEMA ALONG THE ANTERIOR ASPECT OF THE ANTRUM OF THE STOMACH. STUDY LIMITED DUE TO POOR MOBILITY ON THE PART OF THE PATIENT. Assessment and Plan - Diagnosis (1) Abdominal pain Qualifiers: Abdominal location: epigastric Qualified Code(s): R10.13 - Epigastric pain Is this a current diagnosis for this admission?: Yes (2) Intra-abdominal free air of unknown etiology Is this a current diagnosis for this admission?: Yes (3) Perforated gastric ulcer Is this a current diagnosis for this admission?: Yes - Plan Summary Summary: 12/17/2019 On 12/14/2019 patient had exploratory laparotomy with biopsy of gastric ulcer, oversewing of gastric ulcer, omental flap and patch of antral ulcer Patient has done well from surgery, normal postoperative pain Patient still not passing any flatus with NG tube in place Vital signs temperature 97.9 pulse 95 blood pressure 156/80 Patient currently on IV Ancef and Flagyl IV Dilaudid for pain Lactated Ringer's running at 75/h Chemistry panel shows persistent low potassium 3.2 Will add 2K riders recheck labs in the morning 12/18/2019 Temperature 98.8 pulse 90 blood pressure 109/47 On admission her white count was 17,500 today it is 8500 Potassium is remaining low at 3.2. Called pharmacy today and she is going to get 20 mEq and a K rider x2. Patient is not taking p.o.'s, repeat labs in the morning Patient has 1 out of 4 blood culture bottles growing contaminant Upper GI study shows no leakage of contrast Surgery is advancing patient's activities 12/19/19 Vital signs revealed temperature 98.6 x72 hours Pulse is in the 90 Blood pressure 157/82 for the last 72 hours Because of patient's consistent elevated blood pressure and heart rate I have added IV metoprolol every 6 hours Patient was on multiple medications prior to surgery and cannot take p.o.'s at this time. Specifically the Lopressor 50 mg every 12 hours as well as anti anxiety medicine. I am also going to add a very low-dose of IV Ativan, she was on the Zoloft and BuSpar and Xanax prior to surgery. Will watch for sedation Patient is getting lactated Ringer's at 75 mL's per hour White count is still normal at 7300 Chemistry panel is normal, potassium is come up to 3.4, I am going to add a standing order of 20 mEq IV every 12 hours Patient states she still has not passed any flatus - Time Time Spent with patient: 15-24 minutes
[2019-12-19] MEDS: LORAZEPAM INJ 2 MG/1 ML VIAL IV SCH ×2 (15:43→21:19)
[2019-12-19] MEDS: POTASSI CL 20 MEQ/50 ML RIDER 20 MEQ/50 ML RTUPB IV SCH (17:37)
--- NOTE | 2019-12-19 20:00 | PDOC PROGRESS REPORT ---
Subjective Progress Note for:: 12/19/19 Subjective:: No pains. No flatus yet. Reason For Visit: PERFORATED GASTRIC ULCER Physical Exam Vital Signs: Temp Pulse Resp BP Pulse Ox 98 F 96 18 137/68 H 100 12/19/19 15:55 12/19/19 15:55 12/19/19 15:55 12/19/19 15:55 12/19/19 15:55 Intake & Output 12/18/19 12/19/19 12/20/19 06:59 06:59 06:59 Intake Total 2319 1148 1000 Output Total 2770 800 75 Balance -451 348 925 Weight 60.1 kg 61.2 kg 61.2 kg Exam: Abdomen is soft nontender. NGT drainage minimal. ANTONIO drainage minimal Results Laboratory Results: 12/19/19 07:24 12/19/19 07:24 12/19/19 12/19/19 07:24 07:24 WBC 7.3 RBC 3.56 L Hgb 10.8 L Hct 31.3 L MCV 88 MCH 30.3 MCHC 34.4 RDW 14.0 Plt Count 267 Seg Neutrophils % Not Reportable Sodium 133.2 L Potassium 3.4 L Chloride 102 Carbon Dioxide 23 Anion Gap 8 BUN 9 Creatinine 0.46 L Est GFR ( Amer) > 60 Glucose 91 Calcium 8.0 L 12/14/19 09:25 Blood Blood Culture - Final NO GROWTH IN 5 DAYS 12/15/19 04:52 Troponin I < 0.012 Impressions: Chest X-Ray 12/14/19 14:37 IMPRESSION: Left basilar opacity with left pleural effusion. No finding on the current study to indicate free air in the abdomen. SUPPORT DEVICE(S) IN EXPECTED LOCATIONS. KUB X-Ray 12/14/19 21:00 IMPRESSION: 1. Nasogastric tube tip is in the body the stomach. 2. Drain overlies left abdomen, terminating in the mid upper abdomen as on prior exam. Midline skin elmer are noted. 3. No bowel distention. Upper GI Series-Limited 12/18/19 00:00 IMPRESSION: NO EVIDENCE OF EXTRAVASATION OR LEAK OF CONTRAST. POSTOPERATIVE EDEMA ALONG THE ANTERIOR ASPECT OF THE ANTRUM OF THE STOMACH. STUDY LIMITED DUE TO POOR MOBILITY ON THE PART OF THE PATIENT. Assessment & Plan - Diagnosis (1) Perforated gastric ulcer Is this a current diagnosis for this admission?: Yes - Time Critical Time spent with patient: 15-24 minutes - Inpatient Certification Medical Necessity: Need For IV Fluids, Need for IV Antibiotics - Plan Summary Plan Summary: Postop day #5 post gastric ulcer perforation repair. Patient is stable but no passage of flatus yet. Had Gastrografin GI series yesterday which showed no leak but did some edema along the antrum of the stomach postop changes. Plans: Continue with the NG tube and IV antibiotics. We will DC the NG tube and start clears soon as she passes flatus.
[2019-12-20] MEDS: LORAZEPAM INJ 2 MG/1 ML VIAL IV SCH ×3 (05:06→21:19)
[2019-12-20] MEDS: HYDROMORPHONE HCL INJ/PF 2 MG/ML AMPULE IV PRN ×3 (05:07→17:27)
[2019-12-20] MEDS: METOPROLOL TARTRATE PF/INJ 5 MG/5 ML SDV IV SCH ×4 (05:07→23:28)
[2019-12-20] MEDS: POTASSI CL 20 MEQ/50 ML RIDER 20 MEQ/50 ML RTUPB IV SCH (09:50)
[2019-12-20] MEDS: ENOXAPARIN SODIUM INJ 40 MG/0.4 ML DISP.SYRIN SUBCUT SCH (09:51)
[2019-12-20] MEDS: PANTOPRAZOLE SODIUM 40 MG VIAL IV SCH ×2 (09:51→21:18)
[2019-12-20] MEDS: ALBUTEROL SULFATE HFA (90 MCG/PUFF) 200 PUFF/8.5 GM MDI IH SCH ×4 (10:11→21:18)
--- NOTE | 2019-12-20 10:35 | PDOC PROGRESS REPORT ---
Subjective Progress Note for:: 12/20/19 Subjective:: Still no flatus. Mild discomfort in the lower abdomen. Reason For Visit: PERFORATED GASTRIC ULCER Physical Exam Vital Signs: Temp Pulse Resp BP Pulse Ox 98.4 F 115 H 18 146/67 H 97 12/19/19 23:00 12/20/19 07:00 12/19/19 23:00 12/19/19 23:00 12/20/19 05:45 Intake & Output 12/19/19 12/20/19 12/21/19 06:59 06:59 06:59 Intake Total 1148 1889 Output Total 800 300 Balance 348 1589 Weight 61.2 kg 62.1 kg Exam: NGT drainage is minimal. ANTONIO drainage is about 15 cc mostly serous fluid. Her abdomen is soft not distended mild tenderness in the lower abdomen site. Incision is clean and dry Results Laboratory Results: 12/19/19 07:24 12/19/19 07:24 12/14/19 09:25 Blood Blood Culture - Final NO GROWTH IN 5 DAYS 12/15/19 04:52 Troponin I < 0.012 Impressions: Chest X-Ray 12/14/19 14:37 IMPRESSION: Left basilar opacity with left pleural effusion. No finding on the current study to indicate free air in the abdomen. SUPPORT DEVICE(S) IN EXPECTED LOCATIONS. KUB X-Ray 12/14/19 21:00 IMPRESSION: 1. Nasogastric tube tip is in the body the stomach. 2. Drain overlies left abdomen, terminating in the mid upper abdomen as on prior exam. Midline skin elmer are noted. 3. No bowel distention. Upper GI Series-Limited 12/18/19 00:00 IMPRESSION: NO EVIDENCE OF EXTRAVASATION OR LEAK OF CONTRAST. POSTOPERATIVE EDEMA ALONG THE ANTERIOR ASPECT OF THE ANTRUM OF THE STOMACH. STUDY LIMITED DUE TO POOR MOBILITY ON THE PART OF THE PATIENT. Assessment & Plan - Diagnosis (1) Perforated gastric ulcer Is this a current diagnosis for this admission?: Yes - Time Critical Time spent with patient: 15-24 minutes - Plan Summary Plan Summary: Patient is postop day #6 post gastric ulcer perforation repair Still does not have any flatus yet. Her white count is normal and she has been off IV antibiotics. Plan is to continue the NG tube until she passes flatus. Hospitalist just ordered potassium replacement. Leave drain in place until discharge and follow-up in the surgical in a week for possible removal of this drain by Dr. Valadez.
--- NOTE | 2019-12-20 12:00 | PDOC PROGRESS REPORT ---
Subjective Progress Note for:: 12/20/19 Reason For Visit: PERFORATED GASTRIC ULCER 12/20/2019 Patient admitted for abdominal pain perforated gastric ulcer Physical Exam Vital Signs: Temp Pulse Resp BP Pulse Ox 98.4 F 115 H 18 146/67 H 97 12/19/19 23:00 12/20/19 07:00 12/19/19 23:00 12/19/19 23:00 12/20/19 05:45 Intake & Output 12/19/19 12/20/19 12/21/19 06:59 06:59 06:59 Intake Total 1148 1889 Output Total 800 300 Balance 348 1589 Weight 61.2 kg 62.1 kg General appearance: PRESENT: mild distress Respiratory exam: PRESENT: clear to auscultation tim. ABSENT: rales, rhonchi, wheezes Cardiovascular exam: PRESENT: RRR. ABSENT: diastolic murmur, rubs, systolic murmur GI/Abdominal exam: PRESENT: other - Deferred to general surgery Neurological exam: PRESENT: alert, awake, oriented to person, oriented to place, oriented to time, oriented to situation, CN II-XII grossly intact. ABSENT: motor sensory deficit Psychiatric exam: PRESENT: appropriate affect, normal mood. ABSENT: homicidal ideation, suicidal ideation Results Laboratory Results: 12/19/19 07:24 12/19/19 07:24 12/14/19 09:25 Blood Blood Culture - Final NO GROWTH IN 5 DAYS 12/15/19 04:52 Troponin I < 0.012 Impressions: Chest X-Ray 12/14/19 14:37 IMPRESSION: Left basilar opacity with left pleural effusion. No finding on the current study to indicate free air in the abdomen. SUPPORT DEVICE(S) IN EXPECTED LOCATIONS. KUB X-Ray 12/14/19 21:00 IMPRESSION: 1. Nasogastric tube tip is in the body the stomach. 2. Drain overlies left abdomen, terminating in the mid upper abdomen as on prior exam. Midline skin elmer are noted. 3. No bowel distention. Upper GI Series-Limited 12/18/19 00:00 IMPRESSION: NO EVIDENCE OF EXTRAVASATION OR LEAK OF CONTRAST. POSTOPERATIVE EDEMA ALONG THE ANTERIOR ASPECT OF THE ANTRUM OF THE STOMACH. STUDY LIMITED DUE TO POOR MOBILITY ON THE PART OF THE PATIENT. Assessment and Plan - Diagnosis (1) Abdominal pain Qualifiers: Abdominal location: epigastric Qualified Code(s): R10.13 - Epigastric pain Is this a current diagnosis for this admission?: Yes (2) Intra-abdominal free air of unknown etiology Is this a current diagnosis for this admission?: Yes (3) Perforated gastric ulcer Is this a current diagnosis for this admission?: Yes - Plan Summary Summary: 12/17/2019 On 12/14/2019 patient had exploratory laparotomy with biopsy of gastric ulcer, oversewing of gastric ulcer, omental flap and patch of antral ulcer Patient has done well from surgery, normal postoperative pain Patient still not passing any flatus with NG tube in place Vital signs temperature 97.9 pulse 95 blood pressure 156/80 Patient currently on IV Ancef and Flagyl IV Dilaudid for pain Lactated Ringer's running at 75/h Chemistry panel shows persistent low potassium 3.2 Will add 2K riders recheck labs in the morning 12/18/2019 Temperature 98.8 pulse 90 blood pressure 109/47 On admission her white count was 17,500 today it is 8500 Potassium is remaining low at 3.2. Called pharmacy today and she is going to get 20 mEq and a K rider x2. Patient is not taking p.o.'s, repeat labs in the morning Patient has 1 out of 4 blood culture bottles growing contaminant Upper GI study shows no leakage of contrast Surgery is advancing patient's activities 12/19/19 Vital signs revealed temperature 98.6 x72 hours Pulse is in the 90 Blood pressure 157/82 for the last 72 hours Because of patient's consistent elevated blood pressure and heart rate I have added IV metoprolol every 6 hours Patient was on multiple medications prior to surgery and cannot take p.o.'s at this time. Specifically the Lopressor 50 mg every 12 hours as well as an tianxiety medicine. I am also going to add a very low-dose of IV Ativan, she was on the Zoloft and BuSpar and Xanax prior to surgery. Will watch for sedation Patient is getting lactated Ringer's at 75 mL's per hour White count is still normal at 7300 Chemistry panel is normal, potassium is come up to 3.4, I am going to add a standing order of 20 mEq IV every 12 hours Patient states she still has not passed any flatus 12/20/2019 General surgery and I have spoken about patient. Appreciate general surgery's outline and plan. Wait for patient to start passing flatus on a regular basis then the NG tube will be DC'd Patient has been off of IV antibiotics now x48 hours still afebrile still normal white count Till patient is taking p.o.'s I am going to give her 20 mEq of KCl every 12 hours IV Patient is on a very low dose of Dilaudid IV as needed, going to space this out to every 8 hours as needed to see if she will be up and more active and possibly start passing gas as a result of less narcotics. - Time Time Spent with patient: 25-34 minutes
[2019-12-20] MEDS: RINGERS SOLUTION,LACTATED 1,000 ML IV PRN (12:40)
[2019-12-21] MEDS: RINGERS SOLUTION,LACTATED 1,000 ML IV PRN ×2 (01:51→18:00)
[2019-12-21] MEDS: HYDROMORPHONE HCL INJ/PF 2 MG/ML AMPULE IV PRN ×3 (01:55→20:06)
[2019-12-21] MEDS: METOPROLOL TARTRATE PF/INJ 5 MG/5 ML SDV IV SCH ×3 (05:13→17:57)
[2019-12-21] MEDS: LORAZEPAM INJ 2 MG/1 ML VIAL IV SCH ×3 (05:13→22:10)
[2019-12-21] MEDS ORDERED: BISACODYL 10 MG SUPP.RECT PR ONE (08:28)
--- NOTE | 2019-12-21 08:35 | PDOC PROGRESS REPORT ---
Subjective Progress Note for:: 12/21/19 Subjective:: c/o incisional pain no flatus or bm since surgery. Reason For Visit: PERFORATED GASTRIC ULCER Physical Exam Vital Signs: Temp Pulse Resp BP Pulse Ox 97.8 F 105 H 18 176/89 H 96 12/21/19 04:00 12/21/19 04:00 12/21/19 04:00 12/21/19 04:00 12/21/19 04:00 Intake & Output 12/20/19 12/21/19 12/22/19 06:59 06:59 06:59 Intake Total 1889 2027 Output Total 300 155 Balance 1589 1873 Weight 62.1 kg 61.6 kg General appearance: PRESENT: no acute distress Head exam: PRESENT: normocephalic Eye exam: PRESENT: EOMI Ear exam: PRESENT: TM's normal bilaterally Mouth exam: PRESENT: moist Teeth exam: PRESENT: poor dentation Neck exam: PRESENT: full ROM Respiratory exam: PRESENT: clear to auscultation tim Cardiovascular exam: PRESENT: RRR Pulses: PRESENT: normal radial pulses, normal femoral pulses Vascular exam: PRESENT: normal capillary refill Breast: PRESENT: Normal GI/Abdominal exam: PRESENT: other - incision clean, intact, elmer in place. Extremities exam: PRESENT: full ROM Musculoskeletal exam: PRESENT: ambulatory, other - total care was up to chair Neurological exam: PRESENT: alert, awake, oriented to person Psychiatric exam: PRESENT: appropriate affect Skin exam: PRESENT: dry Results Laboratory Results: 12/19/19 07:24 12/19/19 07:24 12/15/19 04:52 Troponin I < 0.012 Impressions: Chest X-Ray 12/14/19 14:37 IMPRESSION: Left basilar opacity with left pleural effusion. No finding on the current study to indicate free air in the abdomen. SUPPORT DEVICE(S) IN EXPECTED LOCATIONS. KUB X-Ray 12/14/19 21:00 IMPRESSION: 1. Nasogastric tube tip is in the body the stomach. 2. Drain overlies left abdomen, terminating in the mid upper abdomen as on prior exam. Midline skin elmer are noted. 3. No bowel distention. Upper GI Series-Limited 12/18/19 00:00 IMPRESSION: NO EVIDENCE OF EXTRAVASATION OR LEAK OF CONTRAST. POSTOPERATIVE EDEMA ALONG THE ANTERIOR ASPECT OF THE ANTRUM OF THE STOMACH. STUDY LIMITED DUE TO POOR MOBILITY ON THE PART OF THE PATIENT. Assessment & Plan - Plan Summary Plan Summary: pod 7, still at bedrest ]no bowel function yet ng with 75 last shift. wbc wnl yesterday had previous ugi, no leak plan increase activity, cont physical rx clamp ng dulcolax
[2019-12-21] MEDS: ENOXAPARIN SODIUM INJ 40 MG/0.4 ML DISP.SYRIN SUBCUT SCH (10:04)
[2019-12-21] MEDS: PANTOPRAZOLE SODIUM 40 MG VIAL IV SCH (10:04)
[2019-12-21] MEDS: ALBUTEROL SULFATE HFA (90 MCG/PUFF) 200 PUFF/8.5 GM MDI IH SCH ×4 (10:05→22:10)
--- NOTE | 2019-12-21 10:45 | PDOC PROGRESS REPORT ---
Subjective Progress Note for:: 12/21/19 Reason For Visit: PERFORATED GASTRIC ULCER 12/21/2019 [place] pain, perforated gastric ulcer, depression, chronic pain Physical Exam Vital Signs: Temp Pulse Resp BP Pulse Ox 98.5 F 99 16 188/80 H 99 12/21/19 08:00 12/21/19 08:00 12/21/19 08:00 12/21/19 08:00 12/21/19 08:00 Intake & Output 12/20/19 12/21/19 12/22/19 06:59 06:59 06:59 Intake Total 1889 2027 Output Total 300 155 Balance 1589 1873 Weight 62.1 kg 61.6 kg General appearance: PRESENT: no acute distress Respiratory exam: PRESENT: clear to auscultation tim. ABSENT: rales, rhonchi, wheezes Cardiovascular exam: PRESENT: RRR. ABSENT: diastolic murmur, rubs, systolic murmur GI/Abdominal exam: PRESENT: other - Deferred to general surgery Neurological exam: PRESENT: alert, awake, oriented to person, oriented to place, oriented to time, oriented to situation, CN II-XII grossly intact. ABSENT: motor sensory deficit Psychiatric exam: PRESENT: appropriate affect, normal mood. ABSENT: homicidal ideation, suicidal ideation Results Laboratory Results: 12/19/19 07:24 12/19/19 07:24 12/15/19 04:52 Troponin I < 0.012 Impressions: Chest X-Ray 12/14/19 14:37 IMPRESSION: Left basilar opacity with left pleural effusion. No finding on the current study to indicate free air in the abdomen. SUPPORT DEVICE(S) IN EXPECTED LOCATIONS. KUB X-Ray 12/14/19 21:00 IMPRESSION: 1. Nasogastric tube tip is in the body the stomach. 2. Drain overlies left abdomen, terminating in the mid upper abdomen as on prior exam. Midline skin elmer are noted. 3. No bowel distention. Upper GI Series-Limited 12/18/19 00:00 IMPRESSION: NO EVIDENCE OF EXTRAVASATION OR LEAK OF CONTRAST. POSTOPERATIVE EDEMA ALONG THE ANTERIOR ASPECT OF THE ANTRUM OF THE STOMACH. STUDY LIMITED DUE TO POOR MOBILITY ON THE PART OF THE PATIENT. Assessment and Plan - Diagnosis (1) Abdominal pain Qualifiers: Abdominal location: epigastric Qualified Code(s): R10.13 - Epigastric pain Is this a current diagnosis for this admission?: Yes (2) Intra-abdominal free air of unknown etiology Is this a current diagnosis for this admission?: Yes (3) Perforated gastric ulcer Is this a current diagnosis for this admission?: Yes - Plan Summary Summary: 12/17/2019 On 12/14/2019 patient had exploratory laparotomy with biopsy of gastric ulcer, oversewing of gastric ulcer, omental flap and patch of antral ulcer Patient has done well from surgery, normal postoperative pain Patient still not passing any flatus with NG tube in place Vital signs temperature 97.9 pulse 95 blood pressure 156/80 Patient currently on IV Ancef and Flagyl IV Dilaudid for pain Lactated Ringer's running at 75/h Chemistry panel shows persistent low potassium 3.2 Will add 2K riders recheck labs in the morning 12/18/2019 Temperature 98.8 pulse 90 blood pressure 109/47 On admission her white count was 17,500 today it is 8500 Potassium is remaining low at 3.2. Called pharmacy today and she is going to get 20 mEq and a K rider x2. Patient is not taking p.o.'s, repeat labs in the morning Patient has 1 out of 4 blood culture bottles growing contaminant Upper GI study shows no leakage of contrast Surgery is advancing patient's activities 12/19/19 Vital signs revealed temperature 98.6 x72 hours Pulse is in the 90 Blood pressure 157/82 for the last 72 hours Because of patient's consistent elevated blood pressure and heart rate I have added IV metoprolol every 6 hours Patient was on multiple medications prior to surgery and cannot take p.o.'s at this time. Specifically the Lopressor 50 mg every 12 hours as well as antianxiety medicine. I am also going to add a very low-dose of IV Ativan, she was on the Zoloft and BuSpar and Xanax prior to surgery. Will watch for sedation Patient is getting lactated Ringer's at 75 mL's per hour White count is still normal at 7300 Chemistry panel is normal, potassium is come up to 3.4, I am going to add a standing order of 20 mEq IV every 12 hours Patient states she still has not passed any flatus 12/20/2019 General surgery and I have spoken about patient. Appreciate general surgery's outline and plan. Wait for patient to start passing flatus on a regular basis then the NG tube will be DC'd Patient has been off of IV antibiotics now x48 hours still afebrile still normal white count Till patient is taking p.o.'s I am going to give her 20 mEq of KCl every 12 edinson rs IV Patient is on a very low dose of Dilaudid IV as needed, going to space this out to every 8 hours as needed to see if she will be up and more active and possibly start passing gas as a result of less narcotics. 12/21/2019 Temperature 97.8 pulse between 86 and 121 Blood pressure sometimes up earlier 176/89 then 146/67. On average patient is tending to run higher than normal blood pressures. I a.m. going to increase her Lopressor to 5 mg IV every 6 hours scheduled. This should help her heart rate as well as her blood pressures Surgery is managing her postop course, day #7 Patient was admitted for perforated gastric ulcer Will repeat her labs in the morning, doing this now about every third day - Time Time Spent with patient: 25-34 minutes
[2019-12-22] MEDS: METOPROLOL TARTRATE PF/INJ 5 MG/5 ML SDV IV SCH ×2 (00:03→05:48)
[2019-12-22] MEDS: ACETAMINOPHEN 325 MG TABLET PO PRN (04:24)
[2019-12-22] MEDS: LORAZEPAM INJ 2 MG/1 ML VIAL IV SCH (05:48)
[2019-12-22 08:12] LABS: HEMATOCRIT 31.3 % (36.0-47.0); MEAN CORPUSCULAR HEMOGLOBIN 30.4 pg (27.0-33.4); MEAN CORPUSCULAR HGB CONC 35.2 g/dL (32.0-36.0); MEAN CORPUSCULAR VOLUME 87 fl (80-97); PLATELET COUNT 337 10^3/uL (150-450); RED BLOOD COUNT 3.62 10^6/uL (3.72-5.28); RED CELL DISTRIBUTION WIDTH 13.7 % (11.5-14.0); WHITE BLOOD COUNT 8.6 10^3/uL (4.0-10.5)
[2019-12-22] MEDS: RINGERS SOLUTION,LACTATED 1,000 ML IV PRN (08:24)
[2019-12-22 08:32] LABS: ALBUMIN 2.8 g/dL (3.5-5.0); ALKALINE PHOSPHATASE 71 U/L (38-126); AMYLASE 110 U/L (30-110); ANION GAP 11 (5-19); ASPARTATE AMINO TRANSFERASE 19 U/L (14-36); BILIRUBIN,DIRECT 0.2 mg/dL (0.0-0.4); BILIRUBIN,TOTAL 0.5 mg/dL (0.2-1.3); BLOOD UREA NITROGEN 5 mg/dL (7-20); CALCIUM 8.1 mg/dL (8.4-10.2); CARBON DIOXIDE 28 mmol/L (22-30); CHLORIDE 94 mmol/L (98-107); GLUCOSE 95 mg/dL (75-110); TOTAL PROTEIN 5.4 g/dL (6.3-8.2)
[2019-12-22 08:34] LABS: ABSOLUTE LYMPHOCYTES# (MANUAL) 0.3 10^3/uL (0.5-4.7); ABSOLUTE MONOCYTES # (MANUAL) 0.5 10^3/uL (0.1-1.4); BASOPHILS % (MANUAL) 0 % (0-2); EOSINOPHILS % (MANUAL) 1 % (0-6); LYMPHOCYTES % (MANUAL) 3 % (13-45); MONOCYTES % (MANUAL) 6 % (3-13); PLATELET COMMENT ADEQUATE; RBC MORPHOLOGY COMMENT NORMO-CYTIC/CHROMIC; SEGMENTED NEUTROPHILS % (MAN) 90 % (42-78); TOTAL CELLS COUNTED 100
[2019-12-22 08:43] LABS: POTASSIUM 2.9 mmol/L (3.6-5.0)
[2019-12-22] MEDS: HYDROMORPHONE HCL INJ/PF 2 MG/ML AMPULE IV PRN (09:20)
[2019-12-22] MEDS: ENOXAPARIN SODIUM INJ 40 MG/0.4 ML DISP.SYRIN SUBCUT SCH (09:23)
[2019-12-22] MEDS: ALBUTEROL SULFATE HFA (90 MCG/PUFF) 200 PUFF/8.5 GM MDI IH SCH ×4 (09:27→21:05)
--- NOTE | 2019-12-22 10:32 | PDOC PROGRESS REPORT ---
Subjective Progress Note for:: 12/22/19 Reason For Visit: PERFORATED GASTRIC ULCER Physical Exam Vital Signs: Temp Pulse Resp BP Pulse Ox 98.3 F 102 H 16 140/82 H 100 12/22/19 07:55 12/22/19 07:55 12/22/19 07:55 12/22/19 07:55 12/22/19 07:55 Intake & Output 12/21/19 12/22/19 12/23/19 06:59 06:59 06:59 Intake Total 2027 1020 1000 Output Total 155 20 50 Balance 1873 1000 950 Weight 61.6 kg 60.9 kg Results Laboratory Results: 12/22/19 07:31 12/22/19 07:31 12/22/19 12/22/19 07:31 07:31 WBC 8.6 RBC 3.62 L Hgb 11.0 L Hct 31.3 L MCV 87 MCH 30.4 MCHC 35.2 RDW 13.7 Plt Count 337 Seg Neutrophils % Not Reportable Sodium 133.4 L Potassium 2.9 L* Chloride 94 L Carbon Dioxide 28 Anion Gap 11 BUN 5 L Creatinine 0.33 L Est GFR ( Amer) > 60 Glucose 95 Calcium 8.1 L Total Bilirubin 0.5 AST 19 Alkaline Phosphatase 71 Total Protein 5.4 L Albumin 2.8 L Amylase 110 Lipase 570.2 H 12/15/19 04:52 Troponin I < 0.012 Impressions: Chest X-Ray 12/14/19 14:37 IMPRESSION: Left basilar opacity with left pleural effusion. No finding on the current study to indicate free air in the abdomen. SUPPORT DEVICE(S) IN EXPECTED LOCATIONS. KUB X-Ray 12/14/19 21:00 IMPRESSION: 1. Nasogastric tube tip is in the body the stomach. 2. Drain overlies left abdomen, terminating in the mid upper abdomen as on prior exam. Midline skin elmer are noted. 3. No bowel distention. Upper GI Series-Limited 12/18/19 00:00 IMPRESSION: NO EVIDENCE OF EXTRAVASATION OR LEAK OF CONTRAST. POSTOPERATIVE EDEMA ALONG THE ANTERIOR ASPECT OF THE ANTRUM OF THE STOMACH. STUDY LIMITED DUE TO POOR MOBILITY ON THE PART OF THE PATIENT. Assessment & Plan - Diagnosis (1) Pneumoperitoneum Is this a current diagnosis for this admission?: Yes (2) Abdominal pain Qualifiers: Abdominal location: epigastric Qualified Code(s): R10.13 - Epigastric pain Is this a current diagnosis for this admission?: Yes - Plan Summary Plan Summary: 74 y/o F s/p laparotomy for perforated gastric ulcer. She c/o pain today. She denies nausea or vomiting. Change to oral pain meds. Add carafate. Change to oral protonix. Advance to full liquids. Leave ANTONIO drain in-place for now.
[2019-12-22] MEDS: POTASSI CL 20 MEQ/50 ML RIDER 20 MEQ/50 ML RTUPB IV SCH ×2 (10:50→12:09)
--- NOTE | 2019-12-22 11:10 | PDOC PROGRESS REPORT ---
Subjective Progress Note for:: 12/22/19 Reason For Visit: PERFORATED GASTRIC ULCER 12/22/2019 Abdominal pain, perforated gastric ulcer, hypertension, anxiety , chronic pain Physical Exam Vital Signs: Temp Pulse Resp BP Pulse Ox 98.3 F 102 H 16 140/82 H 100 12/22/19 07:55 12/22/19 07:55 12/22/19 07:55 12/22/19 07:55 12/22/19 07:55 Intake & Output 12/21/19 12/22/19 12/23/19 06:59 06:59 06:59 Intake Total 2027 1020 1000 Output Total 155 20 50 Balance 1873 1000 950 Weight 61.6 kg 60.9 kg General appearance: PRESENT: mild distress, other - Postop Respiratory exam: PRESENT: clear to auscultation tim. ABSENT: rales, rhonchi, wheezes Cardiovascular exam: PRESENT: RRR. ABSENT: diastolic murmur, rubs, systolic murmur GI/Abdominal exam: PRESENT: normal bowel sounds, tenderness, other - Wound is clean and dry elmer are intact. Patient is slightly tender generalized Neurological exam: PRESENT: alert, awake, oriented to person, oriented to place, oriented to time, oriented to situation, CN II-XII grossly intact. ABSENT: motor sensory deficit Psychiatric exam: PRESENT: appropriate affect, normal mood. ABSENT: homicidal ideation, suicidal ideation Results Laboratory Results: 12/22/19 07:31 12/22/19 07:31 12/22/19 12/22/19 07:31 07:31 WBC 8.6 RBC 3.62 L Hgb 11.0 L Hct 31.3 L MCV 87 MCH 30.4 MCHC 35.2 RDW 13.7 Plt Count 337 Seg Neutrophils % Not Reportable Sodium 133.4 L Potassium 2.9 L* Chloride 94 L Carbon Dioxide 28 Anion Gap 11 BUN 5 L Creatinine 0.33 L Est GFR ( Amer) > 60 Glucose 95 Calcium 8.1 L Total Bilirubin 0.5 AST 19 Alkaline Phosphatase 71 Total Protein 5.4 L Albumin 2.8 L Amylase 110 Lipase 570.2 H 12/15/19 04:52 Troponin I < 0.012 Impressions: Chest X-Ray 12/14/19 14:37 IMPRESSION: Left basilar opacity with left pleural effusion. No finding on the current study to indicate free air in the abdomen. SUPPORT DEVICE(S) IN EXPECTED LOCATIONS. KUB X-Ray 12/14/19 21:00 IMPRESSION: 1. Nasogastric tube tip is in the body the stomach. 2. Drain overlies left abdomen, terminating in the mid upper abdomen as on prior exam. Midline skin elmer are noted. 3. No bowel distention. Upper GI Series-Limited 12/18/19 00:00 IMPRESSION: NO EVIDENCE OF EXTRAVASATION OR LEAK OF CONTRAST. POSTOPERATIVE EDEMA ALONG THE ANTERIOR ASPECT OF THE ANTRUM OF THE STOMACH. STUDY LIMITED DUE TO POOR MOBILITY ON THE PART OF THE PATIENT. Assessment and Plan - Diagnosis (1) Abdominal pain Qualifiers: Abdominal location: epigastric Qualified Code(s): R10.13 - Epigastric pain Is this a current diagnosis for this admission?: Yes (2) Intra-abdominal free air of unknown etiology Is this a current diagnosis for this admission?: Yes (3) Perforated gastric ulcer Is this a current diagnosis for this admission?: Yes (4) Hypertension Is this a current diagnosis for this admission?: Yes (5) Anxiety Is this a current diagnosis for this admission?: Yes (6) Hypokalemia Is this a current diagnosis for this admission?: Yes - Plan Summary Summary: 12/17/2019 On 12/14/2019 patient had exploratory laparotomy with biopsy of gastric ulcer, oversewing of gastric ulcer, omental flap and patch of antral ulcer Patient has done well from surgery, normal postoperative pain Patient still not passing any flatus with NG tube in place Vital signs temperature 97.9 pulse 95 blood pressure 156/80 Patient currently on IV Ancef and Flagyl IV Dilaudid for pain Lactated Ringer's running at 75/h Chemistry panel shows persistent low potassium 3.2 Will add 2K riders recheck labs in the morning 12/18/2019 Temperature 98.8 pulse 90 blood pressure 109/47 On admission her white count was 17,500 today it is 8500 Potassium is remaining low at 3.2. Called pharmacy today and she is going to get 20 mEq and a K rider x2. Patient is not taking p.o.'s, repeat labs in the morning Patient has 1 out of 4 blood culture bottles growing contaminant Upper GI study shows no leakage of contrast Surgery is advancing patient's activities 12/19/19 Vital signs revealed temperature 98.6 x72 hours Pulse is in the 90 Blood pressure 157/82 for the last 72 hours Because of patient's consistent elevated blood pressure and heart rate I have added IV metoprolol every 6 hours Patient was on multiple medications prior to surgery and cannot take p.o.'s at this time. Specifically the Lopressor 50 mg every 12 hours as well as antianxiety medicine. I am also going to add a very low-dose of IV Ativan, she was on the Zoloft and BuSpar and Xanax prior to surgery. Will watch for sedation Patient is getting lactated Ringer's at 75 mL's per hour White count is still normal at 7300 Chemistry panel is normal, potassium is come up to 3.4, I am going to add a standing order of 20 mEq IV every 12 hours Patient states she still has not passed any flatus 12/20/2019 General surgery and I have spoken about patient. Appreciate general surgery's outline and plan. Wait for patient to start passing flatus on a regular basis then the NG tube will be DC'd Patient has been off of IV antibiotics now x48 hours still afebrile still normal white count Till patient is taking p.o.'s I am going to give her 20 mEq of KCl every 12 hours IV Patient is on a very low dose of Dilaudid IV as needed, going to space this out to every 8 hours as needed to see if she will be up and more active and possibly start passing gas as a result of less narcotics. 12/21/2019 Temperature 97.8 pulse between 86 and 121 Blood pressure sometimes up earlier 176/89 then 146/67. On average patient is tending to run higher than normal blood pressures. I a.m. going to increase her Lopressor to 5 mg IV every 6 hours scheduled. This should help her heart rate as well as her blood pressures Surgery is managing her postop course, day #7 Patient was admitted for perforated gastric ulcer Will repeat her labs in the morning, doing this now about every third day 12/22/2019 Following general surgery's lead I have DC'd her IV Ativan and switched her back over to her BuSpar that she was taking before she was admitted. According to the chart she was on 30 mg twice daily and have started her back at 15 twice daily I a.m. also going to order her Lopressor 50 mg p.o. every 12 hours She asked me why I changed her pain medication and yesterday I decreased her Dilaudid from every 4 hours to every 8 hours, however I did not lower the dose. General surgery has added p.o. analgesics as well as other p.o. meds Patient had a bowel movement yesterday Ready to start looking for fdc facility placement - Time Time Spent with patient: 25-34 minutes
[2019-12-22] MEDS: PANTOPRAZOLE SODIUM 40 MG TABLET.DR PO SCH (12:07)
[2019-12-22] MEDS: BUSPIRONE HCL 10 MG TABLET PO SCH ×2 (12:07→21:03)
[2019-12-22] MEDS: SUCRALFATE 1 GM TABLET PO SCH ×3 (12:09→21:04)
[2019-12-22] MEDS: HYDROCODONE/ACETAMINOPHEN 10-325 MG TABLET PO PRN ×2 (18:15→23:40)
[2019-12-22] MEDS: DOCUSATE SODIUM 100 MG CAPSULE PO SCH (18:15)
[2019-12-22 18:40] LABS: ANION GAP 8 (5-19); BLOOD UREA NITROGEN 4 mg/dL (7-20); CALCIUM 8.1 mg/dL (8.4-10.2); CARBON DIOXIDE 30 mmol/L (22-30); CHLORIDE 97 mmol/L (98-107); GLUCOSE 111 mg/dL (75-110)
[2019-12-22 18:46] LABS: POTASSIUM 2.8 mmol/L (3.6-5.0)
[2019-12-22] MEDS ORDERED: POTASSIUM CHLORIDE 20 MEQ/50 ML RTU IV ONE (20:00)
[2019-12-22] MEDS: METOPROLOL TARTRATE 50 MG TABLET PO SCH (21:04)
[2019-12-23] MEDS: PANTOPRAZOLE SODIUM 40 MG TABLET.DR PO SCH (05:32)
[2019-12-23] MEDS: HYDROCODONE/ACETAMINOPHEN 10-325 MG TABLET PO PRN ×3 (05:32→20:14)
[2019-12-23] MEDS ORDERED: POTASSIUM CHLORIDE 20 MEQ/50 ML RTU IV SCH (06:00)
[2019-12-23 08:54] LABS: BLOOD UREA NITROGEN 5 mg/dL (7-20); GLUCOSE 91 mg/dL (75-110)
[2019-12-23 09:00] LABS: CARBON DIOXIDE 30 mmol/L (22-30)
[2019-12-23 09:11] LABS: CHLORIDE 101 mmol/L (98-107)
[2019-12-23 09:14] LABS: ANION GAP 4 (5-19); POTASSIUM 4.1 mmol/L (3.6-5.0)
[2019-12-23] MEDS: DOCUSATE SODIUM 100 MG CAPSULE PO SCH ×2 (09:21→18:28)
[2019-12-23] MEDS: BUSPIRONE HCL 10 MG TABLET PO SCH ×2 (09:21→23:03)
[2019-12-23] MEDS: SUCRALFATE 1 GM TABLET PO SCH ×4 (09:21→23:04)
[2019-12-23] MEDS: ENOXAPARIN SODIUM INJ 40 MG/0.4 ML DISP.SYRIN SUBCUT SCH (09:21)
[2019-12-23] MEDS: METOPROLOL TARTRATE 50 MG TABLET PO SCH ×2 (09:21→23:03)
[2019-12-23] MEDS: ALBUTEROL SULFATE HFA (90 MCG/PUFF) 200 PUFF/8.5 GM MDI IH SCH ×4 (09:22→23:05)
--- NOTE | 2019-12-23 10:14 | PDOC PROGRESS REPORT ---
Subjective Progress Note for:: 12/23/19 Reason For Visit: PERFORATED GASTRIC ULCER Physical Exam Vital Signs: Temp Pulse Resp BP Pulse Ox 97.9 F 68 18 146/61 H 99 12/23/19 02:00 12/23/19 07:00 12/23/19 02:00 12/23/19 02:00 12/23/19 02:00 Intake & Output 12/22/19 12/23/19 12/24/19 06:59 06:59 06:59 Intake Total 1020 1825 50 Output Total 20 90 Balance 1000 1735 50 Weight 60.9 kg 61 kg Results Laboratory Results: 12/22/19 07:31 12/23/19 07:57 12/22/19 12/23/19 18:00 07:57 Sodium 134.8 L 134.9 L Potassium 2.8 L* 4.1 D Chloride 97 L 101 Carbon Dioxide 30 30 Anion Gap 8 4 L BUN 4 L 5 L Creatinine 0.37 L 0.32 L Est GFR ( Amer) > 60 > 60 Glucose 111 H 91 Calcium 8.1 L 8.0 L 12/15/19 04:52 Troponin I < 0.012 Impressions: Chest X-Ray 12/14/19 14:37 IMPRESSION: Left basilar opacity with left pleural effusion. No finding on the current study to indicate free air in the abdomen. SUPPORT DEVICE(S) IN EXPECTED LOCATIONS. KUB X-Ray 12/14/19 21:00 IMPRESSION: 1. Nasogastric tube tip is in the body the stomach. 2. Drain overlies left abdomen, terminating in the mid upper abdomen as on prior exam. Midline skin elmer are noted. 3. No bowel distention. Upper GI Series-Limited 12/18/19 00:00 IMPRESSION: NO EVIDENCE OF EXTRAVASATION OR LEAK OF CONTRAST. POSTOPERATIVE EDEMA ALONG THE ANTERIOR ASPECT OF THE ANTRUM OF THE STOMACH. STUDY LIMITED DUE TO POOR MOBILITY ON THE PART OF THE PATIENT. Assessment & Plan - Diagnosis (1) Pneumoperitoneum Is this a current diagnosis for this admission?: Yes (2) Abdominal pain Qualifiers: Abdominal location: epigastric Qualified Code(s): R10.13 - Epigastric pain Is this a current diagnosis for this admission?: Yes - Plan Summary Plan Summary: 74 y/o F s/p laparotomy for perforated gastric ulcer. She has no complaints today. She denies nausea or vomiting. Continue with oral pain meds, carafate, and oral protonix. Advance to regular diet. Leave ANTONIO drain in-place for now. Per the nursing staff, the patient is refusing to use her incentive spirometer or get out of bed and ambulate. I have expressed my extreme concern regarding this. The patient is at high risk for pneumonia if she does not ambulate, sit up in a chair, and use her incentive spirometer. The patient was ambulatory prior to her hospitalization, and there is no reason that she should be non- ambulatory now. I have discussed this with the patient at length. She verbally expressed understanding. Discharge planning. SNF versus home with home health.
--- NOTE | 2019-12-23 13:43 | PDOC PROGRESS REPORT ---
Subjective Progress Note for:: 12/23/19 Reason For Visit: PERFORATED GASTRIC ULCER 12/23/2019 Perforated gastric ulcer, abdominal pain, anxiety, chronic pain, hypertension Physical Exam Vital Signs: Temp Pulse Resp BP Pulse Ox 97.9 F 68 18 146/61 H 99 12/23/19 02:00 12/23/19 07:00 12/23/19 02:00 12/23/19 02:00 12/23/19 02:00 Intake & Output 12/22/19 12/23/19 12/24/19 06:59 06:59 06:59 Intake Total 1020 1825 50 Output Total 20 90 Balance 1000 1735 50 Weight 60.9 kg 61 kg General appearance: PRESENT: mild distress, other - Patient sitting up in a chair, first time I have seen her up out of bed since surgery Respiratory exam: PRESENT: clear to auscultation tim. ABSENT: rales, rhonchi, wheezes Cardiovascular exam: PRESENT: RRR. ABSENT: diastolic murmur, rubs, systolic murmur Neurological exam: PRESENT: alert, awake, oriented to person, oriented to place, oriented to time, oriented to situation, CN II-XII grossly intact. ABSENT: motor sensory deficit Psychiatric exam: PRESENT: appropriate affect, normal mood. ABSENT: homicidal ideation, suicidal ideation Results Laboratory Results: 12/22/19 07:31 12/23/19 07:57 12/22/19 12/23/19 18:00 07:57 Sodium 134.8 L 134.9 L Potassium 2.8 L* 4.1 D Chloride 97 L 101 Carbon Dioxide 30 30 Anion Gap 8 4 L BUN 4 L 5 L Creatinine 0.37 L 0.32 L Est GFR ( Amer) > 60 > 60 Glucose 111 H 91 Calcium 8.1 L 8.0 L 12/15/19 04:52 Troponin I < 0.012 Impressions: Chest X-Ray 12/14/19 14:37 IMPRESSION: Left basilar opacity with left pleural effusion. No finding on the current study to indicate free air in the abdomen. SUPPORT DEVICE(S) IN EXPECTED LOCATIONS. KUB X-Ray 12/14/19 21:00 IMPRESSION: 1. Nasogastric tube tip is in the body the stomach. 2. Drain overlies left abdomen, terminating in the mid upper abdomen as on prior exam. Midline skin elmer are noted. 3. No bowel distention. Upper GI Series-Limited 12/18/19 00:00 IMPRESSION: NO EVIDENCE OF EXTRAVASATION OR LEAK OF CONTRAST. POSTOPERATIVE EDEMA ALONG THE ANTERIOR ASPECT OF THE ANTRUM OF THE STOMACH. STUDY LIMITED DUE TO POOR MOBILITY ON THE PART OF THE PATIENT. Assessment and Plan - Diagnosis (1) Abdominal pain Qualifiers: Abdominal location: epigastric Qualified Code(s): R10.13 - Epigastric pain Is this a current diagnosis for this admission?: Yes (2) Intra-abdominal free air of unknown etiology Is this a current diagnosis for this admission?: Yes (3) Perforated gastric ulcer Is this a current diagnosis for this admission?: Yes (4) Hypertension Is this a current diagnosis for this admission?: Yes (5) Anxiety Is this a current diagnosis for this admission?: Yes (6) Hypokalemia Is this a current diagnosis for this admission?: Yes - Plan Summary Summary: 12/17/2019 On 12/14/2019 patient had exploratory laparotomy with biopsy of gastric ulcer, oversewing of gastric ulcer, omental flap and patch of antral ulcer Patient has done well from surgery, normal postoperative pain Patient still not passing any flatus with NG tube in place Vital signs temperature 97.9 pulse 95 blood pressure 156/80 Patient currently on IV Ancef and Flagyl IV Dilaudid for pain Lactated Ringer's running at 75/h Chemistry panel shows persistent low potassium 3.2 Will add 2K riders recheck labs in the morning 12/18/2019 Temperature 98.8 pulse 90 blood pressure 109/47 On admission her white count was 17,500 today it is 8500 Potassium is remaining low at 3.2. Called pharmacy today and she is going to get 20 mEq and a K rider x2. Patient is not taking p.o.'s, repeat labs in the morning Patient has 1 out of 4 blood culture bottles growing contaminant Upper GI study shows no leakage of contrast Surgery is advancing patient's activities 12/19/19 Vital signs revealed temperature 98.6 x72 hours Pulse is in the 90 Blood pressure 157/82 for the last 72 hours Because of patient's consistent elevated blood pressure and heart rate I have added IV metoprolol every 6 hours Patient was on multiple medications prior to surgery and cannot take p.o.'s at this time. Specifically the Lopressor 50 mg every 12 hours as well as antianxiety medicine. I am also going to add a very low-dose of IV Ativan, she was on the Zoloft and BuSpar and Xanax prior to surgery. Will watch for sedation Patient is getting lactated Ringer's at 75 mL's per hour White count is still normal at 7300 Chemistry panel is normal, potassium is come up to 3.4, I am going to add a st anding order of 20 mEq IV every 12 hours Patient states she still has not passed any flatus 12/20/2019 General surgery and I have spoken about patient. Appreciate general surgery's outline and plan. Wait for patient to start passing flatus on a regular basis then the NG tube will be DC'd Patient has been off of IV antibiotics now x48 hours still afebrile still normal white count Till patient is taking p.o.'s I am going to give her 20 mEq of KCl every 12 hours IV Patient is on a very low dose of Dilaudid IV as needed, going to space this out to every 8 hours as needed to see if she will be up and more active and possibly start passing gas as a result of less narcotics. 12/21/2019 Temperature 97.8 pulse between 86 and 121 Blood pressure sometimes up earlier 176/89 then 146/67. On average patient is tending to run higher than normal blood pressures. I a.m. going to increase her Lopressor to 5 mg IV every 6 hours scheduled. This should help her heart rate as well as her blood pressures Surgery is managing her postop course, day #7 Patient was admitted for perforated gastric ulcer Will repeat her labs in the morning, doing this now about every third day 12/22/2019 Following general surgery's lead I have DC'd her IV Ativan and switched her back over to her BuSpar that she was taking before she was admitted. According to the chart she was on 30 mg twice daily and have started her back at 15 twice daily I a.m. also going to order her Lopressor 50 mg p.o. every 12 hours She asked me why I changed her pain medication and yesterday I decreased her Dilaudid from every 4 hours to every 8 hours, however I did not lower the dose. General surgery has added p.o. analgesics as well as other p.o. meds Patient had a bowel movement yesterday Ready to start looking for care home facility placement 12/23/2019 Blood pressure appears to be stabilized and lower, 146/61 pulse is 70 and regular Oxygen saturation is 99% on 2 L nasal cannula White blood cell count has remained normal now for several days 8.6, Potassium is come up to 4.1, will DC IV potassium supplements and change to 20 mEq p.o. daily , renal functions are stable Patient is sitting up in a chair which is the first time of seeing her up out of bed since surgery. Patient is waiting for care home facility placement for continued physical therapy and rehab. May take longer than usual due to nursing homes not accepting patients due to COVID virus. Patient is medically stable for discharge - Time Time Spent with patient: 25-34 minutes
[2019-12-24] MEDS: PANTOPRAZOLE SODIUM 40 MG TABLET.DR PO SCH (05:06)
[2019-12-24] MEDS: HYDROCODONE/ACETAMINOPHEN 10-325 MG TABLET PO PRN ×4 (05:06→21:26)
[2019-12-24] MEDS: SUCRALFATE 1 GM TABLET PO SCH ×4 (08:24→21:26)
[2019-12-24] MEDS: DOCUSATE SODIUM 100 MG CAPSULE PO SCH ×2 (09:32→18:08)
[2019-12-24] MEDS: BUSPIRONE HCL 10 MG TABLET PO SCH ×2 (09:32→21:27)
[2019-12-24] MEDS: POTASSIUM CHLORIDE 10 MEQ TABLET.ER PO SCH (09:32)
[2019-12-24] MEDS: METOPROLOL TARTRATE 50 MG TABLET PO SCH ×2 (09:32→21:27)
[2019-12-24] MEDS: ENOXAPARIN SODIUM INJ 40 MG/0.4 ML DISP.SYRIN SUBCUT SCH (09:33)
--- NOTE | 2019-12-24 10:11 | PDOC PROGRESS REPORT ---
Subjective Progress Note for:: 12/24/19 Subjective:: Some pain in her abdomen but tolerating solids. Had a bowel movement Reason For Visit: PERFORATED GASTRIC ULCER Physical Exam Vital Signs: Temp Pulse Resp BP Pulse Ox 98.0 F 60 17 128/74 H 99 12/24/19 00:55 12/24/19 07:00 12/24/19 00:55 12/24/19 00:55 12/24/19 00:55 Intake & Output 12/23/19 12/24/19 12/25/19 06:59 06:59 06:59 Intake Total 1825 290 Output Total 90 20 Balance 1735 270 Weight 61 kg 60.3 kg 60.3 kg General appearance: PRESENT: no acute distress, cooperative Respiratory exam: PRESENT: wheezes Cardiovascular exam: PRESENT: RRR GI/Abdominal exam: PRESENT: other - Soft, nondistended, mild diffuse tenderness without peritoneal signs. Wound clean dry and intact without erythema. Drain output is serosanguineous. Musculoskeletal exam: PRESENT: other - No swelling and no tenderness Neurological exam: PRESENT: alert, awake Results Laboratory Results: 12/22/19 07:31 12/23/19 07:57 12/15/19 04:52 Troponin I < 0.012 Impressions: Chest X-Ray 12/14/19 14:37 IMPRESSION: Left basilar opacity with left pleural effusion. No finding on the current study to indicate free air in the abdomen. SUPPORT DEVICE(S) IN EXPECTED LOCATIONS. KUB X-Ray 12/14/19 21:00 IMPRESSION: 1. Nasogastric tube tip is in the body the stomach. 2. Drain overlies left abdomen, terminating in the mid upper abdomen as on prior exam. Midline skin elmer are noted. 3. No bowel distention. Upper GI Series-Limited 12/18/19 00:00 IMPRESSION: NO EVIDENCE OF EXTRAVASATION OR LEAK OF CONTRAST. POSTOPERATIVE EDEMA ALONG THE ANTERIOR ASPECT OF THE ANTRUM OF THE STOMACH. STUDY LIMITED DUE TO POOR MOBILITY ON THE PART OF THE PATIENT. Assessment & Plan - Diagnosis (1) Perforated gastric ulcer Qualifiers: Gastric ulcer chronicity: acute Qualified Code(s): K25.1 - Acute gastric ulcer with perforation Is this a current diagnosis for this admission?: Yes Plan: Status post Chris patch. Patient looks reasonably well. Encourage ambulation. Will start albuterol nebulizer treatment for her wheezing. Awaiting placement.
--- NOTE | 2019-12-24 10:13 | PDOC PROGRESS REPORT ---
Subjective Progress Note for:: 12/24/19 Subjective:: 74-year-old female with history of COPD and a recent admission for pneumonia, hypertension admitted yesterday for a severe stabbing epigastric abdominal pain found to have a perforated gastric ulcer status post surgery was done. Patient still on NG tube and ice chips. Patient is successfully extubated after the surgery. Patient is comfortable in the bed communicating well. Not in distress. 12/16/2019-patient is comfortable in the bed communicating well. NG tube still in place. Still n.p.o. Not passing gas at this time. Serum potassium is 3.2 which is going to be supplemented. 12/24/2019 patient is still complaining of abdominal pain. Surgery is doing the follow-up. On examination bilateral mild wheezing is present to start on nebulizer treatments on as-needed basis. And is expressing desire to go home once stable. Reason For Visit: PERFORATED GASTRIC ULCER Physical Exam Vital Signs: Temp Pulse Resp BP Pulse Ox 98.0 F 60 17 128/74 H 99 12/24/19 00:55 12/24/19 07:00 12/24/19 00:55 12/24/19 00:55 12/24/19 00:55 Intake & Output 12/23/19 12/24/19 12/25/19 06:59 06:59 06:59 Intake Total 1825 290 Output Total 90 20 Balance 1735 270 Weight 61 kg 60.3 kg 60.3 kg General appearance: PRESENT: mild distress, thin Head exam: PRESENT: atraumatic Eye exam: PRESENT: PERRLA Mouth exam: PRESENT: moist, tongue midline Teeth exam: PRESENT: poor dentation Neck exam: ABSENT: carotid bruit, JVD, lymphadenopathy, thyromegaly Respiratory exam: PRESENT: decreased breath sounds Cardiovascular exam: PRESENT: RRR. ABSENT: diastolic murmur, rubs, systolic murmur GI/Abdominal exam: PRESENT: other - c/o of generalized tenderness and guarding on gentle palpation. Surgical site is clean elmer still present. Rectal exam: PRESENT: deferred Neurological exam: PRESENT: alert, awake, oriented to person, oriented to place, oriented to time, oriented to situation, CN II-XII grossly intact. ABSENT: motor sensory deficit Psychiatric exam: PRESENT: appropriate affect, normal mood. ABSENT: homicidal ideation, suicidal ideation Results Laboratory Results: 12/22/19 07:31 12/23/19 07:57 12/15/19 04:52 Troponin I < 0.012 Impressions: Chest X-Ray 12/14/19 14:37 IMPRESSION: Left basilar opacity with left pleural effusion. No finding on the current study to indicate free air in the abdomen. SUPPORT DEVICE(S) IN EXPECTED LOCATIONS. KUB X-Ray 12/14/19 21:00 IMPRESSION: 1. Nasogastric tube tip is in the body the stomach. 2. Drain overlies left abdomen, terminating in the mid upper abdomen as on prior exam. Midline skin elmer are noted. 3. No bowel distention. Upper GI Series-Limited 12/18/19 00:00 IMPRESSION: NO EVIDENCE OF EXTRAVASATION OR LEAK OF CONTRAST. POSTOPERATIVE EDEMA ALONG THE ANTERIOR ASPECT OF THE ANTRUM OF THE STOMACH. STUDY LIMITED DUE TO POOR MOBILITY ON THE PART OF THE PATIENT. Assessment and Plan - Diagnosis (1) Abdominal pain Qualifiers: Qualified Code(s): R10.13 - Epigastric pain Is this a current diagnosis for this admission?: Yes Plan: 12/16/2019-patient admitted with abdominal pain found to have perforated gastric ulcer status post surgery. Patient still have NG tube and drainage tube present in the abdomen. Dressing present over the surgical site. No bowel movements. Of tenderness of the abdomen, generalized abdominal on gentle palpation. 08/24/2020-patient is still complaining of abdominal pain on examination surgical site is clean with elmer. Surgery is doing the follow-up. (2) Perforated gastric ulcer Is this a current diagnosis for this admission?: Yes Plan: 12/16/2019-patient admitted with perforated gastric ulcer status post surgery on 12/14/2019. Still have the NG tube patient is presently n.p.o. and bowel sounds are absent on examination. Dressing is present over the surgical wound and drainage ANTONIO still present. 2119-patient admitted with a perforated gastric ulcer status post surgery on 12/14/2019. She is having the bowel movements but still complaining of generalized abdominal pain. (3) Hypokalemia Is this a current diagnosis for this admission?: Yes - Plan Summary Summary: 12/17/2019 On 12/14/2019 patient had exploratory laparotomy with biopsy of gastric ulcer, oversewing of gastric ulcer, omental flap and patch of antral ulcer Patient has done well from surgery, normal postoperative pain Patient still not passing any flatus with NG tube in place Vital signs temperature 97.9 pulse 95 blood pressure 156/80 Patient currently on IV Ancef and Flagyl IV Dilaudid for pain Lactated Ringer's running at 75/h Chemistry panel shows persistent low potassium 3.2 Will add 2K riders recheck labs in the morning 12/18/2019 Temperature 98.8 pulse 90 blood pressure 109/47 On admission her white count was 17,500 today it is 8500 Potassium is remaining low at 3.2. Called pharmacy today and she is going to get 20 mEq and a K rider x2. Patient is not taking p.o.'s, repeat labs in the morning Patient has 1 out of 4 blood culture bottles growing contaminant Upper GI study shows no leakage of contrast Surgery is advancing patient's activities 12/19/19 Vital signs revealed temperature 98.6 x72 hours Pulse is in the 90 Blood pressure 157/82 for the last 72 hours Because of patient's consistent elevated blood pressure and heart rate I have added IV metoprolol every 6 hours Patient was on multiple medications prior to surgery and cannot take p.o.'s at this time. Specifically the Lopressor 50 mg every 12 hours as well as antianxiety medicine. I am also going to add a very low-dose of IV Ativan, she was on the Zoloft and BuSpar and Xanax prior to surgery. Will watch for sedation Patient is getting lactated Ringer's at 75 mL's per hour White count is still normal at 7300 Chemistry panel is normal, potassium is come up to 3.4, I am going to add a standing order of 20 mEq IV every 12 hours Patient states she still has not passed any flatus 12/20/2019 General surgery and I have spoken about patient. Appreciate general surgery's outline and plan. Wait for patient to start passing flatus on a regular basis then the NG tube will be DC'd Patient has been off of IV antibiotics now x48 hours still afebrile still normal white count Till patient is taking p.o.'s I am going to give her 20 mEq of KCl every 12 hours IV Patient is on a very low dose of Dilaudid IV as needed, going to space this out to every 8 hours as needed to see if she will be up and more active and possibly start passing gas as a result of less narcotics. 12/21/2019 Temperature 97.8 pulse between 86 and 121 Blood pressure sometimes up earlier 176/89 then 146/67. On average patient is tending to run higher than normal blood pressures. I a.m. going to increase her Lopressor to 5 mg IV every 6 hours scheduled. This should help her heart rate as well as her blood pressures Surgery is managing her postop course, day #7 Patient was admitted for perforated gastric ulcer Will repeat her labs in the morning, doing this now about every third day 12/22/2019 Following general surgery's lead I have DC'd her IV Ativan and switched her back over to her BuSpar that she was taking before she was admitted. According to the chart she was on 30 mg twice daily and have started her back at 15 twice daily I a.m. also going to order her Lopressor 50 mg p.o. every 12 hours She asked me why I changed her pain medication and yesterday I decreased her Dilaudid from every 4 hours to every 8 hours, however I did not lower the dose. General surgery has added p.o. analgesics as well as other p.o. meds Patient had a bowel movement yesterday Ready to start looking for [facility] facility placement 12/23/2019 Blood pressure appears to be stabilized and lower, 146/61 pulse is 70 and regular Oxygen saturation is 99% on 2 L nasal cannula White blood cell count has remained normal now for several days 8.6, Potassium is come up to 4.1, will DC IV potassium supplements and change to 20 mEq p.o. daily , renal functions are stable Patient is sitting up in a chair which is the first time of seeing her up out of bed since surgery. Patient is waiting for [facility] facility placement for continued physical therapy and rehab. May take longer than usual due to nursing homes not accepting patients due to COVID virus. Patient is medically stable for discharge
[2019-12-24] MEDS ORDERED: NORMAL SALINE FOR INHALATION 5 ML VIAL.NEB IH ONE (11:30)
[2019-12-24] MEDS ORDERED: ALBUTEROL SULFATE 0.042% NEB (1.25 MG/3 ML) AMPUL NEB ONE (11:30)
[2019-12-24] MEDS: ALBUTEROL SULFATE HFA (90 MCG/PUFF) 200 PUFF/8.5 GM MDI IH SCH ×4 (11:33→21:28)
[2019-12-25] MEDS: PANTOPRAZOLE SODIUM 40 MG TABLET.DR PO SCH ×2 (05:56→06:38)
[2019-12-25] MEDS: HYDROCODONE/ACETAMINOPHEN 10-325 MG TABLET PO PRN ×3 (06:37→18:26)
[2019-12-25] MEDS: SUCRALFATE 1 GM TABLET PO SCH ×4 (07:45→22:26)
--- NOTE | 2019-12-25 09:01 | PDOC PROGRESS REPORT ---
Subjective Progress Note for:: 12/24/19 Subjective:: 74-year-old female with history of COPD and a recent admission for pneumonia, hypertension admitted yesterday for a severe stabbing epigastric abdominal pain found to have a perforated gastric ulcer status post surgery was done. Patient still on NG tube and ice chips. Patient is successfully extubated after the surgery. Patient is comfortable in the bed communicating well. Not in distress. 12/16/2019-patient is comfortable in the bed communicating well. NG tube still in place. Still n.p.o. Not passing gas at this time. Serum potassium is 3.2 which is going to be supplemented. 12/24/2019 patient is still complaining of abdominal pain. Surgery is doing the follow-up. On examination bilateral mild wheezing is present to start on nebulizer treatments on as-needed basis. And is expressing desire to go home once stable. 12/25/2019-patient is comfortable in the bed but complaining of abdominal pain. Able to tolerate the diet. No acute events in the last 24 hours and afebrile. Reason For Visit: PERFORATED GASTRIC ULCER Physical Exam Vital Signs: Temp Pulse Resp BP Pulse Ox 98.1 F 70 16 126/55 H 97 12/25/19 08:00 12/25/19 08:00 12/25/19 08:00 12/25/19 08:00 12/25/19 08:00 Intake & Output 12/24/19 12/25/19 12/26/19 06:59 06:59 06:59 Intake Total 290 655 Output Total 20 15 Balance 270 640 Weight 60.3 kg 61 kg General appearance: PRESENT: no acute distress, thin Head exam: PRESENT: atraumatic Eye exam: PRESENT: PERRLA Mouth exam: PRESENT: moist, tongue midline Neck exam: ABSENT: carotid bruit, JVD, lymphadenopathy, thyromegaly Respiratory exam: PRESENT: decreased breath sounds Cardiovascular exam: PRESENT: RRR. ABSENT: diastolic murmur, rubs, systolic murmur GI/Abdominal exam: PRESENT: other - Surgical scar in the midline with elmer and drainage tube present. Complaining of tenderness on gentle palpation bowel sounds are present. Rectal exam: PRESENT: deferred Neurological exam: PRESENT: alert, awake, oriented to person, oriented to place, oriented to time, oriented to situation, CN II-XII grossly intact. ABSENT: motor sensory deficit Psychiatric exam: PRESENT: appropriate affect, normal mood. ABSENT: homicidal ideation, suicidal ideation Results Laboratory Results: 12/22/19 07:31 12/23/19 07:57 12/15/19 04:52 Troponin I < 0.012 Impressions: Chest X-Ray 12/14/19 14:37 IMPRESSION: Left basilar opacity with left pleural effusion. No finding on the current study to indicate free air in the abdomen. SUPPORT DEVICE(S) IN EXPECTED LOCATIONS. KUB X-Ray 12/14/19 21:00 IMPRESSION: 1. Nasogastric tube tip is in the body the stomach. 2. Drain overlies left abdomen, terminating in the mid upper abdomen as on prior exam. Midline skin elmer are noted. 3. No bowel distention. Upper GI Series-Limited 12/18/19 00:00 IMPRESSION: NO EVIDENCE OF EXTRAVASATION OR LEAK OF CONTRAST. POSTOPERATIVE EDEMA ALONG THE ANTERIOR ASPECT OF THE ANTRUM OF THE STOMACH. STUDY LIMITED DUE TO POOR MOBILITY ON THE PART OF THE PATIENT. Assessment and Plan - Diagnosis (1) Abdominal pain Qualifiers: Abdominal location: epigastric Qualified Code(s): R10.13 - Epigastric pain Is this a current diagnosis for this admission?: Yes Plan: 12/16/2019-patient admitted with abdominal pain found to have perforated gastric ulcer status post surgery. Patient still have NG tube and drainage tube present in the abdomen. Dressing present over the surgical site. No bowel movements. Of tenderness of the abdomen, generalized abdominal on gentle palpation. 12/24/2019-patient is still complaining of abdominal pain on examination surgical site is clean with elmer. Surgery is doing the follow-up. 12/25/19-patient is still complaining of abdominal pain on examination complaining of tenderness pain on gentle palpation surgical site is clean elmer are in place and drainage tube is still present. Patient may build to go home by tomorrow. (2) Perforated gastric ulcer Is this a current diagnosis for this admission?: Yes Plan: 12/16/2019-patient admitted with perforated gastric ulcer status post surgery on 12/14/2019. Still have the NG tube patient is presently n.p.o. and bowel sounds are absent on examination. Dressing is present over the surgical wound and drainage ANTONIO still present. 12/24/19-patient admitted with a perforated gastric ulcer status post surgery on 12/14/2019. She is having the bowel movements but still complaining of gene ralized abdominal pain. 12/25/19-patient admitted with a perforated gastric ulcer status post surgery on 12/14/2019 she still have the elmer in place and drain in place. Complaining of abdominal pains. Able to tolerate the diet well. Patient may able to go home in a day or 2. (3) Hypokalemia Is this a current diagnosis for this admission?: Yes Plan: 12/16/2019-serum potassium is 3.2 to give 40 mg of IV potassium. Hypokalemia most likely secondary to poor oral intake. 12/25/2019-serum potassium is 4.1 given potassium supplementations and hypokalemia is resolved. - Plan Summary Summary: 12/17/2019 On 12/14/2019 patient had exploratory laparotomy with biopsy of gastric ulcer, oversewing of gastric ulcer, omental flap and patch of antral ulcer Patient has done well from surgery, normal postoperative pain Patient still not passing any flatus with NG tube in place Vital signs temperature 97.9 pulse 95 blood pressure 156/80 Patient currently on IV Ancef and Flagyl IV Dilaudid for pain Lactated Ringer's running at 75/h Chemistry panel shows persistent low potassium 3.2 Will add 2K riders recheck labs in the morning 12/18/2019 Temperature 98.8 pulse 90 blood pressure 109/47 On admission her white count was 17,500 today it is 8500 Potassium is remaining low at 3.2. Called pharmacy today and she is going to get 20 mEq and a K rider x2. Patient is not taking p.o.'s, repeat labs in the morning Patient has 1 out of 4 blood culture bottles growing contaminant Upper GI study shows no leakage of contrast Surgery is advancing patient's activities 12/19/19 Vital signs revealed temperature 98.6 x72 hours Pulse is in the 90 Blood pressure 157/82 for the last 72 hours Because of patient's consistent elevated blood pressure and heart rate I have added IV metoprolol every 6 hours Patient was on multiple medications prior to surgery and cannot take p.o.'s at this time. Specifically the Lopressor 50 mg every 12 hours as well as antianxiety medicine. I am also going to add a very low-dose of IV Ativan, she was on the Zoloft and BuSpar and Xanax prior to surgery. Will watch for sedation Patient is getting lactated Ringer's at 75 mL's per hour White count is still normal at 7300 Chemistry panel is normal, potassium is come up to 3.4, I am going to add a standing order of 20 mEq IV every 12 hours Patient states she still has not passed any flatus 12/20/2019 General surgery and I have spoken about patient. Appreciate general surgery's outline and plan. Wait for patient to start passing flatus on a regular basis then the NG tube will be DC'd Patient has been off of IV antibiotics now x48 hours still afebrile still normal white count Till patient is taking p.o.'s I am going to give her 20 mEq of KCl every 12 hours IV Patient is on a very low dose of Dilaudid IV as needed, going to space this out to every 8 hours as needed to see if she will be up and more active and possibly start passing gas as a result of less narcotics. 12/21/2019 Temperature 97.8 pulse between 86 and 121 Blood pressure sometimes up earlier 176/89 then 146/67. On average patient is tending to run higher than normal blood pressures. I a.m. going to increase her Lopressor to 5 mg IV every 6 hours scheduled. This should help her heart rate as well as her blood pressures Surgery is managing her postop course, day #7 Patient was admitted for perforated gastric ulcer Will repeat her labs in the morning, doing this now about every third day 12/22/2019 Following general surgery's lead I have DC'd her IV Ativan and switched her back over to her BuSpar that she was taking before she was admitted. According to the chart she was on 30 mg twice daily and have started her back at 15 twice daily I a.m. also going to order her Lopressor 50 mg p.o. every 12 hours She asked me why I changed her pain medication and yesterday I decreased her Dilaudid from every 4 hours to every 8 hours, however I did not lower the dose. General surgery has added p.o. analgesics as well as other p.o. meds Patient had a bowel movement yesterday Ready to start looking for [facility] facility placement 12/23/2019 Blood pressure appears to be stabilized and lower, 146/61 pulse is 70 and regular Oxygen saturation is 99% on 2 L nasal cannula White blood cell count has remained normal now for several days 8.6, Potassium is come up to 4.1, will DC IV potassium supplements and change to 20 mEq p.o. daily , renal functions are stable Patient is sitting up in a chair which is the first time of seeing her up out of bed since surgery. Patient is waiting for [facility] facility placement f or continued physical therapy and rehab. May take longer than usual due to nursing homes not accepting patients due to COVID virus. Patient is medically stable for discharge
[2019-12-25] MEDS: POTASSIUM CHLORIDE 10 MEQ TABLET.ER PO SCH (09:15)
[2019-12-25] MEDS: BUSPIRONE HCL 10 MG TABLET PO SCH ×2 (09:15→22:25)
[2019-12-25] MEDS: DOCUSATE SODIUM 100 MG CAPSULE PO SCH ×2 (09:15→18:26)
[2019-12-25] MEDS: ENOXAPARIN SODIUM INJ 40 MG/0.4 ML DISP.SYRIN SUBCUT SCH (09:16)
[2019-12-25] MEDS: METOPROLOL TARTRATE 50 MG TABLET PO SCH ×2 (09:16→22:26)
--- NOTE | 2019-12-25 10:18 | PDOC PROGRESS REPORT ---
Subjective Progress Note for:: 12/25/19 Reason For Visit: PERFORATED GASTRIC ULCER Physical Exam Vital Signs: Temp Pulse Resp BP Pulse Ox 98.1 F 70 16 126/55 H 97 12/25/19 08:00 12/25/19 08:00 12/25/19 08:00 12/25/19 08:00 12/25/19 08:00 Intake & Output 12/24/19 12/25/19 12/26/19 06:59 06:59 06:59 Intake Total 290 655 Output Total 20 15 Balance 270 640 Weight 60.3 kg 61 kg Results Laboratory Results: 12/22/19 07:31 12/23/19 07:57 12/15/19 04:52 Troponin I < 0.012 Impressions: Chest X-Ray 12/14/19 14:37 IMPRESSION: Left basilar opacity with left pleural effusion. No finding on the current study to indicate free air in the abdomen. SUPPORT DEVICE(S) IN EXPECTED LOCATIONS. KUB X-Ray 12/14/19 21:00 IMPRESSION: 1. Nasogastric tube tip is in the body the stomach. 2. Drain overlies left abdomen, terminating in the mid upper abdomen as on prior exam. Midline skin elmer are noted. 3. No bowel distention. Upper GI Series-Limited 12/18/19 00:00 IMPRESSION: NO EVIDENCE OF EXTRAVASATION OR LEAK OF CONTRAST. POSTOPERATIVE EDEMA ALONG THE ANTERIOR ASPECT OF THE ANTRUM OF THE STOMACH. STUDY LIMITED DUE TO POOR MOBILITY ON THE PART OF THE PATIENT. Assessment & Plan - Diagnosis (1) Pneumoperitoneum Is this a current diagnosis for this admission?: Yes (2) Abdominal pain Qualifiers: Abdominal location: epigastric Qualified Code(s): R10.13 - Epigastric pain Is this a current diagnosis for this admission?: Yes - Plan Summary Plan Summary: This is a 74-year-old female status post laparotomy and repair of a perforated gastric ulcer. The patient has been refusing to ambulate or use her incentive spirometer, per the nursing staff. She is now refusing SNF placement. I have conveyed to her the importance of ambulation if she would like to return home (and avoid a stay at a snf facility). Ambulate in the hallways. Physical therapy. Aggressive pulmonary toilet. Home versus SNF once discharge planning is complete.
[2019-12-25] MEDS: ALBUTEROL SULFATE HFA (90 MCG/PUFF) 200 PUFF/8.5 GM MDI IH SCH ×4 (12:15→22:27)
[2019-12-25 19:18] LABS: ABSOLUTE EOSINOPHILS # (AUTO) 0.2 10^3/uL (0.0-0.6); ABSOLUTE LYMPHOCYTES (AUTO) 0.8 10^3/uL (0.5-4.7); ABSOLUTE MONOCYTES (AUTO) 0.5 10^3/uL (0.1-1.4); ABSOLUTE NEUT (AUTO) 8.3 10^3/uL (1.7-8.2); BASOPHILS % (AUTO) 0.4 % (0-2); EOSINOPHILS % (AUTO) 2.4 % (0-6); HEMATOCRIT 33.7 % (36.0-47.0); HEMOGLOBIN 11.3 g/dL (12.0-15.5); LYMPHOCYTES % (AUTO) 7.6 % (13-45); MEAN CORPUSCULAR HEMOGLOBIN 29.6 pg (27.0-33.4); MEAN CORPUSCULAR HGB CONC 33.6 g/dL (32.0-36.0); MEAN CORPUSCULAR VOLUME 88 fl (80-97); MONOCYTES % (AUTO) 5.2 % (3-13); PLATELET COUNT 449 10^3/uL (150-450); RED BLOOD COUNT 3.84 10^6/uL (3.72-5.28); SEGMENTED NEUTROPHILS % (AUTO) 84.4 % (42-78); TOTAL CELLS COUNTED % (AUTO) 100 %; WHITE BLOOD COUNT 9.8 10^3/uL (4.0-10.5)
[2019-12-25 19:41] LABS: ALBUMIN 2.9 g/dL (3.5-5.0); ALKALINE PHOSPHATASE 84 U/L (38-126); ANION GAP 7 (5-19); ASPARTATE AMINO TRANSFERASE 16 U/L (14-36); BILIRUBIN,TOTAL 0.4 mg/dL (0.2-1.3); BLOOD UREA NITROGEN 10 mg/dL (7-20); CALCIUM 8.4 mg/dL (8.4-10.2); CARBON DIOXIDE 29 mmol/L (22-30); CHLORIDE 99 mmol/L (98-107); GLUCOSE 112 mg/dL (75-110); POTASSIUM 3.4 mmol/L (3.6-5.0); TOTAL PROTEIN 5.8 g/dL (6.3-8.2)
[2019-12-26] MEDS: PANTOPRAZOLE SODIUM 40 MG TABLET.DR PO SCH (06:21)
[2019-12-26] MEDS: HYDROCODONE/ACETAMINOPHEN 10-325 MG TABLET PO PRN ×4 (06:21→19:35)
[2019-12-26] MEDS ORDERED: POTASSIUM CHLORIDE 10 MEQ TABLET.ER PO ONE (07:30)
[2019-12-26] MEDS ORDERED: MAGNESIUM OXIDE 400 MG TABLET PO ONE (07:30)
[2019-12-26] MEDS: SUCRALFATE 1 GM TABLET PO SCH ×4 (08:00→21:25)
--- NOTE | 2019-12-26 08:19 | PDOC PROGRESS REPORT ---
Subjective Progress Note for:: 12/26/19 Subjective:: 74-year-old female with history of COPD and a recent admission for pneumonia, hypertension admitted yesterday for a severe stabbing epigastric abdominal pain found to have a perforated gastric ulcer status post surgery was done. Patient still on NG tube and ice chips. Patient is successfully extubated after the surgery. Patient is comfortable in the bed communicating well. Not in distress. 12/16/2019-patient is comfortable in the bed communicating well. NG tube still in place. Still n.p.o. Not passing gas at this time. Serum potassium is 3.2 which is going to be supplemented. 12/24/2019 patient is still complaining of abdominal pain. Surgery is doing the follow-up. On examination bilateral mild wheezing is present to start on nebulizer treatments on as-needed basis. And is expressing desire to go home once stable. 12/25/2019-patient is comfortable in the bed but complaining of abdominal pain. Able to tolerate the diet. No acute events in the last 24 hours and afebrile. 12/26/19-patient is still complaining of abdominal pain. Surgical drain still in place. Surgical site is clean with elmer in place. Reason For Visit: PERFORATED GASTRIC ULCER Physical Exam Vital Signs: Temp Pulse Resp BP Pulse Ox 98.0 F 67 16 142/58 H 98 12/26/19 08:00 12/26/19 08:00 12/26/19 08:00 12/26/19 08:00 12/26/19 08:00 Intake & Output 12/25/19 12/26/19 12/27/19 06:59 06:59 06:59 Intake Total 655 365 Output Total 15 20 Balance 640 345 Weight 61 kg 58.8 kg General appearance: PRESENT: no acute distress, disheveled, thin Head exam: PRESENT: atraumatic Eye exam: PRESENT: PERRLA Mouth exam: PRESENT: moist, tongue midline Teeth exam: PRESENT: poor dentation Neck exam: ABSENT: carotid bruit, JVD, lymphadenopathy, thyromegaly Respiratory exam: PRESENT: decreased breath sounds Cardiovascular exam: PRESENT: RRR. ABSENT: diastolic murmur, rubs, systolic murmur GI/Abdominal exam: PRESENT: normal bowel sounds, soft. ABSENT: distended, guarding, mass, organolmegaly, rebound, tenderness Rectal exam: PRESENT: deferred Extremities exam: PRESENT: full ROM. ABSENT: calf tenderness, clubbing, pedal edema Neurological exam: PRESENT: alert, awake, oriented to person, oriented to place, oriented to time, oriented to situation, CN II-XII grossly intact. ABSENT: motor sensory deficit Psychiatric exam: PRESENT: appropriate affect, normal mood. ABSENT: homicidal ideation, suicidal ideation Results Laboratory Results: 12/25/19 19:07 12/25/19 19:07 12/25/19 12/25/19 19:07 19:07 WBC 9.8 RBC 3.84 Hgb 11.3 L Hct 33.7 L MCV 88 MCH 29.6 MCHC 33.6 RDW 14.0 Plt Count 449 Seg Neutrophils % 84.4 H Sodium 134.6 L Potassium 3.4 L Chloride 99 Carbon Dioxide 29 Anion Gap 7 BUN 10 Creatinine 0.39 L Est GFR ( Amer) > 60 Glucose 112 H Calcium 8.4 Magnesium 1.6 Total Bilirubin 0.4 AST 16 Alkaline Phosphatase 84 Total Protein 5.8 L Albumin 2.9 L 12/15/19 04:52 Troponin I < 0.012 Impressions: Chest X-Ray 12/14/19 14:37 IMPRESSION: Left basilar opacity with left pleural effusion. No finding on the current study to indicate free air in the abdomen. SUPPORT DEVICE(S) IN EXPECTED LOCATIONS. KUB X-Ray 12/14/19 21:00 IMPRESSION: 1. Nasogastric tube tip is in the body the stomach. 2. Drain overlies left abdomen, terminating in the mid upper abdomen as on prior exam. Midline skin elmer are noted. 3. No bowel distention. Upper GI Series-Limited 12/18/19 00:00 IMPRESSION: NO EVIDENCE OF EXTRAVASATION OR LEAK OF CONTRAST. POSTOPERATIVE EDEMA ALONG THE ANTERIOR ASPECT OF THE ANTRUM OF THE STOMACH. STUDY LIMITED DUE TO POOR MOBILITY ON THE PART OF THE PATIENT. Assessment and Plan - Diagnosis (1) Abdominal pain Qualifiers: Abdominal location: epigastric Qualified Code(s): R10.13 - Epigastric pain Is this a current diagnosis for this admission?: Yes Plan: 12/16/2019-patient admitted with abdominal pain found to have perforated gastric ulcer status post surgery. Patient still have NG tube and drainage tube present in the abdomen. Dressing present over the surgical site. No bowel movements. Of tenderness of the abdomen, generalized abdominal on gentle palpation. 12/24/2019-patient is still complaining of abdominal pain on examination surgical site is clean with elmer. Surgery is doing the follow-up. 12/25/19-patient is still complaining of abdominal pain on examination complaining of tenderness pain on gentle palpation surgical site is clean elmer are in place and drainage tube is still present. Patient may build to go home by tomorrow. 12/26/19-patient came in with complaints of abdominal pain secondary to perforated gastric ulcer status post surgery. Still complaining of abdominal pain pain scale of 3/10 this morning. (2) Perforated gastric ulcer Is this a current diagnosis for this admission?: Yes Plan: 12/16/2019-patient admitted with perforated gastric ulcer status post surgery on 12/14/2019. Still have the NG tube patient is presently n.p.o. and bowel sounds are absent on examination. Dressing is present over the surgical wound and drainage ANTONIO still present. 12/24/19-patient admitted with a perforated gastric ulcer status post surgery on 12/14/2019. She is having the bowel movements but still complaining of generalized abdominal pain. 12/25/19-patient admitted with a perforated gastric ulcer status post surgery on 12/14/2019 she still have the elmer in place and drain in place. Complaining of abdominal pains. Able to tolerate the diet well. Patient may able to go home in a day or 2. 12/26/19-drain is still in place surgical site is clean with elmer bowel sounds are present and still complaining of abdominal pain and palpation. (3) Hypokalemia Is this a current diagnosis for this admission?: Yes Plan: 12/16/2019-serum potassium is 3.2 to give 40 mg of IV potassium. Hypokalemia most likely secondary to poor oral intake. 12/25/2019-serum potassium is 4.1 given potassium supplementations and hypokalemia is resolved. 12/26/2019-serum potassium today is 3.4 to provide potassium supplementations. - Plan Summary Summary: 12/17/2019 On 12/14/2019 patient had exploratory laparotomy with biopsy of gastric ulcer, oversewing of gastric ulcer, omental flap and patch of antral ulcer Patient has done well from surgery, normal postoperative pain Patient still not passing any flatus with NG tube in place Vital signs temperature 97.9 pulse 95 blood pressure 156/80 Patient currently on IV Ancef and Flagyl IV Dilaudid for pain Lactated Ringer's running at 75/h Chemistry panel shows persistent low potassium 3.2 Will add 2K riders recheck labs in the morning 12/18/2019 Temperature 98.8 pulse 90 blood pressure 109/47 On admission her white count was 17,500 today it is 8500 Potassium is remaining low at 3.2. Called pharmacy today and she is going to get 20 mEq and a K rider x2. Patient is not taking p.o.'s, repeat labs in the morning Patient has 1 out of 4 blood culture bottles growing contaminant Upper GI study shows no leakage of contrast Surgery is advancing patient's activities 12/19/19 Vital signs revealed temperature 98.6 x72 hours Pulse is in the 90 Blood pressure 157/82 for the last 72 hours Because of patient's consistent elevated blood pressure and heart rate I have added IV metoprolol every 6 hours Patient was on multiple medications prior to surgery and cannot take p.o.'s at this time. Specifically the Lopressor 50 mg every 12 hours as well as antianxiety medicine. I am also going to add a very low-dose of IV Ativan, she was on the Zoloft and BuSpar and Xanax prior to surgery. Will watch for sedation Patient is getting lactated Ringer's at 75 mL's per hour White count is still normal at 7300 Chemistry panel is normal, potassium is come up to 3.4, I am going to add a standing order of 20 mEq IV every 12 hours Patient states she still has not passed any flatus 12/20/2019 General surgery and I have spoken about patient. Appreciate general surgery's outline and plan. Wait for patient to start passing flatus on a regular basis then the NG tube will be DC'd Patient has been off of IV antibiotics now x48 hours still afebrile still normal white count Till patient is taking p.o.'s I am going to give her 20 mEq of KCl every 12 hours IV Patient is on a very low dose of Dilaudid IV as needed, going to space this out to every 8 hours as needed to see if she will be up and more active and possibly start passing gas as a result of less narcotics. 12/21/2019 Temperature 97.8 pulse between 86 and 121 Blood pressure sometimes up earlier 176/89 then 146/67. On average patient is tending to run higher than normal blood pressures. I a.m. going to increase her Lopressor to 5 mg IV every 6 hours scheduled. This should help her heart rate as well as her blood pressures Surgery is managing her postop course, day #7 Patient was admitted for perforated gastric ulcer Will repeat her labs in the morning, doing this now about every third day 12/22/2019 Following general surgery's lead I have DC'd her IV Ativan and switched her back over to her BuSpar that she was taking before she was admitted. According to the chart she was on 30 mg twice daily and have started her back at 15 twice daily I a.m. also going to order her Lopressor 50 mg p.o. every 12 hours She asked me why I changed her pain medication and yesterday I decreased her Dilaudid from every 4 hours to every 8 hours, however I did not lower the dose. General surgery has added p.o. analgesics as well as other p.o. meds Patient had a bowel movement yesterday Ready to start looking for fdc facility placement 12/23/2019 Blood pressure appears to be stabilized and lower, 146/61 pulse is 70 and regular Oxygen saturation is 99% on 2 L nasal cannula White blood cell count has remained normal now for several days 8.6, Potassium is come up to 4.1, will DC IV potassium supplements and change to 20 mEq p.o. daily , renal functions are stable Patient is sitting up in a chair which is the first time of seeing her up out of bed since surgery. Patient is waiting for fdc facility placement for continued physical therapy and rehab. May take longer than usual due to [facility] due to [facility] virus. Patient is medically stable for discharge
--- NOTE | 2019-12-26 08:42 | PDOC PROGRESS REPORT ---
Subjective Progress Note for:: 12/26/19 Subjective:: Feels well. Tolerating a diet well. Reason For Visit: PERFORATED GASTRIC ULCER Physical Exam Vital Signs: Temp Pulse Resp BP Pulse Ox 98.0 F 67 16 142/58 H 98 12/26/19 08:00 12/26/19 08:00 12/26/19 08:00 12/26/19 08:00 12/26/19 08:00 Intake & Output 12/25/19 12/26/19 12/27/19 06:59 06:59 06:59 Intake Total 655 365 Output Total 15 20 Balance 640 345 Weight 61 kg 58.8 kg General appearance: PRESENT: no acute distress, cooperative Respiratory exam: PRESENT: clear to auscultation tim Cardiovascular exam: PRESENT: RRR GI/Abdominal exam: PRESENT: other - Soft, nondistended, mild diffuse abdominal tenderness without peritoneal signs. Drain output is serosanguineous. Wound is clean dry and intact with elmer. Extremities exam: PRESENT: other - No swelling and no tenderness Results Laboratory Results: 12/25/19 19:07 12/25/19 19:07 12/25/19 12/25/19 19:07 19:07 WBC 9.8 RBC 3.84 Hgb 11.3 L Hct 33.7 L MCV 88 MCH 29.6 MCHC 33.6 RDW 14.0 Plt Count 449 Seg Neutrophils % 84.4 H Sodium 134.6 L Potassium 3.4 L Chloride 99 Carbon Dioxide 29 Anion Gap 7 BUN 10 Creatinine 0.39 L Est GFR ( Amer) > 60 Glucose 112 H Calcium 8.4 Magnesium 1.6 Total Bilirubin 0.4 AST 16 Alkaline Phosphatase 84 Total Protein 5.8 L Albumin 2.9 L 12/15/19 04:52 Troponin I < 0.012 Impressions: Chest X-Ray 12/14/19 14:37 IMPRESSION: Left basilar opacity with left pleural effusion. No finding on the current study to indicate free air in the abdomen. SUPPORT DEVICE(S) IN EXPECTED LOCATIONS. KUB X-Ray 12/14/19 21:00 IMPRESSION: 1. Nasogastric tube tip is in the body the stomach. 2. Drain overlies left abdomen, terminating in the mid upper abdomen as on prior exam. Midline skin elmer are noted. 3. No bowel distention. Upper GI Series-Limited 12/18/19 00:00 IMPRESSION: NO EVIDENCE OF EXTRAVASATION OR LEAK OF CONTRAST. POSTOPERATIVE EDEMA ALONG THE ANTERIOR ASPECT OF THE ANTRUM OF THE STOMACH. STUDY LIMITED DUE TO POOR MOBILITY ON THE PART OF THE PATIENT. Assessment & Plan - Diagnosis (1) Perforated gastric ulcer Qualifiers: Gastric ulcer chronicity: acute Qualified Code(s): K25.1 - Acute gastric ulcer with perforation Is this a current diagnosis for this admission?: Yes Plan: Status post Chris patch. Patient looks good. Will await discharge planning's recommendation. DC drain and DC elmer and place Steri-Strips.
[2019-12-26] MEDS: METOPROLOL TARTRATE 50 MG TABLET PO SCH ×2 (09:11→21:25)
[2019-12-26] MEDS: BUSPIRONE HCL 10 MG TABLET PO SCH ×2 (09:11→21:25)
[2019-12-26] MEDS: POTASSIUM CHLORIDE 10 MEQ TABLET.ER PO SCH (09:11)
[2019-12-26] MEDS: ENOXAPARIN SODIUM INJ 40 MG/0.4 ML DISP.SYRIN SUBCUT SCH (09:11)
[2019-12-26] MEDS: DOCUSATE SODIUM 100 MG CAPSULE PO SCH ×2 (09:11→17:01)
[2019-12-26] MEDS: ALBUTEROL SULFATE HFA (90 MCG/PUFF) 200 PUFF/8.5 GM MDI IH SCH ×4 (09:12→21:26)
--- NOTE | 2019-12-26 13:53 | PDOC PROGRESS REPORT ---
Subjective Reason For Visit: PERFORATED GASTRIC ULCER Physical Exam Vital Signs: Temp Pulse Resp BP Pulse Ox 98.0 F 67 16 142/58 H 98 12/26/19 08:00 12/26/19 08:00 12/26/19 08:00 12/26/19 08:00 12/26/19 08:00 Intake & Output 12/25/19 12/26/19 12/27/19 06:59 06:59 06:59 Intake Total 655 365 Output Total 15 20 Balance 640 345 Weight 61 kg 58.8 kg Results Laboratory Results: 12/25/19 19:07 12/25/19 19:07 12/25/19 12/25/19 19:07 19:07 WBC 9.8 RBC 3.84 Hgb 11.3 L Hct 33.7 L MCV 88 MCH 29.6 MCHC 33.6 RDW 14.0 Plt Count 449 Seg Neutrophils % 84.4 H Sodium 134.6 L Potassium 3.4 L Chloride 99 Carbon Dioxide 29 Anion Gap 7 BUN 10 Creatinine 0.39 L Est GFR ( Amer) > 60 Glucose 112 H Calcium 8.4 Magnesium 1.6 Total Bilirubin 0.4 AST 16 Alkaline Phosphatase 84 Total Protein 5.8 L Albumin 2.9 L 12/15/19 04:52 Troponin I < 0.012 Impressions: Chest X-Ray 12/14/19 14:37 IMPRESSION: Left basilar opacity with left pleural effusion. No finding on the current study to indicate free air in the abdomen. SUPPORT DEVICE(S) IN EXPECTED LOCATIONS. KUB X-Ray 12/14/19 21:00 IMPRESSION: 1. Nasogastric tube tip is in the body the stomach. 2. Drain overlies left abdomen, terminating in the mid upper abdomen as on prior exam. Midline skin elmer are noted. 3. No bowel distention. Upper GI Series-Limited 12/18/19 00:00 IMPRESSION: NO EVIDENCE OF EXTRAVASATION OR LEAK OF CONTRAST. POSTOPERATIVE EDEMA ALONG THE ANTERIOR ASPECT OF THE ANTRUM OF THE STOMACH. STUDY LIMITED DUE TO POOR MOBILITY ON THE PART OF THE PATIENT. Assessment & Plan - Diagnosis (1) Perforated gastric ulcer Qualifiers: Gastric ulcer chronicity: acute Qualified Code(s): K25.1 - Acute gastric ulcer with perforation Is this a current diagnosis for this admission?: Yes Plan: Patient has been all set up to be transferred to retirement facility however patient refuses to go to a retirement facility. She wants to go home. She is alert and oriented but her son feels that she is not competent to make her own medical decisions. I will not transfer patient to a retirement home against her wishes if she is mentally competent. Discharge planning had serious concerns about her being able to take care of herself at home. Will obtain psychiatric evaluation to determine patient's mental c ompetence. In the meantime will continue to work with physical therapy.
--- NOTE | 2019-12-26 22:42 | PSYCHOLOGICAL NOTE ---
Psych Note - Psych Note Date seen by psych provider: 12/26/19 Time seen by psych provider: 18:40 Psych Note: Patient demonstrated some concern with orientation (needing questions to be rephrased before she understands) and significant concern with abstract and rational level thinking (she was unable to correctly answer any of these questions). Memory had some deficits but overall not severe. She did well with executive functioning, sequencing and switch, problem solving and safety questions. Patient states she would like to go to rehab now that she has talked to her son. She disclosed that she was nervous about going previously because of the "virus thing going around...I thought it would be better from me to heal at home...but I understand I need the help now." Overall the patient would benefit from the guidance of loved ones when making decisions (as supported by today the patient speaking with her son and now consenting to rehab). It is recommended for the patient to receive neuropsycholoigcal testing after rehab to get a clear picture of deficits and strengths to help the patient and family develop a future plan (ie MPOA vs legal guardian vs living will ect.).
[2019-12-27] MEDS: HYDROCODONE/ACETAMINOPHEN 10-325 MG TABLET PO PRN ×3 (04:48→13:17)
[2019-12-27] MEDS: PANTOPRAZOLE SODIUM 40 MG TABLET.DR PO SCH (05:20)
[2019-12-27] MEDS: SUCRALFATE 1 GM TABLET PO SCH ×2 (07:41→10:39)
--- NOTE | 2019-12-27 08:57 | PDOC DISCHARGE SUMMARY ---
General - Admit/Disc Date/PCP Admission Date/Primary Care Provider: 12/14/19 10:51 CARI RUBIO MD Discharge Date: 12/27/19 - Discharge Diagnosis Final Diagnosis: perforated gastric ulcer - Assessment Summary: 12/17/2019 On 12/14/2019 patient had exploratory laparotomy with biopsy of gastric ulcer, oversewing of gastric ulcer, omental flap and patch of antral ulcer Patient has done well from surgery, normal postoperative pain Patient still not passing any flatus with NG tube in place Vital signs temperature 97.9 pulse 95 blood pressure 156/80 Patient currently on IV Ancef and Flagyl IV Dilaudid for pain Lactated Ringer's running at 75/h Chemistry panel shows persistent low potassium 3.2 Will add 2K riders recheck labs in the morning 12/18/2019 Temperature 98.8 pulse 90 blood pressure 109/47 On admission her white count was 17,500 today it is 8500 Potassium is remaining low at 3.2. Called pharmacy today and she is going to get 20 mEq and a K rider x2. Patient is not taking p.o.'s, repeat labs in the morning Patient has 1 out of 4 blood culture bottles growing contaminant Upper GI study shows no leakage of contrast Surgery is advancing patient's activities 12/19/19 Vital signs revealed temperature 98.6 x72 hours Pulse is in the 90 Blood pressure 157/82 for the last 72 hours Because of patient's consistent elevated blood pressure and heart rate I have ad ded IV metoprolol every 6 hours Patient was on multiple medications prior to surgery and cannot take p.o.'s at this time. Specifically the Lopressor 50 mg every 12 hours as well as antianxiety medicine. I am also going to add a very low-dose of IV Ativan, she was on the Zoloft and BuSpar and Xanax prior to surgery. Will watch for sedation Patient is getting lactated Ringer's at 75 mL's per hour White count is still normal at 7300 Chemistry panel is normal, potassium is come up to 3.4, I am going to add a standing order of 20 mEq IV every 12 hours Patient states she still has not passed any flatus 12/20/2019 General surgery and I have spoken about patient. Appreciate general surgery's outline and plan. Wait for patient to start passing flatus on a regular basis then the NG tube will be DC'd Patient has been off of IV antibiotics now x48 hours still afebrile still normal white count Till patient is taking p.o.'s I am going to give her 20 mEq of KCl every 12 hours IV Patient is on a very low dose of Dilaudid IV as needed, going to space this out to every 8 hours as needed to see if she will be up and more active and possibly start passing gas as a result of less narcotics. 12/21/2019 Temperature 97.8 pulse between 86 and 121 Blood pressure sometimes up earlier 176/89 then 146/67. On average patient is tending to run higher than normal blood pressures. I a.m. going to increase her Lopressor to 5 mg IV every 6 hours scheduled. This should help her heart rate as well as her blood pressures Surgery is managing her postop course, day #7 Patient was admitted for perforated gastric ulcer Will repeat her labs in the morning, doing this now about every third day 12/22/2019 Following general surgery's lead I have DC'd her IV Ativan and switched her back over to her BuSpar that she was taking before she was admitted. According to the chart she was on 30 mg twice daily and have started her back at 15 twice daily I a.m. also going to order her Lopressor 50 mg p.o. every 12 hours She asked me why I changed her pain medication and yesterday I decreased her Dilaudid from every 4 hours to every 8 hours, however I did not lower the dose. General surgery has added p.o. analgesics as well as other p.o. meds Patient had a bowel movement yesterday Ready to start looking for nursing home facility placement 12/23/2019 Blood pressure appears to be stabilized and lower, 146/61 pulse is 70 and regular Oxygen saturation is 99% on 2 L nasal cannula White blood cell count has remained normal now for several days 8.6, Potassium is come up to 4.1, will DC IV potassium supplements and change to 20 mEq p.o. daily , renal functions are stable Patient is sitting up in a chair which is the first time of seeing her up out of bed since surgery. Patient is waiting for nursing home facility placement for continued physical therapy and rehab. May take longer than usual due to nursing homes not accepting patients due to COVID virus. Patient is medically stable for discharge 12/27/2019 After extensive discussion with the patient and her son and evaluation by psychiatry on 04/26/2020 the patient has now agreed for transfer to the extended care facility. She is tolerating a regular diet her drains been removed her elmer have been removed she is having normal bowel function and ready for discharge to extended-care facility today. At the extended care facility she will be working on physical rehabilitation so she would be able to perform ADLs and get out of bed by herself. She will remain on her own preoperative medications and will be discharged on Protonix 40 mg p.o. twice daily She will be followed up in the surgical clinic in 7 to 10 days after discharge. - Additional Information Resuscitation Status: Full Code Discharge Diet: As Tolerated Discharge Activity: Activity As Tolerated Referrals: [facility] [Provider Group] [facility] [Outside] CARI RUBIO MD [Primary Care Provider] - Follow up as needed Home Medications: Gabapentin [Neurontin 300 mg Capsule] 600 mg PO Q8 04/07/19 Alprazolam [Xanax 0.25 mg Tablet] 0.25 mg PO Q12HP PRN 12/06/19 Buspirone HCl [Buspar 10 mg Tablet] 30 mg PO BID 12/06/19 Metoprolol Tartrate [Lopressor 50 mg Tablet] 50 mg PO Q12 12/06/19 Albuterol Sulfate [Proair HFA Inhalation Aerosol 8.5 gm MDI] 2 puff IH QID 12/14/19 Prednisone 0 tab PO ASDIR PRN 12/14/19 Sertraline HCl [Zoloft 50 mg Tablet] 100 mg PO DAILY 12/14/19 Pantoprazole Sodium [Protonix [address] Packet] 40 mg PO Q12HP PRN 12/27/19 History of Present Illiness History of Present Illness: HAILEE VARELA is a 74 year old female Physical Exam Vital Signs: Temp Pulse Resp BP Pulse Ox 98.1 F 74 18 147/67 H 91 L 12/27/19 00:00 12/27/19 00:00 12/27/19 00:00 12/27/19 00:00 12/27/19 00:39 Intake & Output 12/26/19 12/27/19 12/28/19 06:59 06:59 06:59 Intake Total 365 340 Output Total 20 Balance 345 340 Weight 58.8 kg 58 kg Results Laboratory Results: WBC 9.8 10^3/uL (4.0-10.5) 12/25/19 19:07 RBC 3.84 10^6/uL (3.72-5.28) 12/25/19 19:07 Hgb 11.3 g/dL (12.0-15.5) L 12/25/19 19:07 Hct 33.7 % (36.0-47.0) L 12/25/19 19:07 MCV 88 fl (80-97) 12/25/19 19:07 MCH 29.6 pg (27.0-33.4) 12/25/19 19:07 MCHC 33.6 g/dL (32.0-36.0) 12/25/19 19:07 RDW 14.0 % (11.5-14.0) 12/25/19 19:07 Plt Count 449 10^3/uL (150-450) 12/25/19 19:07 Lymph % (Auto) 7.6 % (13-45) L 12/25/19 19:07 Navarro % (Auto) 5.2 % (3-13) 12/25/19 19:07 Eos % (Auto) 2.4 % (0-6) 12/25/19 19:07 Baso % (Auto) 0.4 % (0-2) 12/25/19 19:07 Absolute Neuts (auto) 8.3 10^3/uL (1.7-8.2) H 12/25/19 19:07 Absolute Lymphs (auto) 0.8 10^3/uL (0.5-4.7) 12/25/19 19:07 Absolute Monos (auto) 0.5 10^3/uL (0.1-1.4) 12/25/19 19:07 Absolute Eos (auto) 0.2 10^3/uL (0.0-0.6) 12/25/19 19:07 Absolute Basos (auto) 0.0 10^3/uL (0.0-0.2) 12/25/19 19:07 Total Counted 100 12/22/19 07:31 Seg Neutrophils % 84.4 % (42-78) H 12/25/19 19:07 Seg Neuts % (Manual) 90 % (42-78) H 12/22/19 07:31 Lymphocytes % (Manual) 3 % (13-45) L 12/22/19 07:31 Monocytes % (Manual) 6 % (3-13) 12/22/19 07:31 Eosinophils % (Manual) 1 % (0-6) 12/22/19 07:31 Basophils % (Manual) 0 % (0-2) 12/22/19 07:31 Abs Neuts (Manual) 7.7 10^3/uL (1.7-8.2) 12/22/19 07:31 Abs Lymphs (Manual) 0.3 10^3/uL (0.5-4.7) L 12/22/19 07:31 Abs Monocytes (Manual) 0.5 10^3/uL (0.1-1.4) 12/22/19 07:31 Absolute Eos (Manual) 0.1 10^3/uL (0.0-0.6) 12/22/19 07:31 Abs Basophils (Manual) 0.0 10^3/uL (0.0-0.2) 12/22/19 07:31 Toxic Granulation SLIGHT 12/18/19 06:15 Platelet Comment ADEQUATE 12/22/19 07:31 Poikilocytosis SLIGHT 12/18/19 06:15 Anisocytosis SLIGHT 12/19/19 07:24 Tear Drop Cells SLIGHT 12/18/19 06:15 Ovalocytes SLIGHT 12/18/19 06:15 Schistocytes SLIGHT 12/18/19 06:15 RBC Morph Comment NORMO-CYTIC/CHROMIC 12/22/19 07:31 PT 16.4 SEC (11.4-15.4) H 12/15/19 04:52 INR 1.31 12/15/19 04:52 Carbonic Acid 1.17 mmol/L (1.05-1.35) 12/14/19 19:30 HCO3/H2CO3 Ratio 18:1 12/14/19 19:30 ABG pH 7.37 (7.35-7.45) 12/14/19 19:30 ABG pCO2 39.0 mmHg (35-45) 12/14/19 19:30 ABG pO2 44.6 mmHg (80-100) L 12/14/19 19:30 ABG HCO3 22.0 mmol/L (20-24) 12/14/19 19:30 ABG Total CO2 23.2 mmol/L (21-25) 12/14/19 19:30 ABG O2 Saturation 79.5 % (94-98) L 12/14/19 19:30 ABG Base Excess -2.9 mmol/L 12/14/19 19:30 VBG pH 7.29 (7.30-7.42) L 12/14/19 09:25 VBG pCO2 57.0 mmHg (35-63) 12/14/19 09:25 VBG HCO3 26.7 mmol/L (20-32) 12/14/19 09:25 VBG Base Excess -0.9 mmol/L 12/14/19 09:25 FiO2 30% 12/14/19 19:30 Sodium 134.6 mmol/L (137-145) L 12/25/19 19:07 Potassium 3.4 mmol/L (3.6-5.0) L 12/25/19 19:07 Chloride 99 mmol/L (98-107) 12/25/19 19:07 Carbon Dioxide 29 mmol/L (22-30) 12/25/19 19:07 Anion Gap 7 (5-19) 12/25/19 19:07 BUN 10 mg/dL (7-20) 12/25/19 19:07 Creatinine 0.39 mg/dL (0.52-1.25) L 12/25/19 19:07 Est GFR ( Amer) > 60 (>60) 12/25/19 19:07 Est GFR (Non-Af Amer) Cancelled 12/15/19 04:52 Est GFR (MDRD) Non-Af > 60 (>60) 12/25/19 19:07 Glucose 112 mg/dL (75-110) H 12/25/19 19:07 POC Glucose 103 mg/dL (70-110) 12/19/19 06:33 Lactic Acid 1.2 mmol/L (0.7-2.1) 12/14/19 19:50 Calcium 8.4 mg/dL (8.4-10.2) 12/25/19 19:07 Phosphorus 2.1 mg/dL (2.5-4.5) L 12/17/19 05:16 Magnesium 1.6 mg/dL (1.6-2.3) 12/25/19 19:07 Total Bilirubin 0.4 mg/dL (0.2-1.3) 12/25/19 19:07 Direct Bilirubin 0.0 mg/dL (0.0-0.4) 12/25/19 19:07 Neonat Total Bilirubin Not Reportable 12/25/19 19:07 Neonat Direct Bilirubin Not Reportable 12/25/19 19:07 Neonat Indirect Bili Not Reportable 12/25/19 19:07 AST 16 U/L (14-36) 12/25/19 19:07 ALT 6 U/L (<35) 12/25/19 19:07 Alkaline Phosphatase 84 U/L (38-126) 12/25/19 19:07 Ammonia < 8.7 umol/L (9-33) L 12/14/19 16:10 Troponin I < 0.012 ng/mL 12/15/19 04:52 Total Protein 5.8 g/dL (6.3-8.2) L 12/25/19 19:07 Albumin 2.9 g/dL (3.5-5.0) L 12/25/19 19:07 Amylase 110 U/L (30-110) 12/22/19 07:31 Lipase 570.2 U/L (23-300) H 12/22/19 07:31 EGFR Cancelled 12/15/19 04:52 TSH 4.48 uIU/mL (0.47-4.68) 12/14/19 09:25 Urine Color YELLOW 12/14/19 15:28 Urine Appearance CLEAR 12/14/19 15:28 Urine pH 5.0 (5.0-9.0) 12/14/19 15:28 Ur Specific Malone 1.030 12/14/19 15:28 Urine Protein NEGATIVE mg/dL (NEGATIVE) 12/14/19 15:28 Urine Glucose (UA) NEGATIVE mg/dL (NEGATIVE) 12/14/19 15:28 Urine Ketones TRACE mg/dL (NEGATIVE) H 12/14/19 15:28 Urine Blood NEGATIVE (NEGATIVE) 12/14/19 15:28 Urine Nitrite NEGATIVE (NEGATIVE) 12/14/19 15:28 Urine Bilirubin NEGATIVE (NEGATIVE) 12/14/19 15:28 Urine Urobilinogen NEGATIVE mg/dL (<2.0) 12/14/19 15:28 Ur Leukocyte Esterase NEGATIVE (NEGATIVE) 12/14/19 15:28 Urine WBC (Auto) 4 /HPF 12/14/19 15:28 Urine RBC (Auto) 2 /HPF 12/14/19 15:28 U Hyaline Cast (Auto) 4 /LPF 12/14/19 15:28 Squamous Epi Cells Auto 1 /HPF 12/14/19 15:28 Urine Mucus (Auto) RARE /LPF 12/14/19 15:28 Urine Ascorbic Acid NEGATIVE (NEGATIVE) 12/14/19 15:28 COVID-19 Source NASOPHARYNGEAL 12/23/19 21:00 COVID-19 ([place]) NOT DETECTED 12/23/19 21:00 Blood Type A POSITIVE 12/14/19 10:15 Antibody Screen NEGATIVE 12/14/19 10:15 12/15/19 04:52 Troponin I < 0.012 Impressions: Chest X-Ray 12/14/19 09:04 IMPRESSION: Free intraperitoneal air. Basilar atelectasis. Chest X-Ray 12/14/19 14:37 IMPRESSION: Left basilar opacity with left pleural effusion. No finding on the current study to indicate free air in the abdomen. SUPPORT DEVICE(S) IN EXPECTED LOCATIONS. KUB X-Ray 12/14/19 21:00 IMPRESSION: 1. Nasogastric tube tip is in the body the stomach. 2. Drain overlies left abdomen, terminating in the mid upper abdomen as on prior exam. Midline skin elmer are noted. 3. No bowel distention. Upper GI Series-Limited 12/18/19 00:00 IMPRESSION: NO EVIDENCE OF EXTRAVASATION OR LEAK OF CONTRAST. POSTOPERATIVE EDEMA ALONG THE ANTERIOR ASPECT OF THE ANTRUM OF THE STOMACH. STUDY LIMITED DUE TO POOR MOBILITY ON THE PART OF THE PATIENT.
[2019-12-27] MEDS: METOPROLOL TARTRATE 50 MG TABLET PO SCH (09:03)
[2019-12-27] MEDS: ENOXAPARIN SODIUM INJ 40 MG/0.4 ML DISP.SYRIN SUBCUT SCH (09:03)
[2019-12-27] MEDS: DOCUSATE SODIUM 100 MG CAPSULE PO SCH (09:03)
[2019-12-27] MEDS: BUSPIRONE HCL 10 MG TABLET PO SCH (09:03)
[2019-12-27] MEDS: POTASSIUM CHLORIDE 10 MEQ TABLET.ER PO SCH (09:03)
[2019-12-27] MEDS: ALBUTEROL SULFATE HFA (90 MCG/PUFF) 200 PUFF/8.5 GM MDI IH SCH ×2 (09:04→13:18)
[2019-12-27 09:59] LABS: ABSOLUTE EOSINOPHILS # (AUTO) 0.2 10^3/uL (0.0-0.6); ABSOLUTE LYMPHOCYTES (AUTO) 0.7 10^3/uL (0.5-4.7); ABSOLUTE MONOCYTES (AUTO) 0.4 10^3/uL (0.1-1.4); ABSOLUTE NEUT (AUTO) 3.5 10^3/uL (1.7-8.2); BASOPHILS % (AUTO) 0.9 % (0-2); EOSINOPHILS % (AUTO) 4.9 % (0-6); HEMATOCRIT 33.9 % (36.0-47.0); HEMOGLOBIN 11.7 g/dL (12.0-15.5); LYMPHOCYTES % (AUTO) 13.5 % (13-45); MEAN CORPUSCULAR HGB CONC 34.6 g/dL (32.0-36.0); MEAN CORPUSCULAR VOLUME 87 fl (80-97); MONOCYTES % (AUTO) 7.7 % (3-13); PLATELET COUNT 372 10^3/uL (150-450); RED CELL DISTRIBUTION WIDTH 14.2 % (11.5-14.0); TOTAL CELLS COUNTED % (AUTO) 100 %; WHITE BLOOD COUNT 4.8 10^3/uL (4.0-10.5)
[2019-12-27 10:24] LABS: ALBUMIN 2.7 g/dL (3.5-5.0); ALKALINE PHOSPHATASE 74 U/L (38-126); ANION GAP 5 (5-19); ASPARTATE AMINO TRANSFERASE 18 U/L (14-36); BILIRUBIN,DIRECT 0.1 mg/dL (0.0-0.4); BILIRUBIN,TOTAL 0.4 mg/dL (0.2-1.3); BLOOD UREA NITROGEN 11 mg/dL (7-20); CALCIUM 8.4 mg/dL (8.4-10.2); CARBON DIOXIDE 29 mmol/L (22-30); CHLORIDE 101 mmol/L (98-107); GLUCOSE 97 mg/dL (75-110); POTASSIUM 4.3 mmol/L (3.6-5.0); TOTAL PROTEIN 5.5 g/dL (6.3-8.2)
[2019-12-27 14:51] VITALS: BP 135/65
== END 2019-12-27 15:35 | DRG 327 ==
LOC: ER 09:02 → EH 10:51 → ICU 13:57 → 4N 12-15 12:57
PROVIDERS: ADMIT Internal Medicine Critical Care Medicine; ATTEND Surgery
PROC: 0DB70ZX Excision of Stomach, Pylorus, Open Approach, Diagnostic (ICD-10-PCS; 2019-12-14)
PROC: 0D9670Z Drainage of Stomach with Drainage Device, Via Natural or Artificial Opening (ICD-10-PCS; 2019-12-14)
PROC: 0DU707Z Supplement Stomach, Pylorus with Autologous Tissue Substitute, Open Approach (ICD-10-PCS; principal; 2019-12-14 12:00)
DX: K25.1 Acute gastric ulcer with perforation (principal); E87.2 Acidosis; K66.8 Other specified disorders of peritoneum; E87.6 Hypokalemia; J44.9 Chronic obstructive pulmonary disease, unspecified; I10 Essential (primary) hypertension; K66.0 Peritoneal adhesions (postprocedural) (postinfection); F41.9 Anxiety disorder, unspecified; Z90.49 Acquired absence of other specified parts of digestive tract; Z99.81 Dependence on supplemental oxygen; Z90.710 Acquired absence of both cervix and uterus; Z79.899 Other long term (current) drug therapy; Z75.1 Person awaiting admission to adequate facility elsewhere; Z85.038 Personal history of other malignant neoplasm of large intestine; Z82.5 Family history of asthma and other chronic lower respiratory diseases; Z03.818 Encounter for observation for suspected exposure to other biological agents ruled out
CPT/HCPCS: 00790; 36415; 71045; 74018; 74240; 80048; 80053; 81001; 82140; 82150; 82803; 82962; 83605; 83690; 83735; 84100; 84443; 84484; 85025; 85610; 86850; 86900; 86901; 87040; 87077; 87150; 87186; 87635; 88305; 88342; 93005; 93010; 94002; 99285; 99291; C9113; J0330; J0690; J1100; J1170; J1450; J1650; J2060; J2250; J2270; J2370; J2405; J2704; J3010; J3480; J3490; J7120; J7121; P9041